=== PATIENT | female | born 1945 | race African-American/Black ===

== ENCOUNTER 2016-03-09 17:17 | Emergency (ER) | payer MEDICARE, OTHER ==
[~2016-03-09] VITALS: Ht 170.2 cm; Wt 80.0 kg
[~2016-03-09 17:17] MED LIST: ALBU0.08 NEB; ASPI325T PO; ATOR10TA15 PO; CLOP75TA PO; FISHCAP PO; FLOV110A INH; GLUCTAB PO; LEFL20 PO; METH2.5 PO; METO50TA PO; RANI150 PO
[2016-03-09 17:21] VITALS: BP 149/97; PULSE 122; RESP 24; TEMP 97.9; O2SAT 96
[2016-03-09] MEDS ORDERED: METH2.5T PO ×2 (18:13→19:37)
[2016-03-09] MEDS ORDERED: GLUCTAB PO ×2 (18:13→19:37)
--- NOTE | 2016-03-09 18:13 | RADRPT ---
EXAM DATE/TIME: 03/09/2016 17:43 [facility] COMPARISON: CHEST SINGLE AP, August 08, 2015, 21:32. INDICATIONS : Left anterior rib pain, fell MEDICAL HISTORY : None. SURGICAL HISTORY : Growth removed from sternum ENCOUNTER: Initial ACUITY: 3 days PAIN SCORE: 8/10 LOCATION: Left chest FINDINGS: Median sternotomy wires are noted status post cardiac surgery. Bibasilar atelectasis and/or minimal pulmonary vascular congestion is noted. The heart is normal in size. CONCLUSION: 1. Bibasilar atelectasis and/or minimal pulmonary vascular congestion. German Batista MD on March 09, 2016 at 18:00 Board Certified Radiologist. This report was verified electronically.
[2016-03-09 18:19] VITALS: BP 198/94; PULSE 102; RESP 20; O2SAT 99
[2016-03-09] MEDS ORDERED: ACETAMINOPHEN 325 MG TAB PO ONE (18:30)
[2016-03-09] MEDS ORDERED: METOPROLOL TARTRATE 50 MG TAB PO ONE (18:30)
--- NOTE | 2016-03-09 18:31 | PD ---
HPI Chief Complaint: Fall Time Seen by Provider: 18:00 Travel History International Travel<30 days: No Contact w/Intl Traveler<30days: No Traveled to known affect area: No History of Present Illness HPI Patient is a 71-year-old female who presents emergency for evaluation of left anterior rib pain. Patient states that she had in all 2 days ago on Thursday [place] She states that she was attempting to get out of bed when she fell forward landing on the floor. She denies any head injury or loss of consciousness. She denies any shortness of breath, back pain, neck pain, leg pain, hip pain. She denies any dizziness, chest pain, shortness of breath prior to the fall. She reports chronic neck and head pain as well as chronic joint pain secondary to rheumatoid arthritis. She denies any new or exacerbated pain. Patient went up [place] for approximately one [place] and did not take her home medications with her. At the time of the fall she had not taken Plavix or aspirin for several days. PFSH Past Medical History Hx Anticoagulant Therapy: Yes (PLAVIX) Arthritis: Yes Asthma: No Autoimmune Disease: No Blood Disorders: No Anxiety: Yes (PT DENIES) Depression: No Heart Rhythm Problems: No Cancer: No Cardiac Catheterization: Yes (PER PATIENT 1997 AND 2003 HERE AT [facility]) Cardiovascular Problems: Yes High Cholesterol: Yes Chemotherapy: No Chest Pain: Yes Congestive Heart Failure: No COPD: Yes Cerebrovascular Accident: No Diabetes: Yes Patient Takes Glucophage: Yes Diminished Hearing: Yes (LEFT SIDE [place]) Endocrine: Yes Gastrointestinal Disorders: Yes (H PYLORII) GERD: Yes (hx) Glaucoma: No Genitourinary: No Headaches: Yes Hepatitis: No Hiatal Hernia: No Hypertension: Yes Immune Disorder: No Implanted Vascular Access Dvce: No Kidney Stones: No Medical other: Yes (GERD; ANGIOEDEMA) Musculoskeletal: Yes Neurologic: Yes Psychiatric: Yes Reproductive: No Respiratory: Yes (PNEUMONIA) Immunizations Current: Yes Migraines: No Myocardial Infarction: Yes ([place] X 2) Radiation Therapy: No Renal Failure: No Seizures: No Sickle Cell Disease: No Sleep Apnea: No Thyroid Disease: No Ulcer: No Influenza Vaccination: Yes PNEUMOCCOCAL Vaccine (Year): 1 Menopausal: Yes : 5 Para: 2 Miscarriage: 3 Ectopic : Yes (X 1) Ovarian Cysts: Yes Tubal Ligation: Yes Past Surgical History Abdominal Surgery: Yes (ECTOPIC PREG) AICD: No Appendectomy: Yes Arteriovenous Shunt: No Body Medical Devices: STENTS Cardiac Surgery: Yes Cholecystectomy: No Coronary Artery Bypass Graft: No Coronary Stent: Yes (STENTS X 3) Ear Surgery: No Endocrine Surgery: No Eye Surgery: Yes (CATARACT SURGERY BILATERAL) Gynecologic Surgery: Yes (ONE OVARY REMOVED AND ONE FALLOPIAN TUBE REMOVED ) Insulin Pump: No Joint Replacement: No Oral Surgery: Yes (TEETH REMOVED) Pacemaker: No Tonsillectomy: Yes Other Surgery: Yes (BENIGN GROWTH REMOVED FROM STERNUM; CYSTS REMOVED FROM BILAT. BREASTS) Family History Family Myocardial Infarction: Yes (MOM) Social History Alcohol Use: No Tobacco Use: Yes (6 CIGARETTES) Substance Use: No Allergies-Medications (Allergen,Severity, Reaction): Coded Allergies: Contrast Media (Verified Allergy, Severe, Edema, 03/09/16) angioedema per pt Penicillin (Verified Allergy, Severe, Anaphylaxis, 03/09/16) Vasotec (Verified Allergy, Severe, Swelling, 03/09/16) Uncoded Allergies: EVERYTHING ON AND OFF..;ANGIODEMA... (Allergy, Severe, Anaphylaxis, 01/05/10 ) TAKES 60 MG PREDNISONE,150MG ZANTAC AND 50MG BENADRYL WHEN TONGUE BEGINS TO SWELL AND LIPS SWELL mycins (Allergy, Severe, 01/05/10) Reported Meds & Prescriptions Reported Meds & Active Scripts Active Atorvastatin (Atorvastatin Calcium) 10 Mg Tab 10 Mg PO HS Reported Methotrexate 2.5 Mg Tab 2.5 Mg PO Q7D Glucophage XR (Metformin HCl) 500 Mg Dolly 1,000 Mg PO BID With evening meal Metoprolol Tartrate 50 Mg Tab 50 Mg PO DAILY Clopidogrel (Clopidogrel Bisulfate) 75 Mg Tab 75 Mg PO DAILY Aspirin 325 Mg Tab 325 Mg PO DAILY Albuterol Neb (Albuterol Sulfate) 2.5 Mg/3 Ml Neb 2.5 Mg NEB Q4HR NEB PRN Review of Systems Except as stated in HPI: all other systems reviewed are Neg Eyes: No: Photophobia, Visual changes HENT: No: Headaches Cardiovascular: No: Chest Pain or Discomfort Respiratory: No: Shortness of Breath Gastrointestinal: No: Abdominal Pain Musculoskeletal: Positive: Myalgias, Pain (left anterior rib cage) Neurologic: No: Weakness, Dizziness, Syncope Physical Exam Narrative GENERAL: Overweight, well-developed, alert female. Resting comfortably in no acute distress. SKIN: Warm and dry. HEAD: Atraumatic. Normocephalic. EYES: Pupils equal and round. No scleral icterus. No injection or drainage. ENT: No nasal bleeding or discharge. Mucous membranes pink and moist. NECK: Trachea midline. No JVD. CARDIOVASCULAR: Regular rate and rhythm. No murmur appreciated. RESPIRATORY: No accessory muscle use. Clear to auscultation. Scattered expiratory wheezes noted. No increased work of breathing. GASTROINTESTINAL: Abdomen soft, non-tender, nondistended. Hepatic and splenic margins not palpable. MUSCULOSKELETAL: No obvious deformities. No clubbing. No cyanosis. No edema. Tenderness to palpation on left anterior chest wall just below the left breast, no crepitus noted, no skin changes noted. NEUROLOGICAL: Awake and alert. No obvious cranial nerve deficits. Motor grossly within normal limits. Normal speech. PSYCHIATRIC: Appropriate mood and affect; insight and judgment normal. Data Data Last Documented VS Vital Signs Date Time Temp Pulse Resp B/P Pulse Ox O2 Delivery O2 Flow Rate FiO2 03/09/16 18:19 102 20 198/94 99 Room Air 03/09/16 17:21 97.9 Orders Chest, Single Ap (03/09/16 ) Metoprolol Tartrate (Lopressor) (03/09/16 18:30) Acetaminophen (Tylenol) (03/09/16 18:30) MDM Medical Decision Making Medical Screen Exam Complete: Yes Emergency Medical Condition: Yes Interpretation(s) Vital Signs Date Time Temp Pulse Resp B/P Pulse Ox O2 Delivery O2 Flow Rate FiO2 03/09/16 18:19 102 20 198/94 99 Room Air 03/09/16 17:21 97.9 122 24 149/97 96 Room Air Differential Diagnosis Contusion versus fracture versus strain versus sprain versus other Narrative Course Patient is a 71-year-old female who presents emergency department for evaluation of left anterior rib pain after she sustained a mechanical fall 2 days ago while north. States that she has has not taken her medication all week , she states that she left at home because she forgot it. Denies any other complaints at this time, chest x-ray ordered. Patient placed on monitoring analyst and continuous pulse oximetry. Patient was tachycardic on arrival, her heart rate is now 102. Chest x-ray shows basilar atelectasis and/or minimal pulmonary vascular congestion. Patient will be home dose of metoprolol tartrate now. Vital signs reassessed, heart rate is 78, blood pressure is 159/86. Patient states that the only did she not take her blood pressure medicines for the last week but she is out of her blood pressure medications. Patient will be provided with prescription refills of her home medications, she is advised to establish care with a primary doctor for ongoing evaluation and management of her chronic health conditions. She is encouraged to maintain compliance with prescribed medications to avoid any further complications. Patient was encouraged to alternate heat and ice to the affected area, take acetaminophen as needed and as directed for pain. She is encouraged to return to emergency department for any new or worsening symptoms. She verbalized understanding of these instructions. Patient is stable for discharge. Diagnosis Primary Impression: Rib pain on left side Additional Impressions: Hypertension Qualified Code: I10 - Essential hypertension Encounter for medication refill Referrals: [facility] Patient Instructions: Chronic Hypertension (ED), General Instructions, Rib Contusion (ED) Additional Instructions: Establish care with a primary care provider or follow up at [facility] Return to emergency department for any new or worsening symptoms Take all medications as previously prescribed, refills have been provided for you You can alternate heat and ice to the affected area of pain Take [id number] acetaminophen as needed and as directed for pain Med/Other Pt SpecificInfo: Prescription(s) given Scripts Blood Glucose Test Strips 1 Sandhya Sandhya #60 EA .ROUTE DIRECTED Ref 0 Prov:Krysta Pimentel 03/09/16 Accu-Chek La Glucose Monitor 1 Mis Mis #1 KIT .ROUTE DIRECTED Ref 0 Prov:Krysta Pimentel 03/09/16 Methotrexate 2.5 Mg Tab2.5 Mg PO Q7D #4 TAB Ref 0 Prov:Krysta Pimentel 03/09/16 Metformin ER (Glucophage XR)500 Mg Taber1,000 Mg PO BID #60 TAB Ref 0 Prov:Krysta Pimentel 03/09/16 Atorvastatin 10 Mg Tab10 Mg PO HS #30 TAB Ref 3 Prov:Krysta Pimentel 03/09/16 Metoprolol Tartrate 50 Mg Tab50 Mg PO DAILY #30 TAB Ref 0 Prov:Krysta Pimentel 03/09/16 Clopidogrel 75 Mg Tab75 Mg PO DAILY #30 TAB Ref 0 Prov:Krysta Pimentel 03/09/16 Aspirin 325 Mg Sts490 Mg PO DAILY #30 TAB Ref 0 Prov:Krysta Pimentel 03/09/16 Albuterol Neb 2.5 Mg/3 Ml Neb2.5 Mg NEB Q4HR NEB PRN (SHORTNESS OF BREATH) #60 NEBULE Ref 0 Prov:Krysta Pimentel 03/09/16 Disposition: 01 DISCHARGE HOME Condition: Stable Krysta Pimentel Mar 09, 2016 18:31
[2016-03-09 19:00] VITALS: BP 159/83; PULSE 73; RESP 16; TEMP 97.9; O2SAT 95
[2016-03-09] MEDS ORDERED: METO50TA PO (19:37)
[2016-03-09] MEDS ORDERED: ASPI325T PO (19:37)
[2016-03-09] MEDS ORDERED: CLOP75TA PO (19:37)
[2016-03-09] MEDS ORDERED: ATOR10TA15 PO (19:37)
[2016-03-09] MEDS ORDERED: ALBU0.08 NEB (19:37)
[2016-03-09] MEDS ORDERED: BLOO1MIS29 (19:40)
[2016-03-09] MEDS ORDERED: BLOOD GLUCOSE T1 TES (19:40)
== END 2016-03-09 20:04 | disposition home or self-care (01) ==
LOC: NEPC 17:17
DX: R07.81 Pleurodynia (principal); I10 Essential (primary) hypertension; M06.9 Rheumatoid arthritis, unspecified; E78.00 Pure hypercholesterolemia, unspecified; E11.9 Type 2 diabetes mellitus without complications; Z76.0 Encounter for issue of repeat prescription; Z72.0 Tobacco use; Z79.84 Long term (current) use of oral hypoglycemic drugs; Z87.19 Personal history of other diseases of the digestive system; Z87.09 Personal history of other diseases of the respiratory system; Z87.39 Personal history of other diseases of the musculoskeletal system and connective tissue; Z86.69 Personal history of other diseases of the nervous system and sense organs; Z86.59 Personal history of other mental and behavioral disorders; W06.XXXA Fall from bed, initial encounter
CPT/HCPCS: 71010; 99284

== ENCOUNTER 2016-03-15 20:48 | Observation (INO) | payer MEDICARE, OTHER ==
[~2016-03-15] VITALS: Ht 170.2 cm; Wt 85.7 kg
[~2016-03-15 20:48] MED LIST changes: +BLOO1MIS29; +BLOOD GLUCOSE T1 TES; -FISHCAP PO; -FLOV110A INH; -LEFL20 PO; -METH2.5 PO; +METH2.5T PO; -RANI150 PO
[2016-03-15 20:52] VITALS: BP 152/75; PULSE 92; RESP 20; TEMP 98.5; O2SAT 96
[2016-03-15 21:08] VITALS: RESP 16; O2SAT 97
[2016-03-15] MEDS ORDERED: SODIUM CHLORIDE 0.9% FLUSH 5 ML FLUSH IVF PRN ×2 (21:15→23:15)
--- NOTE | 2016-03-15 21:40 | RADRPT ---
EXAM DATE/TIME: 03/15/2016 21:18 [facility] COMPARISON: CHEST SINGLE AP, March 09, 2016, 17:43. INDICATIONS : Chest Pain MEDICAL HISTORY : Chronic obstructive pulmonary disease. Cardiovascular disease. Hypertension. Diabetes mellitus type 2. SURGICAL HISTORY : Heart stents times three ENCOUNTER: Initial ACUITY: 1 day PAIN SCORE: 10/10 LOCATION: Left chest FINDINGS: Sternal wires are noted. There is mild interstitial edema with minimal cardiomegaly. There is no pn eumothorax. The portion of the bony skeleton visualized is unremarkable. CONCLUSION: Mild interstitial edema. Erik Solis MD FACR on March 15, 2016 at 21:38 Board Certified Radiologist. This report was verified electronically.
[2016-03-15 21:41] LABS: AUTOMATED NEUTROPHIL # 8.4 TH/MM3 (1.8-7.7); BASOPHIL # 0.1 TH/MM3 (0-0.2); BASOPHIL % 0.6 % (0.0-2.0); EOSINOPHIL # 0.1 TH/MM3 (0-0.4); HEMATOCRIT 39.1 % (35.0-46.0); HEMO FLAGS DIFF FINAL; LYMPH % 23.1 % (9.0-44.0); LYMPHOCYTE # 2.8 TH/MM3 (1.0-4.8); MEAN CELL VOLUME 78.9 FL (80.0-100.0); MEAN CORPUSCULAR HEMOGLOBIN 26.2 PG (27.0-34.0); MEAN CORPUSCULAR HGB CONC 33.2 % (32.0-36.0); MONO % 6.1 % (0.0-8.0); NEUT % 69.2 % (16.0-70.0); PLATELET COUNT 343 TH/MM3 (150-450); RED BLOOD COUNT 4.96 MIL/MM3 (4.00-5.30); RED CELL DISTRIBUTION WIDTH 18.2 % (11.6-17.2); WHITE BLOOD COUNT 12.1 TH/MM3 (4.0-11.0)
[2016-03-15 22:04] LABS: APTT (PATIENT) 28.5 SEC (24.3-30.1); PROTHROMBIN TIME - PATIENT 11.1 SEC (9.8-11.6)
--- NOTE | 2016-03-15 22:37 | PD ---
HPI Chief Complaint: Chest Pain Time Seen by Provider: 22:32 Travel History International Travel<30 days: No Contact w/Intl Traveler<30days: No Traveled to known affect area: No History of Present Illness HPI 71-year-old female that presents to the ED for evaluation of left-sided chest pain. Per patient she's had this since she had an injury last week. Patient states that the pain has not improved and seems to be worsening. She does have a history of significant heart disease. She states that today she had a severe episode in which she had severe debilitating pain on her left chest all the way to her head and numbness and tingling to her left arm. Lasted a few minutes. Per patient she felt short of breath the same time and she wasn't sure if this is related to the heart or not. Pain was 10 out of 10. She states that this was what made her concern and this is why she called the ambulance. Per patient she had a fall where she injured her left chest last . Per patient she landed on a piece of furniture. She does also hit her head at the time but she did not lose consciousness. Denies taking any blood thinners. She states that she's been taking her medications that were refilled for her on her visit last weekend but she states that the pain is not improving. She has been taking tylenol with minimal relief. She also has a history of rheumatoid arthritis and has chronic pain and states that she doesn't like taking pain medication because it makes her feel funny. Per patient nothing seems to make it better and she states that nothing seems to help. Per patient the pain also comes no matter what. Denies any headache that is different at this time, although she states that she has chronic headaches which is normal for her. Denies any blurry vision. Denies any other symptom. No abdominal pain. No nausea or vomiting. She does tell me that she has chronic pain in her joints secondary to rheumatoid arthritis but this has not changed. PFSH Past Medical History Hx Anticoagulant Therapy: Yes (PLAVIX) Arthritis: Yes Asthma: No Autoimmune Disease: No Blood Disorders: No Anxiety: Yes (PT DENIES) Depression: No Heart Rhythm Problems: No Cancer: No Cardiac Catheterization: Yes (PER PATIENT 1997 AND 2003 HERE AT [facility]) Cardiovascular Problems: Yes High Cholesterol: Yes Chemotherapy: No Chest Pain: Yes Congestive Heart Failure: No COPD: Yes Cerebrovascular Accident: Yes Diabetes: Yes Patient Takes Glucophage: Yes Diminished Hearing: Yes (LEFT SIDE [place]) Endocrine: Yes Gastrointestinal Disorders: Yes (H PYLORII) GERD: Yes (hx) Glaucoma: No Genitourinary: No Headaches: Yes Hepatitis: No Hiatal Hernia: No Hypertension: Yes Immune Disorder: No Implanted Vascular Access Dvce: No Kidney Stones: No Medical other: Yes (GERD; ANGIOEDEMA) Musculoskeletal: Yes Neurologic: Yes Psychiatric: Yes Reproductive: No Respiratory: Yes Immunizations Current: Yes Migraines: No Myocardial Infarction: Yes ([place] X 2) Radiation Therapy: No Renal Failure: No Seizures: No Sickle Cell Disease: No Sleep Apnea: No Thyroid Disease: No Ulcer: No Tetanus Vaccination: > 5 Years Influenza Vaccination: Yes PNEUMOCCOCAL Vaccine (Year): 1 Menopausal: Yes : 5 Para: 2 Miscarriage: 3 Ectopic : Yes (X 1) Ovarian Cysts: Yes Tubal Ligation: Yes Past Surgical History Abdominal Surgery: Yes (ECTOPIC PREG) AICD: No Appendectomy: Yes Arteriovenous Shunt: No Body Medical Devices: STENTS Cardiac Surgery: Yes Cholecystectomy: No Coronary Artery Bypass Graft: No Coronary Stent: Yes (STENTS X 3) Ear Surgery: No Endocrine Surgery: No Eye Surgery: Yes (CATARACT SURGERY BILATERAL) Gynecologic Surgery: Yes (ONE OVARY REMOVED AND ONE FALLOPIAN TUBE REMOVED ) Insulin Pump: No Joint Replacement: No Oral Surgery: Yes (TEETH REMOVED) Pacemaker: No Tonsillectomy: Yes Other Surgery: Yes (BENIGN GROWTH REMOVED FROM STERNUM; CYSTS REMOVED FROM BILAT. BREASTS) Family History Family Myocardial Infarction: Yes (MOM) Social History Alcohol Use: No Tobacco Use: Yes (6 CIGARETTES) Substance Use: No Allergies-Medications (Allergen,Severity, Reaction): Coded Allergies: Contrast Media (Verified Allergy, Severe, Edema, 03/15/16) angioedema per pt Penicillin (Verified Allergy, Severe, Anaphylaxis, 03/15/16) Vasotec (Verified Allergy, Severe, Swelling, 03/15/16) Uncoded Allergies: EVERYTHING ON AND OFF..;ANGIODEMA... (Allergy, Severe, Anaphylaxis, 01/05/10 ) TAKES 60 MG PREDNISONE,150MG ZANTAC AND 50MG BENADRYL WHEN TONGUE BEGINS TO SWELL AND LIPS SWELL mycins (Allergy, Severe, 01/05/10) Reported Meds & Prescriptions Reported Meds & Active Scripts Active Blood Glucose Test Strips 1 Sandhya Sandhya 1 Ea .ROUTE DIRECTED Accu-Chek La Glucose Monitor (Device) 1 Mis Mis 1 Kit .ROUTE DIRECTED Methotrexate 2.5 Mg Tab 2.5 Mg PO Q7D Glucophage XR (Metformin HCl) 500 Mg Dolly 1,000 Mg PO BID Atorvastatin (Atorvastatin Calcium) 10 Mg Tab 10 Mg PO HS Metoprolol Tartrate 50 Mg Tab 50 Mg PO DAILY Clopidogrel (Clopidogrel Bisulfate) 75 Mg Tab 75 Mg PO DAILY Aspirin 325 Mg Tab 325 Mg PO DAILY Albuterol Neb (Albuterol Sulfate) 2.5 Mg/3 Ml Neb 2.5 Mg NEB Q4HR NEB PRN Review of Systems Except as stated in HPI: all other systems reviewed are Neg Physical Exam Narrative GENERAL: SKIN: Warm and dry. HEAD: Atraumatic. Normocephalic. EYES: Pupils equal and round. No scleral icterus. No injection or drainage. ENT: No nasal bleeding or discharge. Mucous membranes pink and moist. NECK: Trachea midline. No JVD. CARDIOVASCULAR: Regular rate and rhythm. No murmurs, S3, S4. Chest pain is somewhat reproducible with touch and I do not see any sign of injury. RESPIRATORY: No accessory muscle use. Clear to auscultation. Breath sounds equal bilaterally. GASTROINTESTINAL: Abdomen soft, non-tender, nondistended. Hepatic and splenic margins not palpable. MUSCULOSKELETAL: Extremities without clubbing, cyanosis, or edema. No obvious deformities. Full range of motion of the upper and lower extremities bilaterally. 2+ pulses bilaterally. NEUROLOGICAL: Awake and alert. No obvious cranial nerve deficits. Motor grossly within normal limits. Five out of 5 muscle strength in the arms and legs. Normal speech. PSYCHIATRIC: Appropriate mood and affect; insight and judgment normal. Data Data Last Documented VS Vital Signs Date Time Temp Pulse Resp B/P Pulse Ox O2 Delivery O2 Flow Rate FiO2 03/15/16 21:08 97 Room Air 03/15/16 21:08 16 03/15/16 20:57 90 03/15/16 20:52 98.5 152/75 Orders Electrocardiogram (03/15/16 21:04) Basic Metabolic Panel (Bmp) (03/15/16 21:04) Ckmb (Isoenzyme) Profile (03/15/16 21:04) Complete Blood Count With Diff (03/15/16 21:04) Magnesium (Mg) (03/15/16 21:04) Prothrombin Time / Inr (Pt) (03/15/16 21:04) Act Partial Throm Time (Ptt) (03/15/16 21:04) Troponin I (03/15/16 21:04) Chest, Single Ap (03/15/16 21:04) Ecg Monitoring (03/15/16 21:04) Bilateral Bp Monitoring (03/15/16 21:04) Iv Access Insert/Monitor (03/15/16 21:04) Oximetry (03/15/16 21:04) Oxygen Administration (03/15/16 21:04) Sodium Chloride 0.9% Flush (Ns Flush) (03/15/16 21:15) Acetamin-Hydrocod 325-5 Mg (Superior 5-325 (03/15/16 23:00) Acetaminophen Inj (Ofirmev Inj) (03/15/16 23:00) Labs Laboratory Tests Test 03/15/16 20:50 White Blood Count 12.1 TH/MM3 Red Blood Count 4.96 MIL/MM3 Hemoglobin 13.0 GM/DL Hematocrit 39.1 % Mean Corpuscular Volume 78.9 FL Mean Corpuscular Hemoglobin 26.2 PG Mean Corpuscular Hemoglobin 33.2 % Concent Red Cell Distribution Width 18.2 % Platelet Count 343 TH/MM3 Mean Platelet Volume 7.6 FL Neutrophils (%) (Auto) 69.2 % Lymphocytes (%) (Auto) 23.1 % Monocytes (%) (Auto) 6.1 % Eosinophils (%) (Auto) 1.0 % Basophils (%) (Auto) 0.6 % Neutrophils # (Auto) 8.4 TH/MM3 Lymphocytes # (Auto) 2.8 TH/MM3 Monocytes # (Auto) 0.7 TH/MM3 Eosinophils # (Auto) 0.1 TH/MM3 Basophils # (Auto) 0.1 TH/MM3 CBC Comment DIFF FINAL Differential Comment Prothrombin Time 11.1 SEC Prothromb Time International 1.0 RATIO Ratio Activated Partial 28.5 SEC Thromboplast Time Sodium Level 139 MEQ/L Potassium Level 4.0 MEQ/L Chloride Level 103 MEQ/L Carbon Dioxide Level 28.0 MEQ/L Anion Gap 8 MEQ/L Blood Urea Nitrogen 9 MG/DL Creatinine 0.84 MG/DL Estimat Glomerular Filtration 81 ML/MIN Rate Random Glucose 141 MG/DL Calcium Level 9.4 MG/DL Magnesium Level 1.9 MG/DL Total Creatine Kinase 47 U/L Troponin I LESS THAN 0.02 NG/ML MDM Medical Decision Making Medical Screen Exam Complete: Yes Emergency Medical Condition: Yes Medical Record Reviewed: Yes Interpretation(s) CBC Diagram 03/15/16 20:50 EKG showed sinus rhythm with no sign of acute arrhythmia or ischemia read by me and attending. Chest x-rays show mild interstitial edema otherwise unremarkable. troponin and CKMB negative BMP Diagram 03/15/16 20:50 Differential Diagnosis Chest pain versus a typical chest pain versus contusion versus rib fracture versus cardiac chest pain versus ACS Narrative Course 71-year-old female that presents to the ED for evaluation of left-sided chest pain. Patient was properly examined and was found to have signs and symptoms consistent appears to be chest pain. Appears to be musculoskeletal but she is concerned about the severe episode she had before coming. She does have a history of significant heart disease and risk factors including diabetes, hypertension, smoking and family history of heart disease as well as recent noncompliance as she ran out of her meds. Case was discussed with my attending who recommends cardiac workup. Labs and imaging were done. Patient was initially offered pain medication but she declined at this time. Labs and imaging showed no sign of acute disease. Case was discussed in my attending as well as all laboratory findings and EKG findings were made aware to her. Dr. Cifuentes recommends admission to the chest pain center for cardiac workup secondary to her risks factors and the episode of severe pain. This was discussed with the patient who agrees to admission. I offered patient IV tylenol to help with her pain as she does not want any narcotic pain meds. She did agree to the tylenol. Patient was admitted to the chest pain center. Procedures EKG Prior to Arrival: No Diagnosis Primary Impression: Chest pain Qualified Code: R07.9 - Chest pain, unspecified type Admitting Information Admitting Physician Requests: Jaiden Godwin Mar 15, 2016 22:37
[2016-03-15 22:43] LABS: ANION GAP 8 MEQ/L (5-15); BLOOD UREA NITROGEN 9 MG/DL (7-18); CHLORIDE 103 MEQ/L (98-107); GLOMERULAR FILTRATION RATE 81 ML/MIN (>89); MAGNESIUM 1.9 MG/DL (1.5-2.5); SODIUM (NA) 139 MEQ/L (136-145)
[2016-03-15 22:48] LABS: CREATINE KINASE 47 U/L (26-192)
[2016-03-15] MEDS ORDERED: ACETAMINOPHEN 1000 MG/100 ML VIAL IV ONE (23:00)
[2016-03-15] MEDS ORDERED: ACETAMINOPHEN/HYDROcodone 325 MG/5 MG TAB PO ONE (23:00)
[2016-03-15] MEDS ORDERED: ONDANSETRON HCL 4 MG/2 ML VIAL IV PRN (23:15)
[2016-03-15] MEDS ORDERED: ACETAMINOPHEN 500 MG CPLT PO PRN (23:15)
[2016-03-15 23:37] VITALS: BP 134/77; PULSE 84; RESP 18; O2SAT 93
[2016-03-16] VITALS (10 sets, daily range): BP systolic 105–153; BP diastolic 55–72; PULSE 77–102; RESP 18–20; TEMP 95.5–98.1; O2SAT 94–100
[2016-03-16] MEDS ORDERED: TEMAZEPAM 15 MG CAP PO PRN (01:00)
[2016-03-16] MEDS ORDERED: RESP: ALBUTEROL 2.5 MG/3 ML NEB (PRN) NEB ×2 (01:00→10:15)
[2016-03-16] MEDS ORDERED: ACETAMINOPHEN/HYDROcodone 325 MG/7.5 MG TAB PO PRN (01:00)
[2016-03-16] MEDS: ATORVASTATIN 10 MG TAB PO SCH ×2 (01:22→21:31)
[2016-03-16 03:35] LABS: INDIRECT BILIRUBIN 0.2 MG/DL (0.0-0.8); TOTAL BILIRUBIN ADULT 0.3 MG/DL (0.2-1.0)
[2016-03-16] MEDS: CLOPIDOGREL 75 MG TAB PO SCH (08:59)
[2016-03-16] MEDS: SODIUM CHLORIDE 0.9% FLUSH 5 ML FLUSH IVF SCH ×2 (09:00→21:32)
[2016-03-16] MEDS ORDERED: METOPROLOL TARTRATE 50 MG TAB PO SCH (09:00)
[2016-03-16] MEDS ORDERED: KETOROLAC TROMETHAMINE 30 MG/ML (IVP) VIAL IV PUSH ONE (10:15)
[2016-03-16 11:27] LABS: HEMOGLOBIN A1a 1.4 %; HEMOGLOBIN A1b 1.1 %; HEMOGLOBIN Ao 83.4 %; HEMOGLOBIN F 1.6 %; HEMOGLOBIN LA1C 1.8 %; HEMOGLOBIN P3 3.7 %
[2016-03-16] MEDS: RESP: ALBUTEROL 2.5 MG/3 ML NEB (SCH) NEB ×3 (11:40→20:20)
--- NOTE | 2016-03-16 12:27 | EKG ---
Date Performed: 03/15/2016 Time Performed: 21:55:54 PTAGE: 71 years EKG: Sinus rhythm MINIMAL VOLTAGE CRITERIA FOR LVH, CONSIDER NORMAL VARIANT POSSIBLE INFERIOR MYOCARDIAL INFARCTION AB NORMAL ECG PREVIOUS TRACING : 08/10/2015 18.54 DOCTOR: Juancarlos Quinn Interpretating Date/Time 03/16/2016 12:25:36
--- NOTE | 2016-03-16 12:36 | EKG ---
Date Performed: 03/15/2016 Time Performed: 23:48:32 PTAGE: 71 years EKG: Sinus rhythm NORMAL ECG PREVIOUS TRACING : 03/15/2016 21.55 DOCTOR: Juancarlos Quinn Interpretating Date/Time 03/16/2016 12:36:27
--- NOTE | 2016-03-16 12:54 | EKG ---
Date Performed: 03/16/2016 Time Performed: 02:52:20 PTAGE: 71 years EKG: Sinus rhythm MINIMAL VOLTAGE CRITERIA FOR LVH, CONSIDER NORMAL VARIANT PROBABLE INFERIOR MYOCARDIAL INFARCTION AB NORMAL ECG PREVIOUS TRACING : 03/15/2016 23.48 DOCTOR: Juancarlos Quinn Interpretating Date/Time 03/16/2016 12:53:24
[2016-03-16] MEDS ORDERED: REGADENOSON INJ 0.4 MG/5 ML SYR ONE (15:49)
--- NOTE | 2016-03-16 16:50 | RADRPT ---
EXAM DATE/TIME: 03/16/2016 15:03 [facility] COMPARISON: MYOCARDIAL PERF PHARM SPECT, GATED W/EF, August 10, 2015, 12:06. INDICATIONS : Left sided chest pain radiating to left arm for 1 week. Myocardial infarction, cardiac stents plac ed and cardiac cath. Angina. Congestive heart failure. DOSE: 25.9 mCi Tc99m Myoview at stress. 8.1 mCi Tc99m Myoview at rest. 0.4 mg Lexiscan STRESS SYMPTOMS: Stomach pain and headache. EJECTION FRACTION: > 70% MEDICAL HISTORY : Hypertension. Current smoker. SURGICAL HISTORY : Tubal ligation. Coronary artery stent. 1 ovary removed. ENCOUNTER: Initial ACUITY: 1 week PAIN SCALE: 10/10 LOCATION: Left chest TECHNIQUE: The patient underwent pharmacologic stress with infusion of prescribed dose. Continuous ECG tracing was monitored during stress. Gated SPECT imaging was performed after stress and conventional SPECT i maging was performed at rest. The examination was performed on a SPECT/CT scanner, both attenuation and non-corrected datasets were reviewed. FINDINGS: Moderate gut activity does obscure the inferior wall. The best perfused wall is the anterior wall followed by the septum. There is minimal redistribution in the mid anteroseptal region. There is normal wall motion ejection fraction of greater than 70%. CONCLUSION: Minimal stress-induced ischemia mid anteroseptal region RISK CATEGORY: Low (<1% Annual Mortality Rate) Erik Solis MD FACR on March 16, 2016 at 16:46 Board Certified Radiologist. This report was verified electronically.
--- NOTE | 2016-03-16 17:01 | TR ---
Date Performed: 03/16/2016 Time Performed: 15:51:01 DOCTOR: Juancarlos Quinn DRUG LIST: CLINICAL HISTORY: CHEST PAIN REASON FOR TEST: REASON FOR ENDING: OBSERVATION: CONCLUSION: Lexiscan stress test was performed under standard four minute protocol. Radionuclide was injected one minute prior to ending the test. The patient was asymptomatic. No electrocardiograp hic abnormalities were present to suggest ischemia. Recovery was quick and uneventful. Nuclear imagin g and interpretation are pending. COMMENTS:
[2016-03-16] MEDS ORDERED: DEXTROSE 50% IN WATER 50 ML VIAL(D50) IV PUSH PRN (18:00)
[2016-03-16] MEDS ORDERED: GLUCAGON 1 MG/ML VIAL OTHER PRN (18:00)
[2016-03-16] MEDS: PANTOPRAZOLE SOD 40 MG DELAYED RELEASE TAB PO SCH (18:12)
[2016-03-16] MEDS: METOPROLOL TARTRATE 50 MG TAB PO SCH (21:31)
[2016-03-16] MEDS: INSULIN ASPART SUPPLEMENTAL SCALE SQ SCH (21:32)
[2016-03-17] VITALS (8 sets, daily range): BP systolic 118–128; BP diastolic 65–78; PULSE 75–92; RESP 16–20; TEMP 97.5–98.5; O2SAT 93–98
[2016-03-17] MEDS: RESP: ALBUTEROL 2.5 MG/3 ML NEB (SCH) NEB ×3 (04:19→21:35)
[2016-03-17] MEDS ORDERED: diphenhydrAMINE HCL 50 MG/ML VIAL IV PUSH ONE ×2 (05:00)
[2016-03-17] MEDS ORDERED: PRED10PA PO (05:06)
[2016-03-17] MEDS ORDERED: PRED5PAK PO (05:06)
[2016-03-17] MEDS ORDERED: predniSONE 20 MG TAB PO ONE (05:30)
[2016-03-17] MEDS ORDERED: methylPREDNISolone SOD SUCC 125 MG/2 ML VIAL IV PUSH ONE (06:45)
[2016-03-17] MEDS: INSULIN ASPART SUPPLEMENTAL SCALE SQ SCH ×4 (07:00→22:22)
--- NOTE | 2016-03-17 08:57 | HHI.PR ---
Subjective Remarks Patient seen in follow up for chest pain. Abnormal nuclear stress test. Overnight the patient had a recurrence of angioedema. She reports that since her 20s she has had angioedema with tongue swelling on and off. It can happen though a couple of times a week. Other times she will go 7 months without any problems. Patient was given Solu-Medrol and Benadryl. Currently she reports that her tongue is feeling better. She denies difficulty with breathing or any feeling of throat swelling. She denies chest pressure currently. Objective Vitals Vital Signs Date Time Temp Pulse Resp B/P Pulse Ox O2 Delivery O2 Flow Rate FiO2 03/17/16 07:59 98.2 80 18 119/65 93 03/17/16 04:14 97.5 78 20 121/68 95 03/17/16 00:08 75 03/16/16 23:55 97.6 77 20 105/55 95 03/16/16 20:22 100 Nasal Cannula 2.00 03/16/16 20:02 79 03/16/16 19:03 98.0 85 20 153/72 95 03/16/16 13:27 20 03/16/16 12:00 95.5 84 18 123/69 97 03/16/16 08:42 95 Nasal Cannula 2.00 I/O 03/16/16 03/16/16 03/16/16 03/17/16 03/17/16 03/17/16 07:00 15:00 23:00 07:00 15:00 23:00 Intake Total 500 ml Balance 500 ml Intake Oral 500 ml # Voids 2 5 1 # Bowel Movements 0 Result Diagram: 03/15/16204903/15/162049 Imaging Last Impressions Myocardial Perfusion Scan Nuc Med 03/16/16 0000 Signed Impressions: Service Date/Time: Wednesday, March 16, 2016 15:03 - CONCLUSION: Minimal stress-induced ischemia mid anteroseptal region RISK CATEGORY: Low (<1%% Annual Mortality Rate) Erik Solis MD FACR Chest X-Ray 03/15/162103 Signed Impressions: Service Date/Time: Tuesday, March 15, 2016 21:18 - CONCLUSION: Mild interstitial edema. Erik Solis MD FACR Objective Remarks GENERAL: This is a well-nourished, well-developed patient, in no apparent distress. Speech somewhat difficult to understand due to tongue swelling HEENT: There is marked swelling of the glands under the tongue. The tongue is also swollen. I am unable to visualize the pharynx. CARDIOVASCULAR: Normal rate and regular rhythm without murmurs, gallops, or rubs. RESPIRATORY: Good respiratory efforts. Breath sounds equal and clear to auscultation bilaterally. GASTROINTESTINAL: Abdomen soft, non-tender, non-distended. Normal active bowel sounds MUSCULOSKELETAL: Patient is tender over the left rib below the breast. Extremities without cyanosis, or edema. NEURO: Alert & Oriented x4 to person, place, time, situation. Moves all ext x4 PSYCH: Appropriate mood and affect. A/P Assessment and Plan 71-year-old female with: Chest pain, abnormal nuclear stress test: Patient initially admitted to the chest pain center. Although pain appear to be musculoskeletal in nature. She had a fall and hit her chest about a week and a half ago. However her nuclear stress test is abnormal. - Patient with known CAD and stents. Continue aspirin and Plavix. - Cardiology consulted. Angioedema/significant tongue swelling: This has been a recurrent issue for this patient since she was in her 20s. Sometimes happen a few times a week. She would often be treated with steroids. Never intubated. She reports that she is allergic to many things and does not know the trigger. Her tongue swelling is currently still impressive and still at risk for respiratory compromise. - Continue Solu-Medrol IV for now 40 mg Q8Hrs - Monitor the patient closely. - Admit the patient to [facility]. Diabetes: Expect worsening and blood glucose due to steroid above. -Diabetic diet. Sliding scale insulin with Accu-Cheks. Hold metformin. Rheumatoid arthritis: On methotrexate every 7 days and 5 mg of prednisone daily. - Currently on steroid as above. DVT prophylaxis. SCDs Discharge Planning Admit the patient to the [facility], awaiting Cardiology evaluation for abnormal stress test, treat angioedema with close monitoring. Cary Hutchinson MD Mar 17, 2016 08:57
--- NOTE | 2016-03-17 09:39 | MH ---
cc: RACHAEL LOOMIS DATE OF ADMISSION 03/17/2016 DATE OF 1945 CHIEF COMPLAINT Chest pain. HISTORY OF PRESENT ILLNESS This is a 71-year patient with known coronary artery disease presents to the emergency room for sudden discomfort as though someone was sitting on her chest. Location in her substernal area. Severity was 7/10. There is radiation to her left jaw and her left shoulder. Duration was approximately 10-15 minutes. Associated symptoms included it was difficult to breathe. It did not hurt to breathe necessarily. No known precipitating factors and no relieving factors per se. The patient has also fallen recently on her left side and has some left-sided rib pain. The patient is very adamant that these two pains are not related and has two separate pain apart from one another. The patient is a poor historian. PAST MEDICAL HISTORY Includes: 1. COPD. 2. Type 2 diabetes mellitus. 3. Rheumatoid arthritis. 4. Osteoarthritis. 5. Chronic pain. 6. Chronic headaches. 7. Two heart attacks and stent placement. PAST SURGICAL HISTORY 1. Tubal ligation. 2. Cataracts. 3. Sternotomy with a resection. FAMILY HISTORY Noncontributory for any early onset cardiovascular disease. Mother noted to have cardiovascular disease, however. SOCIAL HISTORY She lives with her daughter. She continues to smoke although was unable to tell me how much she smoked, states that it varies from day to weeks how much she smokes, and she has smoked since age 15. Denies any alcohol or illegal drug use. Has known diabetes, hyperlipidemia. Denies hypertension. PAST CARDIAC TESTING She was actually admitted to the hospital 08/15 and note at that time she did have a nuclear stress test which showed no ischemia and ejection fraction of 52%. Per EMR on 01/08/2004 she had a stent placed in her mid RCA with angioplasty. 06/27/2004 she had diffuse moderate coronary artery disease with a totally occluded small distal circumflex that filled collaterally. On 08/16/2004 mild to moderate plaquing of her anterior descending and her right coronary arteries. She does not follow with a tube coater. She had an echocardiogram 2014 which showed slight mitral regurgitation and mid to moderate sclerosis. MEDICATIONS Current medications: She states she changes her medications according to how her body feels, as what she should take. Currently she is taking or recently started back takin. Metoprolol tartrate 50 mg daily. 2. Metformin 1000 mg b.i.d. 3. And aspirin full strength. She has quit taking methotrexate. Plavix and atorvastatin. REVIEW OF SYSTEMS GENERAL: She reports chronic pain, chronic malaise. No fevers, recent illness. Has recently traveled from [place], she was visiting up there at that time she did fall and injured her left side of her chest. HEENT: Reports chronic headaches for years. No visual changes. No dysphagia. CARDIOVASCULAR: No current chest pain, otherwise as stated above. RESPIRATORY: No current shortness of breath. Has some difficulty breathing during chest pain episode. Reports intermittent wheezing, she relates this to her life long smoking habit. No hemoptysis. ABDOMEN: No bowel changes, diarrhea or constipation, pain, distention, nausea or vomiting. GENITOURINARY: No dysuria. EXTREMITIES: No lower leg edema or pain. MUSCULOSKELETAL: Reports discomfort in her left anterior chest with movement and on palpation. NEUROLOGICAL: No difficulty with balance, motor or sensory deficits, loss of consciousness or syncopal episode. PSYCHIATRIC: No anxiety or depression. SKIN: She has no concerning lesions or rashes. PHYSICAL EXAMINATION VITAL SIGNS: Temperature 98, pulse 81, respiratory rate 20, blood pressure 134/70. Pulse oximetry 95% on room air. GENERAL: She is alert, well-nourished, well-developed in no acute distress. -Thai female who is a poor historian, however, is alert and oriented times three. HEENT: Head is normocephalic, atraumatic. Eyes, sclerae are clear. Pupils are equal and round. NECK: Supple. Trachea is midline. CARDIOVASCULAR: Regular rate and rhythm without murmurs, rubs, or gallops. No JVD. S1-S2. No S3, S4. No carotid bruits appreciated. LUNGS: She has diffuse wheezing and a prolonged expiratory phase. Wheezing is more expiratory. There are no crackles or rhonchi. Symmetrical chest rise. She is nonlabored. Able to speak in full sentences. ABDOMEN: Soft. Nontender. Nondistended. No masses. Positive bowel tones. EXTREMITIES: Pulses +2 times four. No dependent edema. MUSCULOSKELETAL: Normal tone times four. She is tender in her left anterior chest, more so under her breast and also tender upon palpation in her epigastric area. There is no obvious deformity. NEUROLOGICAL: Cranial nerves II through XII grossly intact. Motor strength 5/5. PSYCHIATRIC: She is alert and oriented times three. Appropriate to mood, insight and judgment. SKIN: Normal turgor, normal texture. Warm and dry. LABORATORY DATA CBC has a WBC of 12.6, MCV of 78.9 and MCH of 26.2, otherwise unremarkable. Chemistry has a random glucose of 141, otherwise unremarkable. Three sets of cardiac enzymes are all negative. Hemoglobin A1c was completed at 6.4. Coagulation is unremarkable. IMAGING Chest x-ray read by radiologist showed mild interstitial edema. Three EKGs show normal sinus rhythm with minimal voltage criteria for LVH. ASSESSMENT/PLAN 1. Chest pain. The patient has been admitted to the chest pain center. She was ruled out with three sets of EKGs, cardiac enzymes, was monitored overnight. She has also seen and evaluated by Dr. Rachael Loomis. The patient seemed appropriate for a chemical stress test as she is experiencing two separate pains and with her history of cardiovascular disease and being a poor historian, Lexiscan was completed. 2. Tobacco use. She has been strongly encouraged and stressed the importance of tobacco cessation. Discussed and counseled the patient to quit smoking. Dictated by: SRINIVASAN Polanco MD HEVER Acosta/MEGAN /5:46 PM /9:37 AM
[2016-03-17] MEDS: SODIUM CHLORIDE 0.9% FLUSH 5 ML FLUSH IVF SCH ×2 (10:40→22:07)
[2016-03-17] MEDS: METOPROLOL TARTRATE 50 MG TAB PO SCH ×2 (10:40→22:07)
[2016-03-17] MEDS: CLOPIDOGREL 75 MG TAB PO SCH (10:40)
[2016-03-17] MEDS: PANTOPRAZOLE SOD 40 MG DELAYED RELEASE TAB PO SCH (10:40)
[2016-03-17] MEDS ORDERED: diphenhydrAMINE HCL 50 MG/ML VIAL ONE (11:03)
[2016-03-17] MEDS ORDERED: MIDAZOLAM HCL 2 MG/2 ML VIAL ONE (11:03)
[2016-03-17] MEDS ORDERED: HYDROCORTISONE SOD SUCCINATE 100 MG VIAL ONE (11:03)
[2016-03-17] MEDS ORDERED: FAMOTIDINE 20 MG/2 ML VIAL ONE (11:03)
[2016-03-17] MEDS ORDERED: HEPARIN SODIUM - IV 10,000 UNITS/10 ML VIAL ONE (11:40)
[2016-03-17] MEDS ORDERED: ADENOSINE STRESS TEST INJ 90 MG/30 ML VIAL ONE (11:45)
[2016-03-17] MEDS ORDERED: IOHEXOL 350 MG/ML 100 ML BTL (for Cath Lab) OTHER ONE (12:00)
[2016-03-17] MEDS ORDERED: CLOPIDOGREL 300 MG TAB ONE (12:53)
--- NOTE | 2016-03-17 13:37 | MB ---
cc: SARAH MINAYA DATE OF CONSULTATION: 03/17/2016 DATE OF : 1945 REASON FOR CONSULTATION Chest pain. HISTORY OF PRESENT ILLNESS 71-year-old female with past medical history significant for coronary artery disease status post stents in the past and diabetes that presented to the hospital complaining of left-sided chest discomfort that radiates to her left arm and head associated with some shortness of breath. Of note, she had a recent fall 2 weeks ago when visiting her sister where she slipped and fell and hit her left arm and chest; however, did not seek medical attention at that time. Also, she recently stopped all her medications because "I was tired off all of them." Here in the emergency department she was admitted to the chest pain center where an EKG was unremarkable. Troponins were 0.02, 0.04, and 0.03. She underwent an myocardial perfusion stress test which showed minimal stress-induced ischemia in the mid anterior wall, low-risk, which is changed from her previous MPI done in 2016. Thus cardiology has been consulted for further management and evaluation. Currently she states that she still feels this left-sided chest discomfort; however, she also has this musculoskeletal pain below her breast. REVIEW OF SYSTEMS Negative except for what is mentioned in the HPI. PAST MEDICAL HISTORY 1. COPD. 2. Type 2 diabetes. 3. Osteoarthritis. 4. Chronic pain. 5. Chronic headaches. 6. CAD status post stents in the past. PAST SURGICAL HISTORY 1. Tubal ligation. 2. Cataract. FAMILY HISTORY Noncontributory. SOCIAL HISTORY She is an active smoker. Denies alcohol or illegal drug use. Cardiac home medications: 1. Metoprolol 50 mg daily. 2. Aspirin 325. 3. Plavix 75. 4. Lipitor 10. PHYSICAL EXAMINATION VITAL SIGNS: Temperature 97.6, respiratory rate 18, pulse 80, blood pressure 119/65. O2 sat 93% on room air. GENERAL: She is awake, alert, oriented x3 in no acute distress. NECK: No JVD. No carotid bruits. HEART: Normal S1, S2. No murmurs, rubs or gallops appreciated. She does have tenderness in the left fifth intercostal space. LUNGS: Clear to auscultation bilaterally. No wheezes, rhonchi or rales. ABDOMEN: Soft, nontender, nondistended, with positive bowel sounds. EXTREMITIES: No cyanosis or edema. LABORATORY CBC: Hemoglobin 13, hematocrit 39, platelet count 343. INR 1. Chemistries: Sodium 139, potassium 4, chloride 103, bicarb 28, BUN 9, creatinine 0.84. Troponins less than 0.02, 0.04 and 0.03. IMAGING Chest x-ray: There is mild interstitial edema. Myocardial perfusion shows minimal stress-induced ischemia in the mid anteroseptal region with a low risk. EKG EKG: Normal sinus rhythm. The EKG portion of the stress test shows no evidence of ischemia. Echocardiogram in the system done in 2011 shows an EF of 60%. According to report she has a left heart cath. She had a stent in the mid RCA. She has a totally occluded small left circumflex artery that if filled by collaterals, and she has some plaques in the mid LAD. ASSESSMENT AND PLAN 71-year-old female with known coronary artery disease status post stents in the past, noncompliant with medication that presents with angina with a positive stress test. She remains hemodynamically stable and chest pain has somewhat improved. She is now complaining of a more musculoskeletal chest pain in the setting of the recent fall. There is no sign of fractures on the x-ray. At this point given her risk factors and history of CAD I think it would be reasonable to offer her to undergo a left heart cath/intervention to further assess progression of coronary artery disease. I have talked to her regarding her compliance issues and she has reported she is conscious of that and she wants to be compliant from now on. The risks and benefits of left heart cath/ intervention including but not limited to neurovascular trauma, bleeding, acute kidney injury, emergent bypass surgery, stroke and have been explained to the patient and she is willing to proceed. Will schedule left heart cath today. Please can keep n.p.o. and continue metoprolol, Lipitor and Plavix. Start aspirin and long-acting nitrate, Imdur 30 mg p.o. daily. Thank you for the opportunity to participate in the care of this patient. Will follow with you. MD SHARLENE Mane/BT /10:01 AM /1:17 PM ALDO
[2016-03-17] MEDS: methylPREDNISolone SOD SUCC 40 MG/1 ML VIAL IV PUSH SCH ×2 (14:00→22:07)
[2016-03-17] MEDS: ASPIRIN EC 81 MG TABEC PO SCH (19:17)
[2016-03-17] MEDS ORDERED: ATORVASTATIN 80 MG TAB PO SCH (21:00)
--- NOTE | 2016-03-17 21:35 | MA ---
cc: ELENISARAH Valdez DATE 03/17/2016 DATE OF 1945 PROCEDURE PERFORMED 1. Left heart catheterization. 2. Selective right and left coronary angiography. 3. Left ventricular pressure recordings. 4. Successful PCI to LAD, 5. Succesful POBA to RCA and PDA ISAR INDICATION Chest pain, unstable angina. Positive stress test. DESCRIPTION OF PROCEDURE Consent signed. The patient was brought into the cardiac hot plate plywood press laborer in fasting state. Right groin and prepped in sterile fashion. Using 1% lidocaine for local anesthesia and micropuncture kit a 5-Cambodian sheath was inserted into the right common femoral artery. Then selective right and left coronary angiography was performed with a JR-4 and JL-4 diagnostic catheter. Angiography was performed in multiple views. The JR catheter was introduced into the left ventricle. LV hemodynamics were recorded followed by pullback. There was a significant lesion in-stent restenosis in the RCA and PDA which we decided to intervene. The 5-Cambodian groin sheath was changed for a 6-Cambodian sheath. IV heparin was given, weight-based IV heparin. The right coronary artery was engaged with a JR-4 guide. The vessel was wired with a run-through wire which was anchored distally in the PDA. Then we POBA the to the distal PDA stent with a 2.5 12 balloon which was inflated to high atmospheres, followed by POBA to the mid-RCA with a 4x12mm noncompliant. Final angiographic views revealed good stent apposition and expansion with ABIGAIL III flow. Then we proceeded to FFR/iFFR an LAD lesion. The left main was engaged with an EBU 3.5 guide, over the wire the vessel was wired with a pressure wire and then we performed IFR. The iFR result 0.87 which is within the greyzone of ischemia thus we proceeded to do an FFR to further stratify the lesion. FFR was 0.79 which is positive for ischemia. This area was first predilated with a 2.5 12 balloon followed by insertion and deployment of a 3-0 x 22 drug-eluting stent. Final angiographic views revealed good stent apposition and expansion with ABIGAIL III flow. The patient tolerated the procedure well without complications. Estimated blood loss less than 50 mL. Total 180 cc. The right groin access site was closed with a Perclose device. ANGIOGRAPHIC RESULTS Left ventricle. The left ventricle pressure was 132/7 with LVEDP of 10. The aortic pressure was 133/68 with a mean of 96. There was no gradient upon pullback from the left ventricle to the aorta. ANGIOGRAPHIC RESULTS The right coronary artery is a dominant vessel giving off the PDA. There is a distal PDA stent which has ISR of 20% and also a mid stent that also has ISR of 80%. The vessel is calcified throughout with minimal irregularity and has ABIGAIL III flow. The left main is patent. It has nonobstructive CAD. The left anterior descending artery is transapical. It has a 70% lesion between the first and second septal, the first diagonal bifurcates into and has minimal luminal irregularities with nonobstructive CAD. The left circumflex artery is a small vessel. It is diseased throughout. It has a 60% lesion proximally and the first OM is small and diffusely diseased. CONCLUSION 1. Successful PCI to mid LAD with a DARIA. 2. Successful POBA to PDA ISAR 3. Successful POBA to mid RCA ISAR. RECOMMENDATIONS Continue dual antiplatelet therapy with aspirin and Plavix, as well as aggressive medical management for coronary artery disease which should include aspirin, beta blockers, DINESH inhibitors, high-dose statins and long-acting nitrates. Encourage smoking cessation. She should have the echocardiogram to assess LV systolic function before being discharged home. MD SHARLENE Mane/MEGAN /12:45 PM /9:06 PM ALDO
[2016-03-18] VITALS (20 sets, daily range): BP systolic 103–132; BP diastolic 60–71; PULSE 68–98; RESP 16–20; TEMP 98–98.8; O2SAT 95–96
[2016-03-18] MEDS: RESP: ALBUTEROL 2.5 MG/3 ML NEB (SCH) NEB ×3 (04:23→15:29)
[2016-03-18] MEDS: INSULIN ASPART SUPPLEMENTAL SCALE SQ SCH ×2 (06:25→11:00)
[2016-03-18] MEDS: methylPREDNISolone SOD SUCC 40 MG/1 ML VIAL IV PUSH SCH ×2 (06:26→14:00)
[2016-03-18] MEDS ORDERED: ISOSORBIDE MONONITRATE 30 MG TAB PO SCH (07:00)
[2016-03-18] MEDS: ASPIRIN EC 81 MG TABEC PO SCH (08:46)
[2016-03-18] MEDS: PANTOPRAZOLE SOD 40 MG DELAYED RELEASE TAB PO SCH (08:46)
[2016-03-18] MEDS: METOPROLOL TARTRATE 50 MG TAB PO SCH (08:47)
[2016-03-18] MEDS: SODIUM CHLORIDE 0.9% FLUSH 5 ML FLUSH IVF SCH (08:47)
[2016-03-18] MEDS: CLOPIDOGREL 75 MG TAB PO SCH (08:47)
--- NOTE | 2016-03-18 09:37 | PD.CARD.PN ---
Subjective Subjective Remarks no overnight no complaints Objective Medications Current Medications Medications (Trade) Dose Ordered Sig/Davey Route Start Time Stop Time Status Last Admin (NS Flush) 2 ml UNSCH PRN IVF 03/15/16 23:15 (NS Flush) 2 ml BID IVF 03/16/16 09:00 03/18/16 08:47 (Tylenol) 500 mg Q4H PRN PO 03/15/16 23:15 (Zofran Inj) 4 mg Q6H PRN IV 03/15/16 23:15 (Plavix) 75 mg DAILY PO 03/16/16 09:00 03/18/16 08:47 ([place] 7.5-325 Mg) 1 tab Q6H PRN PO 03/16/16 01:00 03/17/16 15:28 (Restoril) 15 mg HS PRN PO 03/16/16 01:00 (Protonix) 40 mg DAILY PO 03/16/16 17:45 03/18/16 08:46 (Lopressor) 50 mg BID PO 03/16/16 21:00 03/18/16 08:47 (D50w (Vial) Inj) 25 ml UNSCH PRN IV PUSH 03/16/16 18:00 (Glucagon Inj) 1 mg UNSCH PRN OTHER 03/16/16 18:00 (SoluMEDROL INJ) 40 mg Q8HR IV PUSH 03/17/16 14:00 03/18/16 06:26 (Lipitor) 80 mg HS PO 03/17/16 21:00 03/17/16 22:06 (Imdur) 30 mg DAILY@07 PO 03/18/16 07:00 03/18/16 06:26 (Ecotrin Ec) 81 mg DAILY PO 03/17/16 19:30 03/18/16 08:46 Vital Signs / I&O Vital Signs Date Time Temp Pulse Resp B/P Pulse Ox O2 Delivery O2 Flow Rate FiO2 03/18/16 09:34 98 03/18/16 08:45 95 21 03/18/16 08:07 80 03/18/16 07:40 80 03/18/16 06:00 91 03/18/16 05:00 88 03/18/16 04:00 84 03/18/16 03:00 98.7 86 16 103/60 95 03/18/16 03:00 87 03/18/16 02:00 80 03/18/16 01:00 80 03/18/16 00:00 83 03/17/16 23:00 92 03/17/16 23:00 97.6 91 16 118/70 97 03/17/16 22:00 86 03/17/16 21:48 97 21 03/17/16 21:30 98.5 92 18 128/78 96 03/17/16 13:03 96 Room Air 03/17/16 09:47 98 21 I/O 03/17/16 03/17/16 03/17/16 03/18/16 03/18/16 03/18/16 07:00 15:00 23:00 07:00 15:00 23:00 Intake Total 480 ml 0 ml Output Total 0 ml Balance 480 ml 0 ml Intake Oral 480 ml IV Total 0 ml Output Urine Total 0 ml # Voids 1 # Bowel Movements 0 Physical Exam GENERAL: Well-nourished, well-developed patient. SKIN: Warm and dry. HEAD: Normocephalic. EYES: No scleral icterus. No injection or drainage. NECK: Supple, trachea midline. No JVD or lymphadenopathy. CARDIOVASCULAR: Regular rate and rhythm without murmurs, gallops, or rubs. RESPIRATORY: Breath sounds equal bilaterally. No accessory muscle use. GASTROINTESTINAL: Abdomen soft, non-tender, nondistended. EXTREMITIES: No cyanosis, or edema. NEUROLOGICAL: Awake, alert, and oriented x 3. Non-focal. Assessment and Plan Problem List: (1) Chest pain Assessment and Plan: UA + MPI S/P PCI to LAD and POBA to RCA No complaints Chest pain free Ambulating without difficulty Cont DAPT with ASA and Plavix Cont aggressive medical management for CAD Off ACEi due allergy stable from CV standpoint to be d/c home (2) COPD exacerbation (3) Hypertension (4) Diabetes (5) Smoking addiction Problem Qualifiers (1) Chest pain: Qualified Code: R07.9 - Chest pain, unspecified type Randolph Lino MD Mar 18, 2016 09:37
[2016-03-18] MEDS ORDERED: METO50TA PO (13:30)
[2016-03-18] MEDS ORDERED: ASPI-110 PO (13:30)
[2016-03-18] MEDS ORDERED: ISOS30TA3 PO (13:30)
[2016-03-18] MEDS ORDERED: PRED10PA PO (13:30)
--- NOTE | 2016-03-18 13:32 | HHI.DS ---
Discharge Summary Admission Date Mar 15, 2016 at 23:08 Discharge Date: Mar 18, 2016 Admitting Diagnosis chest pain, r/o ACS (1) CAD (coronary artery disease) ICD Code: I25.10 (2) Cardiovascular stress test abnormal ICD Code: R94.39 (3) Rheumatoid arthritis ICD Code: M06.9 (4) Angioedema ICD Code: T78.3XXA Procedures Heart catheterization. Brief History - From Admission 71-year patient with known coronary artery disease presents to the emergency room for sudden discomfort as though someone was sitting on her chest. Location in her substernal area. Severity was 7/10. There is radiation to her left jaw and her left shoulder. Duration was approximately 10-15 minutes. Associated symptoms included it was difficult to breathe. It did not hurt to breathe necessarily. No known precipitating factors and no relieving factors per se. The patient has also fallen recently on her left side and has some left-sided rib pain. The patient is very adamant that these two pains are not related and has two separate pain apart from one another. The patient is a poor historian. CBC/BMP: 03/15/16204903/15/162049 Significant Findings Laboratory Tests Test 03/15/16 03/16/16 03/16/16 20:50 02:50 05:24 White Blood Count 12.1 TH/MM3 (4.0-11.0) Mean Corpuscular Volume 78.9 FL (80.0-100.0) Mean Corpuscular Hemoglobin 26.2 PG (27.0-34.0) Red Cell Distribution Width 18.2 % (11.6-17.2) Neutrophils # (Auto) 8.4 TH/MM3 (1.8-7.7) Estimat Glomerular Filtration 81 ML/MIN (>89) Rate Random Glucose 141 MG/DL (74-106) Troponin I LESS THAN 0.02 NG/ML (0.02-0.05) Aspartate Amino Transf 6 U/L (15-37) (AST/SGOT) Albumin 2.5 GM/DL (3.4-5.0) Hemoglobin A1c 6.4 % (4.3-6.0) Imaging Last Impressions Myocardial Perfusion Scan Nuc Med 03/16/16 0000 Signed Impressions: Service Date/Time: Wednesday, March 16, 2016 15:03 - CONCLUSION: Minimal stress-induced ischemia mid anteroseptal region RISK CATEGORY: Low (<1%% Annual Mortality Rate) Erik Solis MD FACR Chest X-Ray 03/15/16 2104 Signed Impressions: Service Date/Time: Tuesday, March 15, 2016 21:18 - CONCLUSION: Mild interstitial edema. Erik Solis MD FACR PE at Discharge GENERAL: This is a well-nourished, well-developed patient, in no apparent distress. Speech somewhat difficult to understand due to tongue swelling HEENT: There is marked swelling of the glands under the tongue. The tongue is also swollen. I am unable to visualize the pharynx. CARDIOVASCULAR: Normal rate and regular rhythm without murmurs, gallops, or rubs. RESPIRATORY: Good respiratory efforts. Breath sounds equal and clear to auscultation bilaterally. GASTROINTESTINAL: Abdomen soft, non-tender, non-distended. Normal active bowel sounds MUSCULOSKELETAL: Patient is tender over the left rib below the breast. Extremities without cyanosis, or edema. NEURO: Alert & Oriented x4 to person, place, time, situation. Moves all ext x4 PSYCH: Appropriate mood and affect. Pt update on day of discharge Patient reports she is feeling much better. Tongue swelling has significantly improved. Her speech is much better. No chest pressure. Hospital Course 71-year-old female admitted with chest pain. Patient initially admitted to the chest pain center. Although pain appear to be musculoskeletal in nature. She had a fall and hit her chest about a week and a half ago. However her nuclear stress test is abnormal. Patient was followed by cardiology and underwent PCI to LAD and POBA to RCA by Dr. Carmona. Advise continuing aggressive medical management for CAD. Continue aspirin and Plavix. No DINESH inhibitor due to allergies. Angioedema/significant tongue swelling: This has been a recurrent issue for this patient since she was in her 20s. Sometimes happen a few times a week. She would often be treated with steroids. Never intubated. She reports that she is allergic to many things and does not know the trigger. Her tongue swelling was initially impressive but did not have respiratory compromise. The patient was treated with IV Solu-Medrol. She is discharged on a prednisone taper. Diabetes -Diabetic diet. Sliding scale insulin with Accu-Cheks. Metformin was held. This was resumed on discharge. Rheumatoid arthritis: On methotrexate every 7 days and 5 mg of prednisone daily. -Patient treated with steroid as above. She will be discharged on a steroid taper and eventually continue on her chronic regimen. Pt Condition on Discharge: Good Discharge Disposition: Discharge Home Discharge Time: <= 30 minutes Discharge Instructions DIET: Follow Instructions for: Heart Healthy Diet Activities you can perform: Regular-No Restrictions Follow up Referrals: Cardiology PCP Follow-up - 2 Weeks New Medications: Isosorbide Mononitrate ER (Isosorbide Mononitrate ER) 30 Mg Dolly 30 MG PO DAILY@07 #30 TAB Changed Medications: Aspirin DR (Aspirin 81) 81 Mg Tabdr 81 MG PO DAILY #30 Ref 0 TAB (Changed from: Aspirin 325 Mg Tab 325 Mg PO DAILY #30 TAB Ref 0) Metoprolol Tartrate (Metoprolol Tartrate) 50 Mg Tab 50 MG PO BID #60 Ref 0 TAB (Changed from: DAILY; 30) Continued Medications: Albuterol Neb (Albuterol Neb) 2.5 Mg/3 Ml Neb 2.5 MG NEB Q4HR NEB PRN SHORTNESS OF BREATH #60 Ref 0 NEBULE Atorvastatin (Atorvastatin) 10 Mg Tab 10 MG PO HS Cholesterol Management #30 Ref 3 TAB Clopidogrel (Clopidogrel) 75 Mg Tab 75 MG PO DAILY Blood Clot Prevention #30 Ref 0 TAB Metformin ER (Glucophage XR) 500 Mg Dolly 1000 MG PO BID Blood Sugar Management #60 Ref 0 TAB Methotrexate (Methotrexate) 2.5 Mg Tab 2.5 MG PO Q7D #4 Ref 0 TAB Prednisone (21) 10 mg tab Dose Pack (Prednisone (21) 10 mg tab Dose Pack) 10 Mg Pack 10 MG PO DIRECTED Inflammation #1 Ref 0 DSPK (This prescription has been renewed) Prednisone (21) 5 mg tab Dose Pack (Prednisone (21) 5 mg tab Dose Pack) 5 Mg Dspk 5 MG PO DIRECTED Inflammation #1 Ref 0 DSPK Cary Hutchinson MD Mar 18, 2016 13:32
--- NOTE | 2016-03-18 13:32 | HHI.DCPOC ---
Discharge Care Plan Diagnosis: (1) Cardiovascular stress test abnormal (2) CAD (coronary artery disease) (3) Hypertension (4) Diabetes (5) Rheumatoid arthritis Goals to Promote Your Health * To prevent worsening of your condition and complications * To maintain your health at the optimal level Directions to Meet Your Goals Take your medications as prescribed Follow your dietary instruction Follow activity as directed Keep your appointments as scheduled Take your immunizations and boosters as scheduled If your symptoms worsen call your PCP, if no PCP go to Urgent Care Center or Emergency Room Smoking is Dangerous to Your Health. Avoid second hand smoke Call the 24-hour hour crisis hotline for domestic abuse at Cary Hutchinson MD Mar 18, 2016 13:31
--- NOTE | 2016-03-18 13:36 | EKG ---
Date Performed: 03/17/2016 Time Performed: 14:44:28 PTAGE: 71 years EKG: Sinus rhythm Lateral ST elevation suggests early repolarization Slight ST elevation suggests early repolarization similar to the prior tracing. Borderline ECG PREVIOUS TRACING : 03/16/2016 02.52 DOCTOR: Ji Samaniego Interpretating Date/Time 03/18/2016 13:34:56
== END 2016-03-18 15:48 | disposition home or self-care (01) ==
LOC: NEPC 20:48 → NEDA 23:08 → NEPHCDU 03-16 01:00 → OBSVTOIN 03-17 08:58 → INTOOBSV 03-17 08:58 → HCIS 03-17 14:51
PROVIDERS: ADMIT Family Medicine; ATTEND Family Medicine
DX: R07.9 Chest pain, unspecified (principal); R20.0 Anesthesia of skin; R06.02 Shortness of breath; W01.190A Fall on same level from slipping, tripping and stumbling with subsequent striking against furniture, initial encounter; M06.9 Rheumatoid arthritis, unspecified; G89.29 Other chronic pain; Z79.01 Long term (current) use of anticoagulants; E78.00 Pure hypercholesterolemia, unspecified; Z86.73 Personal history of transient ischemic attack (TIA), and cerebral infarction without residual deficits; E11.9 Type 2 diabetes mellitus without complications; K21.9 Gastro-esophageal reflux disease without esophagitis; R51 Headache; I10 Essential (primary) hypertension; I25.2 Old myocardial infarction; F17.210 Nicotine dependence, cigarettes, uncomplicated; I25.110 Atherosclerotic heart disease of native coronary artery with unstable angina pectoris; J44.1 Chronic obstructive pulmonary disease with (acute) exacerbation; Z95.5 Presence of coronary angioplasty implant and graft; Z91.14 Patient's other noncompliance with medication regimen
CPT/HCPCS: 71010; 78452; 80048; 80076; 82550; 82948; 83036; 83735; 84484; 85002; 85025; 85610; 85730; 92920; 92929; 93005; 93017; 93454; 93571; 94640; 94664; 99285; A9502; C1725; C1760; C1769; C1874; C1887; C1893; G0269; G0378; J0131; J0153; J1200; J1644; J1720; J1815; J1885; J2250; J2785; J2920; J2930; J3010; J7512; J7613; Q9967

== ENCOUNTER 2016-03-29 01:23 | Observation (INO) | payer OTHER ==
[2016-03-29] VITALS (11 sets, daily range): BP systolic 101–130; BP diastolic 54–71; PULSE 68–81; RESP 16–20; TEMP 97.6–98.7; O2SAT 92–98
[~2016-03-29] VITALS: Ht 170.2 cm; Wt 80.0 kg
[~2016-03-29 01:23] MED LIST changes: +ASPI-110 PO; -ASPI325T PO; +ISOS30TA3 PO; +PRED10PA PO
[2016-03-29] MEDS ORDERED: SODIUM CHLORIDE 0.9% FLUSH 5 ML FLUSH IVF PRN ×2 (01:45→03:15)
--- NOTE | 2016-03-29 01:58 | PD ---
HPI Chief Complaint: Chest Pain Time Seen by Provider: 01:29 Travel History International Travel<30 days: No Contact w/Intl Traveler<30days: No Traveled to known affect area: No History of Present Illness HPI Is a 71-year-old woman who presents to the emergency department complaining of severe chest pain starting in her left chest rating the left arm and up into her neck starting about 45 minutes prior to arrival. She is a history of some chronic pain, arthritis, and CAD. She had a heart catheterization done generally 16 following an abnormal stress test which she had stenting done to her LAD as well as angioplasty of her RCA, and PDA. She states she had done well since then until she gets the pain last night. States it doesn't really feel like when she's a cardiac chest pain in the past. She otherwise has been feeling generally well and healthy. History Past Medical History Narrative Medical CAD, stents Hypertension Diabetes mellitus hyperlipidemia RA, on chronic prednisone, usually takes methotrexate Spiculated Left lung nodule, being monitored PNEUMOCCOCAL Vaccine (Year): 1 Menopausal: Yes : 5 Para: 2 Social History Alcohol Use: No Tobacco Use: Yes ( 6 CIGARETTES) Allergies-Medications (Allergen,Severity, Reaction): Coded Allergies: Contrast Media (Verified Allergy, Severe, Edema, 03/29/16) angioedema per pt Penicillin (Verified Allergy, Severe, Anaphylaxis, 03/29/16) Vasotec (Verified Allergy, Severe, Swelling, 03/29/16) Uncoded Allergies: EVERYTHING ON AND OFF..;ANGIODEMA... (Allergy, Severe, Anaphylaxis, 01/05/10 ) TAKES 60 MG PREDNISONE,150MG ZANTAC AND 50MG BENADRYL WHEN TONGUE BEGINS TO SWELL AND LIPS SWELL mycins (Allergy, Severe, 01/05/10) Reported Meds & Prescriptions Reported Meds & Active Scripts Active Isosorbide Mononitrate ER (Isosorbide Mononitrate) 30 Mg Dolly 30 Mg PO DAILY@07 Prednisone (21) 10 mg tab Dose Pack (Prednisone) 10 Mg Pack 10 Mg PO DIRECTED Metoprolol Tartrate 50 Mg Tab 50 Mg PO BID Aspirin 81 (Aspirin) 81 Mg Tabdr 81 Mg PO DAILY Blood Glucose Test Strips 1 Sandhya Sandhya 1 Ea .ROUTE DIRECTED Accu-Chek La Glucose Monitor (Device) 1 Mis Mis 1 Kit .ROUTE DIRECTED Glucophage XR (Metformin HCl) 500 Mg Dolly 1,000 Mg PO BID Clopidogrel (Clopidogrel Bisulfate) 75 Mg Tab 75 Mg PO DAILY Albuterol Neb (Albuterol Sulfate) 2.5 Mg/3 Ml Neb 2.5 Mg NEB Q4HR NEB PRN Review of Systems Except as stated in HPI: all other systems reviewed are Neg Physical Exam Narrative GENERAL: 71 year-old woman, no acute distress. SKIN: Warm and dry. HEAD: Atraumatic. Normocephalic. CARDIOVASCULAR: Regular rate and rhythm. No murmur appreciated. RESPIRATORY: Mild diffuse wheezing. No respiratory distress. GASTROINTESTINAL: Abdomen soft, non-tender, nondistended. Hepatic and splenic margins not palpable. MUSCULOSKELETAL: No obvious deformities. No clubbing. No cyanosis. No edema. NEUROLOGICAL: Awake and alert. No obvious cranial nerve deficits. Motor grossly within normal limits. Normal speech. PSYCHIATRIC: Appropriate mood and affect; insight and judgment normal. Data Data Last Documented VS Vital Signs Date Time Temp Pulse Resp B/P Pulse Ox O2 Delivery O2 Flow Rate FiO2 03/29/16 02:19 130/71 120/71 03/29/16 01:41 18 98 Room Air 03/29/16 01:37 98.7 81 Orders Electrocardiogram (03/29/16 01:38) Ckmb (Isoenzyme) Profile (03/29/16 01:38) Complete Blood Count With Diff (03/29/16 01:38) Comprehensive Metabolic Panel (03/29/16 01:38) Magnesium (Mg) (03/29/16 01:38) Prothrombin Time / Inr (Pt) (03/29/16 01:38) Act Partial Throm Time (Ptt) (03/29/16 01:38) Troponin I (03/29/16 01:38) Lipase (03/29/16 01:38) Chest, Single Ap (03/29/16 01:38) Ecg Monitoring (03/29/16 01:38) Bilateral Bp Monitoring (03/29/16 01:38) Iv Access Insert/Monitor (03/29/16 01:38) Oximetry (03/29/16 01:38) Oxygen Administration (03/29/16 01:38) Sodium Chloride 0.9% Flush (Ns Flush) (03/29/16 01:45) Labs Laboratory Tests Test 03/29/16 01:40 White Blood Count 10.5 TH/MM3 Red Blood Count 4.65 MIL/MM3 Hemoglobin 12.4 GM/DL Hematocrit 36.9 % Mean Corpuscular Volume 79.4 FL Mean Corpuscular Hemoglobin 26.8 PG Mean Corpuscular Hemoglobin 33.7 % Concent Red Cell Distribution Width 18.6 % Platelet Count 289 TH/MM3 Mean Platelet Volume 7.5 FL Neutrophils (%) (Auto) 70.3 % Lymphocytes (%) (Auto) 21.6 % Monocytes (%) (Auto) 6.5 % Eosinophils (%) (Auto) 1.0 % Basophils (%) (Auto) 0.6 % Neutrophils # (Auto) 7.4 TH/MM3 Lymphocytes # (Auto) 2.3 TH/MM3 Monocytes # (Auto) 0.7 TH/MM3 Eosinophils # (Auto) 0.1 TH/MM3 Basophils # (Auto) 0.1 TH/MM3 CBC Comment DIFF FINAL Differential Comment Prothrombin Time 10.9 SEC Prothromb Time International 1.0 RATIO Ratio Activated Partial 27.8 SEC Thromboplast Time Sodium Level 139 MEQ/L Potassium Level 3.9 MEQ/L Chloride Level 106 MEQ/L Carbon Dioxide Level 25.6 MEQ/L Anion Gap 7 MEQ/L Blood Urea Nitrogen 9 MG/DL Creatinine 0.68 MG/DL Estimat Glomerular Filtration 104 ML/MIN Rate Random Glucose 105 MG/DL Calcium Level 9.5 MG/DL Magnesium Level 1.7 MG/DL Total Bilirubin 0.2 MG/DL Aspartate Amino Transf 11 U/L (AST/SGOT) Alanine Aminotransferase 13 U/L (ALT/SGPT) Alkaline Phosphatase 95 U/L Total Creatine Kinase 40 U/L Troponin I LESS THAN 0.02 NG/ML Total Protein 7.4 GM/DL Albumin 2.6 GM/DL Lipase 156 U/L [facility] Medical Decision Making Medical Screen Exam Complete: Yes Emergency Medical Condition: Yes Interpretation(s) My review of EKG: Normal sinus rhythm at a rate of 78, normal axis, normal intervals, no acute ischemia. LABS: CBC unremarkable. CMP unremarkable. Troponin negative. Coags negative Chest x-ray: No significant changes occurred. Differential Diagnosis CAD, chest wall pain, dissection, PE, lung mass, other Narrative Course Medical decision making INITIAL: 71-year-old woman presents to the emergency department complaining of left-sided chest pain, fairly abrupt in onset about 45 minutes ago. Today history of chest pains. She has a known left lung nodule. She has CAD and had a recent stent. I don't that she has a dissection. I don't think she has a PE. She previous workup for PE in the past month or 2. She looks otherwise well. We'll check labs, x-ray, EKG, likely admission to chest pain Center following negative initial workup. Diagnosis Primary Impression: CAD (coronary artery disease) Qualified Code: I25.118 - Coronary artery disease of lime artery of lime heart with stable angina pectoris Angel Carney MD Mar 29, 2016 01:58
--- NOTE | 2016-03-29 01:58 | RADRPT ---
EXAM DATE/TIME: 03/29/2016 01:48 [facility] COMPARISON: CHEST SINGLE AP, March 15, 2016, 21:18. INDICATIONS : Chest pain. MEDICAL HISTORY : Hypertension. Chronic obstructive pulmonary disease. SURGICAL HISTORY : Coronary artery stent. ENCOUNTER: Initial ACUITY: 1 day PAIN SCORE: 4/10 LOCATION: chest substernal. FINDINGS: Median sternotomy wires are noted and mild interstitial prominence which is stable. There is no defin ite consolidation or effusion. Cardiomegaly is present. CONCLUSION: No significant change has occurred. Kelby Ty MD on March 29, 2016 at 1:57 Board Certified Radiologist. This report was verified electronically.
[2016-03-29 02:04] LABS: AUTOMATED NEUTROPHIL # 7.4 TH/MM3 (1.8-7.7); BASOPHIL # 0.1 TH/MM3 (0-0.2); BASOPHIL % 0.6 % (0.0-2.0); EOSINOPHIL # 0.1 TH/MM3 (0-0.4); HEMATOCRIT 36.9 % (35.0-46.0); HEMO FLAGS DIFF FINAL; LYMPH % 21.6 % (9.0-44.0); LYMPHOCYTE # 2.3 TH/MM3 (1.0-4.8); MEAN CELL VOLUME 79.4 FL (80.0-100.0); MEAN CORPUSCULAR HEMOGLOBIN 26.8 PG (27.0-34.0); MEAN CORPUSCULAR HGB CONC 33.7 % (32.0-36.0); MONO % 6.5 % (0.0-8.0); NEUT % 70.3 % (16.0-70.0); PLATELET COUNT 289 TH/MM3 (150-450); RED BLOOD COUNT 4.65 MIL/MM3 (4.00-5.30); RED CELL DISTRIBUTION WIDTH 18.6 % (11.6-17.2); WHITE BLOOD COUNT 10.5 TH/MM3 (4.0-11.0)
[2016-03-29 02:16] LABS: APTT (PATIENT) 27.8 SEC (24.3-30.1); PROTHROMBIN TIME - PATIENT 10.9 SEC (9.8-11.6)
[2016-03-29 02:48] LABS: ANION GAP 7 MEQ/L (5-15); AST (GOT) 11 U/L (15-37); BICARBONATE 25.6 MEQ/L (21.0-32.0); BLOOD UREA NITROGEN 9 MG/DL (7-18); CHLORIDE 106 MEQ/L (98-107); GLOMERULAR FILTRATION RATE 104 ML/MIN (>89); MAGNESIUM 1.7 MG/DL (1.5-2.5); POTASSIUM 3.9 MEQ/L (3.5-5.1); SODIUM (NA) 139 MEQ/L (136-145)
[2016-03-29 02:55] LABS: ALKALINE PHOSPHATASE 95 U/L (45-117); ALT (GPT) 13 U/L (10-53); TOTAL BILIRUBIN ADULT 0.2 MG/DL (0.2-1.0)
[2016-03-29 02:56] LABS: CREATINE KINASE 40 U/L (26-192)
[2016-03-29] MEDS ORDERED: SODIUM CHLORIDE 0.9% FLUSH 5 ML FLUSH IVF SCH (09:00)
[2016-03-29] MEDS ORDERED: METOPROLOL TARTRATE 50 MG TAB PO SCH (10:00)
[2016-03-29] MEDS ORDERED: CLOPIDOGREL 75 MG TAB PO SCH (10:00)
--- NOTE | 2016-03-29 11:28 | HHI.DCPOC ---
Discharge Care Plan Diagnosis: (1) Anginal pain (2) Hx of coronary artery disease Goals to Promote Your Health * To prevent worsening of your condition and complications * To maintain your health at the optimal level Directions to Meet Your Goals Take your medications as prescribed Follow your dietary instruction Follow activity as directed Keep your appointments as scheduled Take your immunizations and boosters as scheduled If your symptoms worsen call your PCP, if no PCP go to Urgent Care Center or Emergency Room Smoking is Dangerous to Your Health. Avoid second hand smoke Call the 24-hour hour crisis hotline for domestic abuse at Emely Carrizales Mar 29, 2016 11:28
--- NOTE | 2016-03-29 12:42 | EKG ---
Date Performed: 03/29/2016 Time Performed: 02:10:22 PTAGE: 71 years EKG: Sinus rhythm NORMAL ECG PREVIOUS TRACING : 03/17/2016 14.44 DOCTOR: Juancarlos Quinn Interpretating Date/Time 03/29/2016 12:42:18
--- NOTE | 2016-03-29 12:44 | EKG ---
Date Performed: 03/29/2016 Time Performed: 05:43:37 PTAGE: 71 years EKG: Sinus rhythm NORMAL ECG PREVIOUS TRACING : 03/29/2016 02.10 DOCTOR: Juancarlos Quinn Interpretating Date/Time 03/29/2016 12:43:41
--- NOTE | 2016-03-29 14:14 | EKG ---
Date Performed: 03/29/2016 Time Performed: 08:45:14 PTAGE: 71 years EKG: Sinus rhythm PROBABLE INFERIOR MYOCARDIAL INFARCTION ABNORMAL ECG PREVIOUS TRACING : 03/29/2016 05.43 DOCTOR: Juancarlos Quinn Interpretating Date/Time 03/29/2016 14:14:07
[2016-03-29] MEDS ORDERED: metFORMIN HCL 500 MG TAB PO SCH (18:00)
[2016-03-30] MEDS ORDERED: ISOSORBIDE MONONITRATE 30 MG TAB PO SCH (07:00)
--- NOTE | 2016-03-30 12:52 | MH ---
cc: RACHAEL QUINN DATE OF ADMISSION: 03/29/2016 CHIEF COMPLAINT Chest pain. HISTORY OF PRESENT ILLNESS This is a 71-year-old patient with known coronary artery disease with three cardiac stents with last catheterization completed 03/17/16. Presented to the emergency room for further evaluation with an onset of chest discomfort last evening characterized as a "pressure and wholeness", started in her midchest, radiated to her left anterior chest, left jaw, left ear, left face and to her left arm that stopped above her elbow. Duration she cannot quite remember but believes maybe 20 minutes. Associated symptoms included shortness of breath. She denies nausea or diaphoresis or vomiting. No known precipitating factors as the patient states she was laying in bed when the chest pain began. Relieving factors, states it gradually went away on its own. PAST MEDICAL HISTORY 1. Hypertension. 2. Diabetes. 3. COPD. 4. Osteoarthritis. 5. Rheumatoid arthritis. 6. Chronic pain. 7. Chronic headaches. 8. Coronary artery disease. PAST SURGICAL HISTORY 1. Tubal ligation. 2. Bilateral cataracts. 3. Sternotomy with resection. FAMILY HISTORY Noncontributory for any early onset cardiovascular disease. SOCIAL HISTORY She lives in [place] with her daughter. She continues to smoke however states that it varies how much she smokes from a daily basis how much feels like smoking. She has smoked since the age of 15. She does deny any alcohol or illegal drug use. Does have risk factors of diabetes and hyperlipidemia. Denies any hypertension. PAST CARDIAC TESTING She was actually admitted to the [facility] Center 03/17/16. At that time, her chest discomfort was thought to be more musculoskeletal in nature. However, due to her multiple risk factors including two cardiac stents placed in the past she underwent a chemical stress test which was abnormal. She then had a cardiac catheterization by Dr. Carmona. The conclusion of that test, she had a successful ELEVATOR MECHANIC to the mid LAD, successful angioplasty to the proximal distal artery and also an angioplasty to the mid RCA. She has not followed with Dr. Carmona since her cardiac catheterization. States she has been compliant with all her medications other than Imdur as she did not known she was to take her Imdur, however has been taking her Plavix and her Metoprolol as ordered. CURRENT MEDICATIONS 1. Plavix 75 mg daily. 2. Imdur 30 mg daily, again she has not taken this since her cardiac catheterization. 3. Metformin 1000 mg b.i.d. 4. Metoprolol tartrate 50 mg b.i.d. 5. Albuterol nebulizer p.r.n. for shortness of breath. 6. Listed on her MAR is prednisone 10 mg, it says as directed. The patient states she is not sure how she is taking the prednisone and cannot tell me she if she is taking this for her rheumatoid arthritis or for another reason. ALLERGIES CONTRAST MEDIA, PENICILLIN, VASOTEC, ANY OF THE MYCINS. REVIEW OF SYSTEMS GENERAL: States she was in her normal state of health with no fatigue, weakness, fevers, chills, night sweats or change in appetite, has not increased or decreased her weight unintentionally since last visit. HEENT: She has had no visual changes or nasal congestion or drainage, dysphagia. She reported a chronic daily headache. She has had these for years and is stable and is unchanged. CARDIOVASCULAR: As stated above. No palpitations, intermittent leg pain or dizziness. RESPIRATORY: No shortness of breath, cough, wheeze or hemoptysis. She has not had any upper respiratory infection recently. ABDOMEN: No bowel changes, diarrhea, constipation, pain or distension, blood in the stool or dark stool, nausea or vomiting. GENITOURINARY: No dysuria. EXTREMITIES: No lower leg edema. MUSCULOSKELETAL: No change in ROM. NEUROLOGIC: No difficulty with balance, motory or sensory deficits, loss of consciousness, dizziness, syncopal episodes, or change in memory. SKIN: She has no concerning lesions or rashes. PHYSICAL EXAMINATION VITAL SIGNS: Temperature 97.6, pulse 77, respiratory 20, blood pressure 115/67 and 94% on room air. GENERAL: She is alert, well-nourished, well-developed, in no acute distress. A pleasant -[place] female. HEAD, EYES, EARS, NOSE AND THROAT: Head is normocephalic, atraumatic. Eyes: Sclerae are clear. Conjunctivae without injection. Pupils are equal and round. ENT: Mucous membranes are pink and moist. NECK: Neck is supple. Trachea is midline. CARDIOVASCULAR: She has a regular rate and rhythm without murmur, rub or gallop. There is no JVD. S1, S2. No S3. No S4. RESPIRATORY: Clear lungs throughout bilaterally with no crackles, wheeze or rhonchi. She has a symmetrical chest rise. Able to speak in full sentences. ABDOMEN: Abdomen is soft, nontender, nondistended. Positive bowel tones. BACK: No costovertebral angle tenderness. EXTREMITIES: Pulses +2 x4. There is no dependent edema. MUSCULOSKELETAL: Normal tone x4, nontender. No obvious deformities. NEUROLOGIC: CN II through XII are grossly intact. Motor strength 5/5. PSYCHIATRIC: She is alert and oriented x3. Has appropriate mood, insight and judgment. SKIN: Normal turgor, normal texture. Warm and dry. There are no rashes or lesions. LABORATORY CBC: MCV of 79.4, MCH is 26.8 and RDW 18.6, otherwise unremarkable. Chemistry is also unremarkable. Three sets of cardiac enzymes are all negative. Coagulation is unremarkable. IMAGING Chest x-ray read by the radiologist has a conclusion of no significant change has occurred. Three EKGs showed normal sinus rhythm with some ST elevation in V3-V6, however this appears to be repolarization. EKG has been reviewed with prior EKGs from last visit and this is unchanged. ASSESSMENT AND PLAN Chest pain. The patient has been admitted to the Chest Pain Center. She was ruled out with three sets of EKGs and cardiac enzymes. She will be seen and evaluated by Dr. Rachael Quinn. I have called Dr. Carmona who performed the cardiac catheterization and made him aware of the patient's arrival to the Chest Pain Center. He has also been made aware that the patient has not been taking her Imdur although states compliance with Plavix and Metoprolol. The patient will be encouraged and instructed to start taking her Imdur as previously scheduled and to followup with Dr. Carmona in his office. Dictated by SRINIVASAN Calvin MD HEVER Acosta/DOLLY /11:04 AM /12:51 PM
== END 2016-03-29 19:19 | disposition home or self-care (01) ==
LOC: NEPE 01:23 → NEDA 03:09 → NEPHCDU 06:11
PROVIDERS: ADMIT Internal Medicine Cardiovascular Disease; ATTEND Internal Medicine Cardiovascular Disease
DX: I25.118 Atherosclerotic heart disease of native coronary artery with other forms of angina pectoris (principal); I10 Essential (primary) hypertension; J44.9 Chronic obstructive pulmonary disease, unspecified; R91.1 Solitary pulmonary nodule; E78.5 Hyperlipidemia, unspecified; E11.69 Type 2 diabetes mellitus with other specified complication; R94.31 Abnormal electrocardiogram [ECG] [EKG]; M06.9 Rheumatoid arthritis, unspecified; F17.200 Nicotine dependence, unspecified, uncomplicated; Z79.52 Long term (current) use of systemic steroids; Z95.5 Presence of coronary angioplasty implant and graft
CPT/HCPCS: 71010; 80053; 82550; 83690; 83735; 84484; 85025; 85610; 85730; 93005; 99285; G0378

== ENCOUNTER 2016-06-16 00:02 | Inpatient (IN) | payer OTHER, MEDICARE ==
[~2016-06-16] VITALS: Ht 177.8 cm; Wt 93.5 kg
[2016-06-16] VITALS (24 sets, daily range): BP systolic 111–145; BP diastolic 66–83; PULSE 79–123; RESP 16–20; TEMP 97.7–98.7; O2SAT 93–100
[~2016-06-16 00:02] MED LIST changes: -ATOR10TA15 PO; -METH2.5T PO
[2016-06-16] MEDS ORDERED: SODIUM CHLORIDE 0.9% FLUSH 10 ML FLUSH IVF PRN (00:30)
[2016-06-16] MEDS: RESP: ALBUTEROL 2.5 MG/IPRATROPIUM 0.5 MG NEB (SCH) INH (00:35)
[2016-06-16 00:59] LABS: AUTOMATED NEUTROPHIL # 8.4 TH/MM3 (1.8-7.7); BASOPHIL # 0.1 TH/MM3 (0-0.2); BASOPHIL % 0.4 % (0.0-2.0); EOSINOPHIL # 0.1 TH/MM3 (0-0.4); EOSINOPHIL % 0.9 % (0.0-4.0); HEMATOCRIT 37.7 % (35.0-46.0); HEMO FLAGS DIFF FINAL; LYMPH % 32.4 % (9.0-44.0); LYMPHOCYTE # 4.5 TH/MM3 (1.0-4.8); MEAN CORPUSCULAR HEMOGLOBIN 26.1 PG (27.0-34.0); MEAN CORPUSCULAR HGB CONC 32.3 % (32.0-36.0); NEUT % 60.3 % (16.0-70.0); PLATELET COUNT 278 TH/MM3 (150-450); RED BLOOD COUNT 4.66 MIL/MM3 (4.00-5.30)
--- NOTE | 2016-06-16 01:09 | RADRPT ---
EXAM DATE/TIME: 06/16/2016 00:45 [facility] COMPARISON: No previous studies available for comparison. INDICATIONS : Shortness of breath. MEDICAL HISTORY : Hypertension. Chronic obstructive pulmonary disease. SURGICAL HISTORY : Coronary artery stent. CABG. ENCOUNTER: Initial ACUITY: 1 day PAIN SCORE: 0/10 LOCATION: Bilateral chest FINDINGS: A single view of the chest demonstrates question of subtle areas of airspace disease left lung base a nd right midlung zone. The cardiomediastinal contours are unremarkable. Osseous structures are inta ct. CONCLUSION: Some increased density right midlung zone and the left lung base could be early infiltrates. Slightly worsening since March 2016. Angel Julian MD on June 16, 2016 at 1:06 Board Certified Radiologist. This report was verified electronically.
[2016-06-16 01:16] LABS: APTT (PATIENT) 27.3 SEC (24.3-30.1); PROTHROMBIN TIME - PATIENT 11.2 SEC (9.8-11.6)
[2016-06-16 01:31] LABS: ANION GAP 8 MEQ/L (5-15); AST (GOT) 17 U/L (15-37); BICARBONATE 26.4 MEQ/L (21.0-32.0); BLOOD UREA NITROGEN 14 MG/DL (7-18); CHLORIDE 108 MEQ/L (98-107); GLOMERULAR FILTRATION RATE 50 ML/MIN (>89); MAGNESIUM 1.8 MG/DL (1.5-2.5); POTASSIUM 3.6 MEQ/L (3.5-5.1); SODIUM (NA) 142 MEQ/L (136-145)
--- NOTE | 2016-06-16 01:35 | PD ---
HPI Chief Complaint: Chest Pain Time Seen by Provider: 00:21 Travel History International Travel<30 days: No Contact w/Intl Traveler<30days: No Traveled to known affect area: No History of Present Illness HPI The patient is a 71 year old female who presents to the [facility] emergency department with a history of chest pain that began at approximately 11 PM. The pain is located along the center of the chest and radiates to the left shoulder left arm. The patient reports that she has had shortness of breath associated with it. The patient reports that she does have a history of coronary artery disease and was concerned that she may be having a heart attack. She reports that her last stress test was in March. She reports that she will never have another stress test again as she refuses to undergo 1. The patient was noted at that time to have an abnormal stress test and underwent heart catheterization and angioplasty. The patient is currently taking Plavix and Imdur. Unfortunately, the patient continues to smoke between 6 and 10 cigarettes per day. The patient reports that she does have a history of chronic shoulder pain. She reports that she has a history of rheumatoid arthritis. She reports that she is currently out of her hydrocodone. She cannot specify exactly how long she has been out. She reports that her primary care physician, Dr. Patton prescribes this normally for her. The patient reports that she has a cough that is been productive of yellow sputum, however this is unchanged compared to previously. Prior to arrival patient was noted by ambulance services to have a blood sugar of 143, wheezing throughout all lung jordan. The patient reports that she did take 3 baby aspirin earlier this evening. The patient was given Solu-Medrol 125 mg IV 1, nebulizer treatments of albuterol 2 prior to arrival. The patient denies any recent fevers abdominal pain, vomiting, diarrhea, urinary symptoms, or neurologic symptoms. [facility] Past Medical History Narrative Medical The patient's past medical history is significant for rheumatoid arthritis, hypertension, diabetes mellitus, COPD, osteoarthritis, chronic pain, headaches, coronary artery disease. Hx Anticoagulant Therapy: Yes (PLAVIX) Arthritis: Yes Asthma: No Autoimmune Disease: No Blood Disorders: No Anxiety: Yes Depression: No Heart Rhythm Problems: No Cancer: No Cardiac Catheterization: Yes (PER PATIENT 1997 AND 2003 HERE AT JUSTICE) Cardiovascular Problems: Yes (Stents x4) High Cholesterol: Yes Chemotherapy: No Chest Pain: Yes Congestive Heart Failure: No COPD: Yes Cerebrovascular Accident: Yes Coronary Artery Disease: Yes Diabetes: Yes Patient Takes Glucophage: Yes Diminished Hearing: Yes (LEFT SIDE GRAYLING) Endocrine: Yes Gastrointestinal Disorders: Yes (H PYLORII) GERD: Yes (hx) Glaucoma: No Genitourinary: No Headaches: Yes Hepatitis: No Hiatal Hernia: No Heparin Induced Thrombocytopen: No Hypertension: Yes (METOPROLOL 50 MG. BID) Immune Disorder: No Implanted Vascular Access Dvce: No Kidney Stones: No Medical other: Yes (GERD; ANGIOEDEMA) Musculoskeletal: Yes (RA) Neurologic: Yes Psychiatric: Yes Reproductive: No Respiratory: Yes Immunizations Current: Yes Migraines: No Myocardial Infarction: Yes (AL X 2) Radiation Therapy: No Renal Failure: No Seizures: No Sickle Cell Disease: No Sleep Apnea: No Thyroid Disease: No Ulcer: No PNEUMOCCOCAL Vaccine (Year): 1 Menopausal: Yes : 5 Para: 2 Miscarriage: 3 Ectopic : Yes (X 1) Ovarian Cysts: Yes Tubal Ligation: Yes Past Surgical History Narrative Surgical The patient's past surgical history is significant for bilateral tubal ligation , bilateral cataract surgery, history of having a benign growth removed from her sternum, history of ectopic -related surgery, history of tonsillectomy, history of cardiac catheterization with 4 prior stents placed. Abdominal Surgery: Yes (ECTOPIC PREG) AICD: No Appendectomy: Yes Arteriovenous Shunt: No Body Medical Devices: STENTS Cardiac Surgery: Yes Cholecystectomy: No Coronary Artery Bypass Graft: No Coronary Stent: Yes (STENTS X 4) Ear Surgery: No Endocrine Surgery: No Eye Surgery: Yes (CATARACT SURGERY BILATERAL) Gynecologic Surgery: Yes (ONE OVARY REMOVED AND ONE FALLOPIAN TUBE REMOVED ) Insulin Pump: No Joint Replacement: No Oral Surgery: Yes (TEETH REMOVED) Pacemaker: No Tonsillectomy: Yes Other Surgery: Yes (BENIGN GROWTH REMOVED FROM STERNUM; CYSTS REMOVED FROM BILAT. BREASTS) Family History Family Myocardial Infarction: Yes (Mom) Social History Alcohol Use: No Tobacco Use: Yes ( 6 CIGARETTES) Substance Use: No Allergies-Medications (Allergen,Severity, Reaction): Coded Allergies: Contrast Media (Verified Allergy, Severe, Edema, 06/16/16) angioedema per pt Penicillin (Verified Allergy, Severe, Anaphylaxis, 06/16/16) Vasotec (Verified Allergy, Severe, Swelling, 06/16/16) Uncoded Allergies: EVERYTHING ON AND OFF..;ANGIODEMA... (Allergy, Severe, Anaphylaxis, 01/05/10 ) TAKES 60 MG PREDNISONE,150MG ZANTAC AND 50MG BENADRYL WHEN TONGUE BEGINS TO SWELL AND LIPS SWELL mycins (Allergy, Severe, 01/05/10) Reported Meds & Prescriptions Reported Meds & Active Scripts Active Isosorbide Mononitrate ER (Isosorbide Mononitrate) 30 Mg Dolly 30 Mg PO DAILY@07 Prednisone (21) 10 mg tab Dose Pack (Prednisone) 10 Mg Pack 10 Mg PO DIRECTED Metoprolol Tartrate 50 Mg Tab 50 Mg PO BID Aspirin 81 (Aspirin) 81 Mg Tabdr 81 Mg PO DAILY Blood Glucose Test Strips 1 Sandhya Sandhya 1 Ea .ROUTE DIRECTED Accu-Chek La Glucose Monitor (Device) 1 Mis Mis 1 Kit .ROUTE DIRECTED Glucophage XR (Metformin HCl) 500 Mg Dolly 1,000 Mg PO BID Clopidogrel (Clopidogrel Bisulfate) 75 Mg Tab 75 Mg PO DAILY Albuterol Neb (Albuterol Sulfate) 2.5 Mg/3 Ml Neb 2.5 Mg NEB Q4HR NEB PRN Review of Systems Except as stated in HPI: all other systems reviewed are Neg General / Constitutional: No: Fever Eyes: No: Visual changes HENT: No: Headaches Cardiovascular: Positive: Chest Pain or Discomfort Respiratory: Positive: Cough, Shortness of Breath Gastrointestinal: No: Nausea, Vomiting, Diarrhea, Abdominal Pain Genitourinary: No: Dysuria Musculoskeletal: Positive: Myalgias, Pain Skin: No Rash Neurologic: No: Weakness, Focal Abnormalities, Change in Mentation, Slurred Speech, Sensory Disturbance Psychiatric: No: Depression Endocrine: No: Polydipsia Hematologic/Lymphatic: No: Easy Bruising Physical Exam Narrative General: The patient is a well-developed well-nourished female with intermittent coughing and wheezing noted on arrival. The patient has some accessory muscle use noted. Head and Neck exam: Head is normocephalic atraumatic. Eyes: EOMI, pupils are equal round and reactive to light. Nose: Midline septum with pink mucous membranes Mouth: Dentition unremarkable. Moist mucus membranes. Posterior oropharynx is not erythematous. No tonsillar hypertrophy. Uvula midline. Airway patent. Neck: No palpable lymphadenopathy. No nuchal rigidity. No thyromegaly. Cardiovascular: Sinus tachycardia in the low 100 without murmurs, gallops, or rubs. No pulse deficit to the extremities and simultaneous auscultation and palpation of her radial artery. The patient has chest wall tenderness on palpation. There is no crepitus or step-off. No erythema or ecchymosis. No flow segment noted. Lungs: Anterior and posterior expiratory wheezes are audible. The patient has accessory muscle use noted. The patient has no conversational dyspnea. No paroxysmal abdominal breathing or tripoding. Abdomen: Soft, without tenderness to palpation in all 4 quadrants of the abdomen. No guarding, rebound, or rigidity. Normal bowel sounds are audible. Extremities: No clubbing, cyanosis, or edema. 2+ pulses in all 4 extremities. No calf tenderness on palpation. Back: No spinous process tenderness to palpation. No costovertebral angle tenderness to palpation. Neurologic Exam:Grossly nonfocal. Skin Exam: No rash noted. Intact skin that is warm and dry. Data Data Last Documented VS Vital Signs Date Time Temp Pulse Resp B/P Pulse Ox O2 Delivery O2 Flow Rate FiO2 06/16/16 02:00 113 16 137/69 93 Room Air 06/16/16 00:34 2 Orders Complete Blood Count With Diff (06/16/16) Comprehensive Metabolic Panel (06/16/16) B-Type Natriuretic Peptide (06/16/16) Act Partial Throm Time (Ptt) (06/16/16) Prothrombin Time / Inr (Pt) (06/16/16:) Magnesium (Mg) (06/16/16:) Ckmb (Isoenzyme) Profile (06/16/16) Troponin I (06/16/16) Urinalysis - C+S If Indicated (06/16/16) Blood Culture (06/16/16) Iv Access Insert/Monitor (06/16/16) Electrocardiogram (06/16/16) Ecg Monitoring (06/16/16) Oximetry (06/16/16:) Oxygen Administration (06/16/16:) Chest, Single Ap (06/16/16:) Sodium Chloride 0.9% Flush (Ns Flush) (4/17/17 00:30) Albuterol-Ipratropium Neb (Duoneb Neb) (06/16/16 00:30) Lactic Acid Sepsis Protocol (06/16/16 00:26) Nitroglycerin 2% Oint (Nitroglycerin 2% (06/16/16 01:45) Nitroglycerin Sl (Nitrostat Sl) (06/16/16 01:45) Acetamin-Hydrocod 325-5 Mg ([place] 5-325 (06/16/16 01:45) Sodium Chlorid 0.9% 500 Ml Inj (Ns 500 M (06/16/16 01:45) Aztreonam Inj (Azactam Inj) (06/16/16 02:35) Levofloxacin 500 Mg Premix Inj (Levaquin (06/16/16 02:45) Admit Order (Ed Use Only) (06/16/16 03:28) Labs Laboratory Tests Test 06/16/16 00:37 White Blood Count 14.0 TH/MM3 Red Blood Count 4.66 MIL/MM3 Hemoglobin 12.2 GM/DL Hematocrit 37.7 % Mean Corpuscular Volume 81.0 FL Mean Corpuscular Hemoglobin 26.1 PG Mean Corpuscular Hemoglobin 32.3 % Concent Red Cell Distribution Width 18.0 % Platelet Count 278 TH/MM3 Mean Platelet Volume 7.8 FL Neutrophils (%) (Auto) 60.3 % Lymphocytes (%) (Auto) 32.4 % Monocytes (%) (Auto) 6.0 % Eosinophils (%) (Auto) 0.9 % Basophils (%) (Auto) 0.4 % Neutrophils # (Auto) 8.4 TH/MM3 Lymphocytes # (Auto) 4.5 TH/MM3 Monocytes # (Auto) 0.8 TH/MM3 Eosinophils # (Auto) 0.1 TH/MM3 Basophils # (Auto) 0.1 TH/MM3 CBC Comment DIFF FINAL Differential Comment Prothrombin Time 11.2 SEC Prothromb Time International 1.0 RATIO Ratio Activated Partial 27.3 SEC Thromboplast Time Sodium Level 142 MEQ/L Potassium Level 3.6 MEQ/L Chloride Level 108 MEQ/L Carbon Dioxide Level 26.4 MEQ/L Anion Gap 8 MEQ/L Blood Urea Nitrogen 14 MG/DL Creatinine 1.27 MG/DL Estimat Glomerular Filtration 50 ML/MIN Rate Random Glucose 142 MG/DL Lactic Acid Level 2.4 mmol/L Calcium Level 8.9 MG/DL Magnesium Level 1.8 MG/DL Total Bilirubin 0.2 MG/DL Aspartate Amino Transf 17 U/L (AST/SGOT) Alanine Aminotransferase 15 U/L (ALT/SGPT) Alkaline Phosphatase 99 U/L Total Creatine Kinase 85 U/L Troponin I 0.12 NG/ML B-Type Natriuretic Peptide 167 PG/ML Total Protein 7.7 GM/DL Albumin 2.9 GM/DL MDM Medical Decision Making Medical Screen Exam Complete: Yes Emergency Medical Condition: Yes Medical Record Reviewed: Yes Interpretation(s) Last Impressions Chest X-Ray 06/16/16 0026 Signed Impressions: Service Date/Time: Thursday, June 16, 2016 00:45 - CONCLUSION: Some increased density right midlung zone and the left lung base could be early infiltrates. Slightly worsening since March 2016. Angel Julian MD Differential Diagnosis COPD exacerbation, versus pneumonia, versus unstable angina Narrative Course During the course of the patients emergency department visit, the patients history, examination, and differential diagnosis were reviewed with the patient. The patient had IV access obtained and blood work sent for analysis. The patient was placed on a monitoring tech with oximetry and blood pressure monitoring. An EKG was done on arrival. The patient's EKG shows a sinus tachycardia nonspecific T-wave abnormalities, heart rate of 113, no acute ST segment elevation is noted. T waves are inverted in lead 3. No acute ST segment depression is noted. The patient was initially provided DuoNeb 2. Nitroglycerin 1 inch the chest wall. The patients laboratory studies were reviewed and remarkable for a white count of 14, hemoglobin 12.2, platelets 278 with a normal differential, CMP is remarkable for chloride of 108, creatinine 1.27 with a GFR of 50, glucose 142, CPK is 85, troponin I is in the intermediate range at 0.12 which could be related to her history of coronary artery disease, versus renal insufficiency, versus tachycardia related to COPD exacerbation. This will be monitored while she is inpatient with serial troponins. PT PTT within normal limits. Urinalysis shows 70 glucose otherwise unremarkable per Radiology studies were reviewed and remarkable for a chest x-ray that shows some increased density in the right mid lung zone and the left lung zone base I could be an early infiltrate slightly worsened compared to March 2016 chest x- ray. The patient was started on normal saline IV fluids. The patient was given hydrocodone for pain and she reports that she is on this for chronic pain and has been out. The patient was started on aztreonam 2 g IV, and Levaquin 500 mg IV for antibiotic coverage for lung infiltrate. The patients results were discussed with the patient, including the plan of care. I explained that further testing and/ or monitoring is indicated based on the patients history, examination, and/ or laboratory findings. Therefore, I recommended admission for additional evaluation. The patient expressed understanding and was agreeable with this plan. The patient was admitted to the hospital in stable condition and [facility] Sepsis Criteria SIRS Criteria (2 or more): Heart rate over 90, WBC > 31864, < 4000 or > 10% bands Sepsis Criteria (SIRS+source): Infect source susp/known Physician Communication Physician Communication The patient's case was discussed with who did agree to admit the patient for further evaluation and treatment at this time. Diagnosis Primary Impression: COPD exacerbation Additional Impressions: Lung infiltrate Chest pain, rule out acute myocardial infarction Admitting Information Admitting Physician Requests: Admit Yvonne Samaniego MD Jun 16, 2016 01:35
[2016-06-16 01:36] LABS: ALKALINE PHOSPHATASE 99 U/L (45-117); ALT (GPT) 15 U/L (10-53); TOTAL BILIRUBIN ADULT 0.2 MG/DL (0.2-1.0)
[2016-06-16 01:39] LABS: CREATINE KINASE 85 U/L (26-192)
[2016-06-16] MEDS ORDERED: NITROGLYCERIN 2% OINT 1 GM PACKET TOPICAL ONE (01:45)
[2016-06-16] MEDS ORDERED: ACETAMINOPHEN/HYDROcodone 325 MG/5 MG TAB PO ONE (01:45)
[2016-06-16] MEDS ORDERED: SODIUM CHLORID 0.9% 500 ML INJ 500 ML IV ONE (01:45)
[2016-06-16] MEDS ORDERED: NITROGLYCERIN 0.4 MG SL 25 TABS/BTL SL ONE (01:45)
[2016-06-16] MEDS ORDERED: AZTREONAM INJ 2,000 MG in SODIUM CHLORIDE 0.9% INJ 100 ML IV STA (02:35)
[2016-06-16] MEDS ORDERED: LEVOFLOXACIN 500 MG PREMIX INJ 100 ML IV ONE (02:45)
[2016-06-16 02:47] LABS: LACTIC ACID GHOST NOT REPORTABLE
[2016-06-16] MEDS ORDERED: ONDANSETRON HCL 4 MG/2 ML VIAL IVP PRN (04:00)
[2016-06-16] MEDS ORDERED: SODIUM CHLORIDE 0.9% FLUSH 10 ML FLUSH IV FLUSH PRN (04:00)
[2016-06-16] MEDS ORDERED: NALOXONE HCL 0.4 MG/ML AMP IV PRN (04:00)
[2016-06-16] MEDS ORDERED: RESP: IPRATROPIUM 0.5 MG/2.5 ML NEB NEB PRN (04:00)
[2016-06-16] MEDS: RESP: IPRATROPIUM 0.5 MG/2.5 ML NEB NEB SCH ×5 (04:07→21:20)
[2016-06-16] MEDS: SODIUM CHLOR 0.9% 1000 ML INJ 1,000 ML IV SCH ×2 (04:14→16:11)
--- NOTE | 2016-06-16 04:33 | HHI.HP ---
[facility] Service [facility] Primary Care Physician Unknown Admission Diagnosis Pneumonia, CP ro mi, intermediate troponin Diagnoses: Chief Complaint: chest pain Travel History International Travel<30 Days: No Contact w/Intl Traveler <30 Da: No Traveled to Known Affected Are: No History of Present Illness This a 71-year-old female patient past medical history which includes COPD, type 2 diabetes mellitus, rheumatoid arthritis, osteoarthritis, chronic pain, chronic headaches CAD status post NH 4 with cardiac stent placement 4. Patient presents to the emergency department today because of severe 11/10 burning pressure type pain in middle of her upper chest with radiation to left shoulder and neck. Patient reports that the pain in her shoulder and throat was a different sensation than is her chest. Pain started last night. Pain is lessened with medications given in ER. Patient is reproducible with palpation. Patient reports that she has her normal, "smoker cough," which is non- productive. Pain is also present in her throat. Denies associated diaphoresis Patient reports shortness of breath is worse than her baseline. Last cardiac catheter with stent placement March,. Patient reports that she is compliant with Plavix and aspirin, reports that she has not missed any of her medications. Reports this pain is different than her prior MIs. Patient also report pain from cervical spine area which radiates to the back of her head- this appears to be chronic Patient denies nausea, vomiting, diarrhea, constipation or chills. Review of Systems ROS Limitations: Poor Historian Except as stated in HPI: all other systems reviewed are Neg Past Family Social History Past Medical History COPD. Type 2 diabetes mellitus. Rheumatoid arthritis. Osteoarthritis. Chronic pain. Chronic headaches. NH x4 and cardiac stent placement x 4 Past Surgical History Tubal ligation. Cataracts. Sternotomy with a resection. Cardiac stents 4 Reported Medications Isosorbide Mononitrate ER (Isosorbide Mononitrate) 30 Mg Dolly 30 Mg PO DAILY@07 Prednisone (21) 10 mg tab Dose Pack (Prednisone) 10 Mg Pack 10 Mg PO DIRECTED Metoprolol Tartrate 50 Mg Tab 50 Mg PO BID Aspirin 81 (Aspirin) 81 Mg Tabdr 81 Mg PO DAILY Blood Glucose Test Strips 1 Sandhya Sandhya 1 Ea .ROUTE DIRECTED Accu-Chek La Glucose Monitor (Device) 1 Mis Mis 1 Kit .ROUTE DIRECTED Glucophage XR (Metformin HCl) 500 Mg Dolly 1,000 Mg PO BID Clopidogrel (Clopidogrel Bisulfate) 75 Mg Tab 75 Mg PO DAILY Albuterol Neb (Albuterol Sulfate) 2.5 Mg/3 Ml Neb 2.5 Mg NEB Q4HR NEB PRN Allergies: Coded Allergies: Contrast Media (Verified Allergy, Severe, Edema, 06/16/16) angioedema per pt Penicillin (Verified Allergy, Severe, Anaphylaxis, 06/16/16) Vasotec (Verified Allergy, Severe, Swelling, 06/16/16) Uncoded Allergies: EVERYTHING ON AND OFF..;ANGIODEMA... (Allergy, Severe, Anaphylaxis, 01/05/10 ) TAKES 60 MG PREDNISONE,150MG ZANTAC AND 50MG BENADRYL WHEN TONGUE BEGINS TO SWELL AND LIPS SWELL mycins (Allergy, Severe, 01/05/10) Active Ordered Medications Current Medications Medications (Trade) Dose Ordered Sig/Davey Route Start Time Stop Time Status Last Admin (NS Flush) 2 ml UNSCH PRN IV FLUSH 06/16/16 04:00 (NS Flush) 2 ml BID IV FLUSH 06/16/16 09:00 (Tylenol) 650 mg Q4H PRN PO 06/16/16 04:00 (Zofran Inj) 4 mg Q6H PRN IVP 06/16/16 04:00 (Lovenox Inj) 40 mg Q24H SQ 06/16/16 06:00 Naloxone HCl 0.4 mg 0.4 mg UNSCH PRN IV 06/16/16 04:00 Levofloxacin/ Dextrose 150 ml @ 100 mls/hr Q24H IV 06/17/16 04:00 Sodium Chloride 1,000 ml @ 84 mls/hr [id number] IV 06/16/16 04:00 06/16/16 04:14 (NS 1000 ml Inj) 1,000 ml @ 999 mls/hr BOLUS ONCE IV 06/16/16 05:30 06/16/16 06:30 Family History Mother with CAD Social History Lives with her mother continues to smoke about 0.5 PPD started smoking at 15 years old denies ETOH use or illicit drug use Physical Exam Vital Signs Vital Signs Date Time Temp Pulse Resp B/P Pulse Ox O2 Delivery O2 Flow Rate FiO2 06/16/16 04:08 97 Nasal Cannula 2.00 06/16/16 02:00 113 16 137/69 93 Room Air 06/16/16 00:34 98 Nasal Cannula 2 06/16/16 00:34 98 Nasal Cannula 2 06/16/16 00:05 123 20 127/83 100 Physical Exam GENERAL: This is a well-nourished, well-developed patient appears uncomfortable SKIN: No rashes, ecchymoses or lesions. Cool and dry. HEAD: Atraumatic. Normocephalic. No temporal or scalp tenderness. EYES: Extraocular motions intact. No scleral icterus. No injection or drainage. CARDIOVASCULAR: tachycardic without murmurs gallops or rubs RESPIRATORY: decreased air entry with scattered exp wheezes GASTROINTESTINAL: Abdomen soft, non-tender, nondistended. No hepato-splenomegaly , or palpable masses. No guarding. MUSCULOSKELETAL: trace BLE edema. No calf tenderness. Negative Homans sign bilaterally. ulnar deviation bilateral hands NEUROLOGICAL: Awake and alert. no focal deficits noted. Motor and sensory grossly within normal limits. 4 out of 5 muscle strength in all muscle groups. Normal speech. Laboratory Laboratory Tests Test 06/16/16 00:37 White Blood Count 14.0 Red Blood Count 4.66 Hemoglobin 12.2 Hematocrit 37.7 Mean Corpuscular Volume 81.0 Mean Corpuscular Hemoglobin 26.1 Mean Corpuscular Hemoglobin 32.3 Concent Red Cell Distribution Width 18.0 Platelet Count 278 Mean Platelet Volume 7.8 Neutrophils (%) (Auto) 60.3 Lymphocytes (%) (Auto) 32.4 Monocytes (%) (Auto) 6.0 Eosinophils (%) (Auto) 0.9 Basophils (%) (Auto) 0.4 Neutrophils # (Auto) 8.4 Lymphocytes # (Auto) 4.5 Monocytes # (Auto) 0.8 Eosinophils # (Auto) 0.1 Basophils # (Auto) 0.1 CBC Comment DIFF FINAL Differential Comment Prothrombin Time 11.2 Prothromb Time International 1.0 Ratio Activated Partial 27.3 Thromboplast Time Sodium Level 142 Potassium Level 3.6 Chloride Level 108 Carbon Dioxide Level 26.4 Anion Gap 8 Blood Urea Nitrogen 14 Creatinine 1.27 Estimat Glomerular Filtration 50 Rate Random Glucose 142 Lactic Acid Level 2.4 Calcium Level 8.9 Magnesium Level 1.8 Total Bilirubin 0.2 Aspartate Amino Transf 17 (AST/SGOT) Alanine Aminotransferase 15 (ALT/SGPT) Alkaline Phosphatase 99 Total Creatine Kinase 85 Troponin I 0.12 B-Type Natriuretic Peptide 167 Total Protein 7.7 Albumin 2.9 Date/Time Procedure Status Source Growth 06/16/16 00:37 Aerobic Blood Culture Received Blood Peripheral Pending 06/16/16 00:37 Anaerobic Blood Culture Received Blood Peripheral Pending Result Diagram: 06/16/167 06/16/167 Imaging Last Impressions Chest X-Ray 06/16/16 0026 Signed Impressions: Service Date/Time: Thursday, June 16, 2016 00:45 - CONCLUSION: Some increased density right midlung zone and the left lung base could be early infiltrates. Slightly worsening since March 2016. Angel Julian MD Assessment and Plan Assessment and Plan This a 71-year-old female patient past medical history which includes COPD, type 2 diabetes mellitus, rheumatoid arthritis, osteoarthritis, chronic pain, chronic headaches CAD status post NH 4 with cardiac stent placement 4. Patient presents to the emergency department today because of severe 11/10 burning pressure type pain in middle of her upper chest with radiation to left shoulder and neck. Chest pain reproducible with palpation. Last cardiac catheter with stent placement March,, PCI to LAD with DARIA. Patient reports that she is compliant with Plavix and aspirin, reports that she has not missed any of her medications. Chest pain with CAD hx, rule out ACS- chest pain reproducible with palpation patient S/P sternotomy likely costochondritis. H/O RA initial troponin 0.12 (patient with CKD)- monitor trend serial EKGs continue metoprolol, imdur, aspirin and plavix daily Early community acquired pna patient with leukocytosis WBC 14.0, tachycardia COPD CXR reviewed by myself and Dr. Hutchinson reveals: Some increased density right midlung zone and the left lung base could be early infiltrates. Patient given aztreonam and Levaquin IV in ER- Continue Levaquin IV Supplemental oxygen as needed to maintain saturation above 92% Atrovent nebulizers Q6H scheduled and PRN Tachycardia likely reactive to pna IV fluids continue to monitor DM type 2 accuchecks ACHS with SSI coverage DVT prophylaxis with Lovenox Discussed with ER provider, nursing and patient Written by Linda Godfrey, acting as scribe for Dr. Hutchinson on 06/16/16 at 05:53. This note was transcribed by scribe [Linda Godfrey]. I, Dr. Cary Hutchinson personally performed the history, physical exam, and medical decision making; and confirmed the accuracy of the information in the transcribed note. Authenticated by Dr. Cary Hutchinson on 06/16/16 at 0600. Physician Certification 2 Midnight Certification Type: Admission for Inpatient Services Order for Inpatient Services The services are ordered in accordance with Medicare regulations or non- Medicare payer requirements, as applicable. In the case of services not specified as inpatient-only, they are appropriately provided as inpatient services in accordance with the 2-midnight benchmark. Estimated LOS (days): 3 days is the estimated time the patient will need to remain in the hospital, assuming treatment plan goals are met and no additional complications. Post-Hospital Plan: Home Linda Godfrey Jun 16, 2016 04:33 Cary Hutchinson MD Jun 16, 2016 06:32
[2016-06-16] MEDS ORDERED: SODIUM CHLOR 0.9% 1000 ML INJ 1,000 ML IV ONE (05:30)
[2016-06-16] MEDS: ENOXAPARIN SODIUM 40 MG/0.4 ML SYRINGE SQ SCH (06:00)
[2016-06-16] MEDS ORDERED: GLUCAGON 1 MG/ML VIAL OTHER PRN (06:00)
[2016-06-16] MEDS ORDERED: DEXTROSE 50% IN WATER 50 ML VIAL(D50) IV PUSH PRN (06:00)
[2016-06-16 06:53] LABS: BLOOD, URINE NEG (NEG); COMMENT (UR) CULT NOT INDICATED; CULTURE IF INDICATED CULT NOT INDICATED; GLUCOSE,URINE 70 mg/dL (NEG); KETONE, URINE NEG (NEG); MUCUS URINE FEW /lpf (OCC); NITRITE,URINE NEG (NEG); SQUAMOUS EPITHELIAL CELL URINE <1 /hpf (0-5); URINE COLOR LIGHT-YELLOW (YELLW/STRAW)
[2016-06-16] MEDS: ISOSORBIDE MONONITRATE 30 MG TAB PO SCH (06:53)
[2016-06-16] MEDS: INSULIN ASPART SUPPLEMENTAL SCALE SQ SCH ×4 (07:21→20:22)
--- NOTE | 2016-06-16 09:13 | HHI.PR ---
Subjective Remarks Follow-up for chest pain Patient is a poor historian and she stated she isn't sure if the chest pain is similar to her previous chest pain which she had a stent placement. She stated that when I palpated her chest that pain is different from her chest pain that started yesterday. She stated the pain happens is suggestion and continues but it has improved today. Denying nausea or vomiting. Patient stated that she has a chronic cough due to her chronic tobacco use and that it has worsened. She denies any shortness of breathing. She also denies any fevers or chills. Objective Vitals Vital Signs Date Time Temp Pulse Resp B/P Pulse Ox O2 Delivery O2 Flow Rate FiO2 06/16/16 07:32 94 Nasal Cannula 2.00 06/16/16 07:21 96 18 140/66 98 Nasal Cannula 2 06/16/16 06:00 96 18 145/68 98 Nasal Cannula 2 06/16/16 04:08 97 Nasal Cannula 2.00 06/16/16 04:00 102 18 130/66 93 Nasal Cannula 2 06/16/16 02:00 113 16 137/69 93 Room Air 06/16/16 00:34 98 Nasal Cannula 2 06/16/16 00:34 98 Nasal Cannula 2 06/16/16 00:05 123 20 127/83 100 Result Diagram: 06/16/163606/[id number]/1636 Objective Remarks GENERAL: in NAD SKIN: Warm and dry. HEAD: Normocephalic. EYES: No scleral icterus. No injection or drainage. NECK: Supple, trachea midline. No JVD or lymphadenopathy. CARDIOVASCULAR: Regular rate and rhythm without murmurs, gallops, or rubs. Positive tenderness to palpation of chest wall around the sternotomy area. This is a different type of chest pain that she has now, RESPIRATORY: Breath sounds equal bilaterally. No accessory muscle use. GASTROINTESTINAL: Abdomen soft, non-tender, nondistended. MUSCULOSKELETAL: No cyanosis, or edema. BACK: Nontender without obvious deformity. No CVA tenderness. Medications and IVs Current Medications Sodium Chloride (NS Flush) 2 ml UNSCH PRN IVF FLUSH AFTER USING IV ACCESS; Start 06/16/16 at 00:30; Stop 06/16/16 at 03:56; Status DC Albuterol/ Ipratropium (Duoneb Neb) 1 ampule Q15M INH Last administered on 06/16 00:35; Start 06/16/16 at 00:30; Stop 06/16/16 at 00:46; Status DC Nitroglycerin (Nitroglycerin 2% Oint) 1 inch ONCE ONCE TOPICAL Last administered on 06/16/16 02:01; Start 06/16/16 at 01:45; Stop 06/16/16 at 01:46 ; Status DC Nitroglycerin (Nitrostat Sl) 0.4 mg ONCE ONCE SL Last administered on 02:01; Start 06/16/16 at 01:45; Stop 06/16/16 at 01:46; Status DC Acetaminophen/ Hydrocodone Bitart 1 tab 1 tab ONCE ONCE PO Last administered on 06/16/16 02:01; Start 06/16/16 at 01:45; Stop 06/16/16 at 01:46; Status DC Sodium Chloride 500 ml @ 500 mls/hr BOLUS ONCE IV Last administered on 02:00; Start 06/16/16 at 01:45; Stop 06/16/16 at 02:44; Status DC Aztreonam 2000 mg/ Sodium Chloride 100 ml @ 200 mls/hr ONCE STAT IV Last administered on 06/16/16 03:28; Start 06/16/16 at 02:35; Stop 06/16/16 at 03:04 ; Status DC Levofloxacin/ Dextrose (Levaquin 500 Mg Premix Inj) 100 ml @ 100 mls/hr ONCE ONCE IV Last administered on 06/16/16 03:59; Start 06/16/16 at 02:45; Stop at 03:44; Status DC Sodium Chloride (NS Flush) 2 ml UNSCH PRN IV FLUSH FLUSH AFTER USING IV ACCESS ; Start 06/16/16 at 04:00 Sodium Chloride (NS Flush) 2 ml BID IV FLUSH ; Start 06/16/16 at 09:00 Acetaminophen (Tylenol) 650 mg Q4H PRN PO TEMP > 100.4; Start 06/16/16 at 04:00 Ondansetron HCl (Zofran Inj) 4 mg Q6H PRN IVP NAUSEA OR VOMITING; Start at 04:00 Enoxaparin Sodium (Lovenox Inj) 40 mg Q24H SQ Last administered on 06/16/16 06 :00; Start 06/16/16 at 06:00 Naloxone HCl 0.4 mg 0.4 mg UNSCH PRN IV SEE LABEL COMMENTS; Start 06/16/16 at 04:00 Levofloxacin/ Dextrose 150 ml @ 100 mls/hr Q24H IV ; Start 06/17/16 at 04:00 Sodium Chloride (NS 1000 ml Inj) 1,000 ml @ 84 mls/hr [id number] IV Last administered on 06/16/16 04:14; Start 06/16/16 at 04:00 Ipratropium Turner (Atrovent Neb) 0.5 mg Q6HR NEB NEB Last administered on 04:07; Start 06/16/16 at 04:00 Ipratropium Turner 0.5 mg 0.5 mg Q4HR NEB PRN NEB SOB/WHEEZING; Start at 04:00 Sodium Chloride (NS 1000 ml Inj) 1,000 ml @ 999 mls/hr BOLUS ONCE IV Last administered on 06/16/16 05:47; Start 06/16/16 at 05:30; Stop 06/16/16 at 06:30 ; Status DC Clopidogrel Bisulfate (Plavix) 75 mg DAILY PO ; Start 06/16/16 at 09:00 Isosorbide Mononitrate (Imdur) 30 mg DAILY@07 PO Last administered on 06:53; Start 06/16/16 at 07:00 Metoprolol Tartrate (Lopressor) 50 mg BID PO ; Start 06/16/16 at 09:00 Aspirin (Aspirin Chew) 81 mg DAILY CHEW ; Start 06/16/16 at 09:00 Dextrose (D50w (Vial) Inj) 25 ml UNSCH PRN IV PUSH HYPOGLYCEMIA-SEE COMMENTS; Start 06/16/16 at 06:00 Glucagon (Glucagon Inj) 1 mg UNSCH PRN OTHER HYPOGLYCEMIA-SEE COMMENTS; Start 06/16/16 at 06:00 Insulin Aspart (NovoLOG SUPPLEMENTAL SCALE) 1 ACHS SLIDING SCALE SQ Last administered on 06/16/16 07:21; Start 06/16/16 at 07:00 A/P Assessment and Plan This a 71-year-old female patient past medical history which includes COPD, type 2 diabetes mellitus, rheumatoid arthritis, osteoarthritis, chronic pain, chronic headaches CAD status post NE 4 with cardiac stent placement 4. . Chest pain with CAD hx, rule out ACS- chest pain reproducible with palpation patient S/P sternotomy likely costochondritis. H/O RA initial troponin 0.12 (patient with CKD) and increased to 0.27. continue metoprolol, imdur, aspirin and plavix daily Will consult Dr. Carmona senior mechanical engineer who last saw patient in March for further recommendation. Early community acquired pna patient with leukocytosis WBC 14.0, tachycardia COPD CXR rshowed ncreased density right midlung zone and the left lung base could be early infiltrates. Patient given aztreonam and Levaquin IV in ER- Continue Levaquin IV Supplemental oxygen as needed to maintain saturation above 92% Atrovent nebulizers Q6H scheduled and PRN Tachycardia most likely secondary to pain. IMPROVED IV fluids continue to monitor DM type 2 accuchecks ACHS with SSI coverage DVT prophylaxis with Lovenox Discharge Planning Need to rule out ACS and treat patient's PNA. Based on results and clinical status will determine further recommendations. Raegan Lomeli MD Jun 16, 2016 09:13
[2016-06-16] MEDS: METOPROLOL TARTRATE 50 MG TAB PO SCH ×2 (10:32→20:22)
[2016-06-16] MEDS: ASPIRIN 81 MG CHEW TAB CHEW SCH (10:32)
[2016-06-16] MEDS: CLOPIDOGREL 75 MG TAB PO SCH (10:32)
[2016-06-16] MEDS: SODIUM CHLORIDE 0.9% FLUSH 10 ML FLUSH IV FLUSH SCH ×2 (10:33→20:23)
--- NOTE | 2016-06-16 11:30 | EKG ---
Date Performed: 06/16/2016 Time Performed: 04:06:00 PTAGE: 71 years EKG: SINUS TACHYCARDIA ABNORMAL RHYTHM ECG PREVIOUS TRACING : 06/16/2016 00.10 Compared to prior tracing no significant change DOCTOR: Cody Moreno Interpretating Date/Time 06/16/2016 11:29:01
--- NOTE | 2016-06-16 11:32 | EKG ---
Date Performed: 06/16/2016 Time Performed: 00:10:14 PTAGE: 71 years EKG: SINUS TACHYCARDIA NONSPECIFIC T-WAVE ABNORMALITY ABNORMAL RHYTHM ECG PREVIOUS TRACING : 03/29/2016 08.45 Compared to the previous tracing sinus tachycardia is new DOCTOR: Cody Moreno Interpretating Date/Time 06/16/2016 11:30:48
--- NOTE | 2016-06-16 16:01 | EKG ---
Date Performed: 06/16/2016 Time Performed: 10:12:38 PTAGE: 71 years EKG: Sinus arrhythmia Possible inferior infarct - age undetermined Abnormal ECG COMPARED TO PRIO R ELECTROCARDIOGRAM, Rate has slowed. PREVIOUS TRACING : 06/16/2016 04.06 DOCTOR: Dorian Villeda Interpretating Date/Time 06/16/2016 16:00:09
[2016-06-16] MEDS: ACETAMINOPHEN 325 MG TAB PO PRN ×2 (17:10→22:09)
[2016-06-17] VITALS (29 sets, daily range): BP systolic 100–136; BP diastolic 59–77; PULSE 70–100; RESP 20; TEMP 98.1–98.6; O2SAT 95–98
[2016-06-17] MEDS: SODIUM CHLOR 0.9% 1000 ML INJ 1,000 ML IV SCH ×2 (03:27→15:45)
[2016-06-17] MEDS: LEVOFLOXACIN 750 MG PREMIX INJ 150 ML IV SCH (03:27)
[2016-06-17] MEDS: RESP: IPRATROPIUM 0.5 MG/2.5 ML NEB NEB SCH ×4 (04:16→20:49)
[2016-06-17] MEDS: ENOXAPARIN SODIUM 40 MG/0.4 ML SYRINGE SQ SCH (06:00)
[2016-06-17] MEDS: ISOSORBIDE MONONITRATE 30 MG TAB PO SCH (06:02)
[2016-06-17 06:09] LABS: AUTOMATED NEUTROPHIL # 9.1 TH/MM3 (1.8-7.7); BASOPHIL % 0.3 % (0.0-2.0); EOSINOPHIL # 0.1 TH/MM3 (0-0.4); EOSINOPHIL % 0.4 % (0.0-4.0); HEMATOCRIT 34.5 % (35.0-46.0); HEMO FLAGS DIFF FINAL; LYMPH % 21.2 % (9.0-44.0); LYMPHOCYTE # 2.7 TH/MM3 (1.0-4.8); MEAN CELL VOLUME 80.2 FL (80.0-100.0); MEAN CORPUSCULAR HEMOGLOBIN 25.8 PG (27.0-34.0); MEAN CORPUSCULAR HGB CONC 32.2 % (32.0-36.0); MONO % 6.4 % (0.0-8.0); NEUT % 71.7 % (16.0-70.0); PLATELET COUNT 252 TH/MM3 (150-450); RED CELL DISTRIBUTION WIDTH 18.2 % (11.6-17.2); WHITE BLOOD COUNT 12.7 TH/MM3 (4.0-11.0)
[2016-06-17 06:34] LABS: BICARBONATE 26.1 MEQ/L (21.0-32.0); POTASSIUM 3.9 MEQ/L (3.5-5.1)
[2016-06-17] MEDS: INSULIN ASPART SUPPLEMENTAL SCALE SQ SCH ×4 (06:36→22:08)
--- NOTE | 2016-06-17 06:54 | EKG ---
Date Performed: 06/16/2016 Time Performed: 22:03:22 PTAGE: 71 years EKG: Sinus arrhythmia Possible inferior infarct - age undetermined Abnormal ECG NO PREVIOUS TRACING DOCTOR: Dorian Villeda Interpretating Date/Time 06/17/2016 06:53:09
--- NOTE | 2016-06-17 07:45 | MB ---
cc: EDMUND NATHAN DO DATE OF CONSULTATION June 16, 2016 REASON FOR CONSULTATION Elevated troponins with chest pain. HISTORY OF PRESENT ILLNESS Caty Tavarez is a pleasant 71-year-old female who presents to [facility] Emergency Room on June 16, 2016, due to chest pain. She states that the chest pain was 10/10 with a burning pressure type sensation in the upper chest and along the left shoulder and neck. She states that the pain is somewhat different than the last time she was in the emergency room and underwent a stress test and then cardiac catheterization where she was found to have multiple lesions that were angioplastied and stented. She has also had a cough that is productive of yellow sputum. While in the emergency room she was noted to be exceptionally wheezing and given Solu-Medrol and nebulizer treatments. She denies recent fevers. She also relates that her shortness of breath at baseline is fairly stable but has been recently somewhat worse. She has been compliant with all of her medications. PAST MEDICAL HISTORY 1. 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 2. COPD. 3. Type 2 diabetes mellitus. 4. Rheumatoid arthritis. 5. Osteoarthritis. 6. Chronic pain. 7. Chronic headaches. CARDIAC CATHETERIZATION (June 15, 2016) Left main is patent. LAD has a 70% lesion in the midportion. Left circumflex is a small vessel and diseased throughout with a 60% lesion proximally. First obtuse marginal is small with diffuse disease. RCA is a dominant vessel which gives off a PDA. Mid-RCA has a previous stent with 80% in-stent restenosis. PDA has a stent with 20% in-stent restenosis. Balloon angioplasty was done of the distal PDA stent and mid-RCA stent. FFR was done of the LAD which was 0.79 and this was treated with a drug-eluting stent (3 x 22). PAST SURGICAL HISTORY 1. Cardiac catheterization as above. 2. Tubal ligation. 3. Cataract surgery. 4. Sternotomy with resection. ALLERGIES CONTRAST PENICILLIN. VASOTEC. MEDICATIONS 1. Aspirin 81 mg daily. 2. Plavix 75 mg daily. 3. Prednisone 10 mg as directed. 4. Albuterol 2.5 mg nebulizer every 4 hours as needed. 5. Metoprolol tartrate 50 milliseconds 50 mg b.i.d. 6. Metformin ER 1000 mg b.i.d. 7. Imdur 30 mg daily. FAMILY HISTORY Denies premature coronary artery disease or sudden cardiac within the family. SOCIAL HISTORY Continues to smoke about half-pack per day, started smoking at the age of 15. Denies alcohol or illicit drug abuse. REVIEW OF SYSTEMS 14-systems were reviewed as above. Pertinent positives and negatives as above, otherwise negative. PHYSICAL EXAMINATION VITAL SIGNS: Temperature 98.7, heart rate 91, blood pressure 121/66, respirations 20, pulse ox 96% on 2 liters. IN GENERAL: The patient appears well, in no acute distress, alert, awake and oriented x 3. Extraocular muscles intact. Mucous membranes moist. NECK: Supple. No JVD at 45 degrees. No carotid bruits heard bilaterally. Carotid upstroke is brisk in nature. HEART: Regular rate and rhythm. Positive first and second heart sounds with no noted murmurs, gallops or rubs. LUNGS: The lungs have decreased breath sounds with mild wheezing and rhonchi noted bilaterally. ABDOMEN: Soft, nontender, nondistended with no organomegaly noted. EXTREMITIES: No clubbing, cyanosis or edema. Femoral and distal pulses are intact bilaterally. NEUROLOGICALLY: No focal deficits. SKIN: Warm, dry and intact. OSTEOPATHIC EXAM: Mild lordosis. No kyphoscoliosis or paraspinal tender points. LABORATORY FINDINGS White blood cells 14.0, hemoglobin 12.2, hematocrit 37.7, platelets 278. Potassium 3.6, BUN 14, creatinine 1.27. BNP 167. Troponin increasing to 0.87. Lactic acid 2.4. ELECTROCARDIOGRAM (June 16, 2016, at 10:12 a.m.) Sinus arrhythmia, possible age indeterminate inferior infarct. IMPRESSIONS 1. Atypical chest pain. 2. Elevated troponins, possible type 1 versus type 2. 3. Questionable pneumonia versus bronchitis. 4. COPD. 5. Type 2 diabetes mellitus. 6. Leukocytosis. 7. Acute kidney injury. RECOMMENDATIONS 1. Ms. Tavarez appears to be suffering from possible pneumonia versus bronchitis with an elevated white count and tachycardia on arrival. 2. Her chest pain is somewhat concerning, although it does have some atypical features. 3. She did have an elevation of her troponin to 0.87 and this might be a secondary cause of an N-STEMI due to her underlying illness and shortness of breath. 4. I did speak to her about consideration for repeat cardiac catheterization to evaluate the lesions that were previously intervened upon. We will wait to see throughout her hospital course and may consider this later in the week versus medical management. 5. We will plan on checking a 2-D echo to look at her overall left ventricular function, cardiac structure and possible valvopathies. 6. Further recommendations based on the hospital course. Thank you for allowing me to see Caty Tavarez. If there are any questions, please do not hesitate to call. Edmund Nathan DO VGP/SSB /10:28 PM /7:32 AM
[2016-06-17] MEDS: SODIUM CHLORIDE 0.9% FLUSH 10 ML FLUSH IV FLUSH SCH ×2 (09:00→21:45)
[2016-06-17] MEDS: METOPROLOL TARTRATE 50 MG TAB PO SCH ×2 (09:28→21:45)
[2016-06-17] MEDS: ASPIRIN 81 MG CHEW TAB CHEW SCH (09:28)
[2016-06-17] MEDS: CLOPIDOGREL 75 MG TAB PO SCH (09:28)
[2016-06-17] MEDS: ACETAMINOPHEN 325 MG TAB PO PRN (09:29)
--- NOTE | 2016-06-17 12:49 | PD.CARD.PN ---
Subjective Subjective Remarks No chest pain, still with some shortness of breath Objective Medications Current Medications Medications (Trade) Dose Ordered Sig/Davey Route Start Time Stop Time Status Last Admin (NS Flush) 2 ml UNSCH PRN IV FLUSH 06/16/16 04:00 (NS Flush) 2 ml BID IV FLUSH 06/16/16 09:00 06/17/16 09:00 (Tylenol) 650 mg Q4H PRN PO 06/16/16 04:00 06/17/16 09:29 (Zofran Inj) 4 mg Q6H PRN IVP 06/16/16 04:00 (Lovenox Inj) 40 mg Q24H SQ 06/16/16 06:00 06/17/16 06:00 Naloxone HCl 0.4 mg 0.4 mg UNSCH PRN IV 06/16/16 04:00 Levofloxacin/ Dextrose 150 ml @ 100 mls/hr Q24H IV 06/17/16 04:00 06/17/16 03:27 (NS 1000 ml Inj) 1,000 ml @ 84 mls/hr [id number] IV 06/16/16 04:00 06/17/16 03:27 (Plavix) 75 mg DAILY PO 06/16/16 09:00 06/17/16 09:28 (Imdur) 30 mg DAILY@07 PO 06/16/16 07:00 06/17/16 06:02 (Lopressor) 50 mg BID PO 06/16/16 09:00 06/17/16 09:28 (Aspirin Chew) 81 mg DAILY CHEW 06/16/16 09:00 06/17/16 09:28 (D50w (Vial) Inj) 25 ml UNSCH PRN IV PUSH 06/16/16 06:00 (Glucagon Inj) 1 mg UNSCH PRN OTHER 06/16/16 06:00 Vital Signs / I&O Vital Signs Date Time Temp Pulse Resp B/P Pulse Ox O2 Delivery O2 Flow Rate FiO2 06/17/16 12:14 18 06/17/16 08:38 96 Nasal Cannula 1.50 06/17/16 06:00 78 06/17/16 05:00 79 06/17/16 04:00 87 06/17/16 03:00 85 06/17/16 03:00 98.6 79 20 100/59 95 06/17/16 02:00 87 06/17/16 01:00 77 06/17/16 00:00 74 06/16/16 23:00 86 06/16/16 23:00 98.4 79 20 111/69 97 06/16/16 22:00 86 06/16/16 21:13 98 Nasal Cannula 1.50 06/16/16 21:00 82 06/16/16 20:00 97.9 93 20 121/70 96 06/16/16 20:00 82 06/16/16 19:00 85 06/16/16 18:00 90 06/16/16 17:00 82 06/16/16 16:15 92 06/16/16 15:00 100 06/16/16 15:00 98.7 91 20 121/66 96 06/16/16 14:01 79 06/16/16 13:00 82 I/O 06/16/16 06/16/16 06/16/16 06/17/16 06/17/16 06/17/16 07:00 15:00 23:00 07:00 15:00 23:00 Intake Total 720 ml 2258 ml Output Total 1550 ml Balance 720 ml 708 ml Intake Oral 720 ml 480 ml IV Total 1778 ml Output Urine Total 1550 ml # Voids 1 # Bowel Movements 1 Physical Exam GENERAL: NAD, AAOx3 SKIN: Warm and dry. HEAD: Atraumatic. Normocephalic. EYES: Pupils equal and round. No scleral icterus. No injection or drainage. ENT: No nasal bleeding or discharge. Mucous membranes pink and moist. NECK: Trachea midline. No JVD. CARDIOVASCULAR: Regular rate and rhythm. RESPIRATORY: No accessory muscle use. Decreased breath sounds bilaterally with some mild rhonchi GASTROINTESTINAL: Abdomen soft, non-tender, nondistended. Hepatic and splenic margins not palpable. MUSCULOSKELETAL: Extremities without clubbing, cyanosis, or edema. No obvious deformities. NEUROLOGICAL: Awake and alert. No obvious cranial nerve deficits. Motor grossly within normal limits. Five out of 5 muscle strength in the arms and legs. Normal speech. PSYCHIATRIC: Appropriate mood and affect; insight and judgment normal. Laboratory Laboratory Tests Test 06/17/16 05:35 White Blood Count 12.7 TH/MM3 Red Blood Count 4.30 MIL/MM3 Hemoglobin 11.1 GM/DL Hematocrit 34.5 % Mean Corpuscular Volume 80.2 FL Mean Corpuscular Hemoglobin 25.8 PG Mean Corpuscular Hemoglobin 32.2 % Concent Red Cell Distribution Width 18.2 % Platelet Count 252 TH/MM3 Mean Platelet Volume 7.4 FL Neutrophils (%) (Auto) 71.7 % Lymphocytes (%) (Auto) 21.2 % Monocytes (%) (Auto) 6.4 % Eosinophils (%) (Auto) 0.4 % Basophils (%) (Auto) 0.3 % Neutrophils # (Auto) 9.1 TH/MM3 Lymphocytes # (Auto) 2.7 TH/MM3 Monocytes # (Auto) 0.8 TH/MM3 Eosinophils # (Auto) 0.1 TH/MM3 Basophils # (Auto) 0.0 TH/MM3 CBC Comment DIFF FINAL Differential Comment Sodium Level 142 MEQ/L Potassium Level 3.9 MEQ/L Chloride Level 108 MEQ/L Carbon Dioxide Level 26.1 MEQ/L Anion Gap 8 MEQ/L Blood Urea Nitrogen 14 MG/DL Creatinine 0.70 MG/DL Estimat Glomerular Filtration 100 ML/MIN Rate Random Glucose 106 MG/DL Calcium Level 9.5 MG/DL Assessment and Plan Problem List: (1) COPD exacerbation (2) CAD (coronary artery disease) (3) Elevated troponin (4) Rheumatoid arthritis (5) Hypertension (6) Diabetes (7) Smoking addiction Assessment and Plan 1) Chest is somewhat atypical, but concerning especially with a rise in troponin 2) Will plan possible cardiac catheterization tomorrow from the groin to evaluate previous stent and angioplasties 3) NPO after midnight Edmund Hernandez DO Jun 17, 2016 12:49
--- NOTE | 2016-06-17 15:10 | EC ---
Study Study Date:06/17/2016 STUDY CONCLUSIONS SUMMARY - Left ventricle: The cavity size was normal. Wall thickness was normal. Systolic function was normal. The estimated ejection fraction was in the range of 50% to 55%. Wall motion was normal; there were no regional wall motion abnormalities. - Aortic valve: Valve area: 2.09cm^2 (Vmax). If LV function is below 40, please consider prescribing an ACEI or ARB or document rationale for non-use. PROCEDURE DATA STUDY STATUS: Elective. Procedure: Transthoracic echocardiography. Image quality was fair. Scanning was performed from the parasternal, apical, and subcostal acoustic windows. Study completion: The patient tolerated the procedure well. Transthoracic echocardiography. M-mode, complete 2D, complete spectral Doppler, and color Doppler. Height: Height: 70in. Weight: Weight: 223.5lb. Body mass index: BMI: 32.1kg/m^2. Body surface area: BSA: 2.19m^2. Patient status: Inpatient. CARDIAC ANATOMY LEFT VENTRICLE: The cavity size was normal. Wall thickness was normal. Systolic function was normal. The estimated ejection fraction was in the range of 50% to 55%. Wall motion was normal; there were no regional wall motion abnormalities. AORTIC VALVE: Trileaflet; normal thickness leaflets. Doppler: Transvalvular velocity was within the normal range. There was no stenosis. No regurgitation. Valve area: 2.09cm^2 (Vmax). Indexed valve area: 0.95cm^2/m^2 (Vmax). Peak gradient: 11mm Hg (S). AORTA: Aortic root: The aortic root was normal in size. MITRAL VALVE: Structurally normal valve. Doppler: Transvalvular velocity was within the normal range. There was no evidence for stenosis. No regurgitation. Peak gradient: 5mm Hg (D). LEFT ATRIUM: The atrium was normal in size. RIGHT VENTRICLE: The cavity size was normal. Wall thickness was normal. PULMONIC VALVE: Doppler: Transvalvular velocity was within the normal range. There was no evidence for stenosis. No regurgitation. TRICUSPID VALVE: Structurally normal valve. Doppler: Transvalvular velocity was within the normal range. No regurgitation. PULMONARY ARTERY: The main pulmonary artery was normal-sized. Systolic pressure was within the normal range. RIGHT ATRIUM: The atrium was normal in size. PERICARDIUM: There was no pericardial effusion. SYSTEMIC VEINS: Inferior vena cava: The vessel was normal in size. Patient weight: 223.5lb _Ejection fraction:_ 65-75% _Fractional shortening:_ 32% up to 5Kg 5-11.5Kg 11.6-22.9Kg 23-45Kg 45-57Kg Aortic Root 7-13 <17 13-22 17-27 17-27 LA diam 6-13 <23 24-38 33-47 37-40 RVID 10-17 7-15 7-15 7-18 8-17 LVIDd 12-22 <32 24-38 33-47 37-40 LVPW 2-4 3-6 5-7 6-8 7-8 IVS 2-4 3-6 5-7 6-8 7-8 BASIC MEASUREMENTS ADULT NORMAL Left ventricle LV internal dimension, ED, chordal 47 mm 43-52 level, PLAX LV internal dimension, ES, chordal 35.2 mm 23-38 level, PLAX Fractional shortening, chordal level, *25 % >29 PLAX LV posterior wall thickness, ED 10 mm IVS/LVPW ratio, ED 0.86 <1.3 Ventricular septum Septal thickness, ED 8.61 mm Aortic valve Leaflet separation *13 mm 15-26 BASIC MEASUREMENTS ADULT NORMAL Aortic valve Leaflet separation *13 mm 15-26 Aorta Root diameter, ED 21 mm 20-37 Left atrium Anterior-posterior dimension, ES 40 mm 19-40 Anterior-posterior dimension index, ES 1.83 cm/m^2 <2.2 LA/aortic root ratio 1.9 DOPPLER MEASUREMENTS ADULT NORMAL Aortic valve Peak velocity, S 165 cm/s Peak gradient, S 11 mm Hg Valve area, Vmax 2.09 cm^2 Valve area index, Vmax 0.95 cm^2/m^2 Mitral valve Peak E-wave velocity 111 cm/s Peak A-wave velocity 74 cm/s Deceleration time 155 ms 150-230 Peak gradient, D 5 mm Hg Peak E/A ratio 1.5 Maximal regurgitant velocity 480 cm/s Pulmonic valve Peak velocity, S 88.2 cm/s LEGEND: Mean values are shown as u=mean value. Asterisk (*) bethea values outside specified normal range. Prepared and signed by Lakeisha Jenkins [id number]
--- NOTE | 2016-06-17 16:15 | HHI.PR ---
Subjective Remarks Follow-up for shortness of breathing, elevated troponin, pneumonia Patient stated that she continues her shortness of breathing. Denies any chest pain or cough. She remains afebrile. Her only complaint was not getting any chicken on her plate. Objective Vitals Vital Signs Date Time Temp Pulse Resp B/P Pulse Ox O2 Delivery O2 Flow Rate FiO2 06/17/16 12:14 18 06/17/16 11:30 98.1 91 20 107/69 96 06/17/16 08:38 96 Nasal Cannula 1.50 06/17/16 07:30 98.3 85 20 112/70 98 06/17/16 06:00 78 06/17/16 05:00 79 06/17/16 04:00 87 06/17/16 03:00 85 06/17/16 03:00 98.6 79 20 100/59 95 06/17/16 02:00 87 06/17/16 01:00 77 06/17/16 00:00 74 06/16/16 23:00 86 06/16/16 23:00 98.4 79 20 111/69 97 06/16/16 22:00 86 06/16/16 21:13 98 Nasal Cannula 1.50 06/16/16 21:00 82 06/16/16 20:00 97.9 93 20 121/70 96 06/16/16 20:00 82 06/16/16 19:00 85 06/16/16 18:00 90 06/16/16 17:00 82 06/16/16 16:15 92 I/O 06/16/16 06/16/16 06/16/16 06/17/16 06/17/16 06/17/16 07:00 15:00 23:00 07:00 15:00 23:00 Intake Total 720 ml 2258 ml Output Total 1550 ml Balance 720 ml 708 ml Intake Oral 720 ml 480 ml IV Total 1778 ml Output Urine Total 1550 ml # Voids 1 # Bowel Movements 1 Result Diagram: 06/17/16 0535 06/17/16 0535 Objective Remarks GENERAL: in NAD and is sitting comfortably in bed. SKIN: Warm and dry. HEAD: Normocephalic. EYES: No scleral icterus. No injection or drainage. NECK: Supple, trachea midline. No JVD or lymphadenopathy. CARDIOVASCULAR: Regular rate and rhythm without murmurs, gallops, or rubs. Positive tenderness to palpation of chest wall around the sternotomy area. This is a different type of chest pain that she has now, RESPIRATORY: Breath sounds equal bilaterally. No accessory muscle use. GASTROINTESTINAL: Abdomen soft, non-tender, nondistended. Medications and IVs Current Medications Sodium Chloride (NS Flush) 2 ml UNSCH PRN IVF FLUSH AFTER USING IV ACCESS; Start 06/16/16 at 00:30; Stop 06/16/16 at 03:56; Status DC Albuterol/ Ipratropium (Duoneb Neb) 1 ampule Q15M INH Last administered on 06/16 00:35; Start 06/16/16 at 00:30; Stop 06/16/16 at 00:46; Status DC Nitroglycerin (Nitroglycerin 2% Oint) 1 inch ONCE ONCE TOPICAL Last administered on 06/16/16 02:01; Start 06/16/16 at 01:45; Stop 06/16/16 at 01:46 ; Status DC Nitroglycerin (Nitrostat Sl) 0.4 mg ONCE ONCE SL Last administered on 02:01; Start 06/16/16 at 01:45; Stop 06/16/16 at 01:46; Status DC Acetaminophen/ Hydrocodone Bitart 1 tab 1 tab ONCE ONCE PO Last administered on 06/16/16 02:01; Start 06/16/16 at 01:45; Stop 06/16/16 at 01:46; Status DC Sodium Chloride 500 ml @ 500 mls/hr BOLUS ONCE IV Last administered on 02:00; Start 06/16/16 at 01:45; Stop 06/16/16 at 02:44; Status DC Aztreonam 2000 mg/ Sodium Chloride 100 ml @ 200 mls/hr ONCE STAT IV Last administered on 06/16/16 03:28; Start 06/16/16 at 02:35; Stop 06/16/16 at 03:04 ; Status DC Levofloxacin/ Dextrose (Levaquin 500 Mg Premix Inj) 100 ml @ 100 mls/hr ONCE ONCE IV Last administered on 06/16/16 03:59; Start 06/16/16 at 02:45; Stop at 03:44; Status DC Sodium Chloride (NS Flush) 2 ml UNSCH PRN IV FLUSH FLUSH AFTER USING IV ACCESS ; Start 06/16/16 at 04:00 Sodium Chloride (NS Flush) 2 ml BID IV FLUSH Last administered on 06/17/16 09: 00; Start 06/16/16 at 09:00 Acetaminophen (Tylenol) 650 mg Q4H PRN PO TEMP > 100.4 Last administered on 09:29; Start 06/16/16 at 04:00 Ondansetron HCl (Zofran Inj) 4 mg Q6H PRN IVP NAUSEA OR VOMITING; Start at 04:00 Enoxaparin Sodium (Lovenox Inj) 40 mg Q24H SQ Last administered on 06/17/16 06 :00; Start 06/16/16 at 06:00 Naloxone HCl 0.4 mg 0.4 mg UNSCH PRN IV SEE LABEL COMMENTS; Start 06/16/16 at 04:00 Levofloxacin/ Dextrose 150 ml @ 100 mls/hr Q24H IV Last administered on 03:27; Start 06/17/16 at 04:00 Sodium Chloride (NS 1000 ml Inj) 1,000 ml @ 84 mls/hr [id number] IV Last administered on 06/17/16 03:27; Start 06/16/16 at 04:00 Ipratropium [place] (Atrovent Neb) 0.5 mg Q6HR NEB NEB Last administered on 15:46; Start 06/16/16 at 04:00 Ipratropium [place] 0.5 mg 0.5 mg Q4HR NEB PRN NEB SOB/WHEEZING Last administered on 06/17/16 02:31; Start 06/16/16 at 04:00 Sodium Chloride (NS 1000 ml Inj) 1,000 ml @ 999 mls/hr BOLUS ONCE IV Last administered on 06/16/16 05:47; Start 06/16/16 at 05:30; Stop 06/16/16 at 06:30 ; Status DC Clopidogrel Bisulfate (Plavix) 75 mg DAILY PO Last administered on 06/17/16 09 :28; Start 06/16/16 at 09:00 Isosorbide Mononitrate (Imdur) 30 mg DAILY@07 PO Last administered on 06:02; Start 06/16/16 at 07:00 Metoprolol Tartrate (Lopressor) 50 mg BID PO Last administered on 06/17/16 09: 28; Start 06/16/16 at 09:00 Aspirin (Aspirin Chew) 81 mg DAILY CHEW Last administered on 06/17/16 09:28; Start 06/16/16 at 09:00 Dextrose (D50w (Vial) Inj) 25 ml UNSCH PRN IV PUSH HYPOGLYCEMIA-SEE COMMENTS; Start 06/16/16 at 06:00 Glucagon (Glucagon Inj) 1 mg UNSCH PRN OTHER HYPOGLYCEMIA-SEE COMMENTS; Start 06/16/16 at 06:00 Insulin Aspart (NovoLOG SUPPLEMENTAL SCALE) 1 ACHS SLIDING SCALE SQ Last administered on 06/17/16 11:00; Start 06/16/16 at 07:00 A/P Assessment and Plan This a 71-year-old female patient past medical history which includes COPD, type 2 diabetes mellitus, rheumatoid arthritis, osteoarthritis, chronic pain, chronic headaches CAD status post [place] 4 with cardiac stent placement 4. . Chest pain with CAD hx, rule out ACS- chest pain reproducible with palpation patient S/P sternotomy likely costochondritis. H/O RA initial troponin 0.12 (patient with CKD) and increased to 0.27. Troponin is now 0.87. continue metoprolol, imdur, aspirin and plavix daily Clinical Rehab Specialist is following and patient will have a cardiac catheterization tomorrow. She was placed nothing by mouth at midnight today. Elevated troponin Most likely secondary to NSTEMI. Clinical Rehab Specialist is on board and recommended to continue with current management and a cardiac catheterization for tomorrow. Early community acquired pna patient with leukocytosis WBC 14.0, tachycardia COPD CXR showed increased density right midlung zone and the left lung base could be early infiltrates. Patient given aztreonam and Levaquin IV in ER- Continue Levaquin IV Supplemental oxygen as needed to maintain saturation above 92% Atrovent nebulizers Q6H scheduled and PRN Tachycardia most likely secondary to pain. Resolved. IV fluids continue to monitor DM type 2 accuchecks ACHS with SSI coverage DVT prophylaxis with Lovenox Discharge Planning Patient scheduled for cardiac catheterization tomorrow. Raegan Lomeli MD Jun 17, 2016 16:15
[2016-06-17] MEDS ORDERED: HYDR-3580 PO (21:00)
[2016-06-17] MEDS: ACETAMINOPHEN/HYDROcodone 325 MG/5 MG TAB PO PRN (21:44)
[2016-06-18] VITALS (24 sets, daily range): BP systolic 95–156; BP diastolic 54–97; PULSE 69–102; RESP 16–20; TEMP 97.3–98.5; O2SAT 95–98
[2016-06-18] MEDS: ACETAMINOPHEN 325 MG TAB PO PRN (02:47)
[2016-06-18] MEDS: LEVOFLOXACIN 750 MG PREMIX INJ 150 ML IV SCH (02:47)
[2016-06-18] MEDS: RESP: IPRATROPIUM 0.5 MG/2.5 ML NEB NEB SCH ×4 (03:05→22:00)
[2016-06-18] MEDS: SODIUM CHLOR 0.9% 1000 ML INJ 1,000 ML IV SCH (05:30)
[2016-06-18] MEDS: ENOXAPARIN SODIUM 40 MG/0.4 ML SYRINGE SQ SCH ×2 (05:59→06:00)
[2016-06-18] MEDS: INSULIN ASPART SUPPLEMENTAL SCALE SQ SCH ×4 (05:59→20:58)
[2016-06-18] MEDS: ISOSORBIDE MONONITRATE 30 MG TAB PO SCH (05:59)
[2016-06-18 06:19] LABS: HEMATOCRIT 33.9 % (35.0-46.0); MEAN CELL VOLUME 80.1 FL (80.0-100.0); MEAN CORPUSCULAR HEMOGLOBIN 26.8 PG (27.0-34.0); MEAN CORPUSCULAR HGB CONC 33.4 % (32.0-36.0); PLATELET COUNT 241 TH/MM3 (150-450); RED BLOOD COUNT 4.23 MIL/MM3 (4.00-5.30); RED CELL DISTRIBUTION WIDTH 18.3 % (11.6-17.2); REVIEW FLAG FINAL; WHITE BLOOD COUNT 9.1 TH/MM3 (4.0-11.0)
[2016-06-18 07:15] LABS: BICARBONATE 27.8 MEQ/L (21.0-32.0); POTASSIUM 3.8 MEQ/L (3.5-5.1)
[2016-06-18] MEDS: ASPIRIN 81 MG CHEW TAB CHEW SCH (08:20)
[2016-06-18] MEDS: METOPROLOL TARTRATE 50 MG TAB PO SCH ×2 (08:20→20:57)
[2016-06-18] MEDS: CLOPIDOGREL 75 MG TAB PO SCH (08:20)
[2016-06-18] MEDS: ACETAMINOPHEN/HYDROcodone 325 MG/5 MG TAB PO PRN (08:21)
[2016-06-18] MEDS: SODIUM CHLORIDE 0.9% FLUSH 10 ML FLUSH IV FLUSH SCH (08:21)
--- NOTE | 2016-06-18 13:21 | HHI.PR ---
Subjective Remarks Follow-up for dyspnea and elevated troponins. Patient has no complaints but when I asked her if she's still felt short of breath she said yes. Denied any chest pain, palpitation, lightheadedness dizziness. No acute events overnight. Dealt with her nurse. Objective Vitals Vital Signs Date Time Temp Pulse Resp B/P Pulse Ox O2 Delivery O2 Flow Rate FiO2 06/18/16 13:01 74 06/18/16 12:11 72 06/18/16 11:04 97.7 69 18 132/81 95 06/18/16 11:04 73 06/18/16 10:05 69 06/18/16 09:25 75 06/18/16 09:25 18 06/18/16 08:55 95 Nasal Cannula 1.50 06/18/16 08:15 79 06/18/16 08:15 97.3 87 18 128/80 98 06/18/16 06:00 82 06/18/16 05:00 84 06/18/16 04:00 98.1 82 16 95/54 96 06/18/16 04:00 77 06/18/16 03:00 78 06/18/16 02:00 80 06/18/16 01:00 76 06/18/16 01:00 98.1 83 18 119/75 95 06/18/16 00:00 77 06/17/16 23:00 76 06/17/16 22:00 84 06/17/16 21:00 88 06/17/16 20:52 96 Nasal Cannula 1.50 06/17/16 20:06 98.6 90 20 122/77 96 06/17/16 20:00 94 06/17/16 19:00 88 06/17/16 18:00 86 06/17/16 17:00 84 06/17/16 16:00 78 06/17/16 15:00 86 06/17/16 15:00 98.5 90 20 136/77 98 06/17/16 14:00 80 I/O 06/17/16 06/17/16 06/17/16 06/18/16 06/18/16 06/18/16 07:00 15:00 23:00 07:00 15:00 23:00 Intake Total 2258 ml 1100 ml 2349 ml Output Total 1550 ml 1850 ml Balance 708 ml 1100 ml 499 ml Intake Oral 480 ml 600 ml 480 ml IV Total 1778 ml 500 ml 1869 ml Output Urine Total 1550 ml 1850 ml # Voids 3 # Bowel Movements 1 1 0 Result Diagram: 06/18/1652406/18/16524 Objective Remarks GENERAL: in NAD and is sitting comfortably in bed. SKIN: Warm and dry. HEAD: Normocephalic. EYES: No scleral icterus. No injection or drainage. NECK: Supple, trachea midline. No JVD or lymphadenopathy. CARDIOVASCULAR: Regular rate and rhythm without murmurs, gallops, or rubs. Positive tenderness to palpation of chest wall around the sternotomy area. This is a different type of chest pain that she has now, RESPIRATORY: Breath sounds equal bilaterally. No accessory muscle use. GASTROINTESTINAL: Abdomen soft, non-tender, nondistended. Medications and IVs Current Medications Sodium Chloride (NS Flush) 2 ml UNSCH PRN IVF FLUSH AFTER USING IV ACCESS; Start 06/16/16 at 00:30; Stop 06/16/16 at 03:56; Status DC Albuterol/ Ipratropium (Duoneb Neb) 1 ampule Q15M INH Last administered on 06/16 00:35; Start 06/16/16 at 00:30; Stop 06/16/16 at 00:46; Status DC Nitroglycerin (Nitroglycerin 2% Oint) 1 inch ONCE ONCE TOPICAL Last administered on 06/16/16 02:01; Start 06/16/16 at 01:45; Stop 06/16/16 at 01:46 ; Status DC Nitroglycerin (Nitrostat Sl) 0.4 mg ONCE ONCE SL Last administered on 02:01; Start 06/16/16 at 01:45; Stop 06/16/16 at 01:46; Status DC Acetaminophen/ Hydrocodone Bitart 1 tab 1 tab ONCE ONCE PO Last administered on 06/16/16 02:01; Start 06/16/16 at 01:45; Stop 06/16/16 at 01:46; Status DC Sodium Chloride 500 ml @ 500 mls/hr BOLUS ONCE IV Last administered on 02:00; Start 06/16/16 at 01:45; Stop 06/16/16 at 02:44; Status DC Aztreonam 2000 mg/ Sodium Chloride 100 ml @ 200 mls/hr ONCE STAT IV Last administered on 06/16/16 03:28; Start 06/16/16 at 02:35; Stop 06/16/16 at 03:04 ; Status DC Levofloxacin/ Dextrose (Levaquin 500 Mg Premix Inj) 100 ml @ 100 mls/hr ONCE ONCE IV Last administered on 06/16/16 03:59; Start 06/16/16 at 02:45; Stop at 03:44; Status DC Sodium Chloride (NS Flush) 2 ml UNSCH PRN IV FLUSH FLUSH AFTER USING IV ACCESS ; Start 06/16/16 at 04:00 Sodium Chloride (NS Flush) 2 ml BID IV FLUSH Last administered on 06/17/16 21: 45; Start 06/16/16 at 09:00 Acetaminophen (Tylenol) 650 mg Q4H PRN PO TEMP > 100.4 Last administered on 02:47; Start 06/16/16 at 04:00 Ondansetron HCl (Zofran Inj) 4 mg Q6H PRN IVP NAUSEA OR VOMITING; Start at 04:00 Enoxaparin Sodium (Lovenox Inj) 40 mg Q24H SQ Last administered on 06/17/16 06 :00; Start 06/16/16 at 06:00 Naloxone HCl 0.4 mg 0.4 mg UNSCH PRN IV SEE LABEL COMMENTS; Start 06/16/16 at 04:00 Levofloxacin/ Dextrose 150 ml @ 100 mls/hr Q24H IV Last administered on 02:47; Start 06/17/16 at 04:00 Sodium Chloride (NS 1000 ml Inj) 1,000 ml @ 84 mls/hr [id number] IV Last administered on 06/18/16 05:30; Start 06/16/16 at 04:00 Ipratropium [place] (Atrovent Neb) 0.5 mg Q6HR NEB NEB Last administered on 03:05; Start 06/16/16 at 04:00 Ipratropium [place] 0.5 mg 0.5 mg Q4HR NEB PRN NEB SOB/WHEEZING Last administered on 06/17/16 02:31; Start 06/16/16 at 04:00 Sodium Chloride (NS 1000 ml Inj) 1,000 ml @ 999 mls/hr BOLUS ONCE IV Last administered on 06/16/16 05:47; Start 06/16/16 at 05:30; Stop 06/16/16 at 06:30 ; Status DC Clopidogrel Bisulfate (Plavix) 75 mg DAILY PO Last administered on 06/18/16 08 :20; Start 06/16/16 at 09:00 Isosorbide Mononitrate (Imdur) 30 mg DAILY@07 PO Last administered on 05:59; Start 06/16/16 at 07:00 Metoprolol Tartrate (Lopressor) 50 mg BID PO Last administered on 06/18/16 08: 20; Start 06/16/16 at 09:00 Aspirin (Aspirin Chew) 81 mg DAILY CHEW Last administered on 06/18/16 08:20; Start 06/16/16 at 09:00 Dextrose (D50w (Vial) Inj) 25 ml UNSCH PRN IV PUSH HYPOGLYCEMIA-SEE COMMENTS; Start 06/16/16 at 06:00 Glucagon (Glucagon Inj) 1 mg UNSCH PRN OTHER HYPOGLYCEMIA-SEE COMMENTS; Start 06/16/16 at 06:00 Insulin Aspart (NovoLOG SUPPLEMENTAL SCALE) 1 ACHS SLIDING SCALE SQ Last administered on 06/17/16 22:08; Start 06/16/16 at 07:00 Acetaminophen/ Hydrocodone Bitart ([place] 5-325 Mg) 0.5 tab Q6H PRN PO pain >5 Last administered on 06/18/16 08:21; Start 06/17/16 at 20:45 A/P Assessment and Plan This a 71-year-old female patient past medical history which includes COPD, type 2 diabetes mellitus, rheumatoid arthritis, osteoarthritis, chronic pain, chronic headaches CAD status post [place] 4 with cardiac stent placement 4. . Chest pain with CAD hx, rule out ACS- chest pain reproducible with palpation patient S/P sternotomy likely costochondritis. H/O RA initial troponin 0.12 (patient with CKD) and increased to 0.27. Troponin is now 0.87. continue metoprolol, imdur, aspirin and plavix daily Director Technical is following and patient will have a cardiac catheterization today. Elevated troponin Most likely secondary to NSTEMI. Director Technical is on board and recommended to continue with current management and a cardiac catheterization for today. Early community acquired pna patient with leukocytosis WBC 14.0, tachycardia COPD CXR showed increased density right midlung zone and the left lung base could be early infiltrates. Patient given aztreonam and Levaquin IV in ER- Continue Levaquin IV Supplemental oxygen as needed to maintain saturation above 92% Atrovent nebulizers Q6H scheduled and PRN Tachycardia most likely secondary to pain. Resolved. IV fluids continue to monitor DM type 2 accuchecks ACHS with SSI coverage DVT prophylaxis with Lovenox Discharge Planning Patient scheduled for cardiac catheterization this afternoon. Most likely will be able to discharged tomorrow. Raegan Lomeli MD Jun 18, 2016 13:21
[2016-06-18] MEDS ORDERED: MIDAZOLAM HCL 2 MG/2 ML VIAL ONE (14:45)
[2016-06-18] MEDS ORDERED: HEPARIN-NS/PF INJ 500 ML ONE (14:45)
[2016-06-18] MEDS ORDERED: methylPREDNISolone SOD SUCC 125 MG/2 ML VIAL ONE (15:03)
[2016-06-18] MEDS ORDERED: diphenhydrAMINE HCL 50 MG/ML VIAL ONE (15:03)
[2016-06-18] MEDS ORDERED: SODIUM CHLOR 0.9% 1000 ML INJ 1,000 ML IV SCH (16:04)
[2016-06-18] MEDS ORDERED: ATROPINE SULFATE 1 MG/ML VIAL IV PRN (16:15)
[2016-06-18] MEDS ORDERED: ONDANSETRON HCL 4 MG/2 ML VIAL IV PRN (16:15)
[2016-06-18] MEDS ORDERED: SODIUM CHLOR 0.9% 250 ML INJ 250 ML IV PRN (16:15)
[2016-06-18] MEDS ORDERED: SODIUM CHLORIDE 0.9% FLUSH 10 ML FLUSH PRN (16:15)
[2016-06-18] MEDS ORDERED: MISC INFORMATION XX ONE (16:15)
[2016-06-18] MEDS ORDERED: IOHEXOL 350 MG/ML 100 ML BTL (for Cath Lab) OTHER ONE (16:25)
--- NOTE | 2016-06-18 16:40 | PD.CARD.PN ---
Subjective Subjective Remarks Post-cath, doing well No chest pain, no shortness of breath Objective Medications Current Medications Medications (Trade) Dose Ordered Sig/Davey Route Start Time Stop Time Status Last Admin (Tylenol) 650 mg Q4H PRN PO 06/16/16 04:00 06/18/16 02:47 Naloxone HCl 0.4 mg 0.4 mg UNSCH PRN IV 06/16/16 04:00 (Levaquin 750 Mg Premix Inj) 150 ml @ 100 mls/hr Q24H IV 06/17/16 04:00 06/18/16 02:47 (Plavix) 75 mg DAILY PO 06/16/16 09:00 06/18/16 08:20 (Imdur) 30 mg DAILY@07 PO 06/16/16 07:00 06/18/16 05:59 (Lopressor) 50 mg BID PO 06/16/16 09:00 06/18/16 08:20 (Aspirin Chew) 81 mg DAILY CHEW 06/16/16 09:00 06/18/16 08:20 (D50w (Vial) Inj) 25 ml UNSCH PRN IV PUSH 06/16/16 06:00 (Glucagon Inj) 1 mg UNSCH PRN OTHER 06/16/16 06:00 Acetaminophen/ Hydrocodone Bitart 0.5 tab 0.5 tab Q6H PRN PO 06/17/16 20:45 06/18/16 08:21 (NS 1000 ml Inj) 1,000 ml @ 40 mls/hr Q24H IV 06/18/16 16:04 06/18/16 22:03 06/18/16 16:04 (NS Flush) 2 ml BID .XX 06/18/16 21:00 (NS Flush) 2 ml UNSCH PRN .XX 06/18/16 16:15 Atropine Sulfate 0.5 mg 0.5 mg UNSCH PRN IV 06/18/16 16:15 (NS 250 ml Inj) 250 ml @ 500 mls/hr ONCE PRN IV 06/18/16 16:15 06/19/16 16:14 (Zofran Inj) 4 mg Q4H PRN IV 06/18/16 16:15 Vital Signs / I&O Vital Signs Date Time Temp Pulse Resp B/P Pulse Ox O2 Delivery O2 Flow Rate FiO2 06/18/16 16:18 79 06/18/16 15:30 98.2 83 18 130/79 95 06/18/16 15:30 102 06/18/16 14:33 75 06/18/16 13:01 74 06/18/16 12:11 72 06/18/16 11:04 97.7 69 18 132/81 95 06/18/16 11:04 73 06/18/16 10:05 69 06/18/16 09:25 75 06/18/16 09:25 18 06/18/16 08:55 95 Nasal Cannula 1.50 06/18/16 08:15 79 06/18/16 08:15 97.3 87 18 128/80 98 06/18/16 06:00 82 06/18/16 05:00 84 06/18/16 04:00 98.1 82 16 95/54 96 06/18/16 04:00 77 06/18/16 03:00 78 06/18/16 02:00 80 06/18/16 01:00 76 06/18/16 01:00 98.1 83 18 119/75 95 06/18/16 00:00 77 06/17/16 23:00 76 06/17/16 22:00 84 06/17/16 21:00 88 06/17/16 20:52 96 Nasal Cannula 1.50 06/17/16 20:06 98.6 90 20 122/77 96 06/17/16 20:00 94 06/17/16 19:00 88 06/17/16 18:00 86 06/17/16 17:00 84 I/O 06/17/16 06/17/16 06/17/16 06/18/16 06/18/16 06/18/16 07:00 15:00 23:00 07:00 15:00 23:00 Intake Total 2258 ml 1100 ml 2349 ml Output Total 1550 ml 1850 ml Balance 708 ml 1100 ml 499 ml Intake Oral 480 ml 600 ml 480 ml IV Total 1778 ml 500 ml 1869 ml Output Urine Total 1550 ml 1850 ml # Voids 3 # Bowel Movements 1 1 0 Physical Exam GENERAL: NAD, AAOx3 SKIN: Warm and dry. HEAD: Atraumatic. Normocephalic. EYES: Pupils equal and round. No scleral icterus. No injection or drainage. ENT: No nasal bleeding or discharge. Mucous membranes pink and moist. NECK: Trachea midline. No JVD. CARDIOVASCULAR: Regular rate and rhythm. RESPIRATORY: No accessory muscle use. Decreased breath sounds bilaterally with some mild rhonchi GASTROINTESTINAL: Abdomen soft, non-tender, nondistended. Hepatic and splenic margins not palpable. MUSCULOSKELETAL: Extremities without clubbing, cyanosis, or edema. No obvious deformities. Right femoral no hematoma/bruit NEUROLOGICAL: Awake and alert. No obvious cranial nerve deficits. Motor grossly within normal limits. Five out of 5 muscle strength in the arms and legs. Normal speech. PSYCHIATRIC: Appropriate mood and affect; insight and judgment normal. Laboratory Laboratory Tests Test 06/18/16 05:25 White Blood Count 9.1 TH/MM3 Red Blood Count 4.23 MIL/MM3 Hemoglobin 11.3 GM/DL Hematocrit 33.9 % Mean Corpuscular Volume 80.1 FL Mean Corpuscular Hemoglobin 26.8 PG Mean Corpuscular Hemoglobin 33.4 % Concent Red Cell Distribution Width 18.3 % Platelet Count 241 TH/MM3 Mean Platelet Volume 7.6 FL Sodium Level 142 MEQ/L Potassium Level 3.8 MEQ/L Chloride Level 107 MEQ/L Carbon Dioxide Level 27.8 MEQ/L Anion Gap 7 MEQ/L Blood Urea Nitrogen 11 MG/DL Creatinine 0.73 MG/DL Estimat Glomerular Filtration 96 ML/MIN Rate Random Glucose 84 MG/DL Calcium Level 9.5 MG/DL Assessment and Plan Problem List: (1) COPD exacerbation (2) CAD (coronary artery disease) (3) Elevated troponin (4) Rheumatoid arthritis (5) Hypertension (6) Diabetes (7) Smoking addiction Assessment and Plan 1) Post-cath Small posterolateral branch which was previously stented and then when it had in-stent restenosis it was ballooned was occluded. No chest pain and hemodynamically stable for 48 hours, small vessel, will treat medically 2) Blood pressure control 3) Continue ASA/Plavix for recent stent as well as NSTEMI 4) EF 50-55% by echo 5) LVEDP 27, will plan on giving Lasix x1 then may benefit from Lasix PO outpt Edmund Hernandez DO Jun 18, 2016 16:40
[2016-06-18] MEDS ORDERED: FUROSEMIDE 20 MG/2 ML VIAL IV PUSH ONE (16:45)
[2016-06-18] MEDS: SODIUM CHLORIDE 0.9% FLUSH 10 ML FLUSH SCH (20:57)
--- NOTE | 2016-06-18 21:37 | MA ---
cc: EDMUND NATHAN DO Corrected Copy: 06/23/16 DATE: June 18, 2016 PROCEDURE Left heart catheterization, coronary angiogram. PREPROCEDURE DIAGNOSIS N-STEMI, chest pain, known coronary artery disease. POSTPROCEDURE DIAGNOSIS N-STEMI, occluded small posterior lateral branch with recent balloon angioplasty of the branch. MEDICATIONS 1. Benadryl 50 mg IV 2. Solu-Medrol 125 mg IV. 3. Pepcid 20 mg IV. 4. Fentanyl 25 mcg IV. CONTRAST USED 70 mL. FLUOROSCOPY 3.8 minutes MODERATE SEDATION 30 minutes ESTIMATED BLOOD LOSS 10 cc PROCEDURAL SUMMARY Caty Tavarez is a pleasant 71-year-old female who presented to [facility] on the morning of June 16, 2016, due to chest pain. During normal workup she was found to have an elevated troponin of 0.86 and recommended cardiac catheterization to review her previous intervention on her LAD and angioplasty of her In-stent restenosis of her RCA and PDA from March 17, 2016. Since her original presentation she has no further chest pain. The risks, benefits and alternatives were explained to her and she consented as such. She was brought to the lab and prepped in the usual sterile fashion. The right femoral artery was accessed using a modified Seldinger technique and placement of a 5-Kisw[place]ili sheath. This was easily aspirated and flushed. The right femoral artery angiography shows mild disease and a calcified femoral artery with patent right SFA and profunda in the proximal portions. A JR4 catheter was advanced to the ascending aorta and used to cross the aortic valve with a measurement of an LVEDP of 27. This was pulled back across the aortic valve showing no significant gradient of aortic stenosis. The JR4 catheter was then used for selective angiography of the right coronary system. This was exchanged out for a JL4 catheter which was used for selective angiography of the left coronary system. JL4 catheter was then removed over a J-wire. The sheath was sutured in place with a plan to remove and pressure held for hemostasis while on her current hospital room. Findings: Left main is a normal-size vessel with distal tapering of 10-20%. It bifurcates into an LAD and circumflex. LAD is a normal-size vessel that tapers distally. The proximal portion has a 20% lesion. Previous stent in the proximal to midportion is patent with no significant In-stent restenosis. It gives off one major diagonal which has an upper and lower portion to it. The lower portion of the major diagonal has no significant disease. The upper portion of the major diagonal is a small vessel with 30-40% ostial disease. Left circumflex is an overall small vessel with 50% disease proximally. It gives off three obtuse marginals which are all small in nature. The first obtuse marginal has diffuse 80% disease throughout. Right coronary artery is a dominant vessel. It has 10-20% diffuse disease throughout the proximal and distal portion. Previous balloon angioplasty of the mid RCA shows 20% In-stent restenosis. Distally it gives off a PDA which appears to have a 40% stenosis ostially. Distal to the takeoff of the PDA in a PLB there appears to be an occluded stent that was previously balloon angioplastied in March for In-stent restenosis. It was felt at this time that Ms. Tavarez occluded this stent greater than 48 hours and has not had chest pain since. Because this is a small vessel that has restenosed before, requiring further intervention as well as concern for the loss of the PDA, with possible intervention, I felt that medical management was her best option. IMPRESSION: 1. N-STEMI. 2. Chest pain on presentation greater than 48 hours ago. 3. Coronary artery disease as above with an occluded small posterior lateral branch with previous two interventions on the branch and concern for loss of PDA if intervened upon. 4. Elevated LVEDP. RECOMMENDATIONS: 1. As Ms. Tavarez has a posterior lateral branch which appears to be occluded greater than 48 hours and has not had chest pain as well that she is hemodynamically stable, we will continue to treat this medically. 2. She will continue on aspirin and Plavix for previous stent placed in March. 3. We will continue her on her Imdur and metoprolol tartrate. 4. She does have a significantly elevated LVEDP of 27 and this may cause some of her chest pain and shortness of breath. We will give her one dose of IV Lasix and consider starting her on p.o. Lasix at home. 5. We will continue her on medical management with blood pressure control. 6. If cardiovascularly stable in the morning she may be discharged home. 7. She will plan on following up with me in the office. Thank you for allowing me to see Caty Tavarez. If there are any questions, please do not hesitate to call. Edmund VARGAS/MARK /5:49 PM /8:16 AM [facility] MED[facility] CENTERDanielle
[2016-06-19] VITALS (15 sets, daily range): BP systolic 125–144; BP diastolic 74–83; PULSE 70–96; RESP 18; TEMP 98–98.4; O2SAT 98–99
[2016-06-19] MEDS: LEVOFLOXACIN 750 MG PREMIX INJ 150 ML IV SCH (04:37)
[2016-06-19] MEDS: RESP: IPRATROPIUM 0.5 MG/2.5 ML NEB NEB SCH ×2 (06:15→09:03)
[2016-06-19] MEDS: ISOSORBIDE MONONITRATE 30 MG TAB PO SCH (06:45)
[2016-06-19] MEDS: INSULIN ASPART SUPPLEMENTAL SCALE SQ SCH ×2 (06:51→11:21)
[2016-06-19 07:06] LABS: AUTOMATED NEUTROPHIL # 9.7 TH/MM3 (1.8-7.7); BASOPHIL % 0.3 % (0.0-2.0); HEMATOCRIT 36.2 % (35.0-46.0); HEMO FLAGS DIFF FINAL; LYMPH % 8.2 % (9.0-44.0); LYMPHOCYTE # 0.9 TH/MM3 (1.0-4.8); MEAN CELL VOLUME 80.2 FL (80.0-100.0); MEAN CORPUSCULAR HEMOGLOBIN 26.1 PG (27.0-34.0); MEAN CORPUSCULAR HGB CONC 32.6 % (32.0-36.0); MONO % 2.9 % (0.0-8.0); NEUT % 88.6 % (16.0-70.0); PLATELET COUNT 240 TH/MM3 (150-450); RED BLOOD COUNT 4.51 MIL/MM3 (4.00-5.30); RED CELL DISTRIBUTION WIDTH 17.8 % (11.6-17.2)
[2016-06-19 07:13] LABS: BICARBONATE 29.8 MEQ/L (21.0-32.0); POTASSIUM 3.7 MEQ/L (3.5-5.1)
[2016-06-19] MEDS: METOPROLOL TARTRATE 50 MG TAB PO SCH (07:53)
[2016-06-19] MEDS: CLOPIDOGREL 75 MG TAB PO SCH (07:53)
[2016-06-19] MEDS: ASPIRIN 81 MG CHEW TAB CHEW SCH (07:53)
[2016-06-19] MEDS: SODIUM CHLORIDE 0.9% FLUSH 10 ML FLUSH SCH (07:54)
[2016-06-19] MEDS: ACETAMINOPHEN/HYDROcodone 325 MG/5 MG TAB PO PRN (07:56)
[2016-06-19] MEDS ORDERED: RESP: IPRATROPIUM 0.5 MG/2.5 ML NEB NEB SCH (11:00)
[2016-06-19] MEDS ORDERED: BUDESONIDE-FORMOTEROL 160/4.5 MCG INHALER INH ONE (11:00)
--- NOTE | 2016-06-19 11:02 | HHI.PR ---
Subjective Remarks Patient reports chest pain is improved. She reports a dry cough with deep breathing over the past month. She stopped using albuterol 3 weeks ago. Objective Vital Signs Date Time Temp Pulse Resp B/P Pulse Ox O2 Delivery O2 Flow Rate FiO2 06/19/16 09:05 98 Nasal Cannula 1.50 06/19/16 08:38 16 06/19/16 08:00 92 06/19/16 08:00 98.4 84 18 144/83 99 06/19/16 06:17 98 Nasal Cannula 3.00 06/19/16 06:00 96 06/19/16 05:00 87 06/19/16 04:00 81 06/19/16 03:00 98.0 81 18 127/74 98 06/19/16 03:00 80 06/19/16 02:00 79 06/19/16 01:00 78 06/19/16 00:00 78 06/18/16 23:00 98.3 96 18 156/97 96 06/18/16 23:00 92 06/18/16 22:00 90 06/18/16 21:00 92 06/18/16 20:00 92 06/18/16 19:00 98.5 96 20 140/85 96 06/18/16 19:00 94 06/18/16 18:10 93 06/18/16 17:08 87 06/18/16 16:18 79 06/18/16 15:30 98.2 83 18 130/79 95 06/18/16 15:30 102 06/18/16 14:33 75 06/18/16 13:01 74 06/18/16 12:11 72 06/18/16 11:04 97.7 69 18 132/81 95 06/18/16 11:04 73 I/O 06/18/16 06/18/16 06/18/16 06/19/16 06/19/16 06/19/16 07:00 15:00 23:00 07:00 15:00 23:00 Intake Total 2349 ml 1180 ml 870 ml Output Total 1850 ml 2800 ml 2500 ml Balance 499 ml -1620 ml -1630 ml Intake Oral 480 ml 340 ml 720 ml IV Total 1869 ml 840 ml 150 ml Output Urine Total 1850 ml 2800 ml 2500 ml # Bowel Movements 0 1 Result Diagram: 06/19/1652406/19/16524 Objective Remarks GENERAL: Patient sitting up in bed. Appears comfortable. Alert and oriented 3. SKIN: Warm and dry. HEAD: Normocephalic. EYES: No scleral icterus. No injection or drainage. NECK: Supple, trachea midline. No JVD. CARDIOVASCULAR: Regular rate and rhythm without murmurs, gallops, or rubs. RESPIRATORY: Breath sounds equal bilaterally. No accessory muscle use. Wheezing bilaterally. GASTROINTESTINAL: Abdomen soft, non-tender, nondistended. MUSCULOSKELETAL: No cyanosis, or edema. BACK: Nontender without obvious deformity. No CVA tenderness. A/P Assessment and Plan This a 71-year-old female patient past medical history which includes COPD, type 2 diabetes mellitus, rheumatoid arthritis, osteoarthritis, chronic pain, chronic headaches CAD status post [place] 4 with cardiac stent placement 4. //Chest pain with CAD hx, rule out ACS //NSTEMI. - chest pain reproducible with palpation patient S/P sternotomy likely costochondritis. H/O RA initial troponin 0.12 (patient with CKD) and increased to 0.27. Troponin is now 0.87. continue metoprolol, imdur, aspirin and plavix daily = 420status post cardiac catheterization without stenting. Chronic occlusion. Medical management. Please see report. Continue medications as ordered above. //Early community acquired pna patient with leukocytosis WBC 14.0, tachycardia on admission. Improving on treatment. COPD -CXR showed increased density right midlung zone and the left lung base could be early infiltrates. -Patient given aztreonam and Levaquin IV in ER- Continue Levaquin. -Supplemental oxygen as needed to maintain saturation above 92% -Atrovent nebulizers Q6H scheduled and PRN = 06/19. Patient reports recently discontinuing albuterol. We'll start on Symbicort. //Tachycardia most likely secondary to pain. Resolved. //DM type 2 accuchecks ACHS with SSI coverage = 06/19. Glucose in the 300s this morning, likely secondary to IV steroids for contrast premedication protocol, as well as patient being restarted on regular diet. Which to diabetic diet. Glucose down trending at lunch. Expect to be under 200 this afternoon. Continue insulin sliding scale. //DVT prophylaxis with Lovenox Discharge Planning Discharge this afternoon when glucose under 200. Papa Covarrubias MD Jun 19, 2016 11:02
[2016-06-19] MEDS ORDERED: SYMB160A INH (11:08)
[2016-06-19] MEDS ORDERED: IPRA17I INH (11:08)
[2016-06-19] MEDS ORDERED: LEVO750T33 PO (11:08)
--- NOTE | 2016-06-19 11:15 | HHI.DS ---
Discharge Summary Admission Date Jun 16, 2016 at 03:30 Discharge Date: Jun 19, 2016 Admitting Diagnosis Pneumonia, CP ro mi, intermediate troponin (1) CAD (coronary artery disease) ICD Code: I25.10 (2) COPD exacerbation ICD Code: J44.1 (3) Chest pain, rule out acute myocardial infarction ICD Code: R07.9 Procedures Cardiac catheterization. Please see report. Brief History - From Admission This a 71-year-old female patient past medical history which includes COPD, type 2 diabetes mellitus, rheumatoid arthritis, osteoarthritis, chronic pain, chronic headaches CAD status post [place] 4 with cardiac stent placement 4. Patient presents to the emergency department today because of severe 11/10 burning pressure type pain in middle of her upper chest with radiation to left shoulder and neck. Patient reports that the pain in her shoulder and throat was a different sensation than is her chest. Pain started last night. Pain is lessened with medications given in ER. Patient is reproducible with palpation. Patient reports that she has her normal, "smoker cough," which is non- productive. Pain is also present in her throat. Denies associated diaphoresis Patient reports shortness of breath is worse than her baseline. Last cardiac catheter with stent placement March,. Patient reports that she is compliant with Plavix and aspirin, reports that she has not missed any of her medications. Reports this pain is different than her prior MIs. Patient also report pain from cervical spine area which radiates to the back of her head- this appears to be chronic Patient denies nausea, vomiting, diarrhea, constipation or chills. CBC/BMP: 06/19/16 0525 06/19/16 0525 Significant Findings Laboratory Tests Test 06/16/16 06/17/16 06/18/16 06/19/16 12:34 05:35 05:25 05:25 Troponin I 0.87 NG/ML (0.02-0.05) White Blood Count 12.7 TH/MM3 (4.0-11.0) Hemoglobin 11.1 GM/DL 11.3 GM/DL (11.6-15.3) (11.6-15.3) Hematocrit 34.5 % 33.9 % (35.0-46.0) (35.0-46.0) Mean Corpuscular Hemoglobin 25.8 PG 26.8 PG 26.1 PG (27.0-34.0) (27.0-34.0) (27.0-34.0) Red Cell Distribution Width 18.2 % 18.3 % 17.8 % (11.6-17.2) (11.6-17.2) (11.6-17.2) Neutrophils (%) (Auto) 71.7 % 88.6 % (16.0-70.0) (16.0-70.0) Neutrophils # (Auto) 9.1 TH/MM3 9.7 TH/MM3 (1.8-7.7) (1.8-7.7) Chloride Level 108 MEQ/L (98-107) Lymphocytes (%) (Auto) 8.2 % (9.0-44.0) Lymphocytes # (Auto) 0.9 TH/MM3 (1.0-4.8) Estimat Glomerular Filtration 78 ML/MIN (>89) Rate Random Glucose 280 MG/DL (74-106) Imaging Last Impressions Chest X-Ray 06/16/16 0026 Signed Impressions: Service Date/Time: Thursday, June 16, 2016 00:45 - CONCLUSION: Some increased density right midlung zone and the left lung base could be early infiltrates. Slightly worsening since March 2016. Angel Julian MD PE at Discharge GENERAL: in NAD and is sitting comfortably in bed. SKIN: Warm and dry. HEAD: Normocephalic. EYES: No scleral icterus. No injection or drainage. NECK: Supple, trachea midline. No JVD or lymphadenopathy. CARDIOVASCULAR: Regular rate and rhythm without murmurs, gallops, or rubs. Positive tenderness to palpation of chest wall around the sternotomy area. This is a different type of chest pain that she has now, RESPIRATORY: Breath sounds equal bilaterally. No accessory muscle use. GASTROINTESTINAL: Abdomen soft, non-tender, nondistended. Hospital Course Patient was treated for community-acquired pneumonia with IV antibiotics, with improvement. Troponin elevated to 0.87, and cardiology was consulted, performed cardiac catheterization which shows only chronic occlusion, no acute stent will disease. Cardiology recommends medical management. Please see echocardiogram and cardiac catheterization report. Patient's chest pain improved. She was found to be hyperglycemic in the 300s on 06/19 in the morning , likely secondary to IV steroid contrast premedication protocol, as well as regular diet, however this improved with diabetic diet. He shouldn't reported discontinuing albuterol at home, however she will be started on Symbicort, as well as ipratropium as needed at home. She'll follow-up with primary care and cardiology as outpatient. This a 71-year-old female patient past medical history which includes COPD, type 2 diabetes mellitus, rheumatoid arthritis, osteoarthritis, chronic pain, chronic headaches CAD status post [place] 4 with cardiac stent placement 4. //Chest pain with CAD hx, rule out ACS //NSTEMI. - chest pain reproducible with palpation patient S/P sternotomy likely costochondritis. H/O RA initial troponin 0.12 (patient with CKD) and increased to 0.27. Troponin is now 0.87. continue metoprolol, imdur, aspirin and plavix daily = 20status post cardiac catheterization without stenting. Chronic occlusion. Medical management. Please see report. Continue medications as ordered above. //Early community acquired pna patient with leukocytosis WBC 14.0, tachycardia on admission. Improving on treatment. COPD -CXR showed increased density right midlung zone and the left lung base could be early infiltrates. -Patient given aztreonam and Levaquin IV in ER- Continue Levaquin. -Supplemental oxygen as needed to maintain saturation above 92% -Atrovent nebulizers Q6H scheduled and PRN = 06/19. Patient reports recently discontinuing albuterol. We'll start on Symbicort. //Tachycardia most likely secondary to pain. Resolved. //DM type 2 accuchecks ACHS with SSI coverage = 06/19. Glucose in the 300s this morning, likely secondary to IV steroids for contrast premedication protocol, as well as patient being restarted on regular diet. Which to diabetic diet. Glucose down trending at lunch. Expect to be under 200 this afternoon. Continue insulin sliding scale. //DVT prophylaxis with Lovenox Discharge Planning Discharge this afternoon when glucose under 200. Pt Condition on Discharge: Good Discharge Disposition: Discharge Home Discharge Time: <= 30 minutes Discharge Instructions DIET: Follow Instructions for: Heart Healthy Diet, Diabetic Diet Activities you can perform: Regular-No Restrictions Follow up Referrals: Cardiology - 2 Weeks with Edmund Hernandez DO PCP Follow-up - 1 Week New Medications: Ipratropium HFA 12.9 GM Inh (Atrovent HFA 12.9 GM Inh) 17 Mcg/Act Aer 2 PUFF INH Q6HR PRN SHORTNESS OF BREATH #1 Ref 0 INHALER Levofloxacin (Levofloxacin) 750 Mg Tab 750 MG PO DAILY Infection #5 Ref 0 TAB Budesonide-Formoterol Inh (Symbicort Inh) 160-4.5 Mcg/Act Aero 1 PUFF INH Q12HR Prevent Pneumonia #1 INHALER Continued Medications: Aspirin DR (Aspirin 81) 81 Mg Tabdr 81 MG PO DAILY #30 Ref 0 TAB Clopidogrel (Clopidogrel) 75 Mg Tab 75 MG PO DAILY Blood Clot Prevention #30 Ref 0 TAB Hydrocodone-Acetaminophen (Hydrocodone-Acetaminophen) 7.5-325 mg Tab 0.5 TAB PO BID HALF TAB BID PRN PAIN Ref 0 TAB Isosorbide Mononitrate ER (Isosorbide Mononitrate ER) 30 Mg Dolly 30 MG PO DAILY@07 #30 TAB Metformin ER (Glucophage XR) 500 Mg Dolly 1000 MG PO BID Blood Sugar Management #60 Ref 0 TAB Metoprolol Tartrate (Metoprolol Tartrate) 50 Mg Tab 50 MG PO BID #60 Ref 0 TAB Prednisone (21) 10 mg tab Dose Pack (Prednisone (21) 10 mg tab Dose Pack) 10 Mg Pack 10 MG PO DIRECTED Inflammation #1 Ref 0 DSPK Discontinued Medications: Albuterol Neb (Albuterol Neb) 2.5 Mg/3 Ml Neb 2.5 MG NEB Q4HR NEB PRN SHORTNESS OF BREATH #60 Ref 0 Papa Mcadams MD Jun 19, 2016 11:15
[2016-06-19] MEDS ORDERED: BUDESONIDE-FORMOTEROL 160/4.5 MCG INHALER INH SCH (12:00)
[2016-06-19] MEDS ORDERED: NEBUKIT5 (13:46)
--- NOTE | 2016-06-19 14:18 | PD.CARD.PN ---
Subjective Subjective Remarks No chest pain, no shortness of breath Objective Medications Current Medications Medications (Trade) Dose Ordered Sig/Davey Route Start Time Stop Time Status Last Admin (Tylenol) 650 mg Q4H PRN PO 06/16/16 04:00 06/18/16 02:47 Naloxone HCl 0.4 mg 0.4 mg UNSCH PRN IV 06/16/16 04:00 (Levaquin 750 Mg Premix Inj) 150 ml @ 100 mls/hr Q24H IV 06/17/16 04:00 06/19/16 04:37 (Plavix) 75 mg DAILY PO 06/16/16 09:00 06/19/16 07:53 (Imdur) 30 mg DAILY@07 PO 06/16/16 07:00 06/19/16 06:45 (Lopressor) 50 mg BID PO 06/16/16 09:00 06/19/16 07:53 (Aspirin Chew) 81 mg DAILY CHEW 06/16/16 09:00 06/19/16 07:53 (D50w (Vial) Inj) 25 ml UNSCH PRN IV PUSH 06/16/16 06:00 (Glucagon Inj) 1 mg UNSCH PRN OTHER 06/16/16 06:00 ([place] 5-325 Mg) 0.5 tab Q6H PRN PO 06/17/16 20:45 06/19/16 07:56 (NS Flush) 2 ml BID .XX 06/18/16 21:00 06/19/16 07:54 (NS Flush) 2 ml UNSCH PRN .XX 06/18/16 16:15 Atropine Sulfate 0.5 mg 0.5 mg UNSCH PRN IV 06/18/16 16:15 (NS 250 ml Inj) 250 ml @ 500 mls/hr ONCE PRN IV 06/18/16 16:15 06/19/16 16:14 (Zofran Inj) 4 mg Q4H PRN IV 06/18/16 16:15 (Symbicort 160-4.5 Inh) 1 puff Q12HR INH 06/19/16 12:00 06/19/16 11:21 Vital Signs / I&O Vital Signs Date Time Temp Pulse Resp B/P Pulse Ox O2 Delivery O2 Flow Rate FiO2 06/19/16 12:00 70 06/19/16 12:00 98.2 84 18 125/78 99 06/19/16 11:00 82 06/19/16 10:00 72 06/19/16 09:05 98 Nasal Cannula 1.50 06/19/16 09:00 80 06/19/16 08:38 16 06/19/16 08:00 92 06/19/16 08:00 98.4 84 18 144/83 99 06/19/16 07:00 86 06/19/16 06:17 98 Nasal Cannula 3.00 06/19/16 06:00 96 06/19/16 05:00 87 06/19/16 04:00 81 06/19/16 03:00 98.0 81 18 127/74 98 06/19/16 03:00 80 06/19/16 02:00 79 06/19/16 01:00 78 06/19/16 00:00 78 06/18/16 23:00 98.3 96 18 156/97 96 06/18/16 23:00 92 06/18/16 22:00 90 06/18/16 21:00 92 06/18/16 20:00 92 06/18/16 19:00 98.5 96 20 140/85 96 06/18/16 19:00 94 06/18/16 18:10 93 06/18/16 17:08 87 06/18/16 16:18 79 06/18/16 15:30 98.2 83 18 130/79 95 06/18/16 15:30 102 06/18/16 14:33 75 I/O 06/18/16 06/18/16 06/18/16 06/19/16 06/19/16 06/19/16 07:00 15:00 23:00 07:00 15:00 23:00 Intake Total 2349 ml 1180 ml 870 ml Output Total 1850 ml 2800 ml 2500 ml Balance 499 ml -1620 ml -1630 ml Intake Oral 480 ml 340 ml 720 ml IV Total 1869 ml 840 ml 150 ml Output Urine Total 1850 ml 2800 ml 2500 ml # Bowel Movements 0 1 Physical Exam GENERAL: NAD, AAOx3 SKIN: Warm and dry. HEAD: Atraumatic. Normocephalic. EYES: Pupils equal and round. No scleral icterus. No injection or drainage. ENT: No nasal bleeding or discharge. Mucous membranes pink and moist. NECK: Trachea midline. No JVD. CARDIOVASCULAR: Regular rate and rhythm. RESPIRATORY: No accessory muscle use. Decreased breath sounds bilaterally with some mild rhonchi GASTROINTESTINAL: Abdomen soft, non-tender, nondistended. Hepatic and splenic margins not palpable. MUSCULOSKELETAL: Extremities without clubbing, cyanosis, or edema. No obvious deformities. Right femoral no hematoma/bruit NEUROLOGICAL: Awake and alert. No obvious cranial nerve deficits. Motor grossly within normal limits. Five out of 5 muscle strength in the arms and legs. Normal speech. PSYCHIATRIC: Appropriate mood and affect; insight and judgment normal. Laboratory Laboratory Tests Test 06/19/16 05:25 White Blood Count 11.0 TH/MM3 Red Blood Count 4.51 MIL/MM3 Hemoglobin 11.8 GM/DL Hematocrit 36.2 % Mean Corpuscular Volume 80.2 FL Mean Corpuscular Hemoglobin 26.1 PG Mean Corpuscular Hemoglobin 32.6 % Concent Red Cell Distribution Width 17.8 % Platelet Count 240 TH/MM3 Mean Platelet Volume 7.9 FL Neutrophils (%) (Auto) 88.6 % Lymphocytes (%) (Auto) 8.2 % Monocytes (%) (Auto) 2.9 % Eosinophils (%) (Auto) 0.0 % Basophils (%) (Auto) 0.3 % Neutrophils # (Auto) 9.7 TH/MM3 Lymphocytes # (Auto) 0.9 TH/MM3 Monocytes # (Auto) 0.3 TH/MM3 Eosinophils # (Auto) 0.0 TH/MM3 Basophils # (Auto) 0.0 TH/MM3 CBC Comment DIFF FINAL Differential Comment Sodium Level 138 MEQ/L Potassium Level 3.7 MEQ/L Chloride Level 100 MEQ/L Carbon Dioxide Level 29.8 MEQ/L Anion Gap 8 MEQ/L Blood Urea Nitrogen 14 MG/DL Creatinine 0.87 MG/DL Estimat Glomerular Filtration 78 ML/MIN Rate Random Glucose 280 MG/DL Calcium Level 9.7 MG/DL Assessment and Plan Problem List: (1) COPD exacerbation (2) CAD (coronary artery disease) (3) Elevated troponin (4) Rheumatoid arthritis (5) Hypertension (6) Diabetes (7) Smoking addiction Assessment and Plan 1) Post-cath Small posterolateral branch which was previously stented and then when it had in-stent restenosis it was ballooned was occluded. No chest pain and hemodynamically stable for 48 hours, small vessel, will treat medically 2) Blood pressure control 3) Continue ASA/Plavix for recent stent as well as NSTEMI 4) EF 50-55% by echo 5) LVEDP 27, given Lasix x1 dose with good output Edmund Hernandez DO Jun 19, 2016 14:17
== END 2016-06-19 16:25 | disposition home or self-care (01) | DRG 280 ==
LOC: NEPE 00:02 → NEDA 03:30 → HCIS 09:05
PROVIDERS: ADMIT Internal Medicine; ATTEND Internal Medicine
PROC: B2111ZZ Fluoroscopy of Multiple Coronary Arteries using Low Osmolar Contrast (ICD-10-PCS; 2016-06-18)
PROC: B2131ZZ Fluoroscopy of Multiple Coronary Artery Bypass Grafts using Low Osmolar Contrast (ICD-10-PCS; 2016-06-18)
PROC: B41F1ZZ Fluoroscopy of Right Lower Extremity Arteries using Low Osmolar Contrast (ICD-10-PCS; 2016-06-18)
PROC: 4A023N7 Measurement of Cardiac Sampling and Pressure, Left Heart, Percutaneous Approach (ICD-10-PCS; principal; 2016-06-18 12:15)
DX: I21.4 Non-ST elevation (NSTEMI) myocardial infarction (principal); J18.9 Pneumonia, unspecified organism; N17.9 Acute kidney failure, unspecified; T82.855A Stenosis of coronary artery stent, initial encounter; J44.1 Chronic obstructive pulmonary disease with (acute) exacerbation; I25.119 Atherosclerotic heart disease of native coronary artery with unspecified angina pectoris; E11.22 Type 2 diabetes mellitus with diabetic chronic kidney disease; I12.9 Hypertensive chronic kidney disease with stage 1 through stage 4 chronic kidney disease, or unspecified chronic kidney disease; F17.210 Nicotine dependence, cigarettes, uncomplicated; G89.29 Other chronic pain; M25.519 Pain in unspecified shoulder; M06.9 Rheumatoid arthritis, unspecified; N18.9 Chronic kidney disease, unspecified; F41.9 Anxiety disorder, unspecified; E78.00 Pure hypercholesterolemia, unspecified; H91.92 Unspecified hearing loss, left ear; K21.9 Gastro-esophageal reflux disease without esophagitis; Z86.73 Personal history of transient ischemic attack (TIA), and cerebral infarction without residual deficits; I25.2 Old myocardial infarction; Z88.0 Allergy status to penicillin; Z88.8 Allergy status to other drugs, medicaments and biological substances; Z88.1 Allergy status to other antibiotic agents; Z91.041 Radiographic dye allergy status; R00.0 Tachycardia, unspecified; M19.90 Unspecified osteoarthritis, unspecified site; R51 Headache; Y83.1 Surgical operation with implant of artificial internal device as the cause of abnormal reaction of the patient, or of later complication, without mention of misadventure at the time of the procedure; Z79.84 Long term (current) use of oral hypoglycemic drugs; M94.0 Chondrocostal junction syndrome [Tietze]
CPT/HCPCS: 71010; 80048; 80053; 81001; 82550; 82948; 83605; 83735; 83880; 84484; 85025; 85027; 85610; 85730; 87040; 93005; 93306; 93454; 94640; 94664; 96361; 96374; C1769; C1893; J1200; J1644; J1650; J1815; J1940; J1956; J2250; J2930; J3010; J7030; J7040; J7644; Q9967

== ENCOUNTER 2017-01-12 13:01 | Emergency (ER) | payer OTHER ==
[~2017-01-12 13:01] MED LIST changes: -ALBU0.08 NEB; -ASPI-110 PO; +ASPI1TAB57 PO; +HYDR-3580 PO; +IPRA17I INH; +LEVO750T33 PO; +NEBUKIT5; +SYMB160A INH
[2017-01-12 13:03] VITALS: BP 146/78; PULSE 113; RESP 20; TEMP 98.6; O2SAT 98
--- NOTE | 2017-01-12 13:35 | PD ---
HPI Chief Complaint: Medical Clearance Time Seen by Provider: 13:35 Travel History International Travel<30 days: No Contact w/Intl Traveler<30days: No Traveled to known affect area: No History of Present Illness HPI PT IS ALLERGIC TO IV CONTRAST DYE; HAD DONE PRE-MEDICATION; HAD CT TODAY AROUND 12 WITH CONTRAST. PT FEELS LIKE SHE IS HAVING ALLERGIC REACTION. FEELS LIKE TONGUE IS SWELLING. HAS HX OF ANGIOEDEMA. PT STATES HEAD FEELS "WEIRD" she has no chest tightness. No difficulty breathing. She has no other symptoms to report at this time. PFSH Past Medical History Hx Anticoagulant Therapy: Yes (PLAVIX) Arthritis: Yes Asthma: No Autoimmune Disease: No Blood Disorders: No Anxiety: Yes Depression: No Heart Rhythm Problems: No Cancer: No Cardiac Catheterization: Yes (PER PATIENT 1997 AND 2003 HERE AT [facility]) Cardiovascular Problems: Yes (Stents x4) High Cholesterol: Yes Chemotherapy: No Chest Pain: Yes Congestive Heart Failure: No COPD: Yes Cerebrovascular Accident: Yes Coronary Artery Disease: Yes Diabetes: Yes Diminished Hearing: Yes (LEFT SIDE [place]) Endocrine: Yes Gastrointestinal Disorders: Yes (H PYLORII) GERD: Yes (hx) Glaucoma: No Genitourinary: No Headaches: Yes Hepatitis: No Hiatal Hernia: No Heparin Induced Thrombocytopen: No Hypertension: Yes (METOPROLOL 50 MG. BID) Immune Disorder: No Implanted Vascular Access Dvce: No Kidney Stones: No Musculoskeletal: Yes (RA) Neurologic: Yes Psychiatric: Yes Reproductive: No Respiratory: Yes Immunizations Current: Yes Migraines: No Myocardial Infarction: Yes ([place] X 2) Radiation Therapy: No Renal Failure: No Seizures: No Sickle Cell Disease: No Sleep Apnea: No Thyroid Disease: No Ulcer: No PNEUMOCCOCAL Vaccine (Year): 1 Menopausal: Yes : 5 Para: 2 Miscarriage: 3 Ectopic : Yes (X 1) Ovarian Cysts: Yes Tubal Ligation: Yes Past Surgical History Abdominal Surgery: Yes (ECTOPIC PREG) AICD: No Appendectomy: Yes Arteriovenous Shunt: No Body Medical Devices: STENTS Cardiac Surgery: Yes Cholecystectomy: No Coronary Artery Bypass Graft: No Coronary Stent: Yes (STENTS X 4) Ear Surgery: No Endocrine Surgery: No Eye Surgery: Yes (CATARACT SURGERY BILATERAL) Gynecologic Surgery: Yes (ONE OVARY REMOVED AND ONE FALLOPIAN TUBE REMOVED ) Insulin Pump: No Joint Replacement: No Oral Surgery: Yes (TEETH REMOVED) Pacemaker: No Tonsillectomy: Yes Other Surgery: Yes (BENIGN GROWTH REMOVED FROM STERNUM; CYSTS REMOVED FROM BILAT. BREASTS) Social History Alcohol Use: No Tobacco Use: Yes ( 6 CIGARETTES) Substance Use: No Allergies-Medications (Allergen,Severity, Reaction): Coded Allergies: diatrizoate meglumine (Unverified Allergy, Severe, Edema, 10/14/16) angioedema per pt enalaprilat (Unverified Allergy, Severe, Swelling, 10/14/16) gadobenic acid (Unverified Allergy, Severe, Edema, 10/14/16) angioedema per pt gadodiamide (Unverified Allergy, Severe, Edema, 10/14/16) angioedema per pt gadoteridol (Unverified Allergy, Severe, Edema, 10/14/16) angioedema per pt iodixanol (Unverified Allergy, Severe, Edema, 10/14/16) angioedema per pt iohexol (Unverified Allergy, Severe, Edema, 10/14/16) angioedema per pt penicillin G (Unverified Allergy, Severe, Anaphylaxis, 10/14/16) Uncoded Allergies: EVERYTHING ON AND OFF..;ANGIODEMA... (Allergy, Severe, Anaphylaxis, 01/05/10 ) TAKES 60 MG PREDNISONE,150MG ZANTAC AND 50MG BENADRYL WHEN TONGUE BEGINS TO SWELL AND LIPS SWELL mycins (Allergy, Severe, 01/05/10) Reported Meds & Prescriptions Reported Meds & Active Scripts Active Nebulizer Kit/Tubing/Mout (N/A) 1 Kit Kit 1 Kit .ROUTE DIRECTED Atrovent HFA 12.9 GM Inh (Ipratropium [place]) 17 Mcg/Act Aer 2 Puff INH Q6HR PRN Levofloxacin 750 Mg Tab 750 Mg PO DAILY Symbicort Inh (Budesonide/Formoterol Fumarate) 160-4.5 Mcg/Act Aero 1 Puff INH Q12HR Isosorbide Mononitrate ER (Isosorbide Mononitrate) 30 Mg Dolly 30 Mg PO DAILY@07 Prednisone (21) 10 mg tab Dose Pack (Prednisone) 10 Mg Pack 10 Mg PO DIRECTED Metoprolol Tartrate 50 Mg Tab 50 Mg PO BID Aspirin 81 (Aspirin) 81 Mg Tabdr 81 Mg PO DAILY Blood Glucose Test Strips 1 Sandhya Sandhya 1 Ea .ROUTE DIRECTED Accu-Chek La Glucose Monitor (Device) 1 Mis Mis 1 Kit .ROUTE DIRECTED Glucophage XR (Metformin HCl) 500 Mg Dolly 1,000 Mg PO BID Clopidogrel (Clopidogrel Bisulfate) 75 Mg Tab 75 Mg PO DAILY Reported Hydrocodone-Acetaminophen 7.5-325 mg Tab 0.5 Tab PO BID PRN HALF TAB BID Review of Systems Except as stated in HPI: all other systems reviewed are Neg Physical Exam Narrative GENERAL: Well-nourished female patient, appears without distress SKIN: Warm and dry. HEAD: Atraumatic. Normocephalic. EYES: Pupils equal and round. No scleral icterus. No injection or drainage. ENT: No nasal bleeding or discharge. Mucous membranes pink and moist. NECK: Trachea midline. CARDIOVASCULAR: Regular rate RESPIRATORY: No accessory muscle use. GASTROINTESTINAL: Abdomen nondistended. MUSCULOSKELETAL: Extremities without clubbing, cyanosis, or edema. No obvious deformities. NEUROLOGICAL: Awake and alert. No obvious cranial nerve deficits. Normal speech. Data Data Last Documented VS Vital Signs Date Time Temp Pulse Resp B/P (MAP) Pulse Ox O2 Delivery O2 Flow Rate FiO2 01/12/17 13:03 98.6 113 20 146/78 (100) 98 MDM Medical Decision Making Medical Screen Exam Complete: Yes Emergency Medical Condition: Yes Medical Record Reviewed: Yes Differential Diagnosis Allergic reaction versus anaphylaxis versus normal examination Narrative Course Prior to workup being complete, patient is choosing to leave AGAINST MEDICAL ADVICE. AMA: The risks of leaving against medical advice without further evaluation treatment were discussed with the patient. These risks include cardiac dysfunction, cardiac dysrhythmia, possible heart attack, possible stroke or . The patient indicated understanding of these risks and appeared to have the capacity to make this decision. Diagnosis Primary Impression: Allergic reaction Qualified Codes: T78.40XA - Allergy, unspecified, initial encounter Disposition: 07 AGAINST MEDICAL ADVICE Condition: Stable Annalee Tucker SRINIVASAN Jan 12, 2017 13:35
== END 2017-01-12 14:26 | disposition left against medical advice (07) ==
LOC: NED 13:01
DX: Z53.21 Procedure and treatment not carried out due to patient leaving prior to being seen by health care provider (principal); T78.40XA Allergy, unspecified, initial encounter
CPT/HCPCS: 99281

== ENCOUNTER 2017-02-02 07:56 | Day surgery (SDC) | payer OTHER ==
[~2017-02-02] VITALS: Ht 168.9 cm; Wt 89.5 kg
[2017-02-02] VITALS (9 sets, daily range): BP systolic 106–122; BP diastolic 60–73; PULSE 68–86; RESP 18–20; TEMP 97.9–98.3; O2SAT 92–98
[2017-02-02] MEDS ORDERED: ATOR10TA15 PO (08:32)
[2017-02-02] MEDS ORDERED: FOLI400T PO (08:32)
[2017-02-02] MEDS ORDERED: PRED5TAB PO (08:32)
[2017-02-02] MEDS ORDERED: METH0.35 SQ (08:32)
[2017-02-02] MEDS ORDERED: SULF500T3 PO (08:32)
[2017-02-02] MEDS ORDERED: ISOS20TA PO (08:32)
[2017-02-02] MEDS ORDERED: PRED10 PO (08:32)
[2017-02-02] MEDS ORDERED: MAPA325T PO (08:32)
[2017-02-02] MEDS ORDERED: HYDR-3583 PO (08:32)
[2017-02-02 08:43] LABS: AUTOMATED NEUTROPHIL # 7.1 TH/MM3 (1.8-7.7); BASOPHIL % 0.5 % (0.0-2.0); EOSINOPHIL # 0.1 TH/MM3 (0-0.4); EOSINOPHIL % 0.7 % (0.0-4.0); HEMATOCRIT 37.8 % (35.0-46.0); HEMO FLAGS DIFF FINAL; LYMPH % 20.8 % (9.0-44.0); MEAN CELL VOLUME 87.4 FL (80.0-100.0); MEAN CORPUSCULAR HEMOGLOBIN 29.1 PG (27.0-34.0); MEAN CORPUSCULAR HGB CONC 33.4 % (32.0-36.0); PLATELET COUNT 266 TH/MM3 (150-450); RED BLOOD COUNT 4.33 MIL/MM3 (4.00-5.30); RED CELL DISTRIBUTION WIDTH 19.5 % (11.6-17.2); WHITE BLOOD COUNT 9.8 TH/MM3 (4.0-11.0)
[2017-02-02] MEDS ORDERED: SODIUM CHLORIDE FLUSH PRN IV FLUSH (08:45)
[2017-02-02 08:52] LABS: APTT (PATIENT) 28.5 SEC (24.3-30.1); PROTHROMBIN TIME - PATIENT 10.6 SEC (9.8-11.6)
[2017-02-02] MEDS ORDERED: SODIUM CHLORIDE FLUSH BID IV FLUSH SCH (09:00)
[2017-02-02] MEDS ORDERED: SODIUM CHLOR 0.9% 1000 ML IV SCH (09:00)
[2017-02-02] MEDS ORDERED: LIDOCAINE 1%/EPINEPHrine 1:100,000 SOLN 20 ML VIAL ONE (09:47)
[2017-02-02] MEDS ORDERED: MIDAZOLAM HCL 2 MG/2 ML VIAL ONE (10:04)
--- NOTE | 2017-02-02 11:10 | PD.RAD ---
Post CT Procedure Prog Note Pre Procedure Diagnosis: (1) Mass of left lung Post Procedure Diagnosis: (1) Mass of left lung Procedure Date: Feb 02, 2017 Supervising Radiologist: Abiodun Simms Anesthesia: Local, Analgesia, Conscious Sedation Plan of Activity Patient to Unit: ROPU Patient Condition: Good See PACS Report for procedural detail/treatment Biopsy Imaging Guidance: CT Side: Left Biopsy Procedure: Lung Specimen: Core Biopsy (Single core. Sufficient sample from [employer]) Abiodun Simms MD Feb 02, 2017 11:10
[2017-02-02] MEDS ORDERED: oxyCODONE/ACETAMINOPHEN 5 MG/325 MG TAB PO PRN (11:15)
--- NOTE | 2017-02-02 12:28 | RADRPT ---
EXAM DATE/TIME: 02/02/2017 11:59 [facility] COMPARISON: CHEST SINGLE AP, March 29, 2016, 1:48. CT NEEDLE BIOPSY LUNG, LEFT, February 02, 2017, 10:27. BRI ST SINGLE AP, June 16, 2016, 0:45. INDICATIONS : S/p left side lung biopsy MEDICAL HISTORY : Hypertension. Chronic obstructive pulmonary disease. SURGICAL HISTORY : Coronary artery stent. CABG. ENCOUNTER: Initial ACUITY: 1 day PAIN SCORE: 0/10 LOCATION: Bilateral chest FINDINGS: Subsegmental interstitial infiltrates in the right upper, left central, and left lower lung is simila r to prior chest x-ray. No evidence of apical pneumothorax on the left side. CONCLUSION: 1. No pneumothorax seen. 2. Stable bilateral interstitial infiltrates. Dallin Saba MD on February 02, 2017 at 12:25 Board Certified Radiologist. This report was verified electronically.
--- NOTE | 2017-02-02 13:48 | RADRPT ---
EXAM DATE/TIME: 02/02/2017 10:27 [facility] COMPARISON: No previous studies available for comparison. INDICATIONS : Left lung mass. SEDATION TIME: 45 minutes BIOPSY SITE: Left lung MEDICATION(S): 1.) 2.5 mg midazolam (Versed) IV 2.) 125 mcg fentanyl (Sublimaze) DEVICE(S): 1.) 18 gauge Temno core biopsy needle MEDICAL HISTORY : Chronic obstructive pulmonary disease. Cardiovascular disease. SURGICAL HISTORY : Tonsillectomy. ENCOUNTER: Initial ACUITY: 1 day PAIN SCORE: 0/10 LOCATION: Bilateral chest A total of one core specimen(s) were obtained and sent to the laboratory for pathologic evaluation. PROCEDURE: 1. CT guided lung biopsy. 2. Conscious sedation with continuous EKG and oximetry monitoring. 3. EKG and oximetry remained stable throughout the procedure. Prior to the procedure informed consent was obtained. Any appropriate prior imaging studies were rev iewed. Using automated exposure control and adjustment of the mA and/or kV according to patient size, radiation dose was kept as low as reasonably achievable to obtain optimal diagnostic quality images. DICOM format image data is available electronically for review and comparison. The site was prepped in a sterile fashion. Full sterile technique was used, including cap, mask, fadia rile gloves and gown and a large sterile sheet. Hand hygiene and 2% chlorhexidine and/or betadine/al cohol prep was utilized per protocol for cutaneous antisepsis. The skin and subcutaneous tissues wer e infiltrated with local anesthetic solution. With CT guidance the previously identified target was localized. Biopsy was performed using the presc ribed needle as above. Single core was obtained and evaluated by the cytotech who deemed the sample adequate for diagnosis. Adequate hemostasis was obtained with compression at the puncture site. Follow-up CT scan reveals no pneumothorax. Conscious sedation was performed with the prescribed dosages and duration as above in the presence of an independent trained radiology nurse to assist in the monitoring of the patient. EKG and oximetry remained stable throughout the procedure. The patient tolerated the procedure well and there were no complications. The patient was sent to Radiology Outpatient Unit in stable condition. CONCLUSION: Uncomplicated CT guided biopsy. Abiodun Simms MD on February 02, 2017 at 13:43 Board Certified Radiologist. This report was verified electronically.
== END 2017-02-02 15:00 | disposition home or self-care (01) ==
LOC: HRAD 07:56 → HRIP 08:04 → HRAD 15:00
PROVIDERS: ATTEND Internal Medicine Hematology & Oncology
DX: C34.92 Malignant neoplasm of unspecified part of left bronchus or lung (principal); J84.10 Pulmonary fibrosis, unspecified; I10 Essential (primary) hypertension; J44.9 Chronic obstructive pulmonary disease, unspecified; E11.9 Type 2 diabetes mellitus without complications; J18.9 Pneumonia, unspecified organism; M10.9 Gout, unspecified; R07.9 Chest pain, unspecified; R06.00 Dyspnea, unspecified; Z86.73 Personal history of transient ischemic attack (TIA), and cerebral infarction without residual deficits; Z95.1 Presence of aortocoronary bypass graft; Z95.5 Presence of coronary angioplasty implant and graft
CPT/HCPCS: 32405; 71010; 77012; 85025; 85610; 85730; 88173; 88305; 88341; 88342; J2250; J3010; J7030; 88333

== ENCOUNTER 2017-07-20 12:11 | Inpatient (IN) | payer OTHER, MEDICARE ==
[~2017-07-20] VITALS: Ht 167.6 cm; Wt 92.4 kg
[~2017-07-20 12:11] MED LIST changes: +ATOR10TA15 PO; -BLOO1MIS29; +FOLI400T PO; -HYDR-3580 PO; +HYDR-3583 PO; -IPRA17I INH; +ISOS20TA PO; -ISOS30TA3 PO; -LEVO750T33 PO; +MAPA325T PO; +METH0.35 SQ; -NEBUKIT5; +PRED10 PO; -PRED10PA PO; +PRED5TAB PO; +SULF500T3 PO; -SYMB160A INH
[2017-07-20 12:40] VITALS: BP 134/63; PULSE 125; RESP 36; TEMP 101.1; O2SAT 93
[2017-07-20] MEDS ORDERED: ACETAMINOPHEN 325 MG TAB PO ONE (13:00)
[2017-07-20] MEDS ORDERED: SODIUM CHLOR 0.9% 1000 ML INJ 1,000 ML IV ONE ×2 (13:00→14:45)
[2017-07-20 13:03] VITALS: PULSE 124; RESP 34; O2SAT 94
--- NOTE | 2017-07-20 13:04 | PD ---
HPI Chief Complaint: Fever Time Seen by Provider: 12:45 Travel History International Travel<30 days: No Contact w/Intl Traveler<30days: No Traveled to known affect area: No History of Present Illness HPI 72-year-old female presents to the emergency department with her daughter for evaluation of fever, cough, congestion, sinus pressure that has been ongoing for 2 days. Patient has past medical history which includes COPD, type 2 diabetes mellitus, rheumatoid arthritis, osteoarthritis, chronic pain, chronic headaches CAD status post WA 4 with cardiac stent placement 4. She is also undergoing radiation therapy by Dr. Virgen for lung carcinoma. Patient reports chronic headaches, currently 9/10 to the bifrontal area. She also reports 8/10, left-sided chest pain that is throbbing and aching, worse with coughing. Patient has not taken anything for fever. She denies urinary symptoms, but her daughter states it is dark and foul-smelling. She denies any abdominal pain. No nausea, vomiting, diarrhea. She reports associated shortness of breath. Moderate severity. PFSH Past Medical History Hx Anticoagulant Therapy: Yes (PLAVIX) Arthritis: Yes Asthma: No Autoimmune Disease: No Blood Disorders: No Anxiety: Yes Depression: No Heart Rhythm Problems: No Cancer: No Cardiac Catheterization: Yes (PER PATIENT 1997 AND 2003 HERE AT [facility]) Cardiovascular Problems: Yes (Stents x4) High Cholesterol: Yes Chemotherapy: No Chest Pain: Yes Congestive Heart Failure: Yes COPD: Yes Cerebrovascular Accident: Yes Coronary Artery Disease: Yes Diabetes: Yes Patient Takes Glucophage: No Diminished Hearing: Yes (LEFT SIDE [place]) Endocrine: Yes Gastrointestinal Disorders: Yes (H PYLORI) GERD: Yes (hx) Glaucoma: No Genitourinary: No Headaches: Yes Hepatitis: No Hiatal Hernia: No Heparin Induced Thrombocytopen: No Hypertension: Yes Immune Disorder: No Implanted Vascular Access Dvce: No Kidney Stones: No Medical other: Yes ( ANGIOEDEMA) Musculoskeletal: Yes (RA) Neurologic: Yes Psychiatric: Yes Reproductive: No Respiratory: Yes Immunizations Current: Yes Migraines: No Myocardial Infarction: Yes (WA X 2) Radiation Therapy: No Renal Failure: No Seizures: No Sickle Cell Disease: No Sleep Apnea: No Thyroid Disease: No Ulcer: No PNEUMOCCOCAL Vaccine (Year): 1 Menopausal: Yes : 5 Para: 2 Miscarriage: 3 Ectopic : Yes (X 1) Ovarian Cysts: Yes Tubal Ligation: Yes Past Surgical History Abdominal Surgery: Yes (ECTOPIC PREG) AICD: No Appendectomy: Yes Arteriovenous Shunt: No Body Medical Devices: STENTS Cardiac Surgery: Yes Cholecystectomy: No Coronary Artery Bypass Graft: No Coronary Stent: Yes (STENTS X 4) Ear Surgery: No Endocrine Surgery: No Eye Surgery: Yes (CATARACT SURGERY BILATERAL) Gynecologic Surgery: Yes (ONE OVARY REMOVED AND ONE FALLOPIAN TUBE REMOVED ) Insulin Pump: No Joint Replacement: No Oral Surgery: Yes (TEETH REMOVED) Pacemaker: No Tonsillectomy: Yes Other Surgery: Yes (BENIGN GROWTH REMOVED FROM STERNUM; CYSTS REMOVED FROM BILAT. BREASTS) Family History Family Myocardial Infarction: Yes (Mom) Social History Alcohol Use: No Tobacco Use: Yes Substance Use: No Allergies-Medications (Allergen,Severity, Reaction): Coded Allergies: diatrizoate meglumine (Unverified Allergy, Severe, Edema, 02/02/17) angioedema per pt enalaprilat (Unverified Allergy, Severe, Swelling, 02/02/17) gadobenic acid (Unverified Allergy, Severe, Edema, 02/02/17) angioedema per pt gadodiamide (Unverified Allergy, Severe, Edema, 02/02/17) angioedema per pt gadoteridol (Unverified Allergy, Severe, Edema, 02/02/17) angioedema per pt iodixanol (Unverified Allergy, Severe, Edema, 02/02/17) angioedema per pt iohexol (Unverified Allergy, Severe, Edema, 02/02/17) angioedema per pt penicillin G (Unverified Allergy, Severe, Anaphylaxis, 02/02/17) Uncoded Allergies: EVERYTHING ON AND OFF..;ANGIODEMA... (Allergy, Severe, Anaphylaxis, 01/05/10 ) TAKES 60 MG PREDNISONE,150MG ZANTAC AND 50MG BENADRYL WHEN TONGUE BEGINS TO SWELL AND LIPS SWELL mycins (Allergy, Severe, 01/05/10) Reported Meds & Prescriptions Reported Meds & Active Scripts Active Metoprolol Tartrate 50 Mg Tab 50 Mg PO BID Aspirin 81 (Aspirin) 81 Mg Tabdr 81 Mg PO DAILY Blood Glucose Test Strips 1 Sandhya Sandhya 1 Ea .ROUTE DIRECTED Glucophage XR (Metformin HCl) 500 Mg Dolly 1,000 Mg PO BID Clopidogrel (Clopidogrel Bisulfate) 75 Mg Tab 75 Mg PO DAILY Reported Mapap (Acetaminophen) 325 Mg Tab 1,300 Mg PO BID PRN Hydrocodone-Acetaminophen 10-325 mg Tab 0.5 Tab PO Q4H PRN Isosorbide Mononitrate 20 Mg Tab 20 Mg PO BID Take 2 doses 7 hours apart. Prednisone 5 Mg Tab 5 Mg PO DAILY Sulfasalazine 500 Mg Tab 500 Mg PO BID Atorvastatin (Atorvastatin Calcium) 10 Mg Tab 10 Mg PO DAILY Folic Acid 0.4 Mg Tab 1 Mg PO DAILY Rasuvo (Methotrexate (Antirheumatic)) 20 Mg/0.4 Ml Inj Unknown Dose SQ WEEKLY Review of Systems Except as stated in HPI: all other systems reviewed are Neg Physical Exam Narrative GENERAL: Well-nourished, well-developed elderly patient, temp of 101.1. SKIN: Focused skin assessment warm/dry. HEAD: Normocephalic. Atraumatic ENT: Mucosa pink and moist. No erythema or exudates. No uvular edema. No uvular , palatal, or tonsillar deviation. Airway patent. Nasal turbinates appear normal without nasal blood, purulent drainage or septal hematoma. Bilateral tympanic membranes clear without erythema or perforation. EYES: No scleral icterus. No injection or drainage. NECK: Supple, trachea midline. No JVD or lymphadenopathy. CARDIOVASCULAR: Regular rhythm without murmurs, gallops, or rubs. Patient is tachycardic heart rate in the 120s peer RESPIRATORY: Breath sounds equal bilaterally. No accessory muscle use. Lung sounds diminished. She is tachypneic. No audible wheezing. GASTROINTESTINAL: Abdomen soft, non-tender, nondistended. MUSCULOSKELETAL: No cyanosis, or edema. BACK: Nontender without obvious deformity. No CVA tenderness. Data Data Last Documented VS Vital Signs Date Time Temp Pulse Resp B/P (MAP) Pulse Ox O2 Delivery O2 Flow Rate FiO2 07/20/17 14:51 116 24 119/56 (77) 97 Nasal Cannula 2.00 07/20/17 12:40 101.1 Orders Orders Sepsis Workup Initiated (07/20/17 ) Electrocardiogram (07/20/17 12:58) Complete Blood Count With Diff (07/20/17 12:58) Comprehensive Metabolic Panel (07/20/17 12:58) Prothrombin Time / Inr (Pt) (07/20/17 12:58) Act Partial Throm Time (Ptt) (07/20/17 12:58) Lactic Acid Sepsis Protocol (07/20/17 12:58) Magnesium (Mg) (07/20/17 12:58) Ckmb (Isoenzyme) Profile (07/20/17 12:58) Troponin I (07/20/17 12:58) Urinalysis - C+S If Indicated (07/20/17 12:58) Blood Culture (07/20/17 12:58) Chest, Single Ap (07/20/17 12:58) Blood Glucose (07/20/17 12:58) Ecg Monitoring (07/20/17 12:58) Iv Access Insert/Monitor (07/20/17 12:58) Oximetry (07/20/17 12:58) Oxygen Administration (07/20/17 12:58) Acetaminophen (Tylenol) (07/20/17 13:00) Sodium Chlor 0.9% 1000 Ml Inj (Ns 1000 M (07/20/17 13:00) Influenzae A/B Antigen (07/20/17 13:04) CKMB (07/20/17 13:15) CKMB% (07/20/17 13:15) Sodium Chloride 0.9% Flush (Ns Flush) (07/20/17 14:45) Aztreonam Inj (Azactam Inj) (07/20/17 14:45) Levofloxacin 750 Mg Premix Inj (Levaquin (07/20/17 14:45) Sodium Chlor 0.9% 1000 Ml Inj (Ns 1000 M (07/20/17 14:45) Admit Order (Ed Use Only) (07/20/17 15:32) Labs Laboratory Tests Test 07/20/17 13:15 White Blood Count 12.7 TH/MM3 Red Blood Count 4.42 MIL/MM3 Hemoglobin 12.8 GM/DL Hematocrit 39.0 % Mean Corpuscular Volume 88.1 FL Mean Corpuscular Hemoglobin 29.0 PG Mean Corpuscular Hemoglobin Concent 32.9 % Red Cell Distribution Width 17.7 % Platelet Count 314 TH/MM3 Mean Platelet Volume 7.0 FL Neutrophils (%) (Auto) 86.7 % Lymphocytes (%) (Auto) 5.7 % Monocytes (%) (Auto) 7.2 % Eosinophils (%) (Auto) 0.2 % Basophils (%) (Auto) 0.2 % Neutrophils # (Auto) 11.0 TH/MM3 Lymphocytes # (Auto) 0.7 TH/MM3 Monocytes # (Auto) 0.9 TH/MM3 Eosinophils # (Auto) 0.0 TH/MM3 Basophils # (Auto) 0.0 TH/MM3 CBC Comment DIFF FINAL Differential Comment Prothrombin Time 11.8 SEC Prothromb Time International Ratio 1.2 RATIO Activated Partial Thromboplast Time 33.1 SEC Blood Urea Nitrogen 6 MG/DL Creatinine 0.87 MG/DL Random Glucose 113 MG/DL Total Protein 8.6 GM/DL Albumin 2.5 GM/DL Calcium Level 9.2 MG/DL Magnesium Level 2.3 MG/DL Alkaline Phosphatase 108 U/L Aspartate Amino Transf (AST/SGOT) 31 U/L Alanine Aminotransferase (ALT/SGPT) 22 U/L Total Bilirubin 0.7 MG/DL Sodium Level 137 MEQ/L Potassium Level 3.5 MEQ/L Chloride Level 100 MEQ/L Carbon Dioxide Level 26.8 MEQ/L Anion Gap 10 MEQ/L Estimat Glomerular Filtration Rate 78 ML/MIN Lactic Acid Level 2.4 mmol/L Total Creatine Kinase 234 U/L Creatine Kinase MB 1.2 NG/ML Creatine Kinase MB % 0.5 % Troponin I 0.12 NG/ML MDM Medical Decision Making Medical Screen Exam Complete: Yes Emergency Medical Condition: Yes Medical Record Reviewed: Yes Interpretation(s) Last Impressions Chest X-Ray 07/20/17 1258 Signed Impressions: Service Date/Time: Thursday, July 20, 2017 13:21 - CONCLUSION: 1. Stable bilateral interstitial infiltrates most prominent in the right upper lung and left lingula/lung base. 2. No superimposed acute infiltrate Abiodun Simms MD Differential Diagnosis Pneumonia versus UTI versus sepsis versus COPD exacerbation versus URI versus influenza Narrative Course 72-year-old female presents to the emergency department for evaluation of fever , cough, congestion, shortness of breath and chest pain that started 2 days ago. Patient is given normal saline 2 L IV bolus only. EKG, CBC, CMP, Lactic acid, magnesium, CK, troponin, PTT, PT/INR, UA, blood cultures x2, influenza, chest x-ray are ordered and pending. Patient is given Tylenol 650 mg PO for fever. EKG shows sinus tachycardia, HR 118, no acute ST changes. CBC shows leukocytosis o 12.7. CMP shows no acute abnormality. Lactic acid is 2.4. Magnesium is two-point. CK is 234. Troponin is elevated at 0.12. Coags show no acute abnormality. UA is still pending. Influenza is negative. Chest x- ray shows stable bilateral interstitial infiltrates most prominent in the right upper lung and left lingula/lung base appear. Patient is a started on Azactam 2 g IV, Levaquin 750 mg IV. Patient will be admitted for pneumonia, sepsis, elevated troponin. Sepsis Criteria SIRS Criteria (2 or more): Temp > 100.9 or < 96.8, Heart rate over 90 Diagnosis Primary Impression: Pneumonia Qualified Codes: J18.9 - Pneumonia, unspecified organism Additional Impressions: Sepsis Qualified Codes: A41.9 - Sepsis, unspecified organism Elevated troponin Admitting Information Admitting Physician Requests: Admit Karishma Olivarez July 20, 2017 13:04
[2017-07-20 13:27] LABS: BASOPHIL % 0.2 % (0.0-2.0); EOSINOPHIL % 0.2 % (0.0-4.0); HEMOGLOBIN 12.8 GM/DL (11.6-15.3); LYMPH % 5.7 % (9.0-44.0); LYMPHOCYTE # 0.7 TH/MM3 (1.0-4.8); MEAN CELL VOLUME 88.1 FL (80.0-100.0); MEAN CORPUSCULAR HGB CONC 32.9 % (32.0-36.0); MONO % 7.2 % (0.0-8.0); MONOCYTE # 0.9 TH/MM3 (0-0.9); NEUT % 86.7 % (16.0-70.0); PLATELET COUNT 314 TH/MM3 (150-450); RED BLOOD COUNT 4.42 MIL/MM3 (4.00-5.30); RED CELL DISTRIBUTION WIDTH 17.7 % (11.6-17.2); WHITE BLOOD COUNT 12.7 TH/MM3 (4.0-11.0)
[2017-07-20 13:39] LABS: INTERNATIONAL NORMALIZED RATIO 1.2 RATIO; PROTHROMBIN TIME - PATIENT 11.8 SEC (9.8-11.6)
[2017-07-20 13:49] LABS: LACTIC ACID SEPSIS PROTOCOL 2.4 mmol/L (0.4-2.0)
[2017-07-20 13:50] LABS: ALBUMIN 2.5 GM/DL (3.4-5.0); ALKALINE PHOSPHATASE 108 U/L (45-117); ALT (GPT) 22 U/L (10-53); AST (GOT) 31 U/L (15-37); BICARBONATE 26.8 MEQ/L (21.0-32.0); BLOOD UREA NITROGEN 6 MG/DL (7-18); CALCIUM 9.2 MG/DL (8.5-10.1); CHLORIDE 100 MEQ/L (98-107); CREATININE 0.87 MG/DL (0.50-1.00); GLOMERULAR FILTRATION RATE 78 ML/MIN (>89); GLUCOSE,RANDOM 113 MG/DL (74-106); MAGNESIUM 2.3 MG/DL (1.5-2.5); SODIUM (NA) 137 MEQ/L (136-145); TOTAL BILIRUBIN ADULT 0.7 MG/DL (0.2-1.0); TOTAL PROTEIN 8.6 GM/DL (6.4-8.2); TROPONIN I 0.12 NG/ML (0.02-0.05)
--- NOTE | 2017-07-20 14:29 | RADRPT ---
EXAM DATE/TIME: 07/20/2017 13:21 [facility] COMPARISON: CHEST SINGLE AP, June 16, 2016, 0:45. INDICATIONS : Fever. MEDICAL HISTORY : Hypertension. Diabetes mellitus type II. Chronic obstructive pulmonary disease. SURGICAL HISTORY : CABG. Coronary artery stent. ENCOUNTER: Initial ACUITY: 1 day PAIN SCORE: 0/10 LOCATION: Bilateral chest FINDINGS: A single view of the chest demonstrates stable bilateral interstitial infiltrates, most prominent in the right upper lobe and left lingula/base. Heart size is normal. Intact median sternotomy wires. Oss eous structures are intact with some degenerative spurring of the dorsal spine. CONCLUSION: 1. Stable bilateral interstitial infiltrates most prominent in the right upper lung and left lingula/ lung base. 2. No superimposed acute infiltrate Abiodun Simms MD on July 20, 2017 at 14:26 Board Certified Radiologist. This report was verified electronically.
[2017-07-20] MEDS ORDERED: SODIUM CHLORIDE 0.9% FLUSH 10 ML FLUSH IVF PRN (14:45)
[2017-07-20] MEDS ORDERED: AZTREONAM INJ 2,000 MG in SODIUM CHLORIDE 0.9% INJ 100 ML IV ONE (14:45)
[2017-07-20] MEDS ORDERED: LEVOFLOXACIN 750 MG PREMIX INJ 150 ML IV ONE (14:45)
[2017-07-20 14:51] VITALS: BP 119/56; PULSE 116; RESP 24; O2SAT 97
--- NOTE | 2017-07-20 15:06 | PD ---
Data Data Last Documented VS Vital Signs Date Time Temp Pulse Resp B/P (MAP) Pulse Ox O2 Delivery O2 Flow Rate FiO2 07/20/17 14:51 116 24 119/56 (77) 97 Nasal Cannula 2.00 07/20/17 12:40 101.1 Orders Orders Sepsis Workup Initiated (07/20/17 ) Electrocardiogram (07/20/17 12:58) Complete Blood Count With Diff (07/20/17 12:58) Comprehensive Metabolic Panel (07/20/17 12:58) Prothrombin Time / Inr (Pt) (07/20/17 12:58) Act Partial Throm Time (Ptt) (07/20/17 12:58) Lactic Acid Sepsis Protocol (07/20/17 12:58) Magnesium (Mg) (07/20/17 12:58) Ckmb (Isoenzyme) Profile (07/20/17 12:58) Troponin I (07/20/17 12:58) Urinalysis - C+S If Indicated (07/20/17 12:58) Blood Culture (07/20/17 12:58) Chest, Single Ap (07/20/17 12:58) Blood Glucose (07/20/17 12:58) Ecg Monitoring (07/20/17 12:58) Iv Access Insert/Monitor (07/20/17 12:58) Oximetry (07/20/17 12:58) Oxygen Administration (07/20/17 12:58) Acetaminophen (Tylenol) (07/20/17 13:00) Sodium Chlor 0.9% 1000 Ml Inj (Ns 1000 M (07/20/17 13:00) Influenzae A/B Antigen (07/20/17 13:04) CKMB (07/20/17 13:15) CKMB% (07/20/17 13:15) Sodium Chloride 0.9% Flush (Ns Flush) (07/20/17 14:45) Aztreonam Inj (Azactam Inj) (07/20/17 14:45) Levofloxacin 750 Mg Premix Inj (Levaquin (07/20/17 14:45) Sodium Chlor 0.9% 1000 Ml Inj (Ns 1000 M (07/20/17 14:45) Labs Laboratory Tests Test 07/20/17 13:15 White Blood Count 12.7 TH/MM3 Red Blood Count 4.42 MIL/MM3 Hemoglobin 12.8 GM/DL Hematocrit 39.0 % Mean Corpuscular Volume 88.1 FL Mean Corpuscular Hemoglobin 29.0 PG Mean Corpuscular Hemoglobin Concent 32.9 % Red Cell Distribution Width 17.7 % Platelet Count 314 TH/MM3 Mean Platelet Volume 7.0 FL Neutrophils (%) (Auto) 86.7 % Lymphocytes (%) (Auto) 5.7 % Monocytes (%) (Auto) 7.2 % Eosinophils (%) (Auto) 0.2 % Basophils (%) (Auto) 0.2 % Neutrophils # (Auto) 11.0 TH/MM3 Lymphocytes # (Auto) 0.7 TH/MM3 Monocytes # (Auto) 0.9 TH/MM3 Eosinophils # (Auto) 0.0 TH/MM3 Basophils # (Auto) 0.0 TH/MM3 CBC Comment DIFF FINAL Differential Comment Prothrombin Time 11.8 SEC Prothromb Time International Ratio 1.2 RATIO Activated Partial Thromboplast Time 33.1 SEC Blood Urea Nitrogen 6 MG/DL Creatinine 0.87 MG/DL Random Glucose 113 MG/DL Total Protein 8.6 GM/DL Albumin 2.5 GM/DL Calcium Level 9.2 MG/DL Magnesium Level 2.3 MG/DL Alkaline Phosphatase 108 U/L Aspartate Amino Transf (AST/SGOT) 31 U/L Alanine Aminotransferase (ALT/SGPT) 22 U/L Total Bilirubin 0.7 MG/DL Sodium Level 137 MEQ/L Potassium Level 3.5 MEQ/L Chloride Level 100 MEQ/L Carbon Dioxide Level 26.8 MEQ/L Anion Gap 10 MEQ/L Estimat Glomerular Filtration Rate 78 ML/MIN Lactic Acid Level 2.4 mmol/L Total Creatine Kinase 234 U/L Creatine Kinase MB 1.2 NG/ML Creatine Kinase MB % 0.5 % Troponin I 0.12 NG/ML MDM Supervised Visit with SHIRLENE: Yes Narrative Course I, Dr. Michaud, have reviewed the advance practice practitioner's documentation and am in agreement, met with the patient face to face, made the diagnosis, and the medical decision making was done by me. *My assessment and Findings: Patient presentation consistent with pneumonia. She meets some sepsis criteria with fever and tachycardia and mild leukocytosis. Chest x-ray suggests infiltrate. She has been given IV antibiotics and will be admitted. She is hypoxic on room air Slim Michaud MD July 20, 2017 15:06
--- NOTE | 2017-07-20 16:42 | HHI.HP ---
[facility] Unknown Admission Diagnosis pneumonia, sepsis, elevated troponin Diagnoses: Chief Complaint: Fever chills "because I am sick" Travel History International Travel<30 Days: No Contact w/Intl Traveler <30 Da: No Traveled to Known Affected Are: No Sepsis Criteria SIRS Criteria (2 or more): Temp > 100.9 or < 96.8, Heart rate over 90 Sepsis Criteria (SIRS+source): Infect source susp/known Severe Sepsis (+one): Lactate >2 Criteria Outcome: Meets severe sepsis criteria History of Present Illness Patient is a 72-year-old female with known history of rheumatoid arthritis on methotrexate shots once a week, chronic prednisone therapy, CAD status post stents, diabetes type 2, lung cancer recently completed radiation therapy about a month ago. Per patient since for the past 2-3 weeks now has been feeling sick on and off fever bringing up sputum greenish to grayish. Yesterday fever with 101 and this morning 102.. Associated with poor p.o. appetite and generalized weakness. Patient states he saw primary care physician for blood work were done chest x-ray. She does not recall any medications or prescription. Patient just says not feeling well. Persistence of this 102 fever prompted consult to ER and was noted to be tachycardic with a white count elevation and patient admitted for further evaluation. Patient with rheumatoid arthritis still in very independent with ADLs. Review of Systems Constitutional: DENIES: Diaphoretic episodes, Fatigue, Fever, Weight gain, Weight loss, Chills, Dizziness, Change in appetite, Night Sweats Endocrine: DENIES: Abnorml menstrual pattern, Heat/cold intolerance, Polydipsia , Polyuria, Polyphagia Eyes: DENIES: Blurred vision, Diplopia, Eye inflammation, Eye pain, Vision loss , Photosensitivity, Double Vision Ears, nose, mouth, throat: DENIES: Tinnitus, Hearing loss, Vertigo, Nasal discharge, Oral lesions, Throat pain, Hoarseness, Ear Pain, Running Nose, Epistaxis, Sinus Pain, Toothache, Odynophagia Respiratory: DENIES: Apneas, Cough, Snoring, Wheezing, Hemoptysis, Sputum production, Shortness of breath Cardiovascular: DENIES: Chest pain, Palpitations, Syncope, Dyspnea on Exertion , PND, Lower Extremity Edema, Orthopnea, Claudication Gastrointestinal: DENIES: Abdominal pain, Black stools, Bloody stools, Constipation, Diarrhea, Nausea, Vomiting, Difficulty Swallowing, Anorexia Genitourinary: DENIES: Abnormal vaginal bleeding, Dysmenorrhea, Dyspareunia, Sexual dysfunction, Urinary frequency, Urinary incontinence, Urgency, Hematuria , Dysuria, Nocturia, Vaginal discharge Musculoskeletal: COMPLAINS OF: Joint pain, Joint Swelling Integumentary: DENIES: Abnormal pigmentation, Pruritus, Rash, Nail changes, Breast masses, Breast skin changes, Nipple discharge Hematologic/lymphatic: DENIES: Bruising, Lymphadenopathy Immunologic/allergic: DENIES: Eczema, Urticaria Neurologic: DENIES: Abnormal gait, Headache, Localized weakness, Paresthesias, Seizures, Speech Problems, Tremor, Poor Balance Psychiatric: DENIES: Anxiety, Confusion, Mood changes, Depression, Hallucinations, Agitation, Suicidal Ideation, Homicidal Ideation, Delusions Past Family Social History Past Medical History CAD status post stent Rheumatoid arthritis, on chronic prednisone 5 mg daily Diabetes type 2 Past Surgical History History of ectopic Daughter states he had growth in the sternum that was removed Reported Medications Atorvastatin 10 mg at bedtime Sulfasalazine 500 mg 2 tabs twice a day Metoprolol 50 mg twice a day Methotrexate shot once a week Follow folic acid 1 mg daily Prednisone 5 mg daily Plavix 75 mg daily Allergies: Coded Allergies: diatrizoate meglumine (Unverified Allergy, Severe, Edema, 02/02/17) angioedema per pt enalaprilat (Unverified Allergy, Severe, Swelling, 02/02/17) gadobenic acid (Unverified Allergy, Severe, Edema, 02/02/17) angioedema per pt gadodiamide (Unverified Allergy, Severe, Edema, 02/02/17) angioedema per pt gadoteridol (Unverified Allergy, Severe, Edema, 02/02/17) angioedema per pt iodixanol (Unverified Allergy, Severe, Edema, 02/02/17) angioedema per pt iohexol (Unverified Allergy, Severe, Edema, 02/02/17) angioedema per pt penicillin G (Unverified Allergy, Severe, Anaphylaxis, 02/02/17) Uncoded Allergies: EVERYTHING ON AND OFF..;ANGIODEMA... (Allergy, Severe, Anaphylaxis, 01/05/10 ) TAKES 60 MG PREDNISONE,150MG ZANTAC AND 50MG BENADRYL WHEN TONGUE BEGINS TO SWELL AND LIPS SWELL mycins (Allergy, Severe, 01/05/10) Family History Noncontributory Social History Patient has been smoking since 15 years of age. Daughter states that patient still smokes 8-6-8 sticks a day. Denies alcohol or recreational drug use Physical Exam Vital Signs Vital Signs Date Time Temp Pulse Resp B/P (MAP) Pulse Ox O2 Delivery O2 Flow Rate FiO2 07/20/17 14:51 116 24 119/56 (77) 97 Nasal Cannula 2.00 07/20/17 13:03 92 Nasal Cannula 07/20/17 13:03 124 34 94 Nasal Cannula 2.00 07/20/17 12:59 126 34 92 Room Air 07/20/17 12:40 101.1 125 36 134/63 (86) 93 Physical Exam GENERAL: Awake alert in no acute distress SKIN: No rashes, ecchymoses or lesions. Cool and dry. HEAD: Atraumatic. Normocephalic. No temporal or scalp tenderness. EYES: Pupils equal round and reactive. Extraocular motions intact. No scleral icterus. ENT: Nose without bleeding, purulent drainage or septal hematoma. Throat without erythema-no exudates NECK: Trachea midline. No JVD or lymphadenopathy. Supple, nontender, no meningeal signs. CARDIOVASCULAR: Regular rate and rhythm without murmurs, gallops, or rubs. RESPIRATORY: Decreased breath sounds, no wheezes, rales, or rhonchi. GASTROINTESTINAL: Abdomen soft, non-tender, nondistended. . No guarding. MUSCULOSKELETAL: Extremities without clubbing, cyanosis, or edema. No joint tenderness, effusion, or edema noted. No calf tenderness. Negative Homans sign bilaterally. Ulnar deviation of both hands NEUROLOGICAL: Awake and alert. Cranial nerves II through XII intact. Motor and sensory grossly within normal limits. Five out of 5 muscle strength in all muscle groups. Normal speech. Laboratory Laboratory Tests Test 07/20/17 13:15 07/20/17 15:52 White Blood Count 12.7 Red Blood Count 4.42 Hemoglobin 12.8 Hematocrit 39.0 Mean Corpuscular Volume 88.1 Mean Corpuscular Hemoglobin 29.0 Mean Corpuscular Hemoglobin Concent 32.9 Red Cell Distribution Width 17.7 Platelet Count 314 Mean Platelet Volume 7.0 Neutrophils (%) (Auto) 86.7 Lymphocytes (%) (Auto) 5.7 Monocytes (%) (Auto) 7.2 Eosinophils (%) (Auto) 0.2 Basophils (%) (Auto) 0.2 Neutrophils # (Auto) 11.0 Lymphocytes # (Auto) 0.7 Monocytes # (Auto) 0.9 Eosinophils # (Auto) 0.0 Basophils # (Auto) 0.0 CBC Comment DIFF FINAL Differential Comment Prothrombin Time 11.8 Prothromb Time International Ratio 1.2 Activated Partial Thromboplast Time 33.1 Blood Urea Nitrogen 6 Creatinine 0.87 Random Glucose 113 Total Protein 8.6 Albumin 2.5 Calcium Level 9.2 Magnesium Level 2.3 Alkaline Phosphatase 108 Aspartate Amino Transf (AST/SGOT) 31 Alanine Aminotransferase (ALT/SGPT) 22 Total Bilirubin 0.7 Sodium Level 137 Potassium Level 3.5 Chloride Level 100 Carbon Dioxide Level 26.8 Anion Gap 10 Estimat Glomerular Filtration Rate 78 Lactic Acid Level 2.4 Total Creatine Kinase 234 Creatine Kinase MB 1.2 Creatine Kinase MB % 0.5 Troponin I 0.12 Date/Time Source Procedure Growth Status 07/20/17 13:15 Blood Peripheral Aerobic Blood Culture Pending Received 07/20/17 13:15 Blood Peripheral Anaerobic Blood Culture Pending Received 07/20/17 14:40 Nasal Aspirate Influenza Types A,B Antigen (ALVARO) - Final NEGATIVE FOR FLU A AND B ANTIGEN.... Complete Result Diagram: 07/20/17 1315 07/20/17 1315 Imaging Last Impressions Chest X-Ray 07/20/17 1258 Signed Impressions: Service Date/Time: Thursday, July 20, 2017 13:21 - CONCLUSION: 1. Stable bilateral interstitial infiltrates most prominent in the right upper lung and left lingula/lung base. 2. No superimposed acute infiltrate MD Lyn Dinh VTE Risk Assessment Lyn VTE Risk Assessment: Mod/High Risk (score >= 2) Caprini Risk Assessment Model Point Value = 1 Point Value = 2 Point Value = 3 Point Value = 5 Age 41-60 Minor surgery BMI > 25 kg/m2 Swollen legs Varicose veins or History of unexplained or recurrent spontaneous Oral contraceptives or hormone replacement Sepsis (< 1 month) Serious lung disease, including pneumonia (< 1 month) Abnormal pulmonary function Acute myocardial infarction Congestive heart failure (< 1 month) History of inflammatory bowel disease Medical patient at bed rest Age 61-74 Arthroscopic surgery Major open surgery (> 45 min) Laparoscopic surgery (> 45 min) Malignancy Confined to bed (> 72 hours) Immobilizing plaster cast Central venous access Age >= 75 History of VTE Family history of VTE Factor V Leiden Prothrombin [id number] Lupus anticoagulant Anticardiolipin antibodies Elevated serum homocysteine Heparin-induced thrombocytopenia Other congenital or acquired thrombophilia Stroke (< 1 month) Elective arthroplasty Hip, pelvis, or leg fracture Acute spinal cord injury (< 1 month) Prophylaxis Regimen Total Risk Factor Score Risk Level Prophylaxis Regimen 0-1 Low Early ambulation 2 Moderate Order ONE of the following: *Sequential Compression Device (SCD) *Heparin 5000 units SQ BID 3-4 Higher Order ONE of the following medications: *Heparin 5000 units SQ TID *Enoxaparin/Lovenox 40 mg SQ daily (WT < 150 kg, CrCl > 30 mL/min) *Enoxaparin/Lovenox 30 mg SQ daily (WT < 150 kg, CrCl > 10-29 mL/min) *Enoxaparin/Lovenox 30 mg SQ BID (WT < 150 kg, CrCl > 30 mL/min) AND/OR *Sequential Compression Device (SCD) 5 or more Highest Order ONE of the following medications: *Heparin 5000 units SQ TID (Preferred with Epidurals) *Enoxaparin/Lovenox 40 mg SQ daily (WT < 150 kg, CrCl > 30 mL/min) *Enoxaparin/Lovenox 30 mg SQ daily (WT < 150 kg, CrCl > 10-29 mL/min) *Enoxaparin/Lovenox 30 mg SQ BID (WT < 150 kg, CrCl > 30 mL/min) AND *Sequential Compression Device (SCD) Assessment and Plan Assessment and Plan 72-year-old female presenting with fever cough productive of yellowish greenish sputum chills Sepsis with elevated lactic acid criteria meets severe sepsis likely underlying clinical pneumonia. Underlying history of lung cancer status post radiation therapy about a month ago blood cultures sent. We will send sputum for Gram stain C&S. Start patient on IV Azacatam + po Levaquin CAD status post stent. Clinically stable. continue on metoprolol 50 mg twice a day Plavix 75 mg daily, aspirin, statins. History of rheumatoid arthritis continue on chronic prednisone 5 mg daily Lovenox for DVT prophylaxis Code Status Patient Physician Certification 2 Midnight Certification Type: Admission for Inpatient Services Order for Inpatient Services The services are ordered in accordance with Medicare regulations or non- Medicare payer requirements, as applicable. In the case of services not specified as inpatient-only, they are appropriately provided as inpatient services in accordance with the 2-midnight benchmark. Estimated LOS (days): 3 days is the estimated time the patient will need to remain in the hospital, assuming treatment plan goals are met and no additional complications. Post-Hospital Plan: Not yet determined Ruthann Roberts MD July 20, 2017 16:42
[2017-07-20] MEDS: ENOXAPARIN SODIUM 40 MG/0.4 ML SYRINGE SQ SCH (17:54)
[2017-07-20] MEDS: SODIUM CHLOR 0.9% 1000 ML INJ 1,000 ML IV SCH (17:55)
[2017-07-20 17:56] VITALS: BP 136/70; PULSE 101; RESP 18; TEMP 98.6; O2SAT 95
[2017-07-20] MEDS: metFORMIN HCL 500 MG TAB PO SCH (18:27)
[2017-07-20 19:25] VITALS: BP 110/57; PULSE 99; RESP 18; TEMP 98.6; O2SAT 94
[2017-07-20] MEDS ORDERED: METFORMIN 1000 MG PO SCH (21:00)
[2017-07-20] MEDS: METOPROLOL TARTRATE 50 MG TAB PO SCH (21:05)
[2017-07-20] MEDS: ISOSORBIDE MONONITRATE 20 MG TAB PO SCH (21:06)
[2017-07-20] MEDS: sulfaSALAzine 500 MG TAB PO SCH (22:09)
[2017-07-20] MEDS: ACETAMINOPHEN/HYDROcodone 325 MG/10 MG TAB PO PRN (22:11)
[2017-07-20] MEDS: AZTREONAM INJ 2,000 MG in SODIUM CHLORIDE 0.9% INJ 100 ML IV SCH (22:44)
[2017-07-21] VITALS (13 sets, daily range): BP systolic 97–122; BP diastolic 50–66; PULSE 81–114; RESP 18–21; TEMP 97.9–99.3; O2SAT 94–96
[2017-07-21] MEDS: AZTREONAM INJ 2,000 MG in SODIUM CHLORIDE 0.9% INJ 100 ML IV SCH ×3 (06:07→21:53)
[2017-07-21] MEDS: SODIUM CHLOR 0.9% 1000 ML INJ 1,000 ML IV SCH (07:20)
[2017-07-21] MEDS: metFORMIN HCL 500 MG TAB PO SCH ×2 (07:56→17:26)
[2017-07-21] MEDS: sulfaSALAzine 500 MG TAB PO SCH ×2 (07:56→21:47)
[2017-07-21] MEDS: CLOPIDOGREL 75 MG TAB PO SCH (07:57)
[2017-07-21] MEDS: FOLIC ACID 1 MG TAB PO SCH (07:57)
[2017-07-21] MEDS: ASPIRIN EC 81 MG TABEC PO SCH (07:57)
[2017-07-21] MEDS: ATORVASTATIN 10 MG TAB PO SCH (07:57)
[2017-07-21] MEDS: predniSONE 5 MG TAB PO SCH (07:57)
[2017-07-21] MEDS: METOPROLOL TARTRATE 50 MG TAB PO SCH ×2 (07:58→21:47)
[2017-07-21] MEDS: ISOSORBIDE MONONITRATE 20 MG TAB PO SCH ×2 (07:59→21:47)
--- NOTE | 2017-07-21 09:23 | HHI.PR ---
Subjective Remarks in no acute distress. still with some sob and productive sputum. T max 101.1. Objective Vitals Vital Signs Date Time Temp Pulse Resp B/P (MAP) Pulse Ox O2 Delivery O2 Flow Rate FiO2 07/21/17 08:20 98.4 100 21 111/59 (76) 94 07/21/17 04:18 99.3 100 18 101/55 (70) 95 07/21/17 04:00 114 07/21/17 00:40 85 07/21/17 00:03 98.9 88 18 97/50 (66) 95 07/20/17 23:12 19 07/20/17 19:25 98.6 99 18 110/57 (74) 94 07/20/17 17:56 98.6 101 18 136/70 (92) 95 Nasal Cannula 2.00 07/20/17 14:51 116 24 119/56 (77) 97 Nasal Cannula 2.00 07/20/17 13:03 92 Nasal Cannula 07/20/17 13:03 124 34 94 Nasal Cannula 2.00 07/20/17 12:59 126 34 92 Room Air 07/20/17 12:40 101.1 125 36 134/63 (86) 93 I/O 07/20/17 07/20/17 07/20/17 07/21/17 07/21/17 07/21/17 07:00 15:00 23:00 07:00 15:00 23:00 Intake Total 1000 ml 1250 ml 560 ml Output Total 450 ml Balance 1000 ml 1250 ml 110 ml Intake Oral 360 ml IV Total 1000 ml 1250 ml 200 ml Output Urine Total 450 ml # Bowel Movements 0 Result Diagram: 07/20/17 1315 07/20/17 1315 Imaging Last Impressions Chest X-Ray 07/20/17 1258 Signed Impressions: Service Date/Time: Thursday, July 20, 2017 13:21 - CONCLUSION: 1. Stable bilateral interstitial infiltrates most prominent in the right upper lung and left lingula/lung base. 2. No superimposed acute infiltrate Abiodun Simms MD Objective Remarks GENERAL: This is a well-nourished, well-developed patient, in no apparent distress. CARDIOVASCULAR: Regular rate and regular rhythm without murmurs, gallops, or rubs. RESPIRATORY: diminished air entry in bases with minimal wheezing bilaterally GASTROINTESTINAL: Abdomen soft, non-tender, nondistended. Normal, active bowel sounds MUSCULOSKELETAL: Extremities without clubbing, cyanosis, or edema. NEURO: Alert & Oriented x4 to person, place, time, situation. Moves all ext x4 Medications and IVs Inpatient Medications Acetaminophen (Tylenol) 650 mg ONCE ONCE PO Last administered on 07/20/17 13: 37; Start 07/20/17 at 13:00; Stop 07/20/17 at 13:01; Status DC Acetaminophen/ Hydrocodone Bitart ([place] 10-325 Mg) 0.5 tab Q4H PRN PO PAIN SCALE 1 TO 10 Last administered on 07/20/17at 22:11; Start 07/20/17 at 16:30 Aspirin (Ecotrin Ec) 81 mg DAILY PO Last administered on 07/21/17 07:57; Start 07/21/17 at 09:00 Atorvastatin Calcium (Lipitor) 10 mg DAILY PO Last administered on 07/21/17at 07 :57; Start 07/21/17 at 09:00 Aztreonam 2000 mg/ Sodium Chloride 100 ml @ 200 mls/hr Q8H IV Last administered on 07/21/17at 06:07; Start 07/20/17 at 23:00 Clopidogrel Bisulfate (Plavix) 75 mg DAILY PO Last administered on 07/21/17 07 :57; Start 07/21/17 at 09:00 Enoxaparin Sodium (Lovenox Inj) 40 mg Q24H SQ Last administered on 07/20/17at 17 :54; Start 07/20/17 at 17:00 Folic Acid (Folate) 1 mg DAILY PO Last administered on 07/21/17at 07:57; Start 07/21/17 at 09:00 Isosorbide Mononitrate (Ismo) 20 mg BID PO Last administered on 07/20/17at 21:06 ; Start 07/20/17 at 21:00 Levofloxacin (Levaquin) 750 mg Q24H PO ; Start 07/21/17 at 15:00 Levofloxacin/ Dextrose 150 ml @ 100 mls/hr ONCE ONCE IV Last administered on 07/20/17at 14:55; Start 07/20/17 at 14:45; Stop 07/20/17 at 16:14; Status DC Metformin HCl (Glucophage) 1,000 mg BIDPC PO Last administered on 5/22/18at 07: 56; Start 07/20/17 at 18:00 Metoprolol Tartrate (Lopressor) 50 mg BID PO Last administered on 07/20/17at 21: 05; Start 07/20/17 at 21:00 Prednisone (Deltasone) 5 mg DAILY PO Last administered on 07/21/17at 07:57; Start 07/21/17 at 09:00 Sodium Chloride (NS Flush) 2 ml UNSCH PRN IV FLUSH FLUSH AFTER USING IV ACCESS ; Start 07/20/17 at 17:00 Sulfasalazine (Azulfidine) 500 mg BID PO Last administered on 07/21/17at 07:56; Start 07/20/17 at 21:00 A/P Assessment and Plan A/P Sepsis with elevated lactic acid criteria meets severe sepsis likely underlying clinical pneumonia. Underlying history of lung cancer status post radiation therapy about a month ago continue IV Azacatam + po Levaquin. will follow the cultures. CAD status post stent. Clinically stable. continue on metoprolol 50 mg twice a day Plavix 75 mg daily, aspirin, statins. History of rheumatoid arthritis continue on chronic prednisone 5 mg daily Lovenox for DVT prophylaxis consult PT. Discharge Planning discharge in one-two days-if clinically improves and remains afebrile. Cheri Luna MD July 21, 2017 09:23
[2017-07-21] MEDS ORDERED: DEXTROSE 50% IN WATER 50 ML VIAL(D50) IV PUSH PRN (09:30)
[2017-07-21] MEDS ORDERED: GLUCAGON 1 MG/ML VIAL OTHER PRN (09:30)
[2017-07-21] MEDS: INSULIN ASPART SUPPLEMENTAL SCALE SQ SCH ×3 (12:00→21:50)
[2017-07-21] MEDS: ACETAMINOPHEN/HYDROcodone 325 MG/10 MG TAB PO PRN ×2 (12:00→17:26)
[2017-07-21 12:27] LABS: BILIRUBIN, URINE NEG (NEG); BLOOD, URINE NEG (NEG); GLUCOSE,URINE 100 mg/dL (NEG); KETONE, URINE NEG (NEG); NITRITE,URINE NEG (NEG); URINE COLOR Amber (YELLW/STRAW); URINE LEUKOCYTE ESTERASE NEG (NEG)
[2017-07-21 12:32] LABS: BACTERIA, URINE OCC /hpf; SQUAMOUS EPITHELIAL CELL URINE 2 /hpf (0-5)
[2017-07-21] MEDS: LEVOFLOXACIN 750 MG TAB PO SCH (14:41)
[2017-07-21] MEDS: guaiFENesin SOLUTION 200 MG/10 ML CUP PO PRN (14:47)
--- NOTE | 2017-07-21 16:56 | EKG ---
Date Performed: 07/20/2017 Time Performed: 13:09:54 PTAGE: 72 years EKG: SINUS TACHYCARDIA NONSPECIFIC ST & T-WAVE ABNORMALITY ABNORMAL RHYTHM ECG PREVIOUS TRACING : 07/20/2017 13.09 Since the previous tracing, no significant change noted DOCTOR: Sofy Ortega Interpretating Date/Time 07/21/2017 16:55:07
[2017-07-21] MEDS: ENOXAPARIN SODIUM 40 MG/0.4 ML SYRINGE SQ SCH (17:26)
[2017-07-22] VITALS (13 sets, daily range): BP systolic 107–143; BP diastolic 56–88; PULSE 80–106; RESP 17–20; TEMP 98–100.5; O2SAT 93–100
[2017-07-22] MEDS: SODIUM CHLOR 0.9% 1000 ML INJ 1,000 ML IV SCH ×2 (01:34→07:55)
[2017-07-22] MEDS: AZTREONAM INJ 2,000 MG in SODIUM CHLORIDE 0.9% INJ 100 ML IV SCH ×3 (06:58→23:30)
[2017-07-22] MEDS: ACETAMINOPHEN/HYDROcodone 325 MG/10 MG TAB PO PRN ×2 (06:59→20:58)
[2017-07-22] MEDS: INSULIN ASPART SUPPLEMENTAL SCALE SQ SCH ×4 (07:52→20:57)
[2017-07-22] MEDS: sulfaSALAzine 500 MG TAB PO SCH ×2 (07:53→20:57)
[2017-07-22] MEDS: CLOPIDOGREL 75 MG TAB PO SCH (07:53)
[2017-07-22] MEDS: ASPIRIN EC 81 MG TABEC PO SCH (07:53)
[2017-07-22] MEDS: metFORMIN HCL 500 MG TAB PO SCH ×2 (07:53→17:03)
[2017-07-22] MEDS: FOLIC ACID 1 MG TAB PO SCH (07:53)
[2017-07-22] MEDS: predniSONE 5 MG TAB PO SCH (07:53)
[2017-07-22] MEDS: ISOSORBIDE MONONITRATE 20 MG TAB PO SCH ×2 (07:54→20:57)
[2017-07-22] MEDS: ATORVASTATIN 10 MG TAB PO SCH (07:54)
[2017-07-22] MEDS: METOPROLOL TARTRATE 50 MG TAB PO SCH ×2 (07:55→20:57)
--- NOTE | 2017-07-22 10:18 | HHI.PR ---
Subjective Remarks in no acute distress. low grade fever earlier this morning. sob seems to be improving although still has some congestion. Objective Vitals Vital Signs Date Time Temp Pulse Resp B/P (MAP) Pulse Ox O2 Delivery O2 Flow Rate FiO2 07/22/17 07:49 98.8 100 17 108/70 (83) 95 07/22/17 06:59 98.4 07/22/17 04:15 100.5 105 20 107/56 (73) 94 07/22/17 04:00 106 07/22/17 00:01 83 07/21/17 23:40 98.3 93 20 109/59 (76) 95 07/21/17 20:20 98.2 83 20 122/66 (84) 94 07/21/17 20:00 87 07/21/17 16:00 97.9 81 20 112/53 (72) 95 07/21/17 15:55 84 07/21/17 12:15 98.6 93 20 107/57 (74) 96 07/21/17 12:03 100 I/O 07/21/17 07/21/17 07/21/17 07/22/17 07/22/17 07/22/17 07:00 15:00 23:00 07:00 15:00 23:00 Intake Total 560 ml 600 ml 1580 ml 374 ml Output Total 450 ml 400 ml 1600 ml Balance 110 ml 200 ml -20 ml 374 ml Intake Oral 360 ml 600 ml 480 ml IV Total 200 ml 1100 ml 374 ml Output Urine Total 450 ml 400 ml 1600 ml # Bowel Movements 0 1 Result Diagram: 07/20/17 1315 07/20/17 1315 Imaging Last Impressions Chest X-Ray 07/20/17 1258 Signed Impressions: Service Date/Time: Thursday, July 20, 2017 13:21 - CONCLUSION: 1. Stable bilateral interstitial infiltrates most prominent in the right upper lung and left lingula/lung base. 2. No superimposed acute infiltrate Abiodun Simms MD Objective Remarks GENERAL: This is a well-nourished, well-developed patient, in no apparent distress. CARDIOVASCULAR: Regular rate and regular rhythm without murmurs, gallops, or rubs. RESPIRATORY: diminished air entry in bases with minimal wheezing bilaterally GASTROINTESTINAL: Abdomen soft, non-tender, nondistended. Normal, active bowel sounds MUSCULOSKELETAL: Extremities without clubbing, cyanosis, or edema. NEURO: Alert & Oriented x4 to person, place, time, situation. Moves all ext x4 Medications and IVs Inpatient Medications Acetaminophen (Tylenol) 650 mg ONCE ONCE PO Last administered on 07/20/17at 13: 37; Start 07/20/17 at 13:00; Stop 07/20/17 at 13:01; Status DC Acetaminophen/ Hydrocodone Bitart ([place] 10-325 Mg) 0.5 tab Q4H PRN PO PAIN SCALE 1 TO 10 Last administered on 07/22/17 06:59; Start 07/20/17 at 16:30 Aspirin (Ecotrin Ec) 81 mg DAILY PO Last administered on 07/22/17 07:53; Start 07/21/17 at 09:00 Atorvastatin Calcium (Lipitor) 10 mg DAILY PO Last administered on 07/22/17 07 :54; Start 07/21/17 at 09:00 Aztreonam 2000 mg/ Sodium Chloride 100 ml @ 200 mls/hr Q8H IV Last administered on 07/22/17 06:58; Start 07/20/17 at 23:00 Clopidogrel Bisulfate (Plavix) 75 mg DAILY PO Last administered on 07/22/17 07 :53; Start 07/21/17 at 09:00 Dextrose (D50w (Vial) Inj) 50 ml UNSCH PRN IV PUSH HYPOGLYCEMIA-SEE COMMENTS; Start 07/21/17 at 09:30 Enoxaparin Sodium (Lovenox Inj) 40 mg Q24H SQ Last administered on 07/21/17at 17 :26; Start 07/20/17 at 17:00 Folic Acid (Folate) 1 mg DAILY PO Last administered on 07/22/17at 07:53; Start 07/21/17 at 09:00 Glucagon (Glucagon Inj) 1 mg UNSCH PRN OTHER HYPOGLYCEMIA-SEE COMMENTS; Start 07/21/17 at 09:30 Guaifenesin (Robitussin Liq) 200 mg Q4H PRN PO COUGH Last administered on at 14:47; Start 07/21/17 at 14:30 Insulin Aspart (NovoLOG SUPPLEMENTAL SCALE) 1 ACHS SLIDING SCALE SQ Last administered on 07/21/17at 21:50; Start 07/21/17 at 12:00 Isosorbide Mononitrate (Ismo) 20 mg BID PO Last administered on 07/21/17 21:47 ; Start 07/20/17 at 21:00 Levofloxacin (Levaquin) 750 mg Q24H PO Last administered on 07/21/17at 14:41; Start 07/21/17 at 15:00 Levofloxacin/ Dextrose 150 ml @ 100 mls/hr ONCE ONCE IV Last administered on 07/20/17at 14:55; Start 07/20/17 at 14:45; Stop 07/20/17 at 16:14; Status DC Metformin HCl (Glucophage) 1,000 mg BIDPC PO Last administered on 07/22/17 07: 53; Start 07/20/17 at 18:00 Metoprolol Tartrate (Lopressor) 50 mg BID PO Last administered on 07/21/17 21: 47; Start 07/20/17 at 21:00 Prednisone (Deltasone) 5 mg DAILY PO Last administered on 07/22/17 07:53; Start 07/21/17 at 09:00 Sodium Chloride (NS Flush) 2 ml UNSCH PRN IV FLUSH FLUSH AFTER USING IV ACCESS ; Start 07/20/17 at 17:00 Sulfasalazine (Azulfidine) 500 mg BID PO Last administered on 07/22/17 07:53; Start 07/20/17 at 21:00 A/P Assessment and Plan A/P Sepsis with elevated lactic acid criteria meets severe sepsis likely underlying clinical pneumonia. Underlying history of lung cancer status post radiation therapy about a month ago continue IV Azacatam + po Levaquin. blood cultures negative so far. CAD status post stent. Clinically stable. continue on metoprolol 50 mg twice a day Plavix 75 mg daily, aspirin, statins. History of rheumatoid arthritis continue on chronic prednisone 5 mg daily Lovenox for DVT prophylaxis consulted PT. Discharge Planning discharge home tomorrow if no fever and continues to improve. case management for [facility]. Cheri Luna MD July 22, 2017 10:18
--- NOTE | 2017-07-22 10:18 | HHI.FF ---
Face to Face Verification Diagnosis: (1) Pneumonia Physical Therapy Order: Evaluate and Treat Home Health Nursing Order: Medical education Signs/symptoms of disease process Medication education-adverse effect Nursing assessment with vital signs I have seen patient Caty Tavarez on 07/22/17. My clinical findings support the need for the requested home health care services because: Ltd mobility - disease progression I certify that my clinical findings support that this patient is homebound because: Unsteady gait/balance Cheri Luna MD July 22, 2017 10:18
[2017-07-22] MEDS ORDERED: WALKER WHEELS/F1 MIS (10:19)
[2017-07-22 10:44] LABS: AUTOMATED NEUTROPHIL # 6.8 TH/MM3 (1.8-7.7); BASOPHIL % 0.5 % (0.0-2.0); EOSINOPHIL # 0.1 TH/MM3 (0-0.4); EOSINOPHIL % 0.7 % (0.0-4.0); HEMATOCRIT 33.8 % (35.0-46.0); HEMOGLOBIN 10.9 GM/DL (11.6-15.3); LYMPH % 5.4 % (9.0-44.0); LYMPHOCYTE # 0.4 TH/MM3 (1.0-4.8); MEAN CELL VOLUME 88.9 FL (80.0-100.0); MEAN CORPUSCULAR HEMOGLOBIN 28.8 PG (27.0-34.0); MEAN CORPUSCULAR HGB CONC 32.4 % (32.0-36.0); MEAN PLATELET VOLUME 7.1 FL (7.0-11.0); MONO % 8.4 % (0.0-8.0); MONOCYTE # 0.7 TH/MM3 (0-0.9); PLATELET COUNT 280 TH/MM3 (150-450); RED CELL DISTRIBUTION WIDTH 18.4 % (11.6-17.2); WHITE BLOOD COUNT 7.9 TH/MM3 (4.0-11.0)
[2017-07-22] MEDS: guaiFENesin SOLUTION 200 MG/10 ML CUP PO PRN ×2 (13:03→20:57)
[2017-07-22] MEDS: LEVOFLOXACIN 750 MG TAB PO SCH (14:15)
[2017-07-22] MEDS: ENOXAPARIN SODIUM 40 MG/0.4 ML SYRINGE SQ SCH (16:00)
[2017-07-23] VITALS (12 sets, daily range): BP systolic 98–144; BP diastolic 56–76; PULSE 90–116; RESP 16–20; TEMP 97.2–99.4; O2SAT 92–98
[2017-07-23] MEDS: SODIUM CHLOR 0.9% 1000 ML INJ 1,000 ML IV SCH ×2 (01:59→06:51)
[2017-07-23] MEDS: AZTREONAM INJ 2,000 MG in SODIUM CHLORIDE 0.9% INJ 100 ML IV SCH ×3 (06:51→23:43)
[2017-07-23] MEDS: INSULIN ASPART SUPPLEMENTAL SCALE SQ SCH ×4 (08:00→21:00)
[2017-07-23] MEDS: ASPIRIN EC 81 MG TABEC PO SCH (08:39)
[2017-07-23] MEDS: CLOPIDOGREL 75 MG TAB PO SCH (08:39)
[2017-07-23] MEDS: ISOSORBIDE MONONITRATE 20 MG TAB PO SCH ×2 (08:39→23:43)
[2017-07-23] MEDS: FOLIC ACID 1 MG TAB PO SCH (08:40)
[2017-07-23] MEDS: predniSONE 5 MG TAB PO SCH (08:40)
[2017-07-23] MEDS: metFORMIN HCL 500 MG TAB PO SCH ×2 (08:40→17:45)
[2017-07-23] MEDS: ATORVASTATIN 10 MG TAB PO SCH (08:40)
[2017-07-23] MEDS: METOPROLOL TARTRATE 50 MG TAB PO SCH ×2 (08:40→23:43)
[2017-07-23] MEDS: ACETAMINOPHEN/HYDROcodone 325 MG/10 MG TAB PO PRN (08:43)
[2017-07-23] MEDS ORDERED: RESP: ALBUTEROL 1.25 MG/3 ML NEB (PRN) NEB (08:45)
--- NOTE | 2017-07-23 08:45 | HHI.PR ---
Subjective Remarks in no acute distress. however still with some sob and cough; says that she's still not feeling well. had a low grade fever last night. d/w the RN. Objective Vitals Vital Signs Date Time Temp Pulse Resp B/P (MAP) Pulse Ox O2 Delivery O2 Flow Rate FiO2 07/23/17 03:40 Nasal Cannula 2.00 07/23/17 03:40 99.4 92 18 115/65 (82) 93 07/23/17 00:06 93 07/22/17 23:15 Nasal Cannula 2.00 07/22/17 23:15 99.5 98 18 115/62 (79) 93 07/22/17 20:20 100.4 105 18 143/73 (96) 95 07/22/17 20:20 Nasal Cannula 2.00 07/22/17 20:00 96 07/22/17 16:07 98.0 90 18 114/84 (94) 100 07/22/17 15:54 94 07/22/17 12:07 98.1 86 17 113/88 (96) 100 07/22/17 11:54 80 I/O 07/22/17 07/22/17 07/22/17 07/23/17 07/23/17 07/23/17 06:59 14:59 22:59 06:59 14:59 22:59 Intake Total 1580 ml 374 ml 420 ml 1741 ml 100 ml Output Total 1600 ml 800 ml Balance -20 ml 374 ml 420 ml 941 ml 100 ml Intake Oral 480 ml 320 ml 840 ml IV Total 1100 ml 374 ml 100 ml 901 ml 100 ml Output Urine Total 1600 ml 800 ml # Voids 6 # Bowel Movements 1 0 0 Result Diagram: 07/22/17 0958 07/20/17 1315 Imaging Last Impressions Chest X-Ray 07/20/17 1258 Signed Impressions: Service Date/Time: Thursday, July 20, 2017 13:21 - CONCLUSION: 1. Stable bilateral interstitial infiltrates most prominent in the right upper lung and left lingula/lung base. 2. No superimposed acute infiltrate Abiodun Simms MD Objective Remarks GENERAL: This is a well-nourished, well-developed patient, in no apparent distress. CARDIOVASCULAR: Regular rate and regular rhythm without murmurs, gallops, or rubs. RESPIRATORY: diminished air entry in bases with minimal wheezing bilaterally GASTROINTESTINAL: Abdomen soft, non-tender, nondistended. Normal, active bowel sounds MUSCULOSKELETAL: Extremities without clubbing, cyanosis, or edema. NEURO: Alert & Oriented x4 to person, place, time, situation. Moves all ext x4 Medications and IVs Inpatient Medications Acetaminophen (Tylenol) 650 mg ONCE ONCE PO Last administered on 07/20/17 13: 37; Start 07/20/17 at 13:00; Stop 07/20/17 at 13:01; Status DC Acetaminophen/ Hydrocodone Bitart ([place] 10-325 Mg) 0.5 tab Q4H PRN PO PAIN SCALE 1 TO 10 Last administered on 07/22/17 20:58; Start 07/20/17 at 16:30 Aspirin (Ecotrin Ec) 81 mg DAILY PO Last administered on 07/22/17 07:53; Start 07/21/17 at 09:00 Atorvastatin Calcium (Lipitor) 10 mg DAILY PO Last administered on 07/22/17 07 :54; Start 07/21/17 at 09:00 Aztreonam 2000 mg/ Sodium Chloride 100 ml @ 200 mls/hr Q8H IV Last administered on 07/23/17 06:51; Start 07/20/17 at 23:00 Clopidogrel Bisulfate (Plavix) 75 mg DAILY PO Last administered on 07/22/17 07 :53; Start 07/21/17 at 09:00 Dextrose (D50w (Vial) Inj) 50 ml UNSCH PRN IV PUSH HYPOGLYCEMIA-SEE COMMENTS; Start 07/21/17 at 09:30 Enoxaparin Sodium (Lovenox Inj) 40 mg Q24H SQ Last administered on 07/22/17at 16 :00; Start 07/20/17 at 17:00 Folic Acid (Folate) 1 mg DAILY PO Last administered on 07/22/17 07:53; Start 07/21/17 at 09:00 Glucagon (Glucagon Inj) 1 mg UNSCH PRN OTHER HYPOGLYCEMIA-SEE COMMENTS; Start 07/21/17 at 09:30 Guaifenesin (Robitussin Liq) 200 mg Q4H PRN PO COUGH Last administered on 20:57; Start 07/21/17 at 14:30 Insulin Aspart (NovoLOG SUPPLEMENTAL SCALE) 1 ACHS SLIDING SCALE SQ Last administered on 07/23/17 08:00; Start 07/21/17 at 12:00 Isosorbide Mononitrate (Ismo) 20 mg BID PO Last administered on 07/22/17 20:57 ; Start 07/20/17 at 21:00 Levofloxacin (Levaquin) 750 mg Q24H PO Last administered on 07/22/17 14:15; Start 07/21/17 at 15:00 Levofloxacin/ Dextrose 150 ml @ 100 mls/hr ONCE ONCE IV Last administered on 07/20/17 14:55; Start 07/20/17 at 14:45; Stop 07/20/17 at 16:14; Status DC Metformin HCl (Glucophage) 1,000 mg BIDPC PO Last administered on 07/22/17 17: 03; Start 07/20/17 at 18:00 Metoprolol Tartrate (Lopressor) 50 mg BID PO Last administered on 07/22/17 20: 57; Start 07/20/17 at 21:00 Prednisone (Deltasone) 5 mg DAILY PO Last administered on 07/22/17 07:53; Start 07/21/17 at 09:00 Sodium Chloride (NS Flush) 2 ml UNSCH PRN IV FLUSH FLUSH AFTER USING IV ACCESS ; Start 07/20/17 at 17:00 Sulfasalazine (Azulfidine) 500 mg BID PO Last administered on 07/22/17 20:57; Start 07/20/17 at 21:00 A/P Assessment and Plan A/P Sepsis with elevated lactic acid criteria meets severe sepsis likely underlying clinical pneumonia. Underlying history of lung cancer status post radiation therapy about a month ago has bilateral wheezing today. continue IV Azacatam + po Levaquin. will add neb treatment; scheduled and prn. blood cultures negative so far. CAD status post stent. Clinically stable. continue on metoprolol 50 mg twice a day Plavix 75 mg daily, aspirin, statins. History of rheumatoid arthritis continue on chronic prednisone 5 mg daily Lovenox for DVT prophylaxis consulted PT. Discharge Planning still with some sob/ wheezing and low grade fever. will keep her today; possible discharge tomorrow if clinically improves. Cheri Luna MD July 23, 2017 08:45
[2017-07-23] MEDS: sulfaSALAzine 500 MG TAB PO SCH ×2 (09:00→23:43)
[2017-07-23] MEDS: RESP: ALBUTEROL 2.5 MG/IPRATROPIUM 0.5 MG NEB (SCH) NEB ×3 (10:59→21:37)
[2017-07-23] MEDS: LEVOFLOXACIN 750 MG TAB PO SCH (16:20)
[2017-07-23] MEDS: ENOXAPARIN SODIUM 40 MG/0.4 ML SYRINGE SQ SCH (17:45)
[2017-07-24] VITALS (10 sets, daily range): BP systolic 109–135; BP diastolic 62–75; PULSE 83–108; RESP 18–20; TEMP 97.8–98.9; O2SAT 94–96
[2017-07-24] MEDS: ACETAMINOPHEN/HYDROcodone 325 MG/10 MG TAB PO PRN ×3 (05:43→21:07)
[2017-07-24] MEDS: AZTREONAM INJ 2,000 MG in SODIUM CHLORIDE 0.9% INJ 100 ML IV SCH ×3 (05:43→23:42)
[2017-07-24] MEDS: SODIUM CHLOR 0.9% 1000 ML INJ 1,000 ML IV SCH (05:43)
[2017-07-24] MEDS: INSULIN ASPART SUPPLEMENTAL SCALE SQ SCH ×4 (08:00→21:00)
[2017-07-24] MEDS: predniSONE 5 MG TAB PO SCH (08:58)
[2017-07-24] MEDS: ATORVASTATIN 10 MG TAB PO SCH (08:58)
[2017-07-24] MEDS: ASPIRIN EC 81 MG TABEC PO SCH (08:58)
[2017-07-24] MEDS: metFORMIN HCL 500 MG TAB PO SCH ×2 (08:58→18:36)
[2017-07-24] MEDS: ISOSORBIDE MONONITRATE 20 MG TAB PO SCH ×2 (08:59→21:06)
[2017-07-24] MEDS: METOPROLOL TARTRATE 50 MG TAB PO SCH ×2 (08:59→21:06)
[2017-07-24] MEDS: CLOPIDOGREL 75 MG TAB PO SCH (08:59)
[2017-07-24] MEDS: sulfaSALAzine 500 MG TAB PO SCH ×2 (08:59→21:06)
[2017-07-24] MEDS: FOLIC ACID 1 MG TAB PO SCH (08:59)
--- NOTE | 2017-07-24 09:22 | HHI.PR ---
Subjective Remarks in no acute distress. still with cough and some sob. O2 sat dropped to 80's off oxygen. no fever. d/w the RN at the bedside. Objective Vitals Vital Signs Date Time Temp Pulse Resp B/P (MAP) Pulse Ox O2 Delivery O2 Flow Rate FiO2 07/24/17 06:10 98.8 96 20 119/66 (83) 95 07/24/17 04:00 Nasal Cannula 2.00 07/24/17 03:46 91 07/24/17 00:05 Nasal Cannula 2.00 07/24/17 00:05 98.7 108 20 135/72 (93) 96 07/23/17 23:49 106 07/23/17 21:43 96 Nasal Cannula 3.00 07/23/17 20:00 Nasal Cannula 2.00 07/23/17 20:00 98.1 97 20 124/72 (89) 97 07/23/17 19:42 95 07/23/17 16:00 97.2 98 18 114/61 (78) 98 07/23/17 15:55 90 07/23/17 12:00 98.2 91 16 98/56 (70) 95 07/23/17 11:02 92 Nasal Cannula 3.00 07/23/17 10:00 20 I/O 07/23/17 07/23/17 07/23/17 07/24/17 07/24/17 07/24/17 07:00 15:00 23:00 07:00 15:00 23:00 Intake Total 1741 ml 100 ml 540 ml 860 ml Output Total 800 ml 1000 ml 650 ml Balance 941 ml 100 ml -460 ml 210 ml Intake Oral 840 ml 540 ml 600 ml IV Total 901 ml 100 ml 260 ml Output Urine Total 800 ml 1000 ml 650 ml # Bowel Movements 0 0 1 Result Diagram: 07/22/17 0958 07/20/17 1315 Imaging Last Impressions Chest X-Ray 07/20/17 1258 Signed Impressions: Service Date/Time: Thursday, July 20, 2017 13:21 - CONCLUSION: 1. Stable bilateral interstitial infiltrates most prominent in the right upper lung and left lingula/lung base. 2. No superimposed acute infiltrate Abiodun Simms MD Objective Remarks GENERAL: This is a well-nourished, well-developed patient, in no apparent distress. CARDIOVASCULAR: Regular rate and regular rhythm without murmurs, gallops, or rubs. RESPIRATORY: diminished air entry in bases with minimal wheezing bilaterally GASTROINTESTINAL: Abdomen soft, non-tender, nondistended. Normal, active bowel sounds MUSCULOSKELETAL: Extremities without clubbing, cyanosis, or edema. NEURO: Alert & Oriented x4 to person, place, time, situation. Moves all ext x4 Medications and IVs Inpatient Medications Acetaminophen (Tylenol) 650 mg ONCE ONCE PO Last administered on 07/20/17 13: 37; Start 07/20/17 at 13:00; Stop 07/20/17 at 13:01; Status DC Acetaminophen/ Hydrocodone Bitart ([place] 10-325 Mg) 0.5 tab Q4H PRN PO PAIN SCALE 1 TO 10 Last administered on 07/24/17 05:43; Start 07/20/17 at 16:30 Albuterol Sulfate (Albuterol Neb) 1.25 mg Q2HR NEB PRN NEB SOB/WHEEZING; Start 07/23/17 at 08:45 Albuterol/ Ipratropium (Duoneb Neb) 1 ampule QID NEB NEB Last administered on 07/23/17 21:37; Start 07/23/17 at 09:00; Stop 07/23/17 at 22:00; Status DC Aspirin (Ecotrin Ec) 81 mg DAILY PO Last administered on 07/24/17 08:58; Start 07/21/17 at 09:00 Atorvastatin Calcium (Lipitor) 10 mg DAILY PO Last administered on 07/24/17 08 :58; Start 07/21/17 at 09:00 Aztreonam 2000 mg/ Sodium Chloride 100 ml @ 200 mls/hr Q8H IV Last administered on 07/24/17 05:43; Start 07/20/17 at 23:00 Clopidogrel Bisulfate (Plavix) 75 mg DAILY PO Last administered on 07/24/17at 08 :59; Start 07/21/17 at 09:00 Dextrose (D50w (Vial) Inj) 50 ml UNSCH PRN IV PUSH HYPOGLYCEMIA-SEE COMMENTS; Start 07/21/17 at 09:30 Enoxaparin Sodium (Lovenox Inj) 40 mg Q24H SQ Last administered on 07/23/17at 17 :45; Start 07/20/17 at 17:00 Folic Acid (Folate) 1 mg DAILY PO Last administered on 07/24/17 08:59; Start 07/21/17 at 09:00 Glucagon (Glucagon Inj) 1 mg UNSCH PRN OTHER HYPOGLYCEMIA-SEE COMMENTS; Start 07/21/17 at 09:30 Guaifenesin (Robitussin Liq) 200 mg Q4H PRN PO COUGH Last administered on 20:57; Start 07/21/17 at 14:30 Insulin Aspart (NovoLOG SUPPLEMENTAL SCALE) 1 ACHS SLIDING SCALE SQ Last administered on 07/23/17 13:16; Start 07/21/17 at 12:00 Isosorbide Mononitrate (Ismo) 20 mg BID PO Last administered on 07/24/17 08:59 ; Start 07/20/17 at 21:00 Levofloxacin (Levaquin) 750 mg Q24H PO Last administered on 07/23/17 16:20; Start 07/21/17 at 15:00 Levofloxacin/ Dextrose 150 ml @ 100 mls/hr ONCE ONCE IV Last administered on 07/20/17at 14:55; Start 07/20/17 at 14:45; Stop 07/20/17 at 16:14; Status DC Metformin HCl (Glucophage) 1,000 mg BIDPC PO Last administered on 07/24/17 08: 58; Start 07/20/17 at 18:00 Metoprolol Tartrate (Lopressor) 50 mg BID PO Last administered on 07/24/17 08: 59; Start 07/20/17 at 21:00 Prednisone (Deltasone) 5 mg DAILY PO Last administered on 07/24/17at 08:58; Start 07/21/17 at 09:00 Sodium Chloride (NS Flush) 2 ml UNSCH PRN IV FLUSH FLUSH AFTER USING IV ACCESS ; Start 07/20/17 at 17:00 Sulfasalazine (Azulfidine) 500 mg BID PO Last administered on 07/24/17 08:59; Start 07/20/17 at 21:00 A/P Assessment and Plan A/P Sepsis with elevated lactic acid criteria meets severe sepsis likely underlying clinical pneumonia. Underlying history of lung cancer status post radiation therapy about a month ago COPD exacerbation continue IV Azacatam + po Levaquin.continue neb treatment. blood cultures negative so far. walk test today. CAD status post stent. Clinically stable. continue on metoprolol 50 mg twice a day Plavix 75 mg daily, aspirin, statins. History of rheumatoid arthritis continue on chronic prednisone 5 mg daily Lovenox for DVT prophylaxis consulted PT. Discharge Planning still not feeling well enough to go home. walk test today. possible discharge tomorrow if clinically stable. Cheri Luna MD July 24, 2017 09:21
[2017-07-24] MEDS ORDERED: OXYGENDME NAS.CANULA (12:38)
--- NOTE | 2017-07-24 12:39 | HHI.FF ---
Face to Face Verification Diagnosis: (1) pneumonia Physical Therapy Order: Evaluate and Treat Home Health Nursing Order: Medical education Signs/symptoms of disease process Oxygen administration education Medication education-adverse effect Nursing assessment with vital signs I have seen patient Caty Tavarez on 07/24/17. My clinical findings support the need for the requested home health care services because: Ltd mobility - disease progression I certify that my clinical findings support that this patient is homebound because: Unsteady gait/balance Cheri Luna MD July 24, 2017 12:39
[2017-07-24] MEDS ORDERED: LEVA750T9 PO (12:41)
[2017-07-24] MEDS ORDERED: VENTAER INH (12:41)
--- NOTE | 2017-07-24 13:25 | HHI.PR ---
Addendum To [facility] Progress Not Reason for addendum: Additonal documentation (patient with history of smoking and COPD-presented with pneumonia- walk test was performed and result was reviewed; patient failed the walk test and will need home oxygen upon discharge. ) Cheri Luna MD July 24, 2017 13:25
[2017-07-24] MEDS: LEVOFLOXACIN 750 MG TAB PO SCH (15:13)
[2017-07-24] MEDS: ENOXAPARIN SODIUM 40 MG/0.4 ML SYRINGE SQ SCH (18:36)
[2017-07-25] VITALS (10 sets, daily range): BP systolic 117–135; BP diastolic 58–72; PULSE 82–98; RESP 18–20; TEMP 97.5–98.8; O2SAT 90–95
[2017-07-25] MEDS: SODIUM CHLOR 0.9% 1000 ML INJ 1,000 ML IV SCH ×2 (00:45→15:37)
--- NOTE | 2017-07-25 04:19 | RADRPT ---
EXAM DATE: 07/25/2017 4:04 AM EDT AGE/SEX: 72 years / Female INDICATIONS: Short of breath. CLINICAL DATA: This is the patient's initial encounter. Patient reports that signs and symptoms have been present for 1 day and indicates a pain score of 5/10. MEDICAL/SURGICAL HISTORY: . Chronic obstructive pulmonary disease. Cardiovascular disease. CAB G. Tonsillectomy. COMPARISON: [facility] [place], CHEST SINGLE AP, 07/20/2017. . FINDINGS: Parenchymal consolidation again noted, upper lobe predominant on the right and basilar predominant on the left. Both sides appear slightly worse in the interim. No large effusions seen. No pneumothorax. Heart size stable, within normal limits. Median sternotomy changes are again noted. CONCLUSION: Upper lobe predominant consolidation on the right and basilar predominant consolidation on the left a gain noted and both sides are slightly worse. Electronically signed by: Chaparro Veras MD 07/25/2017 4:17 AM EDT
[2017-07-25] MEDS: AZTREONAM INJ 2,000 MG in SODIUM CHLORIDE 0.9% INJ 100 ML IV SCH ×3 (07:00→23:00)
[2017-07-25] MEDS: INSULIN ASPART SUPPLEMENTAL SCALE SQ SCH ×4 (08:00→21:00)
[2017-07-25] MEDS: sulfaSALAzine 500 MG TAB PO SCH ×2 (08:53→21:16)
[2017-07-25] MEDS: ATORVASTATIN 10 MG TAB PO SCH (08:53)
[2017-07-25] MEDS: CLOPIDOGREL 75 MG TAB PO SCH (08:53)
[2017-07-25] MEDS: FOLIC ACID 1 MG TAB PO SCH (08:53)
[2017-07-25] MEDS: METOPROLOL TARTRATE 50 MG TAB PO SCH ×2 (08:53→21:16)
[2017-07-25] MEDS: metFORMIN HCL 500 MG TAB PO SCH ×2 (08:53→17:12)
[2017-07-25] MEDS: predniSONE 5 MG TAB PO SCH (08:53)
[2017-07-25] MEDS: ISOSORBIDE MONONITRATE 20 MG TAB PO SCH ×2 (08:53→21:16)
[2017-07-25] MEDS: ASPIRIN EC 81 MG TABEC PO SCH (08:54)
--- NOTE | 2017-07-25 09:47 | HHI.PR ---
Subjective Remarks in no acute distress. however now on four liters of oxygen via N/C. no fever. Objective Vitals Vital Signs Date Time Temp Pulse Resp B/P (MAP) Pulse Ox O2 Delivery O2 Flow Rate FiO2 07/25/17 09:02 90 Nasal Cannula 3.00 07/25/17 04:07 85 07/25/17 04:00 98.4 97 20 126/72 (90) 94 07/25/17 00:30 82 07/25/17 00:00 Nasal Cannula 2.00 07/25/17 00:00 97.5 85 18 117/61 (79) 95 07/24/17 20:37 90 07/24/17 20:00 Nasal Cannula 2.00 07/24/17 20:00 97.8 92 18 131/64 (86) 95 07/24/17 17:28 95 Nasal Cannula 3.00 07/24/17 16:13 20 07/24/17 16:01 98.2 89 20 109/62 (78) 96 07/24/17 12:06 3.00 07/24/17 12:00 99 07/24/17 12:00 98.6 91 20 116/67 (83) 95 I/O 07/24/17 07/24/17 07/24/17 07/25/17 07/25/17 07/25/17 07:00 15:00 23:00 07:00 15:00 23:00 Intake Total 860 ml 720 ml 1689 ml Output Total 650 ml 800 ml Balance 210 ml -80 ml 1689 ml Intake Oral 600 ml 720 ml 240 ml IV Total 260 ml 1449 ml Output Urine Total 650 ml 800 ml # Voids 1 # Bowel Movements 1 0 0 Result Diagram: 07/22/17 0958 Imaging Last Impressions Chest X-Ray 07/25/17 0600 Signed Impressions: CONCLUSION: Upper lobe predominant consolidation on the right and basilar predominant conso lidation on the left again noted and both sides are slightly worse. Objective Remarks GENERAL: This is a well-nourished, well-developed patient, in no apparent distress. CARDIOVASCULAR: Regular rate and regular rhythm without murmurs, gallops, or rubs. RESPIRATORY: diminished air entry in bases with minimal wheezing bilaterally GASTROINTESTINAL: Abdomen soft, non-tender, nondistended. Normal, active bowel sounds MUSCULOSKELETAL: Extremities without clubbing, cyanosis, or edema. NEURO: Alert & Oriented x4 to person, place, time, situation. Moves all ext x4 Medications and IVs Inpatient Medications Acetaminophen (Tylenol) 650 mg ONCE ONCE PO Last administered on 07/20/17at 13: 37; Start 07/20/17 at 13:00; Stop 07/20/17 at 13:01; Status DC Acetaminophen/ Hydrocodone Bitart ([place] 10-325 Mg) 0.5 tab Q4H PRN PO PAIN SCALE 1 TO 10 Last administered on 07/24/17at 21:07; Start 07/20/17 at 16:30 Albuterol Sulfate (Albuterol Neb) 1.25 mg Q2HR NEB PRN NEB SOB/WHEEZING; Start 07/23/17 at 08:45 Albuterol/ Ipratropium (Duoneb Neb) 1 ampule QID NEB NEB Last administered on 07/23/17at 21:37; Start 07/23/17 at 09:00; Stop 07/23/17 at 22:00; Status DC Aspirin (Ecotrin Ec) 81 mg DAILY PO Last administered on 07/25/17at 08:54; Start 07/21/17 at 09:00 Atorvastatin Calcium (Lipitor) 10 mg DAILY PO Last administered on 07/25/17 08 :53; Start 07/21/17 at 09:00 Aztreonam 2000 mg/ Sodium Chloride 100 ml @ 200 mls/hr Q8H IV Last administered on 07/25/17at 07:00; Start 07/20/17 at 23:00 Clopidogrel Bisulfate (Plavix) 75 mg DAILY PO Last administered on 07/25/17at 08 :53; Start 07/21/17 at 09:00 Dextrose (D50w (Vial) Inj) 50 ml UNSCH PRN IV PUSH HYPOGLYCEMIA-SEE COMMENTS; Start 07/21/17 at 09:30 Enoxaparin Sodium (Lovenox Inj) 40 mg Q24H SQ Last administered on 07/24/17at 18 :36; Start 07/20/17 at 17:00 Folic Acid (Folate) 1 mg DAILY PO Last administered on 07/25/17at 08:53; Start 07/21/17 at 09:00 Glucagon (Glucagon Inj) 1 mg UNSCH PRN OTHER HYPOGLYCEMIA-SEE COMMENTS; Start 07/21/17 at 09:30 Guaifenesin (Robitussin Liq) 200 mg Q4H PRN PO COUGH Last administered on 20:57; Start 07/21/17 at 14:30 Insulin Aspart (NovoLOG SUPPLEMENTAL SCALE) 1 ACHS SLIDING SCALE SQ Last administered on 07/23/17 13:16; Start 07/21/17 at 12:00 Isosorbide Mononitrate (Ismo) 20 mg BID PO Last administered on 07/25/17 08:53 ; Start 07/20/17 at 21:00 Levofloxacin (Levaquin) 750 mg Q24H PO Last administered on 07/24/17 15:13; Start 07/21/17 at 15:00 Levofloxacin/ Dextrose 150 ml @ 100 mls/hr ONCE ONCE IV Last administered on 07/20/17 14:55; Start 07/20/17 at 14:45; Stop 07/20/17 at 16:14; Status DC Metformin HCl (Glucophage) 1,000 mg BIDPC PO Last administered on 07/25/17 08: 53; Start 07/20/17 at 18:00 Metoprolol Tartrate (Lopressor) 50 mg BID PO Last administered on 07/25/17 08: 53; Start 07/20/17 at 21:00 Prednisone (Deltasone) 5 mg DAILY PO Last administered on 07/25/17 08:53; Start 07/21/17 at 09:00 Sodium Chloride (NS Flush) 2 ml UNSCH PRN IV FLUSH FLUSH AFTER USING IV ACCESS ; Start 07/20/17 at 17:00 Sulfasalazine (Azulfidine) 500 mg BID PO Last administered on 07/25/17 08:53; Start 07/20/17 at 21:00 A/P Assessment and Plan A/P Sepsis with elevated lactic acid criteria meets severe sepsis likely underlying clinical pneumonia. Underlying history of lung cancer status post radiation therapy about a month ago COPD exacerbation continue IV Azacatam + po Levaquin.continue neb treatment. blood cultures negative so far. failed the walk test. now on four liters of oxygen via N/C- CXR today bilateral consolidation; worse on both sides. will consult oncology ( )- CAD status post stent. Clinically stable. continue on metoprolol 50 mg twice a day Plavix 75 mg daily, aspirin, statins. History of rheumatoid arthritis continue on chronic prednisone 5 mg daily Lovenox for DVT prophylaxis consulted PT. Discharge Planning still not feeling well enough to go home. currently on four liters of oxygen. not ready for discharge- consulted oncology. Cheri Luna MD July 25, 2017 09:46
--- NOTE | 2017-07-25 13:19 | PD.CONS ---
History of Present Illness Service Hematology/oncology. Consult Requested By The hospitalist service. 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 Status post definitive radiation therapy with stereotactic body radiotherapy ( SBRT) completed on 06/22/2017. Primary Care Physician Unknown Diagnoses: History of Present Illness Chief complaint: Cough for the past 2 weeks producing scant phlegm. Increasing difficulty breathing. History of presenting illness: Ms. Tavarez is a 72-year-old female with an extensive past history of tobaccoism, she sees me in clinic for her diagnosis of neuroendocrine tumor of the left lower lobe with the lung, the patient had localized disease. She was not a candidate for surgical resection due to her COPD and pulmonary fibrosis. She was therefore recommended definitive radiation therapy with stereotactic body radiotherapy. This was delivered between mid to late May 2017. She completed treatment without acute adverse effects. The patient reports she began to notice increased shortness of breath and a cough associated with a wheeze about a week after completing her radiation therapy. She presented to [facility] emergency department for further workup and management. She has been hospitalized since 07/20/2017. Based on review of the electronic medical record patient has been on therapy with antibiotics and nebulizers, she remains on a low dose of prednisone which she has been on chronically for management of her significant rheumatoid arthritis. Review of Systems Constitutional: COMPLAINS OF: Fatigue, DENIES: Diaphoretic episodes, Fever, Weight gain, Weight loss, Chills, Dizziness, Change in appetite, Night Sweats Endocrine: DENIES: Abnorml menstrual pattern, Heat/cold intolerance, Polydipsia , Polyuria, Polyphagia Eyes: DENIES: Blurred vision, Diplopia, Eye inflammation, Eye pain, Vision loss , Photosensitivity, Double Vision Ears, nose, mouth, throat: DENIES: Tinnitus, Hearing loss, Vertigo, Nasal discharge, Oral lesions, Throat pain, Hoarseness, Ear Pain, Running Nose, Epistaxis, Sinus Pain, Toothache, Odynophagia Respiratory: COMPLAINS OF: Cough, Wheezing, Sputum production, Shortness of breath, DENIES: Apneas, Snoring, Hemoptysis Cardiovascular: COMPLAINS OF: Chest pain, Dyspnea on Exertion, DENIES: Palpitations, Syncope, PND, Lower Extremity Edema, Orthopnea, Claudication Gastrointestinal: DENIES: Abdominal pain, Black stools, Bloody stools, Constipation, Diarrhea, Nausea, Vomiting, Difficulty Swallowing, Anorexia Genitourinary: DENIES: Abnormal vaginal bleeding, Dysmenorrhea, Dyspareunia, Sexual dysfunction, Urinary frequency, Urinary incontinence, Urgency, Hematuria , Dysuria, Nocturia, Vaginal discharge Musculoskeletal: COMPLAINS OF: Joint pain, Muscle aches, Stiffness, Joint Swelling, Back pain, Neck pain Integumentary: DENIES: Abnormal pigmentation, Pruritus, Rash, Nail changes, Breast masses, Breast skin changes, Nipple discharge Hematologic/lymphatic: DENIES: Bruising, Lymphadenopathy Immunologic/allergic: DENIES: Eczema, Urticaria Neurologic: COMPLAINS OF: Poor Balance, DENIES: Abnormal gait, Headache, Localized weakness, Paresthesias, Seizures, Speech Problems, Tremor Psychiatric: COMPLAINS OF: Anxiety, Confusion, Depression, DENIES: Mood changes , Hallucinations, Agitation, Suicidal Ideation, Homicidal Ideation, Delusions Except as stated in HPI: all other systems reviewed are Neg Past Family Social History Allergies: Coded Allergies: diatrizoate meglumine (Unverified Allergy, Severe, Edema, 02/02/17) angioedema per pt enalaprilat (Unverified Allergy, Severe, Swelling, 02/02/17) gadobenic acid (Unverified Allergy, Severe, Edema, 02/02/17) angioedema per pt gadodiamide (Unverified Allergy, Severe, Edema, 02/02/17) angioedema per pt gadoteridol (Unverified Allergy, Severe, Edema, 02/02/17) angioedema per pt iodixanol (Unverified Allergy, Severe, Edema, 02/02/17) angioedema per pt iohexol (Unverified Allergy, Severe, Edema, 02/02/17) angioedema per pt penicillin G (Unverified Allergy, Severe, Anaphylaxis, 02/02/17) Uncoded Allergies: EVERYTHING ON AND OFF..;ANGIODEMA... (Allergy, Severe, Anaphylaxis, 01/05/10 ) TAKES 60 MG PREDNISONE,150MG ZANTAC AND 50MG BENADRYL WHEN TONGUE BEGINS TO SWELL AND LIPS SWELL mycins (Allergy, Severe, 01/05/10) Past Medical History Neuroendocrine tumor of the left lower lobe of the lung Rheumatoid arthritis Coronary artery disease Pulmonary fibrosis/COPD Diabetes Obesity Emphysema Hypertension Osteoarthritis Reported history of transient ischemic attack. Past Surgical History CT-guided biopsy of left lower lobe lung mass Appendectomy Cataract surgery Colonoscopy Coronary artery stent placement 4 (most recent one performed in 2016). Report history of ectopic in 1970 Resection of benign mass involving the sternum Tonsillectomy Tubal ligation Active Ordered Medications Aztreonam 2 g IV every 8 hours Normal saline 70 cc/h Tylenol/hydrocodone 325/10 milligrams p.o. every 4 hours needed for pain Albuterol nebulizer 1.2 mg nebulized every 2 hours Aspirin 81 mg once daily Atorvastatin 10 mg p.o. daily Plavix 75 mg once daily Lovenox 40 mg subcu once daily Folic acid 1 mg p.o. daily Guaifenesin liquid 200 mg p.o. every 4 hours needed for cough Isosorbide mononitrate 20 mg p.o. twice daily Levofloxacin 750 mg p.o. once daily Insulin Novolin sliding scale Metformin 1000 mg p.o. twice daily Metoprolol 50 mg p.o. twice daily Prednisone 5 mg p.o. daily. Sulfasalazine 500 mg p.o. twice daily Family History No known oncologic diagnoses in the family. Parents are both . Social History Patient lives at home alone, she is , she is originally from [facility]. She reports formerly having been a smoker having smoked between 0.5 and 1 packs per day for 50 years. She continues to smoke. Physical Exam Vital Signs Vital Signs Date Time Temp Pulse Resp B/P (MAP) Pulse Ox O2 Delivery O2 Flow Rate FiO2 07/25/17 09:02 90 Nasal Cannula 3.00 07/25/17 08:00 94 07/25/17 08:00 Nasal Cannula 4.00 07/25/17 08:00 98.7 97 20 117/ 95 07/25/17 04:07 85 07/25/17 04:00 98.4 97 20 126/72 (90) 94 07/25/17 00:30 82 07/25/17 00:00 Nasal Cannula 2.00 07/25/17 00:00 97.5 85 18 117/61 (79) 95 07/24/17 20:37 90 07/24/17 20:00 Nasal Cannula 2.00 07/24/17 20:00 97.8 92 18 131/64 (86) 95 07/24/17 17:28 95 Nasal Cannula 3.00 07/24/17 16:13 20 07/24/17 16:01 98.2 89 20 109/62 (78) 96 Physical Exam GENERAL: Elderly lady, laying in bed she appears to be comfortable other than frequent coughing. She is heavyset. SKIN: No rashes, ecchymoses or lesions. Cool and dry. HEAD: Atraumatic. Normocephalic. No temporal or scalp tenderness. EYES: Pupils equal round and reactive. Extraocular motions intact. No scleral icterus. No injection or drainage. Conjunctivae mildly pale. ENT: Nose without bleeding, purulent drainage or septal hematoma. Throat without erythema, tonsillar hypertrophy or exudate. Uvula midline. Airway patent. NECK: Trachea midline. No JVD or lymphadenopathy. Supple, nontender, no meningeal signs. CARDIOVASCULAR: Regular rate and rhythm without murmurs, gallops, or rubs. RESPIRATORY: Abnormal respiratory exam; patient has generalized expiratory wheezes, frequent cough decreased bibasilar breath sounds and scattered fine crepitus. GASTROINTESTINAL: Abdomen soft, non-tender, nondistended. No hepato-splenomegaly , or palpable masses. No guarding. MUSCULOSKELETAL: Abnormal examination: Edema swelling and tenderness of the joints of the fingers and small joints of the hands generally bilaterally. She also has swelling at the elbows consistent with her diagnosis of rheumatoid arthritis. NEUROLOGICAL: Awake and alert. Cranial nerves II through XII intact. Motor and sensory grossly within normal limits. Five out of 5 muscle strength in all muscle groups. Normal speech. Laboratory Date/Time Source Procedure Growth Status 07/20/17 13:15 Blood Peripheral Aerobic Blood Culture - Final NO GROWTH IN 5 DAYS Complete 07/20/17 13:15 Blood Peripheral Anaerobic Blood Culture - Final NO GROWTH IN 5 DAYS Complete 07/20/17 23:15 Sputum Expectorated Sputum Gram Stain - Final Complete 07/20/17 23:15 Sputum Expectorated Sputum Sputum Culture - Final HEAVY GROWTH NORMAL RESPIRATORY ALDO Complete 07/21/17 09:50 Urine Catheterized Urine Urine Culture - Final 10-50,000 CFU/ML MIXED GRAM POSITIVE ... Complete Result Diagram: 07/22/17 0958 Imaging X-ray dated 07/25/2017: Conclusion: Right upper lobe predominant consolidation on the right side and basilar predominant consolidation on the left side. Both sides appear to be slightly worse. Assessment and Plan Assessment and Plan Ms. 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 The lesion was not hypermetabolic on PET/CT imaging. She underwent CT-guided biopsy in January 2017 and pathologic findings were consistent with neuroendocrine tumor. The patient was recommended therapeutic intervention, she was initially referred to thoracic surgery for surgical resection however she never followed through with that and later told that she did not want to undergo surgical interventions. Her case was subsequently discussed at multidisciplinary thoracic oncology tumor board and her tumor was felt to be treatable with stereotactic body radiation. She subsequently underwent treatment in May 2017, response to therapy has yet to be determined with restaging scans. The patient presented to this facility on 07/20/2017 complaining of difficulty breathing and cough associated with a wheeze on expiration. She does have significant pulmonary fibrosis at baseline associated with her emphysema/COPD. She has been admitted to the hospital and has been on treatment with broad- spectrum antibiotic coverage and nebulizers for management of what is assessed to be COPD exacerbation. The patient tells me she does not feel any better today than she did when she came in. Chest x-ray performed earlier today indicates progressive infiltrates in the right upper lobe and left lower lobe. Recommendations: 1. Neuroendocrine tumor of the left lower lobe of lung: Her disease was a T1 N0 lesion, there was no evidence of metastatic disease. She is status post definitive treatment with radiation which typically has a very good control rate. I would advise obtaining a CT scan of the thorax without contrast to assess her lung parenchyma. I do recall on previous imaging studies that she has very significant pulmonary fibrosis which is the likely cause of her COPD exacerbation and delayed recovery. It may be reasonable to consider adding systemic corticosteroids at a higher dose to manage the bronchospasm. CT scan thorax will be ordered. Oncology follow with you. Santo Gold MD July 25, 2017 13:18
[2017-07-25] MEDS: methylPREDNISolone SOD SUCC 40 MG/1 ML VIAL IV PUSH SCH ×2 (14:15→21:27)
[2017-07-25] MEDS: LEVOFLOXACIN 750 MG TAB PO SCH (14:15)
--- NOTE | 2017-07-25 15:39 | RADRPT ---
EXAM DATE: 07/25/2017 3:26 PM EDT AGE/SEX: 72 years / Female INDICATIONS: Shortness of breath, cough. CLINICAL DATA: This is the patient's initial encounter. Patient reports that signs and symptoms have been present for 1 day and indicates a pain score of 2/10. MEDICAL/SURGICAL HISTORY: Chronic obstructive pulmonary disease. Carcinoma, lung. Cerebrovascular disease. Pulmonary fibrosis, Cardiovascular disease, congestive heart failure, hypertension, diabet es. Appendectomy. RADIATION DOSE: 19.95 CTDI (mGy) COMPARISON: CT of the thorax May 14, 2017 from [facility]. TECHNIQUE: Multiple contiguous axial images were obtained through the chest without contrast. Image s were obtained in suspended respiration using multiple row detector helical technique. Using automa murali exposure control and adjustment of the mA and/or kV according to patient size, radiation dose was kept as low as reasonably achievable to obtain optimal diagnostic quality images. FINDINGS: Lungs: Diffuse pulmonary consolidations bilaterally are new from the prior examination. The left low er lobe pulmonary mass seen on the prior study is totally obscured by infiltrate. Mediastinum: No evidence of mediastinal or hilar adenopathy/mass. The heart is normal in size. Coron zainab artery atherosclerotic calcifications are noted. The aorta and pulmonary arteries are normal in c aliber. . Pleurae: Tiny posterior layering bilateral pleural effusions.. Axillae: Unremarkable. Bony Structures: Median sternotomy wires. Degenerative thoracic spine.. Miscellaneous: The examination was extended to include the upper abdomen, and both adrenal glands ar e normal in size and configuration. CONCLUSION: 1. New diffuse bilateral pulmonary consolidations with tiny bilateral pleural effusions. Infectious etiology felt most likely. Noncardiogenic pulmonary edema could have a similar appearance. 2. Left lower lobe pulmonary mass obscured by the consolidations. 3. Significant coronary artery atherosclerotic calcifications. Electronically signed by: Dallin Jones MD 07/25/2017 3:38 PM EDT
[2017-07-25] MEDS: ENOXAPARIN SODIUM 40 MG/0.4 ML SYRINGE SQ SCH (17:12)
[2017-07-26] VITALS (11 sets, daily range): BP systolic 96–140; BP diastolic 50–63; PULSE 74–98; RESP 16–22; TEMP 96.6–98; O2SAT 94–98
[2017-07-26] MEDS: SODIUM CHLOR 0.9% 1000 ML INJ 1,000 ML IV SCH ×2 (01:29→17:03)
[2017-07-26] MEDS: ACETAMINOPHEN/HYDROcodone 325 MG/10 MG TAB PO PRN (02:04)
[2017-07-26] MEDS: AZTREONAM INJ 2,000 MG in SODIUM CHLORIDE 0.9% INJ 100 ML IV SCH ×3 (06:05→23:02)
[2017-07-26] MEDS: methylPREDNISolone SOD SUCC 40 MG/1 ML VIAL IV PUSH SCH ×3 (06:06→21:06)
[2017-07-26] MEDS: INSULIN ASPART SUPPLEMENTAL SCALE SQ SCH ×4 (08:00→21:00)
[2017-07-26] MEDS: ASPIRIN EC 81 MG TABEC PO SCH (09:09)
[2017-07-26] MEDS: CLOPIDOGREL 75 MG TAB PO SCH (09:09)
[2017-07-26] MEDS: metFORMIN HCL 500 MG TAB PO SCH ×2 (09:10→17:05)
[2017-07-26] MEDS: ATORVASTATIN 10 MG TAB PO SCH (09:10)
[2017-07-26] MEDS: METOPROLOL TARTRATE 50 MG TAB PO SCH ×2 (09:10→21:07)
[2017-07-26] MEDS: sulfaSALAzine 500 MG TAB PO SCH ×2 (09:10→21:07)
[2017-07-26] MEDS: ISOSORBIDE MONONITRATE 20 MG TAB PO SCH ×2 (09:10→23:02)
[2017-07-26] MEDS: FOLIC ACID 1 MG TAB PO SCH (09:10)
--- NOTE | 2017-07-26 10:24 | HHI.PR ---
Subjective Remarks in no acute distress. although looks more comfortable than yesterday, still has some sob and cough/ on four liters of oxygen via N/C. afebrile. Objective Vitals Vital Signs Date Time Temp Pulse Resp B/P (MAP) Pulse Ox O2 Delivery O2 Flow Rate FiO2 07/26/17 08:00 Nasal Cannula 4.00 07/26/17 08:00 74 07/26/17 04:00 77 07/26/17 04:00 97.8 87 16 101/52 (68) 97 07/26/17 04:00 Nasal Cannula 4.00 Humidified 07/26/17 00:00 Nasal Cannula 4.00 Humidified 07/26/17 00:00 81 07/26/17 00:00 97.4 85 18 108/59 (75) 94 07/25/17 20:00 98.8 93 20 135/66 (89) 94 07/25/17 20:00 Nasal Cannula 4.00 07/25/17 20:00 90 07/25/17 17:35 95 Nasal Cannula 4.00 07/25/17 16:00 84 07/25/17 16:00 98.0 98 20 129/68 (88) 95 07/25/17 12:00 87 07/25/17 12:00 98.5 84 20 117/58 (77) 95 I/O 07/25/17 07/25/17 07/25/17 07/26/17 07/26/17 07/26/17 07:00 15:00 23:00 07:00 15:00 23:00 Intake Total 1689 ml 1900 ml Output Total 950 ml Balance 1689 ml 950 ml Intake Oral 240 ml IV Total 1449 ml 1900 ml Output Urine Total 950 ml # Voids 1 3 # Bowel Movements 0 Result Diagram: 07/22/17 0958 Imaging Last Impressions Chest X-Ray 07/25/17 0600 Signed Impressions: CONCLUSION: Upper lobe predominant consolidation on the right and basilar predominant conso lidation on the left again noted and both sides are slightly worse. Chest CT 07/25/17 0000 Signed Impressions: CONCLUSION: 1. New diffuse bilateral pulmonary consolidations with tiny bilateral pleural effusions. Infectious etiology felt most likely. Noncardiogenic pulmonary edema could have a similar appearance. 2. Left lower lobe pulmonary mass obscured by the consolidations. 3. Significant coronary artery atherosclerotic calcifications. Objective Remarks GENERAL: This is a well-nourished, well-developed patient, in no apparent distress. CARDIOVASCULAR: Regular rate and regular rhythm without murmurs, gallops, or rubs. RESPIRATORY: diminished air entry in bases with minimal wheezing bilaterally GASTROINTESTINAL: Abdomen soft, non-tender, nondistended. Normal, active bowel sounds MUSCULOSKELETAL: Extremities without clubbing, cyanosis, or edema. NEURO: Alert & Oriented x4 to person, place, time, situation. Moves all ext x4 Medications and IVs Inpatient Medications Acetaminophen (Tylenol) 650 mg ONCE ONCE PO Last administered on 07/20/17 13: 37; Start 07/20/17 at 13:00; Stop 07/20/17 at 13:01; Status DC Acetaminophen/ Hydrocodone Bitart ([place] 10-325 Mg) 0.5 tab Q4H PRN PO PAIN SCALE 1 TO 10 Last administered on 07/26/17at 02:04; Start 07/20/17 at 16:30 Albuterol Sulfate (Albuterol Neb) 1.25 mg Q2HR NEB PRN NEB SOB/WHEEZING; Start 07/23/17 at 08:45 Albuterol/ Ipratropium (Duoneb Neb) 1 ampule QID NEB NEB Last administered on 07/23/17at 21:37; Start 07/23/17 at 09:00; Stop 07/23/17 at 22:00; Status DC Aspirin (Ecotrin Ec) 81 mg DAILY PO Last administered on 07/26/17at 09:09; Start 07/21/17 at 09:00 Atorvastatin Calcium (Lipitor) 10 mg DAILY PO Last administered on 07/26/17at 09 :10; Start 07/21/17 at 09:00 Aztreonam 2000 mg/ Sodium Chloride 100 ml @ 200 mls/hr Q8H IV Last administered on 07/26/17at 06:05; Start 07/20/17 at 23:00 Clopidogrel Bisulfate (Plavix) 75 mg DAILY PO Last administered on 07/26/17at 09 :09; Start 07/21/17 at 09:00 Dextrose (D50w (Vial) Inj) 50 ml UNSCH PRN IV PUSH HYPOGLYCEMIA-SEE COMMENTS; Start 07/21/17 at 09:30 Enoxaparin Sodium (Lovenox Inj) 40 mg Q24H SQ Last administered on 07/25/17at 17 :12; Start 07/20/17 at 17:00 Folic Acid (Folate) 1 mg DAILY PO Last administered on 07/26/17at 09:10; Start 07/21/17 at 09:00 Glucagon (Glucagon Inj) 1 mg UNSCH PRN OTHER HYPOGLYCEMIA-SEE COMMENTS; Start 07/21/17 at 09:30 Guaifenesin (Robitussin Liq) 200 mg Q4H PRN PO COUGH Last administered on at 20:57; Start 07/21/17 at 14:30 Insulin Aspart (NovoLOG SUPPLEMENTAL SCALE) 1 ACHS SLIDING SCALE SQ Last administered on 07/23/17 13:16; Start 07/21/17 at 12:00 Isosorbide Mononitrate (Ismo) 20 mg BID PO Last administered on 07/26/17 09:10 ; Start 07/20/17 at 21:00 Levofloxacin (Levaquin) 750 mg Q24H PO Last administered on 07/25/17at 14:15; Start 07/21/17 at 15:00 Levofloxacin/ Dextrose 150 ml @ 100 mls/hr ONCE ONCE IV Last administered on 07/20/17at 14:55; Start 07/20/17 at 14:45; Stop 07/20/17 at 16:14; Status DC Metformin HCl (Glucophage) 1,000 mg BIDPC PO Last administered on 07/26/17 09: 10; Start 07/20/17 at 18:00 Methylprednisolone Sodium Succinate (SoluMEDROL INJ) 40 mg Q8HR IV PUSH Last administered on 07/26/17at 06:06; Start 07/25/17 at 14:00 Metoprolol Tartrate (Lopressor) 50 mg BID PO Last administered on 07/26/17 09: 10; Start 07/20/17 at 21:00 Prednisone (Deltasone) 5 mg DAILY PO Last administered on 07/25/17at 08:53; Start 07/21/17 at 09:00; Stop 07/25/17 at 13:57; Status DC Sodium Chloride (NS Flush) 2 ml UNSCH PRN IV FLUSH FLUSH AFTER USING IV ACCESS ; Start 07/20/17 at 17:00 Sulfasalazine (Azulfidine) 500 mg BID PO Last administered on 5/27/18at 09:10; Start 07/20/17 at 21:00 A/P Assessment and Plan A/P Sepsis with elevated lactic acid criteria meets severe sepsis likely underlying clinical pneumonia. Underlying history of lung cancer status post radiation therapy about a month ago COPD exacerbation continue IV Azacatam + po Levaquin.continue neb treatment. started on IV steroids. blood cultures negative so far. failed the walk test. now on four liters of oxygen via N/C-will taper down the oxygen as tolerated. oncology consult appreciated. CAD status post stent. Clinically stable. continue on metoprolol 50 mg twice a day Plavix 75 mg daily, aspirin, statins. History of rheumatoid arthritis continue on chronic prednisone 5 mg daily Lovenox for DVT prophylaxis consulted PT. Discharge Planning currently on four liters of oxygen. will taper down the oxygen slowly. dc planning within the next 2-3 days if clinically improves. Cheri Luna MD July 26, 2017 10:24
[2017-07-26] MEDS: LEVOFLOXACIN 750 MG TAB PO SCH (14:22)
[2017-07-26] MEDS: ENOXAPARIN SODIUM 40 MG/0.4 ML SYRINGE SQ SCH (17:05)
[2017-07-27] VITALS (9 sets, daily range): BP systolic 123–149; BP diastolic 58–81; PULSE 62–94; RESP 18–22; TEMP 97.2–98.2; O2SAT 96–98
[2017-07-27] MEDS: guaiFENesin SOLUTION 200 MG/10 ML CUP PO PRN (04:08)
[2017-07-27 05:24] LABS: AUTOMATED NEUTROPHIL # 6.6 TH/MM3 (1.8-7.7); BASOPHIL % 0.5 % (0.0-2.0); HEMATOCRIT 33.4 % (35.0-46.0); HEMOGLOBIN 11.1 GM/DL (11.6-15.3); LYMPH % 8.7 % (9.0-44.0); LYMPHOCYTE # 0.7 TH/MM3 (1.0-4.8); MEAN CELL VOLUME 87.1 FL (80.0-100.0); MEAN CORPUSCULAR HGB CONC 33.3 % (32.0-36.0); MEAN PLATELET VOLUME 7.4 FL (7.0-11.0); MONO % 4.9 % (0.0-8.0); MONOCYTE # 0.4 TH/MM3 (0-0.9); NEUT % 85.9 % (16.0-70.0); PLATELET COUNT 387 TH/MM3 (150-450); RED BLOOD COUNT 3.84 MIL/MM3 (4.00-5.30); RED CELL DISTRIBUTION WIDTH 18.3 % (11.6-17.2); WHITE BLOOD COUNT 7.7 TH/MM3 (4.0-11.0)
[2017-07-27 05:52] LABS: BICARBONATE 28.4 MEQ/L (21.0-32.0); CALCIUM 9.1 MG/DL (8.5-10.1); CREATININE 0.5 MG/DL (0.50-1.00)
[2017-07-27] MEDS: AZTREONAM INJ 2,000 MG in SODIUM CHLORIDE 0.9% INJ 100 ML IV SCH ×2 (06:02→14:37)
[2017-07-27] MEDS: methylPREDNISolone SOD SUCC 40 MG/1 ML VIAL IV PUSH SCH ×3 (06:02→22:54)
[2017-07-27] MEDS: SODIUM CHLOR 0.9% 1000 ML INJ 1,000 ML IV SCH ×2 (06:05→22:53)
[2017-07-27] MEDS: INSULIN ASPART SUPPLEMENTAL SCALE SQ SCH ×4 (08:00→21:00)
[2017-07-27] MEDS: ASPIRIN EC 81 MG TABEC PO SCH (08:51)
[2017-07-27] MEDS: sulfaSALAzine 500 MG TAB PO SCH ×2 (08:51→22:54)
[2017-07-27] MEDS: ISOSORBIDE MONONITRATE 20 MG TAB PO SCH ×2 (08:52→22:54)
[2017-07-27] MEDS: ATORVASTATIN 10 MG TAB PO SCH (08:52)
[2017-07-27] MEDS: CLOPIDOGREL 75 MG TAB PO SCH (08:52)
[2017-07-27] MEDS: metFORMIN HCL 500 MG TAB PO SCH ×2 (08:52→17:07)
[2017-07-27] MEDS: FOLIC ACID 1 MG TAB PO SCH (08:52)
[2017-07-27] MEDS: METOPROLOL TARTRATE 50 MG TAB PO SCH ×2 (08:52→22:54)
--- NOTE | 2017-07-27 08:53 | HHI.PR ---
Subjective Remarks in no acute distress. now is on three liters of oxygen via N/C. although looks fairly comfortable, still complaining of some sob. no fever. Objective Vitals Vital Signs Date Time Temp Pulse Resp B/P (MAP) Pulse Ox O2 Delivery O2 Flow Rate FiO2 07/27/17 04:00 83 07/27/17 04:00 97.8 80 22 141/81 (101) 96 07/27/17 00:00 80 07/27/17 00:00 97.7 94 22 140/66 (90) 98 07/26/17 20:15 97 Nasal Cannula 3.00 07/26/17 20:00 98 07/26/17 20:00 96.6 90 22 140/61 (87) 98 07/26/17 20:00 98 Nasal Cannula 3.00 07/26/17 17:15 95 Nasal Cannula 4.00 07/26/17 16:00 79 07/26/17 15:50 97.6 77 20 116/63 (80) 95 07/26/17 12:12 98.0 79 20 96/50 (65) 96 07/26/17 12:00 80 I/O 07/26/17 07/26/17 07/26/17 07/27/17 07/27/17 07/27/17 07:00 15:00 23:00 07:00 15:00 23:00 Intake Total 1900 ml 720 ml 2127 ml Output Total 950 ml 700 ml 1700 ml Balance 950 ml 20 ml 427 ml Intake Oral 720 ml 360 ml IV Total 1900 ml 1767 ml Output Urine Total 950 ml 700 ml 1700 ml # Bowel Movements 1 Result Diagram: 07/27/17 0415 07/27/17 0415 Imaging Last Impressions Chest X-Ray 07/25/17 0600 Signed Impressions: CONCLUSION: Upper lobe predominant consolidation on the right and basilar predominant conso lidation on the left again noted and both sides are slightly worse. Chest CT 07/25/17 0000 Signed Impressions: CONCLUSION: 1. New diffuse bilateral pulmonary consolidations with tiny bilateral pleural effusions. Infectious etiology felt most likely. Noncardiogenic pulmonary edema could have a similar appearance. 2. Left lower lobe pulmonary mass obscured by the consolidations. 3. Significant coronary artery atherosclerotic calcifications. Objective Remarks GENERAL: This is a well-nourished, well-developed patient, in no apparent distress. CARDIOVASCULAR: Regular rate and regular rhythm without murmurs, gallops, or rubs. RESPIRATORY: diminished air entry in bases with minimal wheezing bilaterally GASTROINTESTINAL: Abdomen soft, non-tender, nondistended. Normal, active bowel sounds MUSCULOSKELETAL: Extremities without clubbing, cyanosis, or edema. NEURO: Alert & Oriented x4 to person, place, time, situation. Moves all ext x4 Medications and IVs Inpatient Medications Acetaminophen (Tylenol) 650 mg ONCE ONCE PO Last administered on 07/20/17 13: 37; Start 07/20/17 at 13:00; Stop 07/20/17 at 13:01; Status DC Acetaminophen/ Hydrocodone Bitart ([place] 10-325 Mg) 0.5 tab Q4H PRN PO PAIN SCALE 1 TO 10 Last administered on 07/26/17at 02:04; Start 07/20/17 at 16:30 Albuterol Sulfate (Albuterol Neb) 1.25 mg Q2HR NEB PRN NEB SOB/WHEEZING; Start 07/23/17 at 08:45 Albuterol/ Ipratropium (Duoneb Neb) 1 ampule QID NEB NEB Last administered on 07/23/17 21:37; Start 07/23/17 at 09:00; Stop 07/23/17 at 22:00; Status DC Aspirin (Ecotrin Ec) 81 mg DAILY PO Last administered on 07/26/17 09:09; Start 07/21/17 at 09:00 Atorvastatin Calcium (Lipitor) 10 mg DAILY PO Last administered on 07/26/17at 09 :10; Start 07/21/17 at 09:00 Aztreonam 2000 mg/ Sodium Chloride 100 ml @ 200 mls/hr Q8H IV Last administered on 07/27/17 06:02; Start 07/20/17 at 23:00 Clopidogrel Bisulfate (Plavix) 75 mg DAILY PO Last administered on 07/26/17at 09 :09; Start 07/21/17 at 09:00 Dextrose (D50w (Vial) Inj) 50 ml UNSCH PRN IV PUSH HYPOGLYCEMIA-SEE COMMENTS; Start 07/21/17 at 09:30 Enoxaparin Sodium (Lovenox Inj) 40 mg Q24H SQ Last administered on 07/26/17at 17 :05; Start 07/20/17 at 17:00 Folic Acid (Folate) 1 mg DAILY PO Last administered on 07/26/17at 09:10; Start 07/21/17 at 09:00 Glucagon (Glucagon Inj) 1 mg UNSCH PRN OTHER HYPOGLYCEMIA-SEE COMMENTS; Start 07/21/17 at 09:30 Guaifenesin (Robitussin Liq) 200 mg Q4H PRN PO COUGH Last administered on at 04:08; Start 07/21/17 at 14:30 Insulin Aspart (NovoLOG SUPPLEMENTAL SCALE) 1 ACHS SLIDING SCALE SQ Last administered on 07/23/17at 13:16; Start 07/21/17 at 12:00 Isosorbide Mononitrate (Ismo) 20 mg BID PO Last administered on 07/26/17at 23:02 ; Start 07/20/17 at 21:00 Levofloxacin (Levaquin) 750 mg Q24H PO Last administered on 07/26/17at 14:22; Start 07/21/17 at 15:00 Levofloxacin/ Dextrose 150 ml @ 100 mls/hr ONCE ONCE IV Last administered on 07/20/17at 14:55; Start 07/20/17 at 14:45; Stop 07/20/17 at 16:14; Status DC Metformin HCl (Glucophage) 1,000 mg BIDPC PO Last administered on 07/26/17at 17: 05; Start 07/20/17 at 18:00 Methylprednisolone Sodium Succinate (SoluMEDROL INJ) 40 mg Q8HR IV PUSH Last administered on 07/27/17at 06:02; Start 07/25/17 at 14:00 Metoprolol Tartrate (Lopressor) 50 mg BID PO Last administered on 07/26/17at 21: 07; Start 07/20/17 at 21:00 Prednisone (Deltasone) 5 mg DAILY PO Last administered on 07/25/17at 08:53; Start 07/21/17 at 09:00; Stop 07/25/17 at 13:57; Status DC Sodium Chloride (NS Flush) 2 ml UNSCH PRN IV FLUSH FLUSH AFTER USING IV ACCESS ; Start 07/20/17 at 17:00 Sulfasalazine (Azulfidine) 500 mg BID PO Last administered on 07/26/17at 21:07; Start 07/20/17 at 21:00 A/P Assessment and Plan A/P Sepsis with elevated lactic acid criteria meets severe sepsis likely underlying clinical pneumonia. Underlying history of lung cancer status post radiation therapy about a month ago COPD exacerbation continue IV Azacatam + po Levaquin.continue neb treatment. continue IV steroids. blood cultures negative so far. failed the walk test. now on three liters of oxygen via N/C-will continue to taper down the oxygen as tolerated. oncology consult appreciated. CAD status post stent. Clinically stable. continue on metoprolol 50 mg twice a day Plavix 75 mg daily, aspirin, statins. History of rheumatoid arthritis continue on chronic prednisone 5 mg daily Lovenox for DVT prophylaxis consulted PT. Discharge Planning currently on three liters of oxygen. will taper down the oxygen slowly. dc planning within the next 2-3 days if clinically improves. Cheri Luna MD July 27, 2017 08:53
--- NOTE | 2017-07-27 12:16 | PD.ONC.PN ---
Subjective Subjective Remarks Patient seen and examined, vital signs, labs, medications and overnight events reviewed. Patient reports her breathing is marginally improved when compared to 2 days ago. She remains on antibiotic therapy and corticosteroid treatment as well, she is presently on IV Solu-Medrol. Patient tells me her ambulation is severely limited, she is only capable of getting up out of bed to the bedside commode. She continues to cough but is able to produce very scant phlegm. Her major pain is related to rheumatoid arthritis. Objective Data Date Time Temp Pulse Resp B/P (MAP) Pulse Ox O2 Delivery O2 Flow Rate FiO2 07/27/17 11:03 Nasal Cannula 4.00 07/27/17 08:18 98.2 75 20 131/68 (89) 96 07/27/17 04:00 83 07/27/17 04:00 97.8 80 22 141/81 (101) 96 07/27/17 00:00 80 07/27/17 00:00 97.7 94 22 140/66 (90) 98 07/26/17 20:15 97 Nasal Cannula 3.00 07/26/17 20:00 98 07/26/17 20:00 96.6 90 22 140/61 (87) 98 07/26/17 20:00 98 Nasal Cannula 3.00 07/26/17 17:15 95 Nasal Cannula 4.00 07/26/17 16:00 79 07/26/17 15:50 97.6 77 20 116/63 (80) 95 07/27/17 07/27/17 07/27/17 07:00 15:00 23:00 Intake Total 2127 ml Output Total 1700 ml Balance 427 ml Result Diagram: 07/27/17 0415 07/27/17 0415 Laboratory Results Laboratory Tests Test 07/27/17 04:15 White Blood Count 7.7 TH/MM3 Red Blood Count 3.84 MIL/MM3 Hemoglobin 11.1 GM/DL Hematocrit 33.4 % Mean Corpuscular Volume 87.1 FL Mean Corpuscular Hemoglobin 29.0 PG Mean Corpuscular Hemoglobin Concent 33.3 % Red Cell Distribution Width 18.3 % Platelet Count 387 TH/MM3 Mean Platelet Volume 7.4 FL Neutrophils (%) (Auto) 85.9 % Lymphocytes (%) (Auto) 8.7 % Monocytes (%) (Auto) 4.9 % Eosinophils (%) (Auto) 0.0 % Basophils (%) (Auto) 0.5 % Neutrophils # (Auto) 6.6 TH/MM3 Lymphocytes # (Auto) 0.7 TH/MM3 Monocytes # (Auto) 0.4 TH/MM3 Eosinophils # (Auto) 0.0 TH/MM3 Basophils # (Auto) 0.0 TH/MM3 CBC Comment DIFF FINAL Differential Comment Blood Urea Nitrogen 9 MG/DL Creatinine 0.50 MG/DL Random Glucose 82 MG/DL Calcium Level 9.1 MG/DL Sodium Level 142 MEQ/L Potassium Level 4.2 MEQ/L Chloride Level 104 MEQ/L Carbon Dioxide Level 28.4 MEQ/L Anion Gap 10 MEQ/L Estimat Glomerular Filtration Rate 148 ML/MIN Administered Medications Medications (Trade) Dose Ordered Sig/Davey Route PRN Reason Start Time Stop Time Status Last Admin Dose Admin Aspirin (Ecotrin Ec) 81 mg DAILY PO 07/21/17 09:00 07/27/17 08:51 Atorvastatin Calcium (Lipitor) 10 mg DAILY PO 07/21/17 09:00 07/27/17 08:52 Clopidogrel Bisulfate (Plavix) 75 mg DAILY PO 07/21/17 09:00 07/27/17 08:52 Folic Acid (Folate) 1 mg DAILY PO 07/21/17 09:00 07/27/17 08:52 Acetaminophen/ Hydrocodone Bitart ([place] 10-325 Mg) 0.5 tab Q4H PRN PO PAIN SCALE 1 TO 10 07/20/17 16:30 07/26/17 02:04 Isosorbide Mononitrate (Ismo) 20 mg BID PO 07/20/17 21:00 07/27/17 08:52 Metoprolol Tartrate (Lopressor) 50 mg BID PO 07/20/17 21:00 07/27/17 08:52 Sulfasalazine (Azulfidine) 500 mg BID PO 07/20/17 21:00 07/27/17 08:51 Metformin HCl (Glucophage) 1,000 mg BIDPC PO 07/20/17 18:00 07/27/17 08:52 Sodium Chloride 1,000 ml @ 70 mls/hr [id number] IV 07/20/17 16:47 07/27/17 06:05 Aztreonam 2000 mg/ Sodium Chloride 100 ml @ 200 mls/hr Q8H IV 07/20/17 23:00 07/27/17 06:02 Levofloxacin (Levaquin) 750 mg Q24H PO 07/21/17 15:00 07/26/17 14:22 Enoxaparin Sodium (Lovenox Inj) 40 mg Q24H SQ 07/20/17 17:00 07/26/17 17:05 Insulin Aspart (NovoLOG SUPPLEMENTAL SCALE) 1 ACHS SLIDING SCALE SQ 07/21/17 12:00 07/23/17 13:16 Guaifenesin (Robitussin Liq) 200 mg Q4H PRN PO COUGH 07/21/17 14:30 07/27/17 04:08 Methylprednisolone Sodium Succinate (SoluMEDROL INJ) 40 mg Q8HR IV PUSH 07/25/17 14:00 07/27/17 06:02 Objective Remarks GENERAL: Elderly lady, laying in bed she appears to be comfortable other than frequent coughing. She is heavyset. SKIN: No rashes, ecchymoses or lesions. Cool and dry. HEAD: Atraumatic. Normocephalic. No temporal or scalp tenderness. EYES: Pupils equal round and reactive. Extraocular motions intact. No scleral icterus. No injection or drainage. Conjunctivae mildly pale. ENT: Nose without bleeding, purulent drainage or septal hematoma. Throat without erythema, tonsillar hypertrophy or exudate. Uvula midline. Airway patent. NECK: Trachea midline. No JVD or lymphadenopathy. Supple, nontender, no meningeal signs. CARDIOVASCULAR: Regular rate and rhythm without murmurs, gallops, or rubs. RESPIRATORY: Abnormal respiratory exam; patient has generalized expiratory wheezes, frequent cough decreased bibasilar breath sounds and scattered fine crepitus. GASTROINTESTINAL: Abdomen soft, non-tender, nondistended. No hepato-splenomegaly , or palpable masses. No guarding. MUSCULOSKELETAL: Abnormal examination: Edema swelling and tenderness of the joints of the fingers and small joints of the hands generally bilaterally. She also has swelling at the elbows consistent with her diagnosis of rheumatoid arthritis. NEUROLOGICAL: Awake and alert. Cranial nerves II through XII intact. Motor and sensory grossly within normal limits. Five out of 5 muscle strength in all muscle groups. Normal speech. Assessment/Plan Assessment Ms. 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 The lesion was not hypermetabolic on PET/CT imaging. She underwent CT-guided biopsy in January 2017 and pathologic findings were consistent with neuroendocrine tumor. The patient was recommended therapeutic intervention, she was initially referred to thoracic surgery for surgical resection however she never followed through with that and later told that she did not want to undergo surgical interventions. Her case was subsequently discussed at multidisciplinary thoracic oncology tumor board and her tumor was felt to be treatable with stereotactic body radiation. She subsequently underwent treatment in May 2017, response to therapy has yet to be determined with restaging scans. The patient presented to this facility on 07/20/2017 complaining of difficulty breathing and cough associated with a wheeze on expiration. She does have significant pulmonary fibrosis at baseline associated with her emphysema/COPD. She has been admitted to the hospital and has been on treatment with broad- spectrum antibiotic coverage and nebulizers for management of what is assessed to be COPD exacerbation. The patient tells me she does not feel any better today than she did when she came in. Chest x-ray performed earlier today indicates progressive infiltrates in the right upper lobe and left lower lobe. Plan 1. 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 Repeat CT scan of the thorax performed on 07/25/2017 indicates diffuse parenchymal infiltrates and obstruction of the previous mass which is not obviously noticeable. 2. Pulmonary fibrosis with hypoxic respiratory failure: Likely secondary to infectious etiology; continue antibiotic therapy and corticosteroids. Continue oxygen supplementation. Clinically she is marginally improved when compared to when I saw her 2 days ago. Continue ongoing care. Santo Gold MD July 27, 2017 12:16
[2017-07-27] MEDS: LEVOFLOXACIN 750 MG TAB PO SCH (14:37)
[2017-07-27] MEDS: ENOXAPARIN SODIUM 40 MG/0.4 ML SYRINGE SQ SCH (16:48)
[2017-07-28] VITALS (8 sets, daily range): BP systolic 115–142; BP diastolic 58–73; PULSE 6–90; RESP 16–18; TEMP 97.1–98; O2SAT 93–98
[2017-07-28] MEDS: AZTREONAM INJ 2,000 MG in SODIUM CHLORIDE 0.9% INJ 100 ML IV SCH ×2 (00:22→06:24)
[2017-07-28] MEDS: methylPREDNISolone SOD SUCC 40 MG/1 ML VIAL IV PUSH SCH ×2 (06:23→21:19)
[2017-07-28] MEDS: INSULIN ASPART SUPPLEMENTAL SCALE SQ SCH ×4 (08:00→20:48)
[2017-07-28] MEDS: sulfaSALAzine 500 MG TAB PO SCH ×2 (09:13→20:47)
[2017-07-28] MEDS: ATORVASTATIN 10 MG TAB PO SCH (09:13)
[2017-07-28] MEDS: CLOPIDOGREL 75 MG TAB PO SCH (09:14)
[2017-07-28] MEDS: FOLIC ACID 1 MG TAB PO SCH (09:14)
[2017-07-28] MEDS: ASPIRIN EC 81 MG TABEC PO SCH (09:14)
[2017-07-28] MEDS: guaiFENesin SOLUTION 200 MG/10 ML CUP PO PRN ×2 (09:15→14:26)
[2017-07-28] MEDS: ISOSORBIDE MONONITRATE 20 MG TAB PO SCH ×2 (09:15→20:47)
[2017-07-28] MEDS: metFORMIN HCL 500 MG TAB PO SCH ×2 (09:15→17:50)
[2017-07-28] MEDS: METOPROLOL TARTRATE 50 MG TAB PO SCH ×2 (09:17→20:47)
--- NOTE | 2017-07-28 10:25 | HHI.PR ---
Subjective Remarks in no acute distress. looks and feels better today. on three liters of oxygen via N/C. Objective Vitals Vital Signs Date Time Temp Pulse Resp B/P (MAP) Pulse Ox O2 Delivery O2 Flow Rate FiO2 07/28/17 08:00 Nasal Cannula 3.00 Humidified 07/28/17 08:00 97.1 56 17 127/68 (87) 98 07/28/17 08:00 61 07/28/17 04:00 97.6 66 18 122/58 (79) 93 07/28/17 00:25 Nasal Cannula 3.00 Humidified 07/28/17 00:00 97.4 6 18 142/68 (92) 97 07/27/17 20:00 97.2 84 18 149/70 (96) 96 07/27/17 16:15 98.1 62 20 144/63 (90) 96 07/27/17 16:00 66 07/27/17 12:30 98.0 69 18 123/58 (79) 97 07/27/17 12:00 67 07/27/17 11:03 Nasal Cannula 4.00 I/O 07/27/17 07/27/17 07/27/17 07/28/17 07/28/17 07/28/17 07:00 15:00 23:00 07:00 15:00 23:00 Intake Total 2127 ml 720 ml 778 ml Output Total 1700 ml 750 ml 1000 ml Balance 427 ml -30 ml -222 ml Intake Oral 360 ml 720 ml 600 ml IV Total 1767 ml 178 ml Output Urine Total 1700 ml 750 ml 1000 ml # Voids 2 # Bowel Movements 1 1 7 Result Diagram: 07/27/17 0415 07/27/17 0415 Imaging Last Impressions Chest X-Ray 07/25/17 0600 Signed Impressions: CONCLUSION: Upper lobe predominant consolidation on the right and basilar predominant conso lidation on the left again noted and both sides are slightly worse. Chest CT 07/25/17 0000 Signed Impressions: CONCLUSION: 1. New diffuse bilateral pulmonary consolidations with tiny bilateral pleural effusions. Infectious etiology felt most likely. Noncardiogenic pulmonary edema could have a similar appearance. 2. Left lower lobe pulmonary mass obscured by the consolidations. 3. Significant coronary artery atherosclerotic calcifications. Objective Remarks GENERAL: This is a well-nourished, well-developed patient, in no apparent distress. CARDIOVASCULAR: Regular rate and regular rhythm without murmurs, gallops, or rubs. RESPIRATORY: diminished air entry in bases with minimal wheezing bilaterally GASTROINTESTINAL: Abdomen soft, non-tender, nondistended. Normal, active bowel sounds MUSCULOSKELETAL: Extremities without clubbing, cyanosis, or edema. NEURO: Alert & Oriented x4 to person, place, time, situation. Moves all ext x4 Medications and IVs Inpatient Medications Acetaminophen (Tylenol) 650 mg ONCE ONCE PO Last administered on 07/20/17 13: 37; Start 07/20/17 at 13:00; Stop 07/20/17 at 13:01; Status DC Acetaminophen/ Hydrocodone Bitart ([place] 10-325 Mg) 0.5 tab Q4H PRN PO PAIN SCALE 1 TO 10 Last administered on 07/26/17 02:04; Start 07/20/17 at 16:30 Albuterol Sulfate (Albuterol Neb) 1.25 mg Q2HR NEB PRN NEB SOB/WHEEZING; Start 07/23/17 at 08:45 Albuterol/ Ipratropium (Duoneb Neb) 1 ampule QID NEB NEB Last administered on 07/23/17 21:37; Start 07/23/17 at 09:00; Stop 07/23/17 at 22:00; Status DC Aspirin (Ecotrin Ec) 81 mg DAILY PO Last administered on 07/28/17 09:14; Start 07/21/17 at 09:00 Atorvastatin Calcium (Lipitor) 10 mg DAILY PO Last administered on 07/28/17 09 :13; Start 07/21/17 at 09:00 Aztreonam 2000 mg/ Sodium Chloride 100 ml @ 200 mls/hr Q8H IV Last administered on 07/28/17 06:24; Start 07/20/17 at 23:00 Clopidogrel Bisulfate (Plavix) 75 mg DAILY PO Last administered on 07/28/17 09 :14; Start 07/21/17 at 09:00 Dextrose (D50w (Vial) Inj) 50 ml UNSCH PRN IV PUSH HYPOGLYCEMIA-SEE COMMENTS; Start 07/21/17 at 09:30 Enoxaparin Sodium (Lovenox Inj) 40 mg Q24H SQ Last administered on 07/27/17at 16 :48; Start 07/20/17 at 17:00 Folic Acid (Folate) 1 mg DAILY PO Last administered on 07/28/17 09:14; Start 07/21/17 at 09:00 Glucagon (Glucagon Inj) 1 mg UNSCH PRN OTHER HYPOGLYCEMIA-SEE COMMENTS; Start 07/21/17 at 09:30 Guaifenesin (Robitussin Liq) 200 mg Q4H PRN PO COUGH Last administered on 09:15; Start 07/21/17 at 14:30 Insulin Aspart (NovoLOG SUPPLEMENTAL SCALE) 1 ACHS SLIDING SCALE SQ Last administered on 07/23/17 13:16; Start 07/21/17 at 12:00 Isosorbide Mononitrate (Ismo) 20 mg BID PO Last administered on 07/28/17 09:15 ; Start 07/20/17 at 21:00 Levofloxacin (Levaquin) 750 mg Q24H PO Last administered on 07/27/17at 14:37; Start 07/21/17 at 15:00 Levofloxacin/ Dextrose 150 ml @ 100 mls/hr ONCE ONCE IV Last administered on 07/20/17at 14:55; Start 07/20/17 at 14:45; Stop 07/20/17 at 16:14; Status DC Metformin HCl (Glucophage) 1,000 mg BIDPC PO Last administered on 07/28/17 09: 15; Start 07/20/17 at 18:00 Methylprednisolone Sodium Succinate (SoluMEDROL INJ) 40 mg Q8HR IV PUSH Last administered on 07/28/17 06:23; Start 07/25/17 at 14:00 Metoprolol Tartrate (Lopressor) 50 mg BID PO Last administered on 07/28/17 09: 17; Start 07/20/17 at 21:00 Prednisone (Deltasone) 5 mg DAILY PO Last administered on 07/25/17at 08:53; Start 07/21/17 at 09:00; Stop 07/25/17 at 13:57; Status DC Sodium Chloride (NS Flush) 2 ml UNSCH PRN IV FLUSH FLUSH AFTER USING IV ACCESS ; Start 07/20/17 at 17:00 Sulfasalazine (Azulfidine) 500 mg BID PO Last administered on 07/28/17at 09:13; Start 07/20/17 at 21:00 A/P Assessment and Plan A/P Sepsis with elevated lactic acid criteria meets severe sepsis likely underlying clinical pneumonia. Underlying history of lung cancer status post radiation therapy about a month ago COPD exacerbation improving slowly. stop IV Azacatam ,continue Levaquin.continue neb treatment. continue IV steroids. blood cultures negative so far. failed the walk test. now on three liters of oxygen via N/C-will continue to taper down the oxygen as tolerated. oncology consult appreciated. repeat walk test tomorrow. CAD status post stent. Clinically stable. continue on metoprolol 50 mg twice a day Plavix 75 mg daily, aspirin, statins. History of rheumatoid arthritis continue on chronic prednisone 5 mg daily Lovenox for DVT prophylaxis consulted PT. Discharge Planning currently on three liters of oxygen. will taper down the oxygen slowly. dc planning within the next 2-3 days if clinically improves. walk test tomorrow. Cheri Luna MD July 28, 2017 10:25
[2017-07-28] MEDS ORDERED: PRED5TAB PO (12:08)
[2017-07-28] MEDS: LEVOFLOXACIN 750 MG TAB PO SCH (14:28)
[2017-07-28] MEDS: ENOXAPARIN SODIUM 40 MG/0.4 ML SYRINGE SQ SCH (17:54)
[2017-07-28] MEDS: SODIUM CHLORIDE 0.9% FLUSH 10 ML FLUSH IV FLUSH PRN (20:51)
[2017-07-29] VITALS (11 sets, daily range): BP systolic 110–144; BP diastolic 61–73; PULSE 65–87; RESP 16–20; TEMP 97.7–97.9; O2SAT 91–95
[2017-07-29] MEDS: methylPREDNISolone SOD SUCC 40 MG/1 ML VIAL IV PUSH SCH ×2 (05:50→17:40)
[2017-07-29] MEDS: SODIUM CHLORIDE 0.9% FLUSH 10 ML FLUSH IV FLUSH PRN (05:51)
[2017-07-29] MEDS: INSULIN ASPART SUPPLEMENTAL SCALE SQ SCH ×4 (08:00→21:00)
[2017-07-29] MEDS: ATORVASTATIN 10 MG TAB PO SCH (08:05)
[2017-07-29] MEDS: FOLIC ACID 1 MG TAB PO SCH (08:05)
[2017-07-29] MEDS: guaiFENesin SOLUTION 200 MG/10 ML CUP PO PRN ×2 (08:05→17:40)
[2017-07-29] MEDS: sulfaSALAzine 500 MG TAB PO SCH ×2 (08:06→22:14)
[2017-07-29] MEDS: metFORMIN HCL 500 MG TAB PO SCH ×2 (08:06→17:24)
[2017-07-29] MEDS: ASPIRIN EC 81 MG TABEC PO SCH (08:06)
[2017-07-29] MEDS: CLOPIDOGREL 75 MG TAB PO SCH (08:06)
[2017-07-29] MEDS: ISOSORBIDE MONONITRATE 20 MG TAB PO SCH ×2 (08:08→22:16)
[2017-07-29] MEDS: METOPROLOL TARTRATE 50 MG TAB PO SCH ×2 (08:16→22:14)
--- NOTE | 2017-07-29 08:56 | HHI.PR ---
Subjective Remarks in no acute distress. has some sob but improving; the oxygen via N/C is down to one lit/min. has occasional cough. no fever. Objective Vitals Vital Signs Date Time Temp Pulse Resp B/P (MAP) Pulse Ox O2 Delivery O2 Flow Rate FiO2 07/29/17 04:20 97.9 87 16 110/61 (77) 94 07/29/17 04:00 Nasal Cannula 1.00 07/29/17 00:06 72 07/29/17 00:00 Nasal Cannula 2.00 07/28/17 23:27 97.9 82 16 115/73 (87) 95 07/28/17 20:20 97.8 90 16 126/71 (89) 95 07/28/17 20:00 Nasal Cannula 2.00 07/28/17 19:47 72 07/28/17 16:00 68 07/28/17 16:00 97.9 75 17 139/72 (94) 97 07/28/17 12:00 72 07/28/17 12:00 98.0 73 17 126/64 (84) 98 I/O 07/28/17 07/28/17 07/28/17 07/29/17 07/29/17 07/29/17 07:00 15:00 23:00 07:00 15:00 23:00 Intake Total 778 ml 1080 ml 240 ml Output Total 1000 ml 1575 ml 190 ml Balance -222 ml -495 ml 50 ml Intake Oral 600 ml 1080 ml 240 ml IV Total 178 ml Output Urine Total 1000 ml 1575 ml 190 ml # Voids 2 # Bowel Movements 7 2 1 Result Diagram: 07/27/175 07/27/17 0415 Imaging Last Impressions Chest X-Ray 07/25/17 06 Signed Impressions: CONCLUSION: Upper lobe predominant consolidation on the right and basilar predominant conso lidation on the left again noted and both sides are slightly worse. Chest CT 07/25/17 0000 Signed Impressions: CONCLUSION: 1. New diffuse bilateral pulmonary consolidations with tiny bilateral pleural effusions. Infectious etiology felt most likely. Noncardiogenic pulmonary edema could have a similar appearance. 2. Left lower lobe pulmonary mass obscured by the consolidations. 3. Significant coronary artery atherosclerotic calcifications. Objective Remarks GENERAL: This is a well-nourished, well-developed patient, in no apparent distress. CARDIOVASCULAR: Regular rate and regular rhythm without murmurs, gallops, or rubs. RESPIRATORY: diminished air entry in bases with minimal wheezing bilaterally GASTROINTESTINAL: Abdomen soft, non-tender, nondistended. Normal, active bowel sounds MUSCULOSKELETAL: Extremities without clubbing, cyanosis, or edema. NEURO: Alert & Oriented x4 to person, place, time, situation. Moves all ext x4 Procedures none Medications and IVs Inpatient Medications Acetaminophen (Tylenol) 650 mg ONCE ONCE PO Last administered on 07/20/17 13: 37; Start 07/20/17 at 13:00; Stop 07/20/17 at 13:01; Status DC Acetaminophen/ Hydrocodone Bitart ([place] 10-325 Mg) 0.5 tab Q4H PRN PO PAIN SCALE 1 TO 10 Last administered on 07/26/17at 02:04; Start 07/20/17 at 16:30 Albuterol Sulfate (Albuterol Neb) 1.25 mg Q2HR NEB PRN NEB SOB/WHEEZING; Start 07/23/17 at 08:45 Albuterol/ Ipratropium (Duoneb Neb) 1 ampule QID NEB NEB Last administered on 07/23/17at 21:37; Start 07/23/17 at 09:00; Stop 07/23/17 at 22:00; Status DC Aspirin (Ecotrin Ec) 81 mg DAILY PO Last administered on 07/29/17 08:06; Start 07/21/17 at 09:00 Atorvastatin Calcium (Lipitor) 10 mg DAILY PO Last administered on 07/29/17at 08 :05; Start 07/21/17 at 09:00 Aztreonam 2000 mg/ Sodium Chloride 100 ml @ 200 mls/hr Q8H IV Last administered on 07/28/17at 06:24; Start 07/20/17 at 23:00; Stop 07/28/17 at 10:26 ; Status DC Clopidogrel Bisulfate (Plavix) 75 mg DAILY PO Last administered on 07/29/17 08 :06; Start 07/21/17 at 09:00 Dextrose (D50w (Vial) Inj) 50 ml UNSCH PRN IV PUSH HYPOGLYCEMIA-SEE COMMENTS; Start 07/21/17 at 09:30 Enoxaparin Sodium (Lovenox Inj) 40 mg Q24H SQ Last administered on 07/28/17at 17 :54; Start 07/20/17 at 17:00 Folic Acid (Folate) 1 mg DAILY PO Last administered on 07/29/17 08:05; Start 07/21/17 at 09:00 Glucagon (Glucagon Inj) 1 mg UNSCH PRN OTHER HYPOGLYCEMIA-SEE COMMENTS; Start 07/21/17 at 09:30 Guaifenesin (Robitussin Liq) 200 mg Q4H PRN PO COUGH Last administered on 08:05; Start 07/21/17 at 14:30 Insulin Aspart (NovoLOG SUPPLEMENTAL SCALE) 1 ACHS SLIDING SCALE SQ Last administered on 07/23/17 13:16; Start 07/21/17 at 12:00 Isosorbide Mononitrate (Ismo) 20 mg BID PO Last administered on 07/29/17 08:08 ; Start 07/20/17 at 21:00 Levofloxacin (Levaquin) 750 mg Q24H PO Last administered on 07/28/17at 14:28; Start 07/21/17 at 15:00 Levofloxacin/ Dextrose 150 ml @ 100 mls/hr ONCE ONCE IV Last administered on 07/20/17at 14:55; Start 07/20/17 at 14:45; Stop 07/20/17 at 16:14; Status DC Metformin HCl (Glucophage) 1,000 mg BIDPC PO Last administered on 07/29/17 08: 06; Start 07/20/17 at 18:00 Methylprednisolone Sodium Succinate (SoluMEDROL INJ) 20 mg Q8HR IV PUSH Last administered on 07/29/17 05:50; Start 07/28/17 at 22:00 Metoprolol Tartrate (Lopressor) 50 mg BID PO Last administered on 07/29/17 08: 16; Start 07/20/17 at 21:00 Prednisone (Deltasone) 5 mg DAILY PO Last administered on 07/25/17at 08:53; Start 07/21/17 at 09:00; Stop 07/25/17 at 13:57; Status DC Sodium Chloride (NS Flush) 2 ml UNSCH PRN IV FLUSH FLUSH AFTER USING IV ACCESS Last administered on 07/29/17 05:51; Start 07/20/17 at 17:00 Sulfasalazine (Azulfidine) 500 mg BID PO Last administered on 5/30/18at 08:06; Start 07/20/17 at 21:00 A/P Assessment and Plan A/P Sepsis with elevated lactic acid criteria meets severe sepsis likely underlying clinical pneumonia. Underlying history of lung cancer status post radiation therapy about a month ago COPD exacerbation improving slowly. continue Levaquin.continue neb treatment. continue IV steroids; continue to taper down. blood cultures negative so far. failed the walk test last week; will repeat the walk test today. will continue to taper down the oxygen as tolerated. oncology consult appreciated. CAD status post stent. Clinically stable. continue on metoprolol , Plavix , aspirin, statins. History of rheumatoid arthritis continue on chronic prednisone 5 mg daily Lovenox for DVT prophylaxis consulted PT. Discharge Planning walk test today. possible discharge home tomorrow if stable. will have [facility]. d/w the patient. Cheri Luna MD July 29, 2017 08:56
[2017-07-29] MEDS ORDERED: OXYGENDME NAS.CANULA ×2 (12:47→13:27)
[2017-07-29] MEDS: NYSTATIN SUSP 500,000 U/5 ML CUP SWISH-SWAL SCH ×3 (13:28→22:14)
--- NOTE | 2017-07-29 13:48 | HHI.PR ---
Addendum To [facility] Progress Not Reason for addendum: Additonal documentation (failed the walk test again- case management consulted for home oxygen.) Cheri Luna MD July 29, 2017 13:48
[2017-07-29] MEDS: LEVOFLOXACIN 750 MG TAB PO SCH (15:31)
[2017-07-29] MEDS: ACETAMINOPHEN/HYDROcodone 325 MG/10 MG TAB PO PRN ×2 (17:41→22:14)
[2017-07-29] MEDS: ENOXAPARIN SODIUM 40 MG/0.4 ML SYRINGE SQ SCH (17:41)
[2017-07-30] VITALS (7 sets, daily range): BP systolic 111–127; BP diastolic 57–66; PULSE 58–73; RESP 18; TEMP 97.3–97.9; O2SAT 95–96
[2017-07-30] MEDS: methylPREDNISolone SOD SUCC 40 MG/1 ML VIAL IV PUSH SCH (04:57)
[2017-07-30] MEDS: INSULIN ASPART SUPPLEMENTAL SCALE SQ SCH ×2 (08:00→12:00)
[2017-07-30] MEDS: ISOSORBIDE MONONITRATE 20 MG TAB PO SCH (08:58)
[2017-07-30] MEDS: FOLIC ACID 1 MG TAB PO SCH (08:58)
[2017-07-30] MEDS: ASPIRIN EC 81 MG TABEC PO SCH (08:58)
[2017-07-30] MEDS: sulfaSALAzine 500 MG TAB PO SCH (08:58)
[2017-07-30] MEDS: NYSTATIN SUSP 500,000 U/5 ML CUP SWISH-SWAL SCH ×2 (08:59→13:00)
[2017-07-30] MEDS: metFORMIN HCL 500 MG TAB PO SCH (08:59)
[2017-07-30] MEDS: ATORVASTATIN 10 MG TAB PO SCH (08:59)
[2017-07-30] MEDS: METOPROLOL TARTRATE 50 MG TAB PO SCH (08:59)
[2017-07-30] MEDS: CLOPIDOGREL 75 MG TAB PO SCH (08:59)
--- NOTE | 2017-07-30 10:52 | HHI.PR ---
Subjective Remarks No new complaints, shortness of breath stable, on 1 L of oxygen. No chest pain , no nausea or vomiting. Questions answered. Blood pressure stable in the 140s. Objective Vitals Vital Signs Date Time Temp Pulse Resp B/P (MAP) Pulse Ox O2 Delivery O2 Flow Rate FiO2 07/30/17 08:07 97.9 63 18 127/66 (86) 96 07/30/17 04:04 65 07/30/17 04:00 97.8 65 18 127/61 (83) 95 07/30/17 04:00 Nasal Cannula 1.00 07/30/17 00:00 97.9 73 18 125/65 (85) 95 07/29/17 23:41 65 07/29/17 23:22 Nasal Cannula 1.00 07/29/17 20:00 97.9 81 18 144/67 (92) 91 07/29/17 20:00 Room Air 07/29/17 19:57 86 07/29/17 16:07 97.7 72 20 126/70 (88) 95 07/29/17 16:00 81 07/29/17 12:07 97.9 74 20 128/72 (90) 95 07/29/17 12:00 74 I/O 07/29/17 07/29/17 07/29/17 07/30/17 07/30/17 07/30/17 07:00 15:00 23:00 07:00 15:00 23:00 Intake Total 240 ml 380 ml 480 ml Output Total 190 ml 1850 ml Balance 50 ml 380 ml -1370 ml Intake Oral 240 ml 380 ml 480 ml Output Urine Total 190 ml 1850 ml # Voids 6 # Bowel Movements 1 1 0 Result Diagram: 07/27/17 0415 07/27/17 0415 Imaging Last Impressions Chest X-Ray 07/25/17 0600 Signed Impressions: CONCLUSION: Upper lobe predominant consolidation on the right and basilar predominant conso lidation on the left again noted and both sides are slightly worse. Chest CT 07/25/17 0000 Signed Impressions: CONCLUSION: 1. New diffuse bilateral pulmonary consolidations with tiny bilateral pleural effusions. Infectious etiology felt most likely. Noncardiogenic pulmonary edema could have a similar appearance. 2. Left lower lobe pulmonary mass obscured by the consolidations. 3. Significant coronary artery atherosclerotic calcifications. Objective Remarks Not in distress Pupils equal reactive to light, anicteric Regular rate and rhythm Coughing, occasional rhonchi, otherwise clear, no wheezing Abdomen soft nontender. No edema Alert awake and oriented 3. Procedures none A/P Assessment and Plan Sepsis with elevated lactic acid criteria meets severe sepsis likely underlying clinical pneumonia. Underlying history of lung cancer status post radiation therapy about a month ago COPD exacerbation continue Levaquin.continue neb treatment. continue steroids, switch to oral. blood cultures negative so far. failed the walk test last week; failed walk test again, will be discharged on oxygen. CAD status post stent. Clinically stable. continue on metoprolol , Plavix , aspirin, statins. History of rheumatoid arthritis continue on chronic prednisone 5 mg daily Lovenox for DVT prophylaxis Discharge Planning Discharged with home health care today. After oxygen is arranged. Tierney Lomeli MD July 30, 2017 10:52
--- NOTE | 2017-07-30 11:31 | HHI.DS ---
Discharge Summary Admission Date July 20, 2017 at 15:34 Discharge Date: July 30, 2017 Admitting Diagnosis pneumonia, sepsis, elevated troponin (1) COPD (chronic obstructive pulmonary disease) ICD Code: J44.9 - COPD (chronic obstructive pulmonary disease) (2) Pneumonia ICD Code: J18.9 - Pneumonia, unspecified organism Status: Acute Procedures none Brief History - From Admission Patient is a 72-year-old female with known history of rheumatoid arthritis on methotrexate shots once a week, chronic prednisone therapy, CAD status post stents, diabetes type 2, lung cancer recently completed radiation therapy about a month ago. Per patient since for the past 2-3 weeks now has been feeling sick on and off fever bringing up sputum greenish to grayish. Yesterday fever with 101 and this morning 102.. Associated with poor p.o. appetite and generalized weakness. Patient states he saw primary care physician for blood work were done chest x-ray. She does not recall any medications or prescription. Patient just says not feeling well. Persistence of this 102 fever prompted consult to ER and was noted to be tachycardic with a white count elevation and patient admitted for further evaluation. Patient with rheumatoid arthritis still in very independent with ADLs. CBC/BMP: 07/27/17 0415 07/27/17 0415 Imaging Last Impressions Chest X-Ray 07/25/17 0600 Signed Impressions: CONCLUSION: Upper lobe predominant consolidation on the right and basilar predominant conso lidation on the left again noted and both sides are slightly worse. Chest CT 07/25/17 0000 Signed Impressions: CONCLUSION: 1. New diffuse bilateral pulmonary consolidations with tiny bilateral pleural effusions. Infectious etiology felt most likely. Noncardiogenic pulmonary edema could have a similar appearance. 2. Left lower lobe pulmonary mass obscured by the consolidations. 3. Significant coronary artery atherosclerotic calcifications. PE at Discharge Not in distress Pupils equal reactive to light, anicteric Regular rate and rhythm Coughing, occasional rhonchi, otherwise clear, no wheezing Abdomen soft nontender. No edema Alert awake and oriented 3. Hospital Course Patient admitted with shortness of breath secondary to COPD exacerbation with sepsis. Patient also has underlying non-small cell lung cancer status post radiation therapy. Oncology has seen the patient, follow-up with oncology. For COPD exacerbation, patient will continue Levaquin, and oral steroids. She will be going home with oxygen. Patient's hospital course was uneventful. Pt Condition on Discharge: Good Discharge Disposition: Disch w/ Home Health Serv Discharge Time: > 30 minutes Discharge Instructions DIET: Follow Instructions for: Heart Healthy Diet, Diabetic Diet Activities you can perform: Regular-No Restrictions Follow up Referrals: Oncology PCP Follow-up New Medications: Albuterol 18 GM Inh (Ventolin Hfa 18 GM Inh) 90 Mcg/Act Aer 2 PUFF INH Q4-6H PRN for SHORTNESS OF BREATH, #1 INHALER 0 Refills Oxygen (O2) (Oxygen (O2)) Device LITER MARK.CANULA CONTINUOUS for Prevent Hypoxemia, #2 Oxygen Concentrator Portable Gaseous 2 L/min via Nasal Canula Continuous For 99 months Prednisone (Prednisone) 5 Mg Tab 5 MG PO DIRECTED for Shortness of Breath for 10 Days, TAB 0 Refills 40 mg po daily for two days then 30 mg po daily for two days then 20 mg po daily for two days then 10 mg po daily for two days then 5 mg po daily for two days then stop. Walker with Front Wheels (Walker with Front Wheels) 1 Mis Mis EA .XX DIRECTED, #1 0 Refills Levofloxacin (Levaquin) 750 Mg Tablet 750 MG PO Q24H for pneumonia for 5 Days, #5 TAB 0 Refills Continued Medications: Acetaminophen (Mapap) 325 Mg Tab 1300 MG PO BID PRN for PAIN SCALE 1 TO 10, TAB [address] (Aspirin 81) 81 Mg Tabdr 81 MG PO DAILY, #30 TAB 0 Refills Atorvastatin (Atorvastatin) 10 Mg Tab 10 MG PO DAILY for Cholesterol Management, #30 TAB 0 Refills Clopidogrel (Clopidogrel) 75 Mg Tab 75 MG PO DAILY for Blood Clot Prevention, #30 TAB 0 Refills Folic Acid (Folic Acid) 0.4 Mg Tab 1 MG PO DAILY for Nutritional Supplement, TAB 0 Refills Hydrocodone-Acetaminophen (Hydrocodone-Acetaminophen) 10-325 mg Tab 0.5 TAB PO Q4H PRN for PAIN, TAB 0 Refills Isosorbide Mononitrate (Isosorbide Mononitrate) 20 Mg Tab 20 MG PO BID for Prevent Chest Pain, #60 TAB 0 Refills Take 2 doses 7 hours apart. Metformin ER (Glucophage XR) 500 Mg Dolly 1000 MG PO BID for Blood Sugar Management, #60 TAB 0 Refills Methotrexate (Antirheumatic) (Rasuvo) 20 Mg/0.4 Ml Inj Unknown Dose SQ WEEKLY Metoprolol Tartrate (Metoprolol Tartrate) 50 Mg Tab 50 MG PO BID, #60 TAB 0 Refills Prednisone (Prednisone) 5 Mg Tab 5 MG PO DAILY, TAB 0 Refills Sulfasalazine (Sulfasalazine) 500 Mg Tab 500 MG PO BID, #120 TAB 0 Refills Tierney Lomeli MD July 30, 2017 11:31
== END 2017-07-30 14:46 | disposition home or self-care (01) | DRG 871 ==
LOC: NEPC 12:11 → NEDA 15:34 → N04A 19:21
PROVIDERS: ADMIT Hospitalist; ATTEND Hospitalist
DX: A41.9 Sepsis, unspecified organism (principal); J18.9 Pneumonia, unspecified organism; J96.91 Respiratory failure, unspecified with hypoxia; I11.0 Hypertensive heart disease with heart failure; I50.9 Heart failure, unspecified; J84.10 Pulmonary fibrosis, unspecified; E11.9 Type 2 diabetes mellitus without complications; J44.1 Chronic obstructive pulmonary disease with (acute) exacerbation; J44.0 Chronic obstructive pulmonary disease with (acute) lower respiratory infection; M06.9 Rheumatoid arthritis, unspecified; I25.10 Atherosclerotic heart disease of native coronary artery without angina pectoris; R65.20 Severe sepsis without septic shock; G89.29 Other chronic pain; R51 Headache; F41.9 Anxiety disorder, unspecified; E78.00 Pure hypercholesterolemia, unspecified; H91.90 Unspecified hearing loss, unspecified ear; E66.9 Obesity, unspecified; M19.90 Unspecified osteoarthritis, unspecified site; R74.8 Abnormal levels of other serum enzymes; F17.200 Nicotine dependence, unspecified, uncomplicated; I25.2 Old myocardial infarction; Z79.82 Long term (current) use of aspirin; Z86.73 Personal history of transient ischemic attack (TIA), and cerebral infarction without residual deficits; Z79.52 Long term (current) use of systemic steroids; Z79.02 Long term (current) use of antithrombotics/antiplatelets; Z92.3 Personal history of irradiation; Z95.5 Presence of coronary angioplasty implant and graft; Z85.118 Personal history of other malignant neoplasm of bronchus and lung; Z79.899 Other long term (current) drug therapy
CPT/HCPCS: 71045; 71250; 80048; 80053; 81001; 82550; 82552; 82948; 83605; 83735; 84484; 85025; 85610; 85730; 87040; 87070; 87086; 87205; 87804; 93005; 94618; 94640; 94664; 96361; 96365; 96375; J1650; J1815; J1956; J2920; J7030; J7512

== ENCOUNTER 2017-08-12 19:58 | Observation (INO) | payer MEDICARE, OTHER ==
[~2017-08-12 19:58] MED LIST changes: +LEVA750T9 PO; +OXYGENDME NAS.CANULA; -PRED10 PO; +VENTAER INH; +WALKER WHEELS/F1 MIS
[2017-08-12 20:01] VITALS: BP 139/70; PULSE 98; RESP 18; TEMP 98.3; O2SAT 98
[2017-08-12 20:18] VITALS: BP_SYST 114; BP_SYST 117; BP_DIAS 71; BP_DIAS 75; PULSE 105; RESP 20; O2SAT 97
[2017-08-12 20:43] LABS: AUTOMATED NEUTROPHIL # 5.4 TH/MM3 (1.8-7.7); BASOPHIL % 0.1 % (0.0-2.0); EOSINOPHIL # 0.1 TH/MM3 (0-0.4); HEMATOCRIT 39.6 % (35.0-46.0); LYMPH % 18.6 % (9.0-44.0); LYMPHOCYTE # 1.3 TH/MM3 (1.0-4.8); MEAN CELL VOLUME 86.7 FL (80.0-100.0); MEAN CORPUSCULAR HEMOGLOBIN 28.5 PG (27.0-34.0); MEAN CORPUSCULAR HGB CONC 32.9 % (32.0-36.0); MEAN PLATELET VOLUME 7.1 FL (7.0-11.0); MONO % 5.1 % (0.0-8.0); MONOCYTE # 0.4 TH/MM3 (0-0.9); NEUT % 75.2 % (16.0-70.0); PLATELET COUNT 281 TH/MM3 (150-450); RED BLOOD COUNT 4.57 MIL/MM3 (4.00-5.30); RED CELL DISTRIBUTION WIDTH 18.8 % (11.6-17.2); WHITE BLOOD COUNT 7.2 TH/MM3 (4.0-11.0)
[2017-08-12] MEDS ORDERED: RESP: ALBUTEROL 2.5 MG/IPRATROPIUM 0.5 MG NEB (SCH) NEB ONE (20:45)
--- NOTE | 2017-08-12 20:47 | PD ---
HPI . COUGH SOB CP Chief Complaint: Chest Pain Time Seen by Provider: 20:06 Travel History International Travel<30 days: No Contact w/Intl Traveler<30days: No Traveled to known affect area: No History of Present Illness HPI pt has had a cough getting worse over last few days was on levaquin and that finished 4 days ago. She recently was on prednisone and levaquin after admission to our faciltiy ,. 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 her Oncologist pt thinks she had sinusitis before the radiation and thinks that led to PNA LEFT sided. . PT Sx are getting worse and now off meds for PNA , home Nebs not relieving her symptoms and feels CP left arm . has sputum filled basin on her lap when i enter exam room, PFSH Past Medical History Hx Anticoagulant Therapy: Yes (PLAVIX) Arthritis: Yes Asthma: No Autoimmune Disease: No Blood Disorders: No Anxiety: Yes Depression: No Heart Rhythm Problems: No Cancer: No Cardiac Catheterization: Yes (PER PATIENT 1997 AND 2003 HERE AT [facility]) Cardiovascular Problems: Yes (Stents x4) High Cholesterol: Yes Chemotherapy: No Chest Pain: Yes Congestive Heart Failure: Yes COPD: Yes Cerebrovascular Accident: Yes Coronary Artery Disease: Yes Diabetes: Yes Patient Takes Glucophage: Yes Diminished Hearing: Yes (LEFT SIDE UPPER [place]) Endocrine: Yes Gastrointestinal Disorders: Yes (H PYLORI) GERD: Yes Glaucoma: No Genitourinary: No Headaches: Yes Hepatitis: No Hiatal Hernia: No Heparin Induced Thrombocytopen: No Hypertension: Yes Immune Disorder: No Implanted Vascular Access Dvce: No Kidney Stones: No Medical other: Yes ( ANGIOEDEMA) Musculoskeletal: Yes (RA) Neurologic: Yes Psychiatric: Yes Reproductive: No Respiratory: Yes Immunizations Current: Yes Migraines: No Myocardial Infarction: Yes (X 2) Radiation Therapy: No Renal Failure: No Seizures: No Sickle Cell Disease: No Sleep Apnea: No Thyroid Disease: No Ulcer: No PNEUMOCCOCAL Vaccine (Year): 1 Menopausal: Yes : 5 Para: 2 Miscarriage: 3 Ectopic : Yes (X 1) Ovarian Cysts: Yes Tubal Ligation: Yes Past Surgical History Abdominal Surgery: Yes (ECTOPIC PREG) AICD: No Appendectomy: Yes Arteriovenous Shunt: No Body Medical Devices: STENTS Cardiac Surgery: Yes Cholecystectomy: No Coronary Artery Bypass Graft: No Coronary Stent: Yes (STENTS X 4) Ear Surgery: No Endocrine Surgery: No Eye Surgery: Yes (CATARACT SURGERY BILATERAL) Gynecologic Surgery: Yes (ONE OVARY REMOVED AND ONE FALLOPIAN TUBE REMOVED ) Insulin Pump: No Joint Replacement: No Oral Surgery: Yes (TEETH REMOVED) Pacemaker: No Tonsillectomy: Yes Other Surgery: Yes (BENIGN GROWTH REMOVED FROM STERNUM; CYSTS REMOVED FROM BILAT. BREASTS) Family History Family Myocardial Infarction: Yes (Mom) Social History Alcohol Use: No Tobacco Use: Yes (5 cigs/day) Substance Use: No Allergies-Medications (Allergen,Severity, Reaction): Coded Allergies: diatrizoate meglumine (Verified Allergy, Severe, Edema, 08/12/17) angioedema per pt enalaprilat (Verified Allergy, Severe, Swelling, 08/12/17) gadobenic acid (Verified Allergy, Severe, Edema, 08/12/17) angioedema per pt gadodiamide (Verified Allergy, Severe, Edema, 08/12/17) angioedema per pt gadoteridol (Verified Allergy, Severe, Edema, 08/12/17) angioedema per pt iodixanol (Verified Allergy, Severe, Edema, 08/12/17) angioedema per pt iohexol (Verified Allergy, Severe, Edema, 08/12/17) angioedema per pt penicillin G (Verified Allergy, Severe, Anaphylaxis, 08/12/17) Uncoded Allergies: EVERYTHING ON AND OFF..;ANGIODEMA... (Allergy, Severe, Anaphylaxis, 01/05/10 ) TAKES 60 MG PREDNISONE,150MG ZANTAC AND 50MG BENADRYL WHEN TONGUE BEGINS TO SWELL AND LIPS SWELL mycins (Allergy, Severe, 01/05/10) Reported Meds & Prescriptions Reported Meds & Active Scripts Active Oxygen (O2) Device Liter MARK.CANULA CONTINUOUS Oxygen Concentrator Portable Gaseous 2 L/min via Nasal Canula Continuous For 99 months Walker with Front Wheels (Device) 1 Mis Mis Ea .XX DIRECTED Metoprolol Tartrate 50 Mg Tab 50 Mg PO BID Aspirin 81 (Aspirin) 81 Mg Tabdr 81 Mg PO DAILY Blood Glucose Test Strips 1 Sandhya Sandhya 1 Ea .ROUTE DIRECTED Glucophage XR (Metformin HCl) 500 Mg Dolly 1,000 Mg PO BID Clopidogrel (Clopidogrel Bisulfate) 75 Mg Tab 75 Mg PO DAILY Reported Mapap (Acetaminophen) 325 Mg Tab 1,300 Mg PO BID PRN Hydrocodone-Acetaminophen 10-325 mg Tab 0.5 Tab PO Q4H PRN Isosorbide Mononitrate 20 Mg Tab 20 Mg PO BID Take 2 doses 7 hours apart. Sulfasalazine 500 Mg Tab 500 Mg PO BID Atorvastatin (Atorvastatin Calcium) 10 Mg Tab 10 Mg PO DAILY Folic Acid 0.4 Mg Tab 1 Mg PO DAILY Rasuvo (Methotrexate (Antirheumatic)) 20 Mg/0.4 Ml Inj Unknown Dose SQ WEEKLY Review of Systems Except as stated in HPI: all other systems reviewed are Neg General / Constitutional: Positive: Chills HENT: Positive: Sore Throat (sputum production ) Respiratory: Positive: Cough Physical Exam Narrative GENERAL: awake alert non toxic appearance. good historian SKIN: Warm and dry. HEAD: Atraumatic. Normocephalic. EYES: Pupils equal and round. No scleral icterus. No injection or drainage. ENT: No nasal bleeding or discharge. Mucous membranes pink and moist. NECK: Trachea midline. No JVD. CARDIOVASCULAR: Regular rate and rhythm. RESPIRATORY: coarse BS right >Left expiratory GASTROINTESTINAL: Abdomen soft, non-tender, nondistended. Hepatic and splenic margins not palpable. MUSCULOSKELETAL: Extremities without clubbing, cyanosis, or edema. No obvious deformities. NEUROLOGICAL: Awake and alert. No obvious cranial nerve deficits. Motor grossly within normal limits. Five out of 5 muscle strength in the arms and legs. Normal speech. PSYCHIATRIC: Appropriate mood and affect; insight and judgment normal. Data Data Last Documented VS Orders Orders Electrocardiogram (08/12/17 20:06) Complete Blood Count With Diff (08/12/17 20:06) Comprehensive Metabolic Panel (08/12/17 20:06) Ckmb (Isoenzyme) Profile (08/12/17 20:06) Troponin I (08/12/17 20:06) Lipase (08/12/17 20:06) Thyroid Stimulating Hormone (08/12/17 20:06) Chest, Pa & Lat (08/12/17 20:06) Albuterol-Ipratropium Neb (Duoneb Neb) (08/12/17 20:45) Group A Rapid Strep Screen (08/12/17 22:58) Influenzae A/B Antigen (08/12/17 22:58) Strep Culture (Group A) (08/12/17 23:10) Ct Thorax/ Chest Wo Iv Contras (08/13/17 ) Albuterol-Ipratropium Neb (Duoneb Neb) (08/13/17 01:30) Diphenhydramine (Benadryl) (08/13/17 01:30) Bedside Glucose ALAYNA.CSUGAR (08/13/17 01:24) Blood Glucose Goal (Criteria) (08/13/17 01:24) Hypoglycemia 70 Mg/Dl Or < (08/13/17 01:24) Notify Dr: Other (08/13/17 01:24) Dextrose 50% In Kristin (Vial) Inj (D50w (Vi (08/13/17 01:30) Glucagon Inj (Glucagon Inj) (08/13/17 01:30) Insulin Aspart Supplemtl Scale (Novolog (08/13/17 08:00) Place In Observation (08/13/17 ) Vital Signs (Adult) Q4H (08/13/17 01:25) Activity Bed Rest With Brp (08/13/17 ) Agency Legal Counsel / Telemetry ALAYNA.Q8H (08/13/17 01:25) Notify Dr: Other (08/13/17 ) Sodium Chloride 0.9% Flush (Ns Flush) (08/13/17 09:00) Sodium Chloride 0.9% Flush (Ns Flush) (08/13/17 01:30) Aspirin (Aspirin) (08/13/17 09:00) Nitroglycerin Sl (Nitrostat Sl) (08/13/17 01:30) Creatine Kinase (Cpk) (08/13/17 02:25) Creatine Kinase (Cpk) (08/13/17 08:25) Troponin I (08/13/17 02:25) Troponin I (08/13/17 08:25) Basic Metabolic Panel (Bmp) (08/14/17 06:00) Complete Blood Count With Diff (08/14/17 06:00) Electrocardiogram (08/13/17 02:25) Electrocardiogram (08/13/17 08:25) Resp Oxygen Mark C Titrat 1-4 L (08/13/17 ) Labs Laboratory Tests Test 08/12/17 20:25 White Blood Count 7.2 TH/MM3 Red Blood Count 4.57 MIL/MM3 Hemoglobin 13.0 GM/DL Hematocrit 39.6 % Mean Corpuscular Volume 86.7 FL Mean Corpuscular Hemoglobin 28.5 PG Mean Corpuscular Hemoglobin Concent 32.9 % Red Cell Distribution Width 18.8 % Platelet Count 281 TH/MM3 Mean Platelet Volume 7.1 FL Neutrophils (%) (Auto) 75.2 % Lymphocytes (%) (Auto) 18.6 % Monocytes (%) (Auto) 5.1 % Eosinophils (%) (Auto) 1.0 % Basophils (%) (Auto) 0.1 % Neutrophils # (Auto) 5.4 TH/MM3 Lymphocytes # (Auto) 1.3 TH/MM3 Monocytes # (Auto) 0.4 TH/MM3 Eosinophils # (Auto) 0.1 TH/MM3 Basophils # (Auto) 0.0 TH/MM3 CBC Comment DIFF FINAL Differential Comment Blood Urea Nitrogen 4 MG/DL Creatinine 0.69 MG/DL Random Glucose 87 MG/DL Total Protein 7.7 GM/DL Albumin 2.5 GM/DL Calcium Level 9.6 MG/DL Alkaline Phosphatase 87 U/L Aspartate Amino Transf (AST/SGOT) 16 U/L Alanine Aminotransferase (ALT/SGPT) 17 U/L Total Bilirubin 0.3 MG/DL Sodium Level 136 MEQ/L Potassium Level 3.9 MEQ/L Chloride Level 103 MEQ/L Carbon Dioxide Level 22.2 MEQ/L Anion Gap 11 MEQ/L Estimat Glomerular Filtration Rate 102 ML/MIN Total Creatine Kinase 42 U/L Troponin I LESS THAN 0.02 NG/ML Lipase 132 U/L Thyroid Stimulating Hormone 3rd Gen 0.380 uIU/ML [facility] Medical Decision Making Medical Screen Exam Complete: Yes Emergency Medical Condition: Yes Medical Record Reviewed: Yes Differential Diagnosis recurrent pneumonia , copd exacerbation , bronchitis , other Narrative Course CXR shows continued RUL lung infiltrate and pt has coughing sputum and SOB and CP needs possible change of antibiotics she just finished a taper of prednisone and 10 days of levaquin. Possible scarring vs failure of PO antibiotics admit to hospital Diagnosis Primary Impression: COPD (chronic obstructive pulmonary disease) Qualified Codes: J42 - Unspecified chronic bronchitis Additional Impressions: pneumonia Chest pain Qualified Codes: R07.9 - Chest pain, unspecified Iggy Arnold MD Aug 12, 2017 20:47
[2017-08-12 21:00] VITALS: O2SAT 97
[2017-08-12 21:03] LABS: ALBUMIN 2.5 GM/DL (3.4-5.0); AST (GOT) 16 U/L (15-37); BICARBONATE 22.2 MEQ/L (21.0-32.0); BLOOD UREA NITROGEN 4 MG/DL (7-18); CALCIUM 9.6 MG/DL (8.5-10.1); CHLORIDE 103 MEQ/L (98-107); CREATININE 0.69 MG/DL (0.50-1.00); GLOMERULAR FILTRATION RATE 102 ML/MIN (>89); GLUCOSE,RANDOM 87 MG/DL (74-106); SODIUM (NA) 136 MEQ/L (136-145)
[2017-08-12 21:15] LABS: ALKALINE PHOSPHATASE 87 U/L (45-117); ALT (GPT) 17 U/L (10-53); TOTAL BILIRUBIN ADULT 0.3 MG/DL (0.2-1.0); TOTAL PROTEIN 7.7 GM/DL (6.4-8.2); TROPONIN I LESS THAN 0.02 NG/ML (0.02-0.05)
--- NOTE | 2017-08-12 21:36 | RADRPT ---
EXAM DATE: 08/12/2017 9:21 PM EDT AGE/SEX: 72 years / Female INDICATIONS: Chest pain. CLINICAL DATA: This is the patient's initial encounter. Patient reports that signs and symptoms have been present for 3 days and indicates a pain score of 0/10. MEDICAL/SURGICAL HISTORY: None. None. COMPARISON: [facility] – [place], CHEST PA & LAT, 12/04/2014. . FINDINGS: Coarse interstitial changes in the right upper lobe and left lung base, similar to prior. No evidence of lobar consolidation or pleural effusion. Cardiac contours are stable and satisfactory. Thoracic s keleton is stable. CONCLUSION: Coarse bilateral interstitial changes, similar to prior to representing chronic finding or recurrent infiltrates. Electronically signed by: Chaparro James MD 08/12/2017 9:35 PM EDT
[2017-08-13] VITALS (12 sets, daily range): BP systolic 93–120; BP diastolic 51–62; PULSE 80–103; RESP 16–20; TEMP 98–98.6; O2SAT 93–98
--- NOTE | 2017-08-13 00:39 | RADRPT ---
EXAM DATE: 08/13/2017 12:21 AM EDT AGE/SEX: 72 years / Female INDICATIONS: Shortness of breath and chest pain. CLINICAL DATA: This is the patient's initial encounter. Patient reports that signs and symptoms have been present for 1 day and indicates a pain score of 6/10. MEDICAL/SURGICAL HISTORY: Chronic obstructive pulmonary disease. Hypertension. Congestive heart f ailure. CVA. CAD. MT. Coronary artery stent. CABG. RADIATION DOSE: 12.22 CTDI (mGy) COMPARISON: [facility], CT CHEST W/ CONTRAST, 05/14/2017. . TECHNIQUE: Multiple contiguous axial images were obtained through the chest without contrast. Image s were obtained in suspended respiration using multiple row detector helical technique. Using automa murali exposure control and adjustment of the mA and/or kV according to patient size, radiation dose was kept as low as reasonably achievable to obtain optimal diagnostic quality images. FINDINGS: Lungs: Rounded previously identified mass in the posterior left lower lobe measures 2.5 x 1.6 cm com pared to 2.1 x 1.8 cm on the prior study of 05/14/2017. Irregularly-shaped area of pulmonary consolida tion in the right upper lobe is unchanged in overall extent but is less confluent and now has predomi nantly linear character. Similar findings at the right mid lung zone opacity and posterior right lowe r lung zone opacity. Consolidation in the left lower lobe is also decreased in severity. No new areas of consolidation identified. Mediastinum: Diffuse aortic calcification. Extensive coronary artery calcification. No enlarged lymp h nodes. Pleurae: No evidence of focal thickening or pleural effusion. Axillae: Unremarkable. Bony Structures: Unremarkable. Miscellaneous: Extensive arterial calcification of the upper abdomen. Upper abdomen otherwise within normal limits. CONCLUSION: 1. Posterior left lower lobe pulmonary mass measures slightly larger than on the comparison study of 05/14/2017. The increase in measurement may be partially attributable to adjacent consolidation. 2. Extensive pulmonary consolidation bilaterally has decreased in severity when compared to the prio r study. The areas now have more linear configurations suggesting a component of scarring. 3. Diffuse arterial calcification including coronary artery calcification. Electronically signed by: Adis Jones MD 08/13/2017 12:38 AM EDT
[2017-08-13] MEDS ORDERED: GLUCAGON 1 MG/ML VIAL OTHER PRN (01:30)
[2017-08-13] MEDS ORDERED: RESP: ALBUTEROL 2.5 MG/IPRATROPIUM 0.5 MG NEB (PRN) NEB (01:30)
[2017-08-13] MEDS ORDERED: NITROGLYCERIN 0.4 MG SL 25 TABS/BTL SL PRN (01:30)
[2017-08-13] MEDS ORDERED: SODIUM CHLORIDE 0.9% FLUSH 10 ML FLUSH IV FLUSH PRN (01:30)
[2017-08-13] MEDS ORDERED: ACETAMINOPHEN/HYDROcodone 325 MG/10 MG TAB PO PRN (01:30)
[2017-08-13] MEDS ORDERED: diphenhydrAMINE HCL 25 MG CAP PO PRN (01:30)
[2017-08-13] MEDS ORDERED: DEXTROSE 50% IN WATER 50 ML VIAL(D50) IV PUSH PRN (01:30)
--- NOTE | 2017-08-13 03:28 | HHI.HP ---
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 The patient reports she has chest pain that radiates up her left neck that is substernal. She recently completed radiation therapy at the end of June. Patient was discharged from the hospital on 07/30/17 where she was treated for a COPD exacerbation with sepsis. She was discharged on home oxygen, prednisone and Levaquin. The patient reports she has had a consistent cough that has not worsened. She denies any fever/chills. No abdominal pain. No nausea/vomiting/diarrhea. No lateralizing signs/symptoms. No fever/chills. 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, rheumatoid arthritis on methotrexate shots once a week, chronic prednisone therapy, CAD status post stents, diabetes type 2 and COPD Past Surgical History History of ectopic Daughter states he had growth in the sternum that was removed Reported Medications Reported Meds & Active Scripts Active Oxygen (O2) Device Liter MARK.CANULA CONTINUOUS Oxygen Concentrator Portable Gaseous 2 L/min via Nasal Canula Continuous For 99 months Walker with Front Wheels (Device) 1 Mis Mis Ea .XX DIRECTED Metoprolol Tartrate 50 Mg Tab 50 Mg PO BID Aspirin 81 (Aspirin) 81 Mg Tabdr 81 Mg PO DAILY Blood Glucose Test Strips 1 Sandhya Sandhya 1 Ea .ROUTE DIRECTED Glucophage XR (Metformin HCl) 500 Mg Dolly 1,000 Mg PO BID Clopidogrel (Clopidogrel Bisulfate) 75 Mg Tab 75 Mg PO DAILY Reported Mapap (Acetaminophen) 325 Mg Tab 1,300 Mg PO BID PRN Hydrocodone-Acetaminophen 10-325 mg Tab 0.5 Tab PO Q4H PRN Isosorbide Mononitrate 20 Mg Tab 20 Mg PO BID Take 2 doses 7 hours apart. Sulfasalazine 500 Mg Tab 500 Mg PO BID Atorvastatin (Atorvastatin Calcium) 10 Mg Tab 10 Mg PO DAILY Folic Acid 0.4 Mg Tab 1 Mg PO DAILY Rasuvo (Methotrexate (Antirheumatic)) 20 Mg/0.4 Ml Inj Unknown Dose SQ WEEKLY Allergies: Coded Allergies: diatrizoate meglumine (Verified Allergy, Severe, Edema, 08/12/17) angioedema per pt enalaprilat (Verified Allergy, Severe, Swelling, 08/12/17) gadobenic acid (Verified Allergy, Severe, Edema, 08/12/17) angioedema per pt gadodiamide (Verified Allergy, Severe, Edema, 08/12/17) angioedema per pt gadoteridol (Verified Allergy, Severe, Edema, 08/12/17) angioedema per pt iodixanol (Verified Allergy, Severe, Edema, 08/12/17) angioedema per pt iohexol (Verified Allergy, Severe, Edema, 08/12/17) angioedema per pt penicillin G (Verified Allergy, Severe, Anaphylaxis, 08/12/17) Uncoded Allergies: EVERYTHING ON AND OFF..;ANGIODEMA... (Allergy, Severe, Anaphylaxis, 01/05/10 ) TAKES 60 MG PREDNISONE,150MG ZANTAC AND 50MG BENADRYL WHEN TONGUE BEGINS TO SWELL AND LIPS SWELL mycins (Allergy, Severe, 01/05/10) Family History Negative for CAD/DM Social History Smokes approximately 8 cigarettes per day. Denies alcohol and illicit drugs. Physical Exam Vital Signs Vital Signs Date Time Temp Pulse Resp B/P (MAP) Pulse Ox O2 Delivery O2 Flow Rate FiO2 08/13/17 02:38 08/12/17 21:00 97 21 08/12/17 20:18 105 20 114/75 (88) 97 Room Air 117/71 (86) 08/12/17 20:01 98.3 98 18 139/70 (93) 98 Physical Exam GENERAL: -[place] female lying in bed, sleeping SKIN: No rashes, ecchymoses or lesions. Cool and dry. HEAD: Atraumatic. Normocephalic. No temporal or scalp tenderness. EYES: Pupils equal round and reactive. Extraocular motions intact. No scleral icterus. No injection or drainage. ENT: Nose without bleeding, purulent drainage or septal hematoma. Throat without erythema, tonsillar hypertrophy or exudate. Uvula midline. Airway patent. NECK: Trachea midline. No JVD or lymphadenopathy. Supple, nontender, no meningeal signs. CARDIOVASCULAR: Regular rate and rhythm without murmurs, gallops, or rubs. RESPIRATORY: Bilateral rhonchi and expiratory wheezes. GASTROINTESTINAL: Abdomen soft, non-tender, nondistended. No hepato-splenomegaly , or palpable masses. No guarding. MUSCULOSKELETAL: Extremities without clubbing, cyanosis, or edema. No joint tenderness, effusion, or edema noted. No calf tenderness. NEUROLOGICAL: Awake and alert. Cranial nerves II through XII intact. Motor and sensory grossly within normal limits. Normal speech. Laboratory Laboratory Tests Test 08/12/17 20:25 White Blood Count 7.2 Red Blood Count 4.57 Hemoglobin 13.0 Hematocrit 39.6 Mean Corpuscular Volume 86.7 Mean Corpuscular Hemoglobin 28.5 Mean Corpuscular Hemoglobin Concent 32.9 Red Cell Distribution Width 18.8 Platelet Count 281 Mean Platelet Volume 7.1 Neutrophils (%) (Auto) 75.2 Lymphocytes (%) (Auto) 18.6 Monocytes (%) (Auto) 5.1 Eosinophils (%) (Auto) 1.0 Basophils (%) (Auto) 0.1 Neutrophils # (Auto) 5.4 Lymphocytes # (Auto) 1.3 Monocytes # (Auto) 0.4 Eosinophils # (Auto) 0.1 Basophils # (Auto) 0.0 CBC Comment DIFF FINAL Differential Comment Blood Urea Nitrogen 4 Creatinine 0.69 Random Glucose 87 Total Protein 7.7 Albumin 2.5 Calcium Level 9.6 Alkaline Phosphatase 87 Aspartate Amino Transf (AST/SGOT) 16 Alanine Aminotransferase (ALT/SGPT) 17 Total Bilirubin 0.3 Sodium Level 136 Potassium Level 3.9 Chloride Level 103 Carbon Dioxide Level 22.2 Anion Gap 11 Estimat Glomerular Filtration Rate 102 Total Creatine Kinase 42 Troponin I LESS THAN 0.02 Lipase 132 Thyroid Stimulating Hormone 3rd Gen 0.380 Date/Time Source Procedure Growth Status 08/12/17 23:10 Throat Group A Streptococcus Screen Pending Received Result Diagram: 08/12/17202408/12/172024 Caprini VTE Risk Assessment Caprini VTE Risk Assessment: Mod/High Risk (score >= 2) Caprini Risk Assessment Model Point Value = 1 Point Value = 2 Point Value = 3 Point Value = 5 Age 41-60 Minor surgery BMI > 25 kg/m2 Swollen legs Varicose veins or History of unexplained or recurrent spontaneous Oral contraceptives or hormone replacement Sepsis (< 1 month) Serious lung disease, including pneumonia (< 1 month) Abnormal pulmonary function Acute myocardial infarction Congestive heart failure (< 1 month) History of inflammatory bowel disease Medical patient at bed rest Age 61-74 Arthroscopic surgery Major open surgery (> 45 min) Laparoscopic surgery (> 45 min) Malignancy Confined to bed (> 72 hours) Immobilizing plaster cast Central venous access Age >= 75 History of VTE Family history of VTE Factor V Leiden Prothrombin [id number] Lupus anticoagulant Anticardiolipin antibodies Elevated serum homocysteine Heparin-induced thrombocytopenia Other congenital or acquired thrombophilia Stroke (< 1 month) Elective arthroplasty Hip, pelvis, or leg fracture Acute spinal cord injury (< 1 month) Prophylaxis Regimen Total Risk Factor Score Risk Level Prophylaxis Regimen 0-1 Low Early ambulation 2 Moderate Order ONE of the following: *Sequential Compression Device (SCD) *Heparin 5000 units SQ BID 3-4 Higher Order ONE of the following medications: *Heparin 5000 units SQ TID *Enoxaparin/Lovenox 40 mg SQ daily (WT < 150 kg, CrCl > 30 mL/min) *Enoxaparin/Lovenox 30 mg SQ daily (WT < 150 kg, CrCl > 10-29 mL/min) *Enoxaparin/Lovenox 30 mg SQ BID (WT < 150 kg, CrCl > 30 mL/min) AND/OR *Sequential Compression Device (SCD) 5 or more Highest Order ONE of the following medications: *Heparin 5000 units SQ TID (Preferred with Epidurals) *Enoxaparin/Lovenox 40 mg SQ daily (WT < 150 kg, CrCl > 30 mL/min) *Enoxaparin/Lovenox 30 mg SQ daily (WT < 150 kg, CrCl > 10-29 mL/min) *Enoxaparin/Lovenox 30 mg SQ BID (WT < 150 kg, CrCl > 30 mL/min) AND *Sequential Compression Device (SCD) Assessment and Plan Assessment and Plan Assessment/plan: 1. Chest pain Patient with acute onset chest pain that began yesterday EKG significant for sinus tachycardia, no ST segment elevations or depressions, personally reviewed Initial troponin negative ACS rule out pending; serial troponins/EKGs 2. COPD/shortness of breath Shortness of breath acutely worsened today with accompanying chest pain Patient denies any significant changes in her cough/sputum production Duo nebs CT chest significant for extensive pulmonary consolidation which has decreased in severity as compared to previous study, personally reviewed 3. Neuroendocrine tumor involving lung CT chest showed posterior left lower lobe pulmonary mass measuring slightly larger than previous (the increase may be partially attributable to the adjacent consolidation) Status post radiation therapy completed at the end of June Follow-up with medical oncology, Dr. Gold, as an outpatient 4. Rheumatoid arthritis Continue weekly methotrexate as outpatient 5. Diabetes mellitus Holding home metformin Sliding-scale insulin Monitor blood glucose 6. CAD Continue home medications FEN N.p.o. Electrolytes: Monitor and replete as needed Heparin Amanda Chinchilla MD Aug 13, 2017 03:28
[2017-08-13 03:43] LABS: TROPONIN I LESS THAN 0.02 NG/ML (0.02-0.05)
[2017-08-13] MEDS: ISOSORBIDE MONONITRATE 20 MG TAB PO SCH ×2 (06:16→14:03)
[2017-08-13] MEDS: HEPARIN SODIUM - SQ 10,000 UNITS/ML VIAL SQ SCH ×3 (06:17→21:42)
[2017-08-13] MEDS: sulfaSALAzine 500 MG TAB PO SCH ×2 (08:52→21:42)
[2017-08-13] MEDS: CLOPIDOGREL 75 MG TAB PO SCH (08:52)
[2017-08-13] MEDS: SODIUM CHLORIDE 0.9% FLUSH 10 ML FLUSH IV FLUSH SCH ×2 (08:52→21:43)
[2017-08-13] MEDS: ATORVASTATIN 10 MG TAB PO SCH (08:52)
[2017-08-13] MEDS: ASPIRIN 325 MG TAB PO SCH (08:52)
[2017-08-13] MEDS: INSULIN ASPART SUPPLEMENTAL SCALE SQ SCH ×4 (08:56→21:44)
[2017-08-13] MEDS: METOPROLOL TARTRATE 50 MG TAB PO SCH ×2 (09:39→21:42)
[2017-08-13 10:39] LABS: TROPONIN I LESS THAN 0.02 NG/ML (0.02-0.05)
[2017-08-13] MEDS ORDERED: REGADENOSON INJ 0.4 MG/5 ML SYR ONE (16:16)
--- NOTE | 2017-08-13 18:08 | MB ---
cc: Edmund Hernandez Vincent G DO DATE: 08/13/2017 REASON FOR CONSULTATION: Chest pain. HISTORY OF PRESENT ILLNESS: Caty Tavarez is a pleasant 72-year-old female whom I see in the office and presented due to chest pain and shortness of breath today. She has had known chest pain for some time, ever since I met her. She states that this chest pain was different, as it was kind of on the left side and around her left chest wall and up the neck and around her arm. She said that this episode happened acutely this morning. She has also been short of breath, but that has been somewhat chronic in nature. She has had this constant cough over the past week, which has not gotten better or worse. When she coughs, she gets extensive chest pain throughout the chest wall, but this is somewhat different than the pain that brought her in. She denies fevers or chills. PAST MEDICAL HISTORY: 1. Neuroendocrine tumor involving the left lower lobe of the lung. 2. Rheumatoid arthritis, on methotrexate. 3. Chronic prednisone therapy. 4. Coronary artery disease. 5. Diabetes mellitus type 2. 6. Chronic obstructive pulmonary disease. PAST SURGICAL HISTORY: 1. 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 2. Cardiac catheterization (06/18/2016): Left main 10%-20%. LAD proximal 20%. Previous stent in the proximal LAD to mid portion is patent with no in-stent restenosis. Left circ is a small vessel with 50% disease proximally. It gives off 3 obtuse marginals, which are small in nature with the first one having 80% disease throughout. RCA has 10% to 20% diffuse disease throughout the proximal and distal portion. Balloon angioplasty of the mid RCA shows 20% in-stent restenosis. Distally, it gives off a PDA with a 40% ostial stenosis. Distal to the takeoff of the PDA and PLV, there appears to be an occluded stent that was previously balloon angioplastied in July. This was treated medically. 3. History of ectopic . ALLERGIES: 1. DIATRIZOATE MEGLUMINE. 2. ENALAPRIL. 3. GADOBENIC ACID. 4. GADODIAMIDE. 5. GADOTERIDOL. 6. IODIXANOL. 7. ____. 8. PENICILLIN. 9. MYCINS. MEDICATIONS: 1. Sulfasalazine 500 mg b.i.d. 2. Oxygen 2 liters at home. 3. Methotrexate weekly. 4. Plavix 75 mg daily. 5. Lipitor 10 mg daily. 6. Isosorbide mononitrate 20 mg b.i.d. 7. Metoprolol tartrate 50 mg b.i.d. 8. Aspirin 81 mg daily. 9. Hydrocodone/acetaminophen 10/325 half tab every 4 hours as needed for pain. 10. Metformin 1000 mg b.i.d. 11. Folic acid 1 mg daily. FAMILY HISTORY: Denies premature coronary artery disease or sudden cardiac within the family. SOCIAL HISTORY: The patient smokes approximately 8 cigarettes per day. Denies alcohol or drug abuse. REVIEW OF SYSTEMS: Fourteen systems are reviewed including osteopathic. Pertinent positives and negatives as above, otherwise negative. PHYSICAL EXAMINATION: VITAL SIGNS: Temperature 98.6, heart rate 81, blood pressure 96/51, respirations 16, pulse oximetry 95% on room air. GENERAL: The patient appears well in no acute distress, alert, awake and oriented x3. HEENT: Extraocular muscles intact. Mucous membranes moist. NECK: Supple. No JVD at 45 degrees. No carotid bruits heard bilaterally. Carotid upstroke is brisk in nature. HEART: Regular rate and rhythm. Positive first and second heart sounds with no noted murmurs, gallops or rubs. LUNGS: Decreased breath sounds bilaterally, but no overt wheezes, rales or rhonchi. ABDOMEN: Soft, nontender, nondistended, no organomegaly noted. EXTREMITIES: Show no clubbing, cyanosis or edema. Femoral and distal pulses are intact bilaterally. NEUROLOGIC: No focal deficits. SKIN: Warm, dry and intact. OSTEOPATHIC: No kyphoscoliosis, lordosis or paraspinal tender points. LABORATORY DATA: Hemoglobin 13.0, hematocrit 39.6, platelets 281. Potassium 3.9, BUN 4, creatinine 0.69. Troponin negative x3. CARDIOLOGY STUDIES: Electrocardiogram (08/13/2017 at 0840): Sinus rhythm, nonspecific ST-T wave changes. IMPRESSION: 1. Atypical chest pain different than her previous chest pain. 2. Shortness of breath with a history of chronic obstructive pulmonary disease. 3. Neuroendocrine tumor involving the lung on the left side. 4. Rheumatoid arthritis. 5. Tobacco abuse. 6. Diabetes mellitus. RECOMMENDATIONS: 1. Ms. Tavarez presented with what appears to be relatively atypical chest pain and will undergo pharmacologic nuclear stress testing. 2. If this is positive, she may need to wait until Thursday for further recommendation of cardiac catheterization. 3. Risks, benefits, and alternatives were explained to her and she consented as such. 4. If this is negative, she possibly could have chest pain due to her neuroendocrine tumor in her lung. 5. Overall, her shortness of breath sounds to be more likely due to her COPD. 6. I spoke to her for greater than 3 minutes about tobacco cessation. Thank you for allowing me to see Caty Tavarez. If there are any questions, please do not hesitate to call. Edmund Hernandez, VGP/SA/ , 04:59 PM , 05:37 PM
--- NOTE | 2017-08-13 18:14 | RADRPT ---
EXAM DATE: 08/13/2017 5:24 PM EDT AGE/SEX: 72 years / Female INDICATIONS:Coronary artery disease. Myocardial infarction Chest pain and short of breath. CLINICAL DATA: This is the patient's initial encounter. Patient reports that signs and symptoms have been present for 1 day and indicates a pain score of 2/10. MEDICAL/SURGICAL HISTORY: Diabetes mellitus type II. Hypertension. Tumor in lung. Tubal ligat ion. COMPARISON: No prior exams available for comparison. DOSE: 26.8 mCi Tc 99m Myoview at stress 8.1 mCi [id number] at rest 0.4 mg Lexiscan STRESS SYMPTOMS: Headache. EJECTION FRACTION: 56 % TECHNIQUE: The patient underwent pharmacologic stress with infusion of prescribed dose. Continuous ECG tracing was monitored during stress. Gated SPECT imaging was performed after stress and conventi onal SPECT imaging was performed at rest. The examination was performed on a SPECT/CT scanner, both attenuation and non-corrected datasets were reviewed. FINDINGS: Distribution: The maximum perfused segment at stress is in the anteroseptal wall. Perfusion Study: Small reversible perfusion defect of mild irregularity in the lateral wall towards the apex. No other significant reversible perfusion defects. Gated Study: There are intact wall motion and wall thickening without hypokinetic or dyskinetic segm ents. The ejection fraction is calculated at 56%. RISK CATEGORY: Low (<1% Annual Motality Rate) CONCLUSION: 1. Small reversible perfusion defect within the lateral wall towards the apex. 2. Normal ejection fraction. Electronically signed by: Anival Hernandez MD 08/13/2017 6:13 PM EDT
--- NOTE | 2017-08-13 19:02 | EKG ---
Date Performed: 08/12/2017 Time Performed: 19:22:38 PTAGE: 72 years EKG: SINUS TACHYCARDIA ABNORMAL RHYTHM ECG Since the PREVIOUS TRACING , no significant change noted PREVIOUS TRACIN07/20/2017 13.09 DOCTOR: Lakeisha Jenkins Interpretating Date/Time 08/13/2017 19:01:05
--- NOTE | 2017-08-13 19:03 | EKG ---
Date Performed: 08/13/2017 Time Performed: 03:05:29 PTAGE: 72 years EKG: Sinus rhythm NORMAL ECG when compared to prior EKG, patient is no longer tachycardic PREVIOUS TRACING : 08/12/2017 19.22 DOCTOR: Lakeisha Jenkins Interpretating Date/Time 08/13/2017 19:01:29
--- NOTE | 2017-08-13 19:03 | EKG ---
Date Performed: 08/13/2017 Time Performed: 08:40:27 PTAGE: 72 years EKG: Sinus rhythm NONSPECIFIC T-WAVE ABNORMALITY BORDERLINE ECG Since the PREVIOUS TRACING , no significant change noted PREVIOUS TRACIN08/13/2017 03.05 DOCTOR: Lakeisha Jenkins Interpretating Date/Time 08/13/2017 19:01:45
[2017-08-14 03:21] VITALS: BP 101/56; PULSE 93; RESP 20; TEMP 98.3; O2SAT 93
[2017-08-14] MEDS: ISOSORBIDE MONONITRATE 20 MG TAB PO SCH ×2 (06:39→13:44)
[2017-08-14] MEDS: HEPARIN SODIUM - SQ 10,000 UNITS/ML VIAL SQ SCH ×2 (06:39→13:44)
[2017-08-14 07:37] VITALS: PULSE 91
[2017-08-14 07:40] LABS: AUTOMATED NEUTROPHIL # 3.3 TH/MM3 (1.8-7.7); BASOPHIL % 0.7 % (0.0-2.0); EOSINOPHIL # 0.1 TH/MM3 (0-0.4); EOSINOPHIL % 2.9 % (0.0-4.0); HEMATOCRIT 36.2 % (35.0-46.0); LYMPH % 19.4 % (9.0-44.0); LYMPHOCYTE # 0.9 TH/MM3 (1.0-4.8); MEAN CELL VOLUME 87.1 FL (80.0-100.0); MEAN CORPUSCULAR HEMOGLOBIN 28.9 PG (27.0-34.0); MEAN CORPUSCULAR HGB CONC 33.2 % (32.0-36.0); MEAN PLATELET VOLUME 7.4 FL (7.0-11.0); MONO % 5.7 % (0.0-8.0); MONOCYTE # 0.3 TH/MM3 (0-0.9); NEUT % 71.3 % (16.0-70.0); PLATELET COUNT 241 TH/MM3 (150-450); RED BLOOD COUNT 4.15 MIL/MM3 (4.00-5.30); RED CELL DISTRIBUTION WIDTH 18.3 % (11.6-17.2); WHITE BLOOD COUNT 4.6 TH/MM3 (4.0-11.0)
[2017-08-14 08:00] VITALS: BP 97/53; PULSE 92; RESP 16; TEMP 98.2; O2SAT 93
[2017-08-14] MEDS: INSULIN ASPART SUPPLEMENTAL SCALE SQ SCH ×2 (08:00→12:00)
[2017-08-14 08:41] LABS: BICARBONATE 24.2 MEQ/L (21.0-32.0); CALCIUM 9.6 MG/DL (8.5-10.1); CREATININE 0.57 MG/DL (0.50-1.00)
[2017-08-14] MEDS: ATORVASTATIN 10 MG TAB PO SCH (10:03)
[2017-08-14] MEDS: ASPIRIN 325 MG TAB PO SCH (10:03)
[2017-08-14] MEDS: sulfaSALAzine 500 MG TAB PO SCH (10:05)
[2017-08-14] MEDS: METOPROLOL TARTRATE 50 MG TAB PO SCH (10:05)
[2017-08-14] MEDS: SODIUM CHLORIDE 0.9% FLUSH 10 ML FLUSH IV FLUSH SCH (10:06)
[2017-08-14] MEDS: CLOPIDOGREL 75 MG TAB PO SCH (11:44)
[2017-08-14 11:55] VITALS: PULSE 78
[2017-08-14 12:29] VITALS: BP 106/48; PULSE 80; RESP 20; TEMP 98.2; O2SAT 96
--- NOTE | 2017-08-14 13:14 | HHI.PR ---
Subjective Remarks Patient says she is feeling well. Would like to go home. Has any chest pain shortness of breath. Objective Vital Signs Date Time Temp Pulse Resp B/P (MAP) Pulse Ox O2 Delivery O2 Flow Rate FiO2 08/14/17 12:29 98.2 80 20 106/48 (67) 96 08/14/17 11:55 78 08/14/17 08:00 98.2 92 16 97/53 (68) 93 08/14/17 07:37 91 08/14/17 03:21 98.3 93 20 101/56 (71) 93 08/13/17 23:51 98.1 90 18 108/59 (75) 96 08/13/17 23:15 93 08/13/17 21:03 21 08/13/17 20:45 103 08/13/17 20:44 98.0 100 20 105/55 (72) 94 08/13/17 18:12 92 08/13/17 18:06 98.4 88 16 94/53 (67) 93 08/13/17 13:53 80 I/O 08/13/17 08/13/17 08/13/17 08/14/17 08/14/17 08/14/17 07:00 15:00 23:00 07:00 15:00 23:00 Intake Total 240 ml 320 ml 400 ml Balance 240 ml 320 ml 400 ml Intake Oral 240 ml 320 ml 400 ml # Voids 3 2 # Bowel Movements 0 Result Diagram: 08/14/17 0639 08/14/17 0639 Objective Remarks GENERAL: Sitting up in bed. Appears comfortable. SKIN: Warm and dry. HEAD: Normocephalic. EYES: No scleral icterus. No injection or drainage. NECK: Supple, trachea midline. No JVD. CARDIOVASCULAR: Regular rate and rhythm without murmurs, gallops, or rubs. RESPIRATORY: Breath sounds equal bilaterally. No accessory muscle use. GASTROINTESTINAL: Abdomen soft, non-tender, nondistended. MUSCULOSKELETAL: No cyanosis, or edema. BACK: Nontender without obvious deformity. No CVA tenderness. A/P Assessment and Plan //Chest pain Patient with acute onset chest pain that began yesterday EKG significant for sinus tachycardia, no ST segment elevations or depressions, personally reviewed Initial troponin negative ACS rule out pending; serial troponins/EKGs = Myocardial perfusion scan with small area of reperfuse ability. Cleared by cardiology for discharge. Continue medical management follow-up cardiology as outpatient. //COPD/shortness of breath Shortness of breath acutely worsened today with accompanying chest pain Patient denies any significant changes in her cough/sputum production Duo nebs CT chest significant for extensive pulmonary consolidation which has decreased in severity as compared to previous study, personally reviewed //Neuroendocrine tumor involving lung CT chest showed posterior left lower lobe pulmonary mass measuring slightly larger than previous (the increase may be partially attributable to the adjacent consolidation) Status post radiation therapy completed at the end of June Follow-up with medical oncology, Dr. Gold, as an outpatient //Rheumatoid arthritis Continue weekly methotrexate as outpatient //Diabetes mellitus Holding home metformin Sliding-scale insulin Monitor blood glucose // CAD Continue home medications FEN N.p.o. Electrolytes: Monitor and replete as needed Heparin Discharge Planning Patient cleared by cardiology for discharge Papa Covarrubias MD Aug 14, 2017 13:14
--- NOTE | 2017-08-14 16:50 | PD.CARD.PN ---
Subjective Subjective Remarks Feels great, no chest pain Objective Medications Current Medications Albuterol/ Ipratropium (Duoneb Neb) 1 ampule ONCE ONCE NEB Last administered on 08/12/17at 20:55; Start 08/12/17 at 20:45; Stop 08/12/17 at 20:46; Status DC Albuterol/ Ipratropium (Duoneb Neb) 1 ampule Q2HR NEB PRN NEB SOB/WHEEZING; Start 08/13/17 at 01:30; Stop 08/14/17 at 15:22; Status DC Diphenhydramine HCl (Benadryl) 25 mg Q4H PRN PO pruritis; Start 08/13/17 at 01: 30; Stop 08/14/17 at 15:22; Status DC Dextrose (D50w (Vial) Inj) 50 ml UNSCH PRN IV PUSH HYPOGLYCEMIA-SEE COMMENTS; Start 08/13/17 at 01:30; Stop 08/14/17 at 15:22; Status DC Glucagon (Glucagon Inj) 1 mg UNSCH PRN OTHER HYPOGLYCEMIA-SEE COMMENTS; Start 08/13/17 at 01:30; Stop 08/14/17 at 15:22; Status DC Insulin Aspart (NovoLOG SUPPLEMENTAL SCALE) 1 ACHS SLIDING SCALE SQ ; Start at 08:00; Stop 08/14/17 at 15:22; Status DC Sodium Chloride (NS Flush) 2 ml BID IV FLUSH Last administered on 08/14/17at 10: 06; Start 08/13/17 at 09:00; Stop 08/14/17 at 15:22; Status DC Sodium Chloride (NS Flush) 2 ml UNSCH PRN IV FLUSH FLUSH AFTER USING IV ACCESS ; Start 08/13/17 at 01:30; Stop 08/14/17 at 15:22; Status DC Aspirin (Aspirin) 325 mg DAILY PO Last administered on 08/14/17at 10:03; Start 08/13/17 at 09:00; Stop 08/14/17 at 15:22; Status DC Nitroglycerin (Nitrostat Sl) 0.4 mg Q5M PRN SL ANGINA; Start 08/13/17 at 01:30 ; Stop 08/14/17 at 15:22; Status DC Atorvastatin Calcium (Lipitor) 10 mg DAILY PO Last administered on 08/14/17at 10 :03; Start 08/13/17 at 09:00; Stop 08/14/17 at 15:22; Status DC Clopidogrel Bisulfate (Plavix) 75 mg DAILY PO Last administered on 08/14/17at 11 :44; Start 08/13/17 at 09:00; Stop 08/14/17 at 15:22; Status DC Acetaminophen/ Hydrocodone Bitart (Bodfish 10-325 Mg) 0.5 tab Q4H PRN PO PAIN; Start 08/13/17 at 01:30; Stop 08/14/17 at 15:22; Status DC Isosorbide Mononitrate (Ismo) 20 mg BID@0700,1400 PO Last administered on at 13:44; Start 08/13/17 at 07:00; Stop 08/14/17 at 15:22; Status DC Metoprolol Tartrate (Lopressor) 50 mg BID PO Last administered on 08/14/17at 10: 05; Start 08/13/17 at 09:00; Stop 08/14/17 at 15:22; Status DC Sulfasalazine (Azulfidine) 500 mg BID PO Last administered on 08/14/17at 10:05; Start 08/13/17 at 09:00; Stop 08/14/17 at 15:22; Status DC Heparin Sodium (Porcine) (Heparin Inj) 5,000 units Q8HR SQ Last administered on 08/14/17at 06:39; Start 08/13/17 at 06:00; Stop 08/14/17 at 15:22; Status DC Regadenoson (Lexiscan Inj) 0.4 mg STK-MED ONCE .ROUTE Last administered on 08/13at 16:16; Start 08/13/17 at 16:16; Stop 08/13/17 at 16:17; Status DC Vital Signs / I&O Vital Signs Date Time Temp Pulse Resp B/P (MAP) Pulse Ox O2 Delivery O2 Flow Rate FiO2 08/14/17 14:12 21 08/14/17 12:29 98.2 80 20 106/48 (67) 96 08/14/17 11:55 78 08/14/17 08:00 98.2 92 16 97/53 (68) 93 08/14/17 07:37 91 08/14/17 03:21 98.3 93 20 101/56 (71) 93 08/13/17 23:51 98.1 90 18 108/59 (75) 96 08/13/17 23:15 93 08/13/17 21:03 21 08/13/17 20:45 103 08/13/17 20:44 98.0 100 20 105/55 (72) 94 08/13/17 18:12 92 08/13/17 18:06 98.4 88 16 94/53 (67) 93 I/O 08/13/17 08/13/17 08/13/17 08/14/17 08/14/17 08/14/17 07:00 15:00 23:00 07:00 15:00 23:00 Intake Total 240 ml 320 ml 400 ml Balance 240 ml 320 ml 400 ml Intake Oral 240 ml 320 ml 400 ml # Voids 3 2 # Bowel Movements 0 Physical Exam GENERAL: NAD, AAOx3 SKIN: Warm and dry. HEAD: Atraumatic. Normocephalic. EYES: Pupils equal and round. No scleral icterus. No injection or drainage. ENT: No nasal bleeding or discharge. Mucous membranes pink and moist. NECK: Trachea midline. No JVD. CARDIOVASCULAR: Regular rate and rhythm. RESPIRATORY: No accessory muscle use. Clear to auscultation. Breath sounds equal bilaterally. GASTROINTESTINAL: Abdomen soft, non-tender, nondistended. Hepatic and splenic margins not palpable. MUSCULOSKELETAL: Extremities without clubbing, cyanosis, or edema. No obvious deformities. NEUROLOGICAL: Awake and alert. No obvious cranial nerve deficits. Motor grossly within normal limits. Five out of 5 muscle strength in the arms and legs. Normal speech. PSYCHIATRIC: Appropriate mood and affect; insight and judgment normal. Laboratory Laboratory Tests Test 08/14/17 06:39 White Blood Count 4.6 TH/MM3 Red Blood Count 4.15 MIL/MM3 Hemoglobin 12.0 GM/DL Hematocrit 36.2 % Mean Corpuscular Volume 87.1 FL Mean Corpuscular Hemoglobin 28.9 PG Mean Corpuscular Hemoglobin Concent 33.2 % Red Cell Distribution Width 18.3 % Platelet Count 241 TH/MM3 Mean Platelet Volume 7.4 FL Neutrophils (%) (Auto) 71.3 % Lymphocytes (%) (Auto) 19.4 % Monocytes (%) (Auto) 5.7 % Eosinophils (%) (Auto) 2.9 % Basophils (%) (Auto) 0.7 % Neutrophils # (Auto) 3.3 TH/MM3 Lymphocytes # (Auto) 0.9 TH/MM3 Monocytes # (Auto) 0.3 TH/MM3 Eosinophils # (Auto) 0.1 TH/MM3 Basophils # (Auto) 0.0 TH/MM3 CBC Comment DIFF FINAL Differential Comment Blood Urea Nitrogen 6 MG/DL Creatinine 0.57 MG/DL Random Glucose 99 MG/DL Calcium Level 9.6 MG/DL Sodium Level 141 MEQ/L Potassium Level 4.4 MEQ/L Chloride Level 107 MEQ/L Carbon Dioxide Level 24.2 MEQ/L Anion Gap 10 MEQ/L Estimat Glomerular Filtration Rate 127 ML/MIN Assessment and Plan Problem List: (1) Chest pain ICD Codes: R07.9 - Chest pain, unspecified Status: Acute (2) Hx of coronary artery disease ICD Codes: Z86.79 - Personal history of other diseases of the circulatory system Status: Acute (3) Rheumatoid arthritis ICD Codes: M06.9 - Rheumatoid arthritis Status: Chronic (4) Hypertension ICD Codes: I10 - Essential (primary) hypertension Status: Acute (5) Diabetes ICD Codes: E11.9 - Diabetes Status: Acute Assessment and Plan 1) Atypical chest pain 2) Stress test read as small lateral defect near the apex Review of the images, no defect is noted Does have OM1 which is chronic diffusely diseased 3) Will plan to treat medically Discussed with the patient about consideration of repeat cath, but she agrees to medical management 4) Will follow up with me in the office 5) Cardiovascularly stable for discharge Edmund Hernandez DO Aug 14, 2017 16:50
== END 2017-08-14 15:22 | disposition home or self-care (01) ==
LOC: NEPE 19:58 → NEDA 08-13 01:27 → NEPFCDU 08-13 02:42
PROVIDERS: ADMIT Internal Medicine; ATTEND Internal Medicine
DX: J44.0 Chronic obstructive pulmonary disease with (acute) lower respiratory infection (principal); J18.9 Pneumonia, unspecified organism; R07.9 Chest pain, unspecified; R05 Cough; R06.02 Shortness of breath; Z92.3 Personal history of irradiation; Z79.01 Long term (current) use of anticoagulants; M19.90 Unspecified osteoarthritis, unspecified site; F41.9 Anxiety disorder, unspecified; E78.00 Pure hypercholesterolemia, unspecified; I50.9 Heart failure, unspecified; I11.0 Hypertensive heart disease with heart failure; Z86.73 Personal history of transient ischemic attack (TIA), and cerebral infarction without residual deficits; I25.10 Atherosclerotic heart disease of native coronary artery without angina pectoris; E11.9 Type 2 diabetes mellitus without complications; K21.9 Gastro-esophageal reflux disease without esophagitis; R51 Headache; I25.2 Old myocardial infarction; F17.210 Nicotine dependence, cigarettes, uncomplicated; Z79.899 Other long term (current) drug therapy; Z79.84 Long term (current) use of oral hypoglycemic drugs; Z79.52 Long term (current) use of systemic steroids; M06.9 Rheumatoid arthritis, unspecified; Z95.5 Presence of coronary angioplasty implant and graft; D3A.8 Other benign neuroendocrine tumors; R00.0 Tachycardia, unspecified; R94.31 Abnormal electrocardiogram [ECG] [EKG]; Z86.79 Personal history of other diseases of the circulatory system
CPT/HCPCS: 71046; 71250; 78452; 80048; 80053; 82550; 82948; 83690; 84443; 84484; 85025; 87081; 87804; 87880; 93005; 93017; 94664; 99285; A9502; G0378; J1644; J2785

== ENCOUNTER 2018-02-12 11:50 | Observation (INO) ==
[2018-02-12] MEDS ORDERED: Aluminum/Magnesium/Simethacone Susp 30 ML UDC PO ONE (12:22)
[2018-02-12] MEDS ORDERED: Morphine Inj 4 MG/ML Vial IV.PUSH ONE ×2 (12:22→14:44)
--- NOTE | 2018-02-12 12:30 | ED ---
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 Patient was seen in the emergency department on 02/01/18 for the same and was treated and discharged home after CT abdomen pelvis did not show any acute etiology for her pain. She states that her pain is been intermittent since, described as sharp, constant, intermittently worse at times, worse with movements. Patient has not noted any change in her pain with eating. She denies urinary symptoms such as dysuria or hematuria. He denies nausea or vomiting. No fevers or chills. History of appendectomy and salpingectomy after an ectopic in the 1970s. Patient's medical records were reviewed and shows that she was evaluated by fire chief/oncologist Dr. 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 Related Data Home Medications Medication Instructions Recorded Confirmed acetaminophen [Tylenol Arthritis 650 mg PO Q8H PRN 02/01/18 02/12/18 Pain] atorvastatin 10 mg PO QPM 02/01/18 02/12/18 clopidogrel [Plavix] 75 mg PO DAILY 02/01/18 02/12/18 metformin 1,000 mg PO BID 02/01/18 02/12/18 metoprolol tartrate 50 mg PO BID 02/01/18 02/12/18 sulfasalazine 1,000 mg PO BID 02/01/18 02/12/18 Previous Rx's Medication Instructions Recorded albuterol sulfate 1 inh INHALATION Q6H PRN #8.5 g 02/01/18 azithromycin 250 mg PO DAILY #6 tab 02/01/18 codeine-guaifenesin [Guaifenesin 10 ml PO Q4-6H PRN #120 ml 02/01/18 AC] Allergies Allergy/AdvReac Type Severity Reaction Status Date / Time diatrizoate meglumine Allergy Severe Edema Verified 02/01/18 08:59 enalaprilat Allergy Severe Swelling Verified 02/01/18 08:59 gadobenic acid Allergy Severe Edema Verified 02/01/18 08:59 gadodiamide Allergy Severe Edema Verified 02/01/18 08:59 gadoteridol Allergy Severe Edema Verified 02/01/18 08:59 iodixanol Allergy Severe Edema Verified 02/01/18 08:59 iohexol Allergy Severe Edema Verified 02/01/18 08:59 penicillin G Allergy Severe Anaphylaxis Verified 02/01/18 08:59 EVERYTHING ON AND Allergy Severe Anaphylaxis Uncoded 01/05/10 22:38 OFF..;ANGIODEMA... mycins Allergy Severe Anaphylaxis Uncoded 02/01/18 08:59 Review of Systems ROS: all other systems reviewed are negative [facility] Medical History Medical History Diabetes (Acute) Hypertension (Acute) Myocardial infarct (Acute) Surgical History Surgical History H/O heart artery stent (Acute) Social History Social History Second Hand Smoke Exposure: Yes Smoking Status: Current every day smoker Tobacco Type: Cigarettes How Often Do You Have a Drink Containing Alcohol: Never Recent Travel in [facility] within the Last 8 Weeks: No Recent Out of Country Travel within the Last 8 Weeks: No Immunization History Tetanus Immunization: <5 Years Exam Narrative Exam Narrative: GENERAL: Well-developed, well-nourished, no apparent distress. SKIN: Focused skin assessment warm/dry. No rash. HEAD: Atraumatic. Normocephalic. EYES: Pupils equal and round. No scleral icterus. No injection or drainage. ENT: Mucous membranes pink and moist. NECK: Trachea midline. No JVD. CARDIOVASCULAR: Regular rate and rhythm. RESPIRATORY: No accessory muscle use. Clear to auscultation. Breath sounds equal bilaterally. GASTROINTESTINAL: Abdomen soft, nondistended. Mild epigastric and left upper quadrant tenderness. The rest of her abdomen is soft and nontender. No peritoneal signs. Normal bowel sounds. MUSCULOSKELETAL: No obvious deformities. No clubbing. No cyanosis. No edema. NEUROLOGICAL: Awake and alert. No obvious cranial nerve deficits. Motor grossly within normal limits. Normal speech. PSYCHIATRIC: Appropriate mood and affect; insight and judgment normal. Course Initial Documented Vital Signs Temperature 98.8 F 02/12/18 12:01 Pulse Rate 91 H 02/12/18 12:01 Respiratory Rate 17 02/12/18 12:01 Blood Pressure 160/78 H 02/12/18 12:01 Pulse Oximetry 98 02/12/18 12:01 Last Documented Vital Signs Temperature 98.8 F 02/12/18 12:01 Pulse Rate 86 02/12/18 13:26 Respiratory Rate 17 02/12/18 13:26 Blood Pressure 162/81 H 02/12/18 13:26 Pulse Oximetry 98 02/12/18 12:01 Medical Decision Making MDM Narrative Medical decision making narrative: Vital signs reviewed. Basic labs reviewed and are essentially unremarkable. Cardiac enzymes are negative. EKG shows sinus rhythm with sinus arrhythmia, normal axis, normal intervals, no acute ischemic abnormalities. CT abdomen pelvis: CONCLUSION: 1. Stable appearance of the kidneys with renal vascular calcifications and questionable stable small nonobstructing renal calculi. 2. The gallbladder appears unremarkable. 3. No definite evidence of metastatic disease on this noncontrast examination. 4. Chronic scarring and fibrosis in the lung bases left greater than right. There is near the more dense consolidation in the medial left lung base. CT thorax: CONCLUSION: 1. Chronic scarring and apparent fibrosis without significant change. There is more dense area of consolidation along the posterior medial left lower lobe which is also not significantly changed. 2. No definite new masses or areas of consolidation. 3. Status post median sternotomy with coronary artery calcifications. There is no new adenopathy on this noncontrast study. Patient was given a GI cocktail and a dose of morphine IV. On reassessment she continues to complain of pain. Pain is in her left upper abdomen and radiates around her left chest and left flank area. I reviewed the patient's chart and she was here 2 weeks ago with similar symptoms. She had an abnormal myocardial perfusion scan in July of this year, was evaluated by cardiology, and discussion was had about cardiac cath versus medical management. The patient opted for medical management at that time. Patient also has significant scarring to the left lung base and a more dense area of consolidation along the posterior medial left lower lobe which is not significantly changed from prior imaging studies. Patient may have pleurisy that is causing her pain. Either way patient has significant ongoing pain will be admitted for further evaluation. I discussed the case with hospitalist Dr. Luna who will admit the patient to his service for observation for intractable pain. UA is pending at time of admission. Patient was made aware of all findings and is amenable with plan. Medical Screen Exam Complete: Yes Emergency Medical Condition: Yes Differential Diagnosis Differential Diagnosis: Gastritis, peptic ulcer disease, pancreatitis, hepatobiliary disease, UTI, pyelonephritis, nephrolithiasis/ureterolithiasis, colitis, mesenteric ischemia, pleurisy, pneumonia, pleural effusion, ACS Lab Data Result diagrams: 02/12/18 12:30 02/12/18 12:30 Lab Results 02/12/18 02/12/18 02/12/18 Range/Units 12:30 12:30 12:30 WBC 7.7 (4.0-11.0) th/mm3 RBC 4.73 (4.00-5.30) mil/mm3 Hgb 13.1 (11.6-15.3) gm/dL Hct 39.9 (35.0-46.0) % MCV 84.5 (80.0-100.0) fL MCH 27.7 (27.0-34.0) pg MCHC 32.8 (32.0-36.0) % RDW 18.4 H (11.6-17.2) % Plt Count 255 (150-450) th/mm3 MPV 7.5 (7.0-11.0) fL Neut % (Auto) 64.0 (16.0-70.0) % Lymph % (Auto) 27.1 (9.0-44.0) % Stewart % (Auto) 7.6 (0.0-8.0) % Eos % (Auto) 0.6 (0.0-4.0) % Baso % (Auto) 0.7 (0.0-2.0) % Neut # (Auto) 4.9 (1.8-7.7) th/mm3 Lymph # (Auto) 2.1 (1.0-4.8) th/mm3 Stewart # (Auto) 0.6 (0.0-0.9) th/mm3 Eos # (Auto) 0.0 (0.0-0.4) th/mm3 Baso # (Auto) 0.1 (0.0-0.2) th/mm3 WBC Differential . Differential Comment Auto diff final PT 10.7 (9.8-11.6) sec INR 1.1 Ratio APTT 25.4 (23.4-31.7) sec Sodium 140 (136-145) meq/L Potassium 3.9 (3.5-5.1) meq/L Chloride 108 H (98-107) meq/L Carbon Dioxide 27.1 (21.0-32.0) meq/L Anion Gap 5 (5-15) meq/L BUN 7 (7-18) mg/dL Creatinine 0.68 (0.50-1.00) mg/dL Estimated GFR Greater than 89 (>89) mL/min Random Glucose 121 H (74-106) mg/dL Calcium 8.7 (8.5-10.1) mg/dL Magnesium 2.0 (1.5-2.5) mg/dL Total Bilirubin 0.3 (0.2-1.0) mg/dL AST 15 (15-37) U/L ALT 12 (10-53) U/L Alkaline Phosphatase 100 (45-117) U/L Total Creatine Kinase 59 (26-192) U/L Troponin I Less than 0.02 L (0.02-0.05) ng/mL Total Protein 7.6 (6.4-8.2) g/dL Albumin 2.6 L (3.4-5.0) g/dL Lipase 157 (73-393) U/L Imaging Data Radiologist's impression: Abdomen/Pelvis CT 02/12/18 12:22 CONCLUSION: 1. Stable appearance of the kidneys with renal vascular calcifications and questionable stable small nonobstructing renal calculi. 2. The gallbladder appears unremarkable. 3. No definite evidence of metastatic disease on this noncontrast examination. 4. Chronic scarring and fibrosis in the lung bases left greater than right. There is near the more dense consolidation in the medial left lung base. Chest CT 02/12/18 12:22 CONCLUSION: 1. Chronic scarring and apparent fibrosis without significant change. There is more dense area of consolidation along the posterior medial left lower lobe which is also not significantly changed. 2. No definite new masses or areas of consolidation. 3. Status post median sternotomy with coronary artery calcifications. There is no new adenopathy on this noncontrast study. Chest X-Ray 02/12/18 12:22 CONCLUSION: Stable appearance with chronic scarring and possible fibrosis. Discharge Plan Discharge Disposition Patient Disposition: ED Admit(ED Internal Use Only) Discharge Condition Condition: Stable Discharge Details Diagnosis: Intractable pain, Atypical chest pain, Abdominal pain Physicians Team ED Provider: Rg Marquez Primary Care Provider: UNKNOWN, Rxs /Orders / Referrals /Forms Prescriptions: No Action azithromycin 250 mg tablet 250 mg PO DAILY Qty: 6 RF: 0 codeine-guaifenesin [Guaifenesin AC] 10-100 mg/5 mL liquid 10 ml PO Q4-6H PRN (Reason: cold symptoms) Qty: 120 RF: 0 albuterol sulfate 90 mcg/actuation HFA aerosol inhaler 1 inh INHALATION Q6H PRN (Reason: shortness of breath or wheezing) Qty: 8.5 RF: 0 metformin 500 mg Tablet 1,000 mg PO BID RF: 0 sulfasalazine 500 mg Tablet 1,000 mg PO BID RF: 0 atorvastatin 10 mg Tablet 10 mg PO QPM RF: 0 clopidogrel [Plavix] 75 mg Tablet 75 mg PO DAILY RF: 0 acetaminophen [Tylenol Arthritis Pain] 650 mg Tablet Extended Release 650 mg PO Q8H PRN (Reason: Arthritis Pain) RF: 0 metoprolol tartrate 50 mg Tablet 50 mg PO BID RF: 0 Status ED Status: With Doctor
--- NOTE | 2018-02-12 13:01 | CT ---
EXAM DATE: 02/12/2018 12:51 PM EST AGE/SEX: 73 years / Female INDICATIONS: Chest pain, left lung mass. Patient with history of non-small cell left lung cancer wit h neuroendocrine features. Patient is status post radiation therapy. CLINICAL DATA: This is the patient's initial encounter. Patient reports that signs and symptoms have been present for 1 day and indicates a pain score of 5/10. MEDICAL/SURGICAL HISTORY: Diabetes. Hypertension. Myocardial infarction. CABG. cardiac stent rheu matoid arthritis. RADIATION DOSE: 6.46 CTDI (mGy) ; Combined studies COMPARISON: [facility], PET/CT TUMOR, 11/05/2017. . TECHNIQUE: Multiple contiguous axial images were obtained through the chest without contrast. Image s were obtained in suspended respiration using multiple row detector helical technique. Using automa murali exposure control and adjustment of the mA and/or kV according to patient size, radiation dose was kept as low as reasonably achievable to obtain optimal diagnostic quality images. DICOM format imag e data is available electronically for review and comparison. FINDINGS: Lungs: The lungs are symmetrically aerated. Chronic scarring is again noted in both lungs greatest i n the posterior right upper lobe and both lung bases. Patchy interstitial regions are again noted in both lower lobes left greater than right with chronic areas of mild consolidation. There is a more de nse area of consolidation along the posterior medial left lower lobe which is not significant changed . There are no new masses. Mediastinum: There is good visualization of the great vessels of the middle mediastinum. No evidenc e of mediastinal or hilar adenopathy/mass. Status post median sternotomy with postsurgical changes. C oronary artery calcifications are present. Pleurae: No evidence of focal thickening or pleural effusion. Axillae: Unremarkable. Bony Structures: Osteopenia, degenerative changes and mild scoliosis are present. The patient is sta tus post median sternotomy. Miscellaneous: The examination was extended to include the upper abdomen, and both adrenal glands ar e normal in size and configuration. CONCLUSION: 1. Chronic scarring and apparent fibrosis without significant change. There is more dense area of co nsolidation along the posterior medial left lower lobe which is also not significantly changed. 2. No definite new masses or areas of consolidation. 3. Status post median sternotomy with coronary artery calcifications. There is no new adenopathy on this noncontrast study. Electronically signed by: Lucio Dailey MD Board Certified Radiologist 02/12/2018 1:00 PM EST
[2018-02-12 13:03] LABS: Baso # (Auto) 0.1 th/mm3 (0.0-0.2); Baso % (Auto) 0.7 % (0.0-2.0); Eos % (Auto) 0.6 % (0.0-4.0); Hematocrit 39.9 % (35.0-46.0); Hemoglobin 13.1 gm/dL (11.6-15.3); Lymph # (Auto) 2.1 th/mm3 (1.0-4.8); Lymph % (Auto) 27.1 % (9.0-44.0); Mean Corpuscular HGB Conc 32.8 % (32.0-36.0); Mean Corpuscular Hemoglobin 27.7 pg (27.0-34.0); Mean Corpuscular Volume 84.5 fL (80.0-100.0); Mean Platelet Volume 7.5 fL (7.0-11.0); Mono # (Auto) 0.6 th/mm3 (0.0-0.9); Mono % (Auto) 7.6 % (0.0-8.0); Neut # (Auto) 4.9 th/mm3 (1.8-7.7); Platelet Count 255 th/mm3 (150-450); Red Blood Count 4.73 mil/mm3 (4.00-5.30); Red Cell Distribution Width 18.4 % (11.6-17.2); White Blood Count 7.7 th/mm3 (4.0-11.0)
--- NOTE | 2018-02-12 13:05 | CT ---
EXAM DATE: 02/12/2018 12:51 PM EST AGE/SEX: 73 years / Female INDICATIONS: Upper abdominal pain. History of non-small cell lung cancer treated with radiation ther apy. CLINICAL DATA: This is the patient's initial encounter. Patient reports that signs and symptoms have been present for 1 day and indicates a pain score of 5/10. MEDICAL/SURGICAL HISTORY: Diabetes. Hypertension. Mesenteric ischemia. CABG. cardiac stent RADIATION DOSE: 6.46 CTDI (mGy) ; Combined studies COMPARISON: [facility] [place], CT ABDOMEN & PELVIS W/O CONTRAST, 02/01/2018. . TECHNIQUE: Multiple contiguous axial images were obtained through the abdomen. Images were obtained using multiple row detector helical technique. Using automated exposure control and adjustment of the mA and/or kV according to patient size, radiation dose was kept as low as reasonably achievable to o btain optimal diagnostic quality images. DICOM format image data is available electronically for rev iew and comparison. FINDINGS: Lower Lungs: Chronic scarring and fibrosis are noted in the lung bases left greater than right. There is an area of more dense consolidation along the left medial lung base. Coronary artery calcificatio ns are present. The patient is status post median sternotomy.. Liver: The liver has a homogeneous density without space-occupying lesion. There is no dilation of th e biliary tree. The gallbladder appears unremarkable. Spleen: Homogeneous density without enlargement. Pancreas: Unremarkable without mass or calcification. Kidneys: Normal in size and shape. No evidence of mass or hydronephrosis. Bilateral renal vascular c alcifications are again noted. There are questionable renal calculi bilaterally which are unchanged. Adrenal Glands: Unremarkable. Aorta: The aorta and proximal iliac vessels are grossly unremarkable without aneurysmal dilation. Bowel/Mesentery: The bowel loops are grossly unremarkable. The cecum and sigmoid colon have a normal configuration. Abdominal Wall: Intact. Retroperitoneum: No evidence of adenopathy in the retrocrural, para-aortic, or deep pelvic regions. Bladder: Contours are smooth. Reproductive Organs: No abnormal masses or calcifications seen. Inguinal: The inguinal region is unremarkable without evidence of adenopathy. Bony Structures: Osteopenia, degenerative change and mild scoliosis are again noted. CONCLUSION: 1. Stable appearance of the kidneys with renal vascular calcifications and questionable stable small nonobstructing renal calculi. 2. The gallbladder appears unremarkable. 3. No definite evidence of metastatic disease on this noncontrast examination. 4. Chronic scarring and fibrosis in the lung bases left greater than right. There is near the more d ense consolidation in the medial left lung base. Electronically signed by: Lucio Dailey MD Board Certified Radiologist 02/12/2018 1:04 PM EST
[2018-02-12 13:15] LABS: Activated Partial Thrombo Time 25.4 sec (23.4-31.7); INR 1.1 Ratio
[2018-02-12 13:16] LABS: Prothrombin Time 10.7 sec (9.8-11.6)
[2018-02-12 13:28] LABS: Alanine Aminotransferase 12 U/L (10-53); Albumin 2.6 g/dL (3.4-5.0); Anion Gap 5 meq/L (5-15); Aspartate Aminotransferase 15 U/L (15-37); Blood Urea Nitrogen 7 mg/dL (7-18); Calcium 8.7 mg/dL (8.5-10.1); Carbon Dioxide 27.1 meq/L (21.0-32.0); Chloride 108 meq/L (98-107); Glomerular Filtration Rate Greater Than 89 mL/min (>89); Glucose,Random 121 mg/dL (74-106); Lipase 157 U/L (73-393); Potassium 3.9 meq/L (3.5-5.1); Sodium 140 meq/L (136-145)
[2018-02-12 13:31] LABS: Alkaline Phosphatase 100 U/L (45-117); Total Protein 7.6 g/dL (6.4-8.2)
--- NOTE | 2018-02-12 13:31 | XR ---
EXAM DATE: 02/12/2018 1:20 PM EST AGE/SEX: 73 years / Female INDICATIONS: Left side body pain. CLINICAL DATA: This is the patient's initial encounter. Patient reports that signs and symptoms have been present for 1 month and indicates a pain score of 9/10. MEDICAL/SURGICAL HISTORY: Carcinoma, lung. heart attack, TIA CABG. 4 stents COMPARISON: [facility], XR CHEST PA AND LAT, 01/20/2018. . FINDINGS: A single AP erect portable view of the chest was obtained and again demonstrates the patient is statu s post median sternotomy. Bilateral coarse streaky interstitial opacities are again noted consistent with scarring. There are no new infiltrates or effusions. The heart size is within normal limits with no new perihilar edema. Mild eventration of the right hemidiaphragm is again noted. CONCLUSION: Stable appearance with chronic scarring and possible fibrosis. Electronically signed by: Luico Dailey MD Board Certified Radiologist 02/12/2018 1:29 PM EST
[2018-02-12 13:43] LABS: Creatine Kinase 59 U/L (26-192)
[2018-02-12] MEDS ORDERED: Dextrose 50% in Water 50 ML Vial IV.PUSH PRN (15:21)
[2018-02-12] MEDS ORDERED: Morphine Inj 4 MG/ML Vial IV.PUSH PRN (15:24)
--- NOTE | 2018-02-12 15:33 | P.HPIM ---
History of Present Illness Primary Care Physician: UNKNOWN Chief Complaint: left flank pain History of Present Illness: patient is a 73 y/o female with history of non- small cell lung cancer-under the care of - s/p radiation therapy, diabetes mellitus, CAD, hypertension, rheumatoid arthritis who presented to ER with the pain to the left upper abdomen and left flank. she says that the pain has been going on for a few weeks but it's been getting worse to the extent that ' she can not take it anymore'. the pain is in left upper abdomen with some radiation to the left flank. she denies any chest pain, nausea or vomiting but had some constipation recently. she denies any fever, chills but has occasional cough. Review of Systems Review of Systems: all other systems reviewed are negative [facility] Medical History Medical History Lung cancer (Acute) Diabetes (Acute) Hypertension (Acute) Myocardial infarct (Acute) Surgical History Surgical History H/O heart artery stent (Acute) Social History Social History Second Hand Smoke Exposure: Yes Smoking Status: Current every day smoker Tobacco Type: Cigarettes How Often Do You Have a Drink Containing Alcohol: Never Recent Travel in [facility] within the Last 8 Weeks: No Recent Out of Country Travel within the Last 8 Weeks: No Immunization History Tetanus Immunization: <5 Years Medications and Allergies Allergies Allergy/AdvReac Type Severity Reaction Status Date / Time diatrizoate meglumine Allergy Severe Edema Verified 02/01/18 08:59 enalaprilat Allergy Severe Swelling Verified 02/01/18 08:59 gadobenic acid Allergy Severe Edema Verified 02/01/18 08:59 gadodiamide Allergy Severe Edema Verified 02/01/18 08:59 gadoteridol Allergy Severe Edema Verified 02/01/18 08:59 iodixanol Allergy Severe Edema Verified 02/01/18 08:59 iohexol Allergy Severe Edema Verified 02/01/18 08:59 penicillin G Allergy Severe Anaphylaxis Verified 02/01/18 08:59 EVERYTHING ON AND Allergy Severe Anaphylaxis Uncoded 01/05/10 22:38 OFF..;ANGIODEMA... mycins Allergy Severe Anaphylaxis Uncoded 02/01/18 08:59 Home Medications Medication Instructions Recorded Confirmed Type acetaminophen [Tylenol Arthritis 650 mg PO Q8H PRN 02/01/18 02/12/18 History Pain] atorvastatin 10 mg PO QPM 02/01/18 02/12/18 History clopidogrel [Plavix] 75 mg PO DAILY 02/01/18 02/12/18 History metformin 1,000 mg PO BID 02/01/18 02/12/18 History metoprolol tartrate 50 mg PO BID 02/01/18 02/12/18 History sulfasalazine 1,000 mg PO BID 02/01/18 02/12/18 History Active Medications: Active Medications Hydrocodone Bitart/Acetaminophen ([place] 5/325) 1 tab PO Q4H PRN PRN Reason: pain 1-5 Hydrocodone Bitart/Acetaminophen ([place] 5/325) 2 tab PO Q4H PRN PRN Reason: PAIN 6-10;IF UNABLE TO TAKE PO Albuterol (Ventolin Hfa Inh) puff INH Q6H PRN PRN Reason: shortness of breath or wheezing Albuterol (Duoneb Neb (Prn)) 1 ampul NEB Q4HR NEB PRN PRN Reason: sob Atorvastatin Calcium (Lipitor) 10 mg PO QPM VLAD Clopidogrel Bisulfate (Plavix) 75 mg PO DAILY VLAD Dextrose (D50w Vial) 50 ml IV.PUSH UNSCH PRN PRN Reason: PER HYPOGLYCEMIA PROTOCOL Glucagon (Glucagon Inj) 1 mg OTHER PRN PRN PRN Reason: for Hypoglycemia Protocol Insulin Aspart (Novolog Insulin Correctional Sugar Inj) 0 unit SQ ACHS VLAD; Protocol Metoprolol Tartrate (Lopressor) 50 mg PO BID VLAD Morphine Sulfate (Morphine Inj) 2 mg IV.PUSH Q4H PRN PRN Reason: BREAKTHROUGH PAIN Sodium Chloride (Ns Flush) 2 ml IV.FLUSH PRN PRN PRN Reason: FLUSH AFTER USING IV ACCESS Sulfasalazine (Azulfidine) 1,000 mg PO BID [facility] Physical Exam Vital signs: Last Vital Signs Temp 98.8 F 02/12/18 12:01 Pulse 86 02/12/18 13:26 Resp 17 02/12/18 13:26 BP 162/81 H 02/12/18 13:26 Pulse Ox 98 02/12/18 12:01 Intake & Output 12/12/18 12/13/18 12/14/18 12/15/18 06:59 06:59 06:59 06:59 Weight 77.111 kg Constitutional no acute distress Routine HEENT Exam Eye: Present PERRL Routine Neck Exam Present supple Routine Respiratory Exam Present CTA bilaterally Routine Cardiovascular Exam Present RRR Routine Abdominal Exam Present soft Comments: some tenderness noted on the left flank. Routine Extremities Exam Comments: no pedal edema. joint deformities in both hands. Routine Neurological Exam Present alert and oriented X3 Results Labs CBC & Chem 7: 02/12/18 12:30 02/12/18 12:30 Imaging Impressions Abdomen/Pelvis CT 02/12/18 12:22 CONCLUSION: 1. Stable appearance of the kidneys with renal vascular calcifications and questionable stable small nonobstructing renal calculi. 2. The gallbladder appears unremarkable. 3. No definite evidence of metastatic disease on this noncontrast examination. 4. Chronic scarring and fibrosis in the lung bases left greater than right. There is near the more dense consolidation in the medial left lung base. Chest CT 02/12/18 12:22 CONCLUSION: 1. Chronic scarring and apparent fibrosis without significant change. There is more dense area of consolidation along the posterior medial left lower lobe which is also not significantly changed. 2. No definite new masses or areas of consolidation. 3. Status post median sternotomy with coronary artery calcifications. There is no new adenopathy on this noncontrast study. Chest X-Ray 02/12/18 12:22 CONCLUSION: Stable appearance with chronic scarring and possible fibrosis. Caprini VTE Risk Assessment Caprini VTE Risk Assessment: Moderate/High Risk (score >= 2) Caprini Risk Assessment Model: Point Value = 1 Point Value = 2 Point Value = 3 Point Value = 5 Age 41-60 Minor surgery BMI > 25 kg/m2 Swollen legs Varicose veins or History of unexplained or recurrent spontaneous Oral contraceptives or hormone replacement Sepsis (< 1 month) Serious lung disease, including pneumonia (< 1 month) Abnormal pulmonary function Acute myocardial infarction Congestive heart failure (< 1 month) History of inflammatory bowel disease Medical patient at bed rest Age 61-74 Arthroscopic surgery Major open surgery (> 45 min) Laparoscopic surgery (> 45 min) Malignancy Confined to bed (> 72 hours) Immobilizing plaster cast Central venous access Age >= 75 History of VTE Family history of VTE Factor V Leiden Prothrombin [id number] Lupus anticoagulant Anticardiolipin antibodies Elevated serum homocysteine Heparin-induced thrombocytopenia Other congenital or acquired thrombophilia Stroke (< 1 month) Elective arthroplasty Hip, pelvis, or leg fracture Acute spinal cord injury (< 1 month) Prophylaxis Regimen: Total Risk Factor Score Risk Level Prophylaxis Regimen 0-1 Low Early ambulation 2 Moderate Order ONE of the following: *Sequential Compression Device (SCD) *Heparin 5000 units SQ BID 3-4 Higher Order ONE of the following medications: *Heparin 5000 units SQ TID *Enoxaparin/Lovenox 40 mg SQ daily (WT < 150 kg, CrCl > 30 mL/min) *Enoxaparin/Lovenox 30 mg SQ daily (WT < 150 kg, CrCl > 10-29 mL/min) *Enoxaparin/Lovenox 30 mg SQ BID (WT < 150 kg, CrCl > 30 mL/min) AND/OR *Sequential Compression Device (SCD) 5 or more Highest Order ONE of the following medications: *Heparin 5000 units SQ TID (Preferred with Epidurals) *Enoxaparin/Lovenox 40 mg SQ daily (WT < 150 kg, CrCl > 30 mL/min) *Enoxaparin/Lovenox 30 mg SQ daily (WT < 150 kg, CrCl > 10-29 mL/min) *Enoxaparin/Lovenox 30 mg SQ BID (WT < 150 kg, CrCl > 30 mL/min) AND *Sequential Compression Device (SCD) Assessment and Plan Plan A/P - intractable left flan/upper abdominal pain with history of non-small cell lung cancer chest CT with chronic fibrosis and stable LLL consolidation continue with supportive care with pain control, oxygen and neb treatment as needed- ( patient is on home oxygen). patient is s/p radiation therapy and under the care of . -CAD- s/p stent placement; continue Plavix and statin -diabetes mellitus; start on accu-check with SSI -hypertension; resume Metoprolol. -RA; continue prednisone -DVT prophylaxis with subq Lovenox.
[2018-02-12] MEDS: Docusate Sodium 100 MG Capsule PO SCH (21:51)
[2018-02-12] MEDS: Metoprolol Tartrate 50 MG Tablet PO SCH (21:51)
[2018-02-12] MEDS: Insulin NovoLOG Aspart Correctional Sugar Inj SQ SCH (21:52)
[2018-02-12] MEDS: sulfaSALAzine 500 MG Tablet PO SCH (22:06)
[2018-02-13] MEDS: Insulin NovoLOG Aspart Correctional Sugar Inj SQ SCH ×4 (08:21→20:27)
[2018-02-13] MEDS: sulfaSALAzine 500 MG Tablet PO SCH ×2 (08:22→21:30)
[2018-02-13] MEDS: Metoprolol Tartrate 50 MG Tablet PO SCH ×2 (08:23→21:29)
[2018-02-13] MEDS: Docusate Sodium 100 MG Capsule PO SCH ×2 (08:23→21:29)
[2018-02-13] MEDS: predniSONE 5 MG Tablet PO SCH (08:23)
[2018-02-13] MEDS: Enoxaparin Inj 40 MG/0.4 ML Syringe SQ SCH (08:24)
--- NOTE | 2018-02-13 10:22 | ECG ---
Date Performed: 02/12/2018 Time Performed: 14:52:03 PTAGE: 73 years EKG: Sinus rhythm WITH SINUS ARRHYTHMIA POSSIBLE LEFT ATRIAL ENLARGEMENT BORDERLINE ECG Since the PREVIOUS TRACING , no significant change noted PREVIOUS TRACIN08/13/2017 08.40 DOCTOR: Alex Quesada Interpretating Date/Time 02/13/2018 10:21:08
--- NOTE | 2018-02-13 17:09 | P.PNIM ---
Subjective Interval history: Patient complains of continued left flank pain and left sided abdominal pain. She is laying down in bed crying. Physical Exam Vital signs: Vital Signs 02/12/18 17:20 02/12/18 18:30 02/12/18 20:00 Temperature 97.9 F 97.9 F Pulse Rate 78 76 97 H Respiratory Rate 17 18 17 Blood Pressure 159/76 H 158/75 H 116/64 Pulse Oximetry 99 96 95 02/12/18 23:19 02/13/18 00:00 02/13/18 04:00 Temperature 97.7 F 97.8 F Pulse Rate 70 67 Respiratory Rate 18 17 17 Blood Pressure 110/56 L 102/59 L Pulse Oximetry 94 L 92 L 02/13/18 08:46 02/13/18 10:10 02/13/18 12:00 Temperature 97.9 F 98.1 F Pulse Rate 83 76 Respiratory Rate 18 18 Blood Pressure 138/65 122/60 Pulse Oximetry 93 L 94 L 93 L Intake & Output 02/12/18 02/13/18 02/13/18 18:59 06:59 18:59 Intake Total 600 / 600 Balance 600 / 600 Weight 71.8 kg 71.8 kg Intake: Oral 600 / 600 Other: # Voids 0 # Bowel Movements 0 Weight On Admission 71.8 kg Narrative: General patient complains of left-sided flank pain. Improved from yesterday. HEENT extraocular movements are intact, clear oropharyngeal mucosa, no JVD Cardiovascular S1-S2 audible, RRR, no murmurs rubs or gallops Respiratory clear to auscultation bilaterally Abdomen soft, nontender, nondistended, normal bowel sounds Extremities no edema Neuro no focal neurological deficits. Results - Labs CBC & Chem 7: 02/12/18 12:30 02/12/18 12:30 Laboratory Results - last 24 hr 02/12/18 02/13/18 02/13/18 19:30 08:20 13:23 POC Glucose 85 100 174 H Assessment and Plan - Plan This patient is a 73-year-old female with a diagnosis of non-small cell lung cancer and is under the care of Dr. Gold status post radiation therapy, diabetes mellitus, coronary artery disease, hypertension, rheumatoid arthritis. The patient presented with complaints of left upper abdominal and left flank pain. Symptoms have been ongoing for a few weeks but were continuously getting worse. 1. Intractable left flank/abdominal pain with history of non-small cell lung cancer. Patient still has pain of left-sided abdominal pain left flank pain. Slightly improved from yesterday. CT chest shows chronic fibrosis and stable left lower lobe consolidation. No significant change when compared to previous imaging. Patient follows up with Dr. Gold and is status post radiation therapy. We will continue current pain medications for today. Patient will likely be discharged tomorrow a.m. U/A ordered. 2. Coronary artery disease status post stent placement Continue Plavix, continue statin. 3. Diabetes mellitus Continue low-dose insulin sliding scale. 4. Hypertension Continue metoprolol. 5. Rheumatoid arthritis Continue prednisone. Lovenox for DVT prophylaxis.
[2018-02-14 00:30] VITALS: RESP 18
[2018-02-14] MEDS: Insulin NovoLOG Aspart Correctional Sugar Inj SQ SCH (07:46)
[2018-02-14] MEDS ORDERED: Influenza (Quadrivalent) Vaccine 0.5 ML Syringe IM ONE (09:00)
--- NOTE | 2018-02-14 10:01 | P.PNIM ---
Subjective Interval history: Patient tolerating her diet well this morning. No complaints at this time. Physical Exam Vital signs: Vital Signs 02/13/18 10:10 02/13/18 12:00 02/13/18 16:00 Temperature 98.1 F 98.9 F Pulse Rate 76 85 Respiratory Rate 18 18 Blood Pressure 122/60 121/65 Pulse Oximetry 94 L 93 L 95 02/13/18 20:00 02/14/18 00:00 02/14/18 04:00 Temperature 98.5 F 98.1 F 97.9 F Pulse Rate 84 76 69 Respiratory Rate 18 18 18 Blood Pressure 97/62 L 119/58 L Pulse Oximetry 95 92 L 92 L Intake & Output 02/13/18 02/14/18 02/14/18 18:59 06:59 18:59 Intake Total 600 / 600 480 / 480 Output Total 300 / 300 Balance 300 / 300 480 / 480 Weight 73.4 kg Intake: Oral 600 / 600 480 / 480 Output: Urine 300 / 300 Other: # Voids 2 Date of Last Bowel Movement 02/11/18 02/11/18 Narrative: General patient without any complaints of abd or flank pain currently. HEENT extraocular movements are intact, clear oropharyngeal mucosa, no JVD Cardiovascular S1-S2 audible, RRR, no murmurs rubs or gallops Respiratory clear to auscultation bilaterally Abdomen soft, nontender, nondistended, normal bowel sounds Extremities no edema Neuro no focal neurological deficits. Results - Labs CBC & Chem 7: 02/12/18 12:30 02/12/18 12:30 Laboratory Results - last 24 hr 02/13/18 02/13/18 02/13/18 13:23 17:08 20:27 POC Glucose 174 H 113 H 123 H 02/14/18 07:34 POC Glucose 89 Assessment and Plan - Plan This patient is a 73-year-old female with a diagnosis of non-small cell lung cancer and is under the care of Dr. Gold status post radiation therapy, diabetes mellitus, coronary artery disease, hypertension, rheumatoid arthritis. The patient presented with complaints of left upper abdominal and left flank pain. Symptoms have been ongoing for a few weeks but were continuously getting worse. 1. Intractable left flank/abdominal pain with history of non-small cell lung cancer. Patient still has pain of left-sided abdominal pain left flank pain. Improved from admission. CT chest shows chronic fibrosis and stable left lower lobe consolidation. No significant change when compared to previous imaging. Patient follows up with Dr. Gold and is status post radiation therapy. Patient was initially treated with iv pain medications and po meds. Her pain has improved. Patient was advised to take over the counter pain medications as needed. She was evaluated this morning and is tolerating her PO diet well. She will be discharged home today. She says she has an appt with oncology in 2 wks scheduled. She will follow up with her PCP in one week. 2. Coronary artery disease status post stent placement Continue Plavix, continue statin. 3. Diabetes mellitus Continue low-dose insulin sliding scale. 4. Hypertension Continue metoprolol. 5. Rheumatoid arthritis Continue home meds for RA. Continue to follow up with PCP.
[2018-02-14 10:02] VITALS: O2SAT 95
[2018-02-14] MEDS: Enoxaparin Inj 40 MG/0.4 ML Syringe SQ SCH (10:04)
[2018-02-14] MEDS: Metoprolol Tartrate 50 MG Tablet PO SCH (10:05)
[2018-02-14] MEDS: predniSONE 5 MG Tablet PO SCH (10:05)
[2018-02-14] MEDS: sulfaSALAzine 500 MG Tablet PO SCH (10:05)
[2018-02-14] MEDS: Docusate Sodium 100 MG Capsule PO SCH (10:05)
[2018-02-14 13:43] VITALS: BP 142/63; PULSE 80; TEMP 97.8
== END 2018-02-14 11:53 | disposition home or self-care (01) ==
LOC: NEDA 11:50 → NEPE 11:50 → NEDA 18:47 → N04 18:58
PROVIDERS: ADMIT Hospitalist; ATTEND Hospitalist